=== PATIENT | male | born 1945 | race Caucasian/White ===

== ENCOUNTER 2020-10-08 10:42 | Outpatient (CLI) | payer MEDICARE, SELFPAY ==
--- NOTE | ~2020-10-08 | XR_ITS ---
EXAMINATION: XR foot RT min 3V DATE: 10/08/2020 11:35 INDICATION: Pain at the right first and second toes. TECHNIQUE: Dorsoplantar, two oblique and lateral views of the right foot were obtained. COMPARISON: Right ankle CT . FINDINGS: Diffuse osteopenia. Postoperative changes at the right ankle and hindfoot including a distal fibular osteotomy and internally fixed right tibiotalar arthrodesis with screws and lateral plate and screw f ixation. Chronic fracture of the distalmost screw of the lateral plate and screws which was present a t the time of a prior CT dated 03/06/2011. Normal alignment in the more anterior right mid and forefoo t. No fracture. Mild to moderate osteoarthritis at the first metatarsophalangeal joint. Mild osteoart hritis at several of the interphalangeal joints. Soft tissues are unremarkable. IMPRESSION: 1. No acute osseous abnormality. 2. Mild to moderate osteoarthritis at the first metatarsophalangeal joint and mild osteoarthritis at multiple interphalangeal joints. 3. Postoperative change of chronic internally fixed tibiotalar arthrodesis. 4. Diffuse osteopenia. Reviewed, dictated and finalized at location B. TS LEADERSHIP INSTRUCTOR IMPRESSION: 1. No acute osseous abnormality. 2. Mild to moderate osteoarthritis at the first metatarsophalangeal joint and m ild osteoarthritis at multiple interphalangeal joints. 3. Postoperative change of chronic internally fixed tibiotalar arthrodesis. 4. Diffuse osteopenia.
--- NOTE | ~2020-10-08 | XR_ITS ---
EXAMINATION: XR shoulder LT min 2V DATE: 10/08/2020 11:35 INDICATION: Chronic right shoulder pain TECHNIQUE: AP internally and externally rotated, AP oblique externally rotated and transscapular Y vi ews of the right shoulder were obtained. COMPARISON: None FINDINGS: Normal alignment. No fracture.Severe left glenohumeral osteoarthritis with essentially [id number] apposition, subarticular cystic change at the glenoid and prominent marginal osteophytes along the in feromedial aspect of the humeral head. Moderate acromioclavicular osteoarthritis with heterotopic oss ification cephalad to the joint line. Visualized portions of the lung are clear. Approximately 3 cm t hin wire-like metallic density in the subcutaneous tissues along the anterior proximal left upper arm . Soft tissues are otherwise unremarkable. IMPRESSION: 1. Severe left glenohumeral osteoarthritis and moderate acromioclavicular osteoarthritis. 2. Thin wire-like metallic foreign body in the subcutaneous tissues at the anterior proximal left upp er arm. Reviewed, dictated and finalized at location B. CH MIXER IMPRESSION: 1. Severe left glenohumeral osteoarthritis and moderate acromioclavicular osteo arthritis. 2. Thin wire-like metallic foreign body in the subcutaneous tissues at the ante rior proximal left upper arm.
--- NOTE | ~2020-10-08 | CT_ITS ---
EXAMINATION: CT lung screening DATE: 10/08/2020 11:37 INDICATION: Z87.891 - Personal history of nicotine dependence hx tobacco dependence, quit smk 1991 TECHNIQUE: Computed tomography (CT) of the chest was performed without intravenous contrast. Addition al 3D reconstructions utilizing coronal maximum intensity projection (MIP) were performed. Automated exposure control and iterative reconstruction technique were employed. The dose-length product was 14 3.16 mGy-cm. COMPARISON: None FINDINGS: 3 mm noncalcified right upper lobe nodule. 4 mm noncalcified pleural-based nodules in the right lower lobe. 2 mm calcified right lower lobe nodule. 7 mm groundglass nodule in the left upper lobe. Mild d iscoid atelectasis in the left lower lobe. No pneumonia, pulmonary edema or pleural effusion. Heart s ize is normal. Atherosclerotic coronary artery calcifications. No pericardial effusion. Thoracic aort a is normal in caliber. No pathologically enlarged thoracic lymphadenopathy. Calcified left hilar lym ph nodes consistent with old granulomatous disease. Moderate-sized sliding-type hiatal hernia. Diffus e hepatic steatosis. Multiple tiny splenic calcification consistent with old granulomatous disease. M oderate thoracic spondylosis. IMPRESSION: 1. Lung-RADS category 2: Benign appearance or behavior. Continue annual screening with noncontrast lo w-dose chest CT in 12 months. Reviewed, dictated and finalized at location B. ERY REPRESENTATIVE IMPRESSION: 1. Lung-RADS category 2: Benign appearance or behavior. Continue annual screeni ng with noncontrast low-dose chest CT in 12 months.
[2020-10-08 11:05] LABS: Hematocrit 44.9 % (37.0-46.0); Hemoglobin 15.4 g/dL (12.4-15.3); Mean Corpuscular HGB Conc 34.3 g/dL (32.0-36.0); Mean Corpuscular Hemoglobin 30.1 pg (27.0-31.0); Mean Corpuscular Volume 87.7 fL (78.0-102.0); Mean Platelet Volume 10.4 fl (8.7-11.0); Platelet Count Result 241 K/mm3 (150-420); Red Blood Count 5.12 M/mm3 (4.70-6.10); White Blood Count 7.9 K/mm3 (4.8-10.8)
[2020-10-08 11:57] LABS: Alanine Aminotransferase 31 U/L (16-63); Albumin Level 4.2 g/dL (3.4-5.0); Alkaline Phosphatase 81 U/L (46-116); Anion Gap 9 mmol/L (8-16); Aspartate Amino Transferase 14 U/L (15-37); Bilirubin,Total 0.7 mg/dL (0.00-1.00); Blood Urea Nitrogen 13 mg/dL (7-18); Calcium 9.3 mg/dL (8.5-10.1); Carbon Dioxide 28 mmol/L (21-32); Chloride 104 mmol/L (98-108); Estimated Glomerular Filt Rate 60; Glucose 138 mg/dL (70-99); Osmolality Calculated 294 mOsm/kg (285-295); Potassium 5.2 mmol/L (3.5-5.1); Sodium 141 mmol/L (136-145); Total Protein 7.2 g/dL (6.4-8.2); Uric Acid 6.6 mg/dL (3.5-7.2)
== END 2020-10-08 10:43 | disposition home or self-care (01) ==
PROVIDERS: PCP Family Medicine; Visit Provider Family Medicine
DX: M79.674 Pain in right toe(s) (principal); Z12.2 Encounter for screening for malignant neoplasm of respiratory organs; Z87.891 Personal history of nicotine dependence; M25.519 Pain in unspecified shoulder
CPT/HCPCS: 36415; 71271; 73030; 73630; 80053; 84550; 85027

== ENCOUNTER 2020-11-08 17:08 | Emergency (ER) | payer MEDICARE, SELFPAY ==
--- NOTE | ~2020-11-08 | CT_ITS ---
EXAMINATION: CT chest abdomen pelvis w con DATE: 11/08/2020 18:25 INDICATION: Chest and abdominal injury. TECHNIQUE: Computed tomography (CT) of the chest, abdomen, and pelvis was performed with 100 mL Omnip aque 350 intravenous contrast. Automated exposure control and iterative reconstruction technique were employed. The dose-length product was 733.34 mGy-cm. COMPARISON: Chest CT 10/08/2020 FINDINGS: CHEST CT: Again seen are a few scattered nodules in the lungs measuring up to 5 mm in right lower lobe, likely benign. No pleural effusion. The heart size is normal. There are coronary artery calcifications. No p ericardial effusion. 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 There is a large sliding h iatal hernia. There is a comminuted fractures involving the greater tuberosity and surgical neck of p roximal left humerus. There is severe osteoarthritis of left glenohumeral and acromioclavicular joint s. There are old healed bilateral rib fractures. ABDOMEN/PELVIS CT: In the right hepatic lobe, there is a 3.6 cm mass with peripheral interrupted puddling of contrast, c onsistent with a hemangioma. The gallbladder is normal. Calcifications in the spleen are consistent w ith old granulomatous disease. The pancreas and adrenal glands and left kidney are normal. There are cysts in right kidney measuring up to 4 mm. The prostate is mildly enlarged. There is diverticulosis of the colon without evidence of diverticulitis. There are no dilated loops of bowel. There are no pa thologically enlarged lymph nodes. There is no free intraperitoneal fluid. Partially visualized are b ilateral hydroceles. There is severe lumbar spondylosis. IMPRESSION: 1. Comminuted one-fracture of proximal left humerus. 2. Large sliding hiatal hernia. Reviewed, dictated and finalized at location A.
--- NOTE | ~2020-11-08 | XR_ITS ---
EXAMINATION: XR shoulder LT min 2V DATE: 11/08/2020 18:12 INDICATION: Left shoulder pain. TECHNIQUE: 2 views of left shoulder were obtained. COMPARISON: Left shoulder radiographs 10/08/2020 FINDINGS: There is a transverse fracture of the surgical neck of proximal left humerus. The distal fr acture fragment demonstrates mild impaction and 3 mm lateral displacement. There is severe osteoarthr itis of glenohumeral and acromioclavicular joints. There is a chronic curvilinear radiopaque foreign body in the upper arm. IMPRESSION: 1. One-part fracture of proximal left humerus. 2. Polyarticular osteoarthritis. Reviewed, dictated and finalized at location A.
[2020-11-08 17:19] VITALS: BP 183/95; PULSE 66; RESP 18; TEMP 36.7; O2SAT 99
[2020-11-08] MEDS: MORPHINE SULFATE (*CRX) 4 MG/ML INJ IV PUSH ×2 (17:31→18:35)
--- NOTE | 2020-11-08 17:36 | ED.GENADULT ---
HPI - General Adult General Chief complaint: Extremity Injury, Upper Stated complaint: left shoulder dislocation Time Seen by Provider: 11/08/20 17:10 Source: patient Mode of arrival: ambulatory Limitations: no limitations History of Present Illness HPI narrative: Patient is a 75-year-old male who presents with left shoulder chest trauma patient was training his horse when he was knocked down by the horse patient has since developed a hematoma to the anterior left upper chest and shoulder region with pain at this location denies any other injuries or complaints notes that the discomfort is moderate again worse with any activity or movement patient has not had anything for pain presents per private vehicle denies loss of consciousness or syncope Related Data Home Medications Medication Instructions Recorded Confirmed aspirin 81 mg tablet,delayed 81 mg PO DAILY 10/08/20 11/07/20 release Allergies Allergy/AdvReac Type Severity Reaction Status Date / Time No Known Allergies Allergy Verified 11/08/20 17:25 Review of Systems Review of Systems: All systems reviewed & are unremarkable except as noted in HPI and below PMFSH Past Medical History Medical History No active medical problems Social History Social History Smoking status: Never smoker Tobacco type: cigarettes Alcohol intake: never Substance use: never Substance use type: does not use Spiritual care concerns: No Exam Narrative: Exam Narrative: GENERAL: Well-appearing, well-nourished, uncomfortable, and in no acute distress. HEAD: Normocephalic, atraumatic. EYES: PERRLA and EOMI. ENT: Nares clear, no rhinorrhea or epistaxis. Mucous membranes moist. NECK: Supple. No adenopathy or masses. CHEST: Clear to auscultation. No respiratory distress. No wheezes rales or rhonchi HEART: Regular rate and rhythm. No murmur heard. Normal peripheral pulses. ABDOMEN: Soft, nontender, nondistended, EXTREMITIES: Swelling and tenderness of the left deltoid shoulder region with hematoma over the clavicle distally. No midline cervical thoracic or lumbar tenderness SKIN: Warm, dry, no rash. NEURO: No focal deficits. Alert and oriented x3. Cranial nerves II through XII grossly intact. Neurovascularly intact PSYCH: Normal mood and affect. Course Course Emergency Course: Patient in the room in no distress aware of case findings treatment plan and diagnosis patient with significant pain likely secondary to hematoma and fracture will be followed by orthopedic surgeon Dr. West discussion was made with him. Patient will go home and follow with orthopedic surgeon as planned. Consultations Consultation #1: Discussed case with orthopedist who will follow patient in clinic Date: 11/08/20 Time: 20:37 Vital Signs Vital signs: Vital Signs Temperature 98.0 F 11/08/20 17:19 Pulse Rate 66 11/08/20 17:19 Respiratory Rate 18 11/08/20 17:19 Blood Pressure 183/95 H 11/08/20 17:19 Pulse Oximetry 99 11/08/20 17:19 Temperature 98.0 F 11/08/20 17:19 Pulse Rate 66 11/08/20 17:19 Respiratory Rate 18 11/08/20 17:19 Blood Pressure 183/95 H 11/08/20 17:19 Pulse Oximetry 99 11/08/20 17:19 Medical Decision Making MDM Narrative Medical decision making narrative: Patients injury or pain is consistent with musculoskeletal etiology. No signs of neurological or vascular compromise on exam. Compartments and tisues are soft without signs of compartment syndrome. Pain is felt appropriate for further evaluation on an outpatient basis. ABCs and vital signs intact. Patient placed in immobilizer Vital Signs Vital Signs: Vital Signs Temperature 98.0 F 11/08/20 17:19 Pulse Rate 66 11/08/20 17:19 Respiratory Rate 18 11/08/20 17:19 Blood Pressure 183/95 H 11/08/20 17:19 Pulse Oximetry 99 11/08/20 17:19 Temperature 98.
[2020-11-08] MEDS: SODIUM CHLORIDE 0.9% IV 1,000 ML 999 ML IV CONT (17:47)
[2020-11-08 17:54] LABS: Basophils Absolute Auto 0.1 K/mm3 (0.0-0.1); Basophils Percent Auto 0.6 % (0.2-1.2); Eosinophils Absolute Auto 0.1 K/mm3 (0-0.3); Eosinophils Percent Auto 0.4 % (0-4.4); Hematocrit 41.8 % (42.0-52.0); Hemoglobin 14.7 g/dL (14.0-18.0); Immature Granulocyte Percent A 0.7 % (0-0.5); Lymphocytes Absolute Auto 1.04 K/mm3 (0.9-3.2); Lymphocytes Percent Auto 7.2 % (18.3-44.2); Mean Corpuscular HGB Conc 35.2 g/dl (32-36); Mean Corpuscular Hemoglobin 30.7 pg (26-34); Mean Corpuscular Volume 87.3 fl (80-100); Mean Platelet Volume 10.3 fl (7.4-10.4); Monocytes Absolute Auto 0.8 K/mm3 (0.1-0.6); Monocytes Percent Auto 5.7 % (2.6-8.5); Neutrophils Absolute Auto 12.3 K/mm3 (1.3-6.7); Neutrophils Percent Auto 85.4 % (45.5-73.1); Platelet Count Result 236 k/mm3 (150-375); Red Blood Count 4.79 M/mm3 (4.6-6.20); Red Cell Distribution Width 13.1 % (11.5-14.5); White Blood Count 14.4 K/mm3 (4.5-10.0)
[2020-11-08 18:03] LABS: INR 0.9; Partial Thromboplastin Time 25.6 SECONDS (22.3-36.8); Prothrombin Time 12.8 Seconds (11.1-14.7)
[2020-11-08 18:14] LABS: Anion Gap 9 mmol/L (8-16); Blood Urea Nitrogen 13 mg/dL (9-20); Calcium 8.4 mg/dL (8.4-10.2); Carbon Dioxide 22 mmol/L (22-30); Chloride 106 mmol/L (98-107); Estimated CRCL calculation 51 ml/min; Estimated Glomerular Filt Rate > 60; Glucose 201 mg/dL (75-110); Sodium 137 mmol/L (137-145)
[2020-11-08 18:23] LABS: Potassium 3.8 mmol/L (3.4-5.0)
[2020-11-08] MEDS: diazePAM (*CRX) 5 MG TABLET PO (19:07)
[2020-11-08] MEDS: HYDROmorphone HCL INJ (*CRX) 1 MG/ML SYR IV PUSH (20:01)
[2020-11-08] MEDS: HYDROcodone/acetaminophen (*CRX) 10-325 MG TABLET 1 TAB PO (20:58)
[2020-11-08 21:51] VITALS: BP 140/72; PULSE 78; RESP 20; O2SAT 99
== END 2020-11-08 21:53 | disposition home or self-care (01) ==
PROVIDERS: Emergency Medicine Emergency Medical Services; Emergency Provider Emergency Medicine; PCP Family Medicine
DX: S42.212A Unspecified displaced fracture of surgical neck of left humerus, initial encounter for closed fracture (principal); K44.9 Diaphragmatic hernia without obstruction or gangrene; M19.012 Primary osteoarthritis, left shoulder; W55.12XA Struck by horse, initial encounter
CPT/HCPCS: 36415; 71260; 73030; 74177; 80048; 85025; 85610; 85730; 96361; 96374; 96375; 96376; 99284; A9270; J1170; J2270; J7030; Q9967

== ENCOUNTER → 2020-11-12 00:25 | Outpatient (CLI) | payer MEDICARE, SELFPAY ==
[2020-11-12 19:29] LABS: SARS-CoV-2 RNA PCR Negative
== END ==
PROVIDERS: PCP Family Medicine; Visit Provider Surgery
DX: Z01.812 Encounter for preprocedural laboratory examination (principal); Z20.822 Contact with and (suspected) exposure to COVID-19
CPT/HCPCS: C9803; U0003; U0005

== ENCOUNTER 2020-11-15 01:48 | Day surgery (SDC) | payer MEDICARE, SELFPAY ==
[2020-11-07 12:13] VITALS: BMI 26.6
[2020-11-15 07:39] VITALS: BP 173/99; PULSE 69; RESP 20; TEMP 36.4; O2SAT 100; BMI 26.6
[2020-11-15] MEDS: LACTATED RINGERS 1,000 ML 150 ML IV CONT (07:50)
--- NOTE | 2020-11-15 08:43 | PM.IMHP ---
H&P: HPI History of Present Illness Date/Time: 11/15/20 08:43 Chief Complaint: positive colo guard Narrative: this is a 75-year-old man presents with a recent positive guard test. He has never had a colonoscopy before. He denies any family history of colon cancer. He denies any personal history of hematochezia melena. Review of Systems Review of Systems: All systems reviewed & are unremarkable except as noted in HPI and below Constitutional: Constitutional: Denies chills, Denies fever(s), Denies headache(s) and Denies weight loss Eyes: Eyes: Denies change in vision ENT: Denies dizziness, Denies headache(s), Denies neck mass and Denies throat swelling Cardiovascular: Cardiovascular: Denies chest pain, Denies lightheadedness and Denies dyspnea Respiratory: Respiratory: Denies cough, Denies dyspnea and Denies wheezing Gastrointestinal: Gastrointestinal: Denies abdominal pain, Denies change in bowel habits, Denies nausea and Denies vomiting Genitourinary: Genitourinary: Denies hematuria and Denies dysuria Musculoskeletal: Musculoskeletal: Reports as per HPI Integumentary/Breasts: Skin/Breast: Reports as per HPI Neurologic: Denies dizziness and Denies headache(s) Allergic/Immunologic: Allergic/Immunologic: Denies throat swelling and Denies wheezing PMFSH Past Medical History Medical History (Updated 11/12/20 @ 14:49 by Henrique West MD) Insomnia Need for vaccination against Streptococcus pneumoniae using pneumococcal conjugate vaccine 13 No active medical problems Toe pain, right Surgical History Surgical History (Updated 11/12/20 @ 13:14 by Qiana Melchor MA) History of intravascular stent placement (~07/10/12) Social History Social History Smoking status: Never smoker Tobacco type: cigarettes Alcohol intake: never Substance use: never Substance use type: does not use Living arrangements: alone Spiritual care concerns: No Meds Home Medications and Allergies Home Medications Medication Instructions Recorded Confirmed Type hydrocodone-acetaminophen 1 tablet PO Q6H PRN #20 tablet 11/08/20 11/15/20 Rx methocarbamol [Robaxin-750] 750 mg PO QID #10 tablet 11/08/20 11/15/20 Rx oxycodone-acetaminophen 5 mg-325 1 - 2 tablet PO Q4-6H PRN #30 11/12/20 11/15/20 Rx mg tablet tablet Allergies Allergy/AdvReac Type Severity Reaction Status Date / Time No Known Allergies Allergy Verified 11/15/20 07:06 Vital Signs Vital Signs - 24 hr 11/15/20 07:39 Temperature 36.4 C Pulse Rate 69 Respiratory Rate 20 Blood Pressure 173/99 H Pulse Oximetry 100 Exam Const: General: no acute distress and alert Orientation/consciousness: patient oriented x3 HENMT: Head: normocephalic and atraumatic Ears: hearing grossly normal bilaterally General nose exam: Normal nares present Mouth: Yes Normal oral and palatal mucosa present Eyes: Periorbital: periorbital findings normal Sclera: sclerae normal EOM: EOMs intact bilaterally Neck: Neck: normal visual inspection, no lymphadenopathy and trachea midline Chest: Chest palpation & inspection: normal inspection of the chest Resp: Effort & Inspection: normal respiratory effort Auscultation: clear to auscultation bilaterally Cardio: Jugular venous distension: no JVD Rate: regular rate Rhythm: regular rhythm Heart sounds: S1 normal heart sound present and S2 normal heart sound present Peripheral pulses: Peripheral pulses 2+ throughout GI: Inspection: normal to inspection GI Palp: Yes Soft to palpation, No Tenderness to palpation present (GI), No Guarding due to palpation present (GI) and No Rebound tenderness present Percussion: Yes normal to percussion Auscultation: normal bowel sounds : General: Yes no CVA tenderness Back/Spine/Pelvis: Back: no CVA tenderness Neuro: General: patient oriented x3, no focal motor deficits and CN's II-XI intact bilaterally Cogniti
--- NOTE | 2020-11-15 08:43 | WPDANESEPPF ---
Anes - Initial Pre Proc Eval Procedure: Operation Date: 11/15/20 08:30 Proposed Procedures p Colonoscopy - Deon Boswell DO Date/Time: 11/15/20 08:43 Surgeon: Deon Boswell DO Pre Op Diagnosis: positive cologuard Patient Data Age: 75 Gender: M Height: 5 ft 6 in Weight: 74.7 kg Last Vital Signs Temp 97.6 F 11/15/20 07:39 Pulse 69 11/15/20 07:39 Resp 20 11/15/20 07:39 BP 173/99 H 11/15/20 07:39 Pulse Ox 100 11/15/20 07:39 Allergies Allergy/AdvReac Type Severity Reaction Status Date / Time No Known Allergies Allergy Verified 11/15/20 07:06 Home Medications Medication Instructions Recorded Confirmed Type hydrocodone-acetaminophen 1 tablet PO Q6H PRN #20 tablet 11/08/20 11/15/20 Rx methocarbamol [Robaxin-750] 750 mg PO QID #10 tablet 11/08/20 11/15/20 Rx oxycodone-acetaminophen 5 mg-325 1 - 2 tablet PO Q4-6H PRN #30 11/12/20 11/15/20 Rx mg tablet tablet Patient hx anesthesia problems: none Family hx anesthesia problems: none PMFSH Past Medical History Medical History (Updated 11/12/20 @ 14:49 by Henrique West MD) Insomnia Need for vaccination against Streptococcus pneumoniae using pneumococcal conjugate vaccine 13 No active medical problems Toe pain, right Surgical History Surgical History (Updated 11/12/20 @ 13:14 by Qiana Melchor MA) History of intravascular stent placement (~07/10/12) Social History Social History Smoking status: Never smoker Tobacco type: cigarettes Alcohol intake: never Substance use: never Substance use type: does not use Living arrangements: alone Spiritual care concerns: No Anes - Eval Final PreProcedure Day of Procedure 11/15/20 08:43 Patient weight: overweight Heart: regular rate and rhythm Airway: Mallampati scale class II Neurological: alert and oriented Last oral intake: >/= 8 hours ASA classification: II Emergent: no Anesthetic plan: proceed Anesthesia type and monitoring: general GIVS and standard monitoring Informed Consent: The patient's anesthetic plan and its attendant risks and benefits were discussed with the patient/family/POA. Questions were solicited and answers provided to the satisfaction of the patient/family/POA.
[2020-11-15 09:22] VITALS: BP 121/63; PULSE 56; RESP 22; O2SAT 98
[2020-11-15 09:32] VITALS: BP 134/78; PULSE 58; RESP 24; O2SAT 100
[2020-11-15 09:42] VITALS: BP 139/70; PULSE 56; RESP 18; O2SAT 99
== END 2020-11-15 10:00 | disposition home or self-care (01) ==
PROVIDERS: PCP Family Medicine; Visit Provider Surgery
PROC: 0DJD8ZZ Inspection of Lower Intestinal Tract, Via Natural or Artificial Opening Endoscopic (ICD-10-PCS; CPT 45378; principal; 2020-11-15 08:30)
DX: R19.5 Other fecal abnormalities (principal); D12.5 Benign neoplasm of sigmoid colon; K57.30 Diverticulosis of large intestine without perforation or abscess without bleeding; K64.8 Other hemorrhoids; G47.00 Insomnia, unspecified
CPT/HCPCS: 45380; 88305; C9803; J2704; J7120; U0003; U0005

== ENCOUNTER 2021-01-14 09:15 | Outpatient (CLI) | payer MEDICARE, SELFPAY ==
--- NOTE | ~2021-01-14 | XR_ITS ---
EXAMINATION: XR foot RT min 3V DATE: 01/14/2021 09:32 INDICATION: Right foot pain. Stubbed second toe 7 months prior. TECHNIQUE: Dorsoplantar, oblique and lateral views of the right foot were obtained. COMPARISON: None. FINDINGS: Diffuse osteopenia. Chronic osteotomy of the distal fibula. Postoperative changes at the right ankle and hindfoot including a distal fibular osteotomy and internally fixed right tibiotalar arthrodesis w ith screws and lateral plate and screw fixation. Chronic fracture of the distalmost screw of the late ral plate and screws which was present at the time of a prior CT dated 03/06/2011. Normal alignment in the more anterior right mid and forefoot. No fracture. Mild to moderate osteoarthritis at the first metatarsophalangeal joint. Mild osteoarthritis at several of the interphalangeal joints. Soft tissues are unremarkable. IMPRESSION: 1. No acute osseous abnormality. 2. Mild to moderate osteoarthritis at the first metatarsophalangeal joint and mild osteoarthritis at multiple interphalangeal joints. 3. Postoperative change of chronic internally fixed tibiotalar arthrodesis. 4. Diffuse osteopenia. Reviewed, dictated and finalized at location A. IMPRESSION: 1. No acute osseous abnormality. 2. Mild to moderate osteoarthritis at the first metatarsophalangeal joint and m ild osteoarthritis at multiple interphalangeal joints. 3. Postoperative change of chronic internally fixed tibiotalar arthrodesis. 4. Diffuse osteopenia.
== END 2021-01-14 09:16 | disposition home or self-care (01) ==
LOC: CHSIMG 09:18
PROVIDERS: PCP Family Medicine; Visit Provider Podiatrist
DX: L97.511 Non-pressure chronic ulcer of other part of right foot limited to breakdown of skin (principal); M79.671 Pain in right foot
CPT/HCPCS: 73630

== ENCOUNTER 2021-02-04 07:35 | Outpatient (CLI) | payer MEDICARE, SELFPAY ==
--- NOTE | 2021-02-04 07:39 | EST_ITS ---
Patient Info Name: Chris Mabry Age: 75 years : 1945 Gender: Male Ht: 66 in Wt: 164 lbs BSA: 1.88 m2 HR: 55 bpm BP: 150 / 75 mmHg Heart Rhythm: Bradycardia Technical Quality: Excellent Exam Date: 02/04/2021 8:50 AM Exam Location: [facility] Patient Status: Outpatient Admit Date: 02/04/2021 Staff Ordering Physician: Lowell Mosley DO Attending Provider: Pillo PINEDA CEP Exercise Technologist: Meli Mariscal CRT Exercise Physician: Kassy Pineda CEP Exam Type: CA stress daniel w NM Study Info Indications ChestPain - A nuclear stress test was performed. History/Risk Factors NA. Summary 1. 1. Negative Lexiscan stress test for ischemic ST changes by ECG criteria. 2. 2. Baseline hypertension. 3. 3. Nuclear scan to follow and will be reported separately. Please correlate with it. Protocol: LEXISCAN Stress ECG Details Stage: REST Duration (min): 3 min : 22 sec HR (bpm): 55 SBP (mmHg): 150 DBP (mmHg): 75 Stage: REST Duration (min): 6 min : 54 sec HR (bpm): 53 SBP (mmHg): 150 DBP (mmHg): 75 Stage: STAGE 1 Duration (min): 0 min : 10 sec HR (bpm): 55 SBP (mmHg): 150 DBP (mmHg): 75 Stage: RECOVERY Duration (min): 0 min : 49 sec HR (bpm): 61 SBP (mmHg): 150 DBP (mmHg): 75 Stage: RECOVERY Duration (min): 1 min : 49 sec HR (bpm): 67 SBP (mmHg): 150 DBP (mmHg): 75 Stage: RECOVERY Duration (min): 2 min : 49 sec HR (bpm): 63 SBP (mmHg): 167 DBP (mmHg): 77 Stage: RECOVERY Duration (min): 3 min : 49 sec HR (bpm): 60 SBP (mmHg): 163 DBP (mmHg): 76 Stage: RECOVERY Duration (min): 4 min : 49 sec HR (bpm): 59 SBP (mmHg): 170 DBP (mmHg): 74 Stage: RECOVERY Duration (min): 5 min : 49 sec HR (bpm): 58 SBP (mmHg): 166 DBP (mmHg): 74 Stage: RECOVERY Duration (min): 6 min : 5 sec HR (bpm): 59 SBP (mmHg): 166 DBP (mmHg): 74 Rest HR: 53 bpm Peak HR: 67 bpm Rest Sys BP: 150 mmHg Peak Sys BP: 170 mmHg Max Pred HR: 145 bpm % Max Pred HR: 46 % Target HR: 123 bpm Max RPP: 11,390 bpm*mmHg Termination Reason: Completion of Protocol Cardiac Symptoms: None Total Time: 0 min : 10 sec Rest [place] BP: 75 mmHg Peak [place] BP: 74 mmHg Total Dose: 0.4 mg Resting ECG Sinus bradycardia, anterior infarct, age indeterminate, ST-T wave abnormality in lateral leads- consider ischemia. Stress ECG No abnormal ST/T wave changes with exercise. Arrhythmias None. Report Signatures
--- NOTE | 2021-02-04 12:03 | WPDCARIOSTRE ---
Nuclear Stress Test INDICATIONS Indications: Chest pain PROCEDURE Procedure Performed: Myocardial Perf Spect-Multi Procedure: Patient underwent a lexiscan stress test and immediately was injected with mCi of cardiolyte. Multiple tomographic images were obtained. These were of good quality. There is evidence of large size, severe apical, anteroapical and anterior perfusion defects with stress imaging. A separate resting images were performed after patient was injected with mCi of cardiolyte.Multiple tomographic images were obtained. These were of good quality. There is evidence of large size, severe apical perfection defect. In addition, there is a small size mild severity anterior and anteroapical perfusion defects with rest imaging. CONCLUSION Conclusion: 1. Abnormal myocardial perfusion imaging demonstrating a fixed large size, severe apical perfusion defect suggestive of apical infarct. In addition, there is [place]-infarct ischemia involving the anterior and anteroapical cunningham. 2. Left ventriculogram demonstrates apical akinesis and anteroapex hypokinesis. The measured left ventricular EF is moderate reduced at 44%. 3. TID score is elevated at 1.26 and LV does visually dilate with stress imaging which cannot r/o LM or triple vessel disease.
== END 2021-02-04 07:36 | disposition home or self-care (01) ==
LOC: CHSIMG 07:39
PROVIDERS: PCP Family Medicine; Visit Provider Family Medicine
DX: R07.9 Chest pain, unspecified (principal)
CPT/HCPCS: 78452; 93017; A9502; J2785

== ENCOUNTER 2021-03-18 15:28 | Outpatient (CLI) | payer MEDICARE, SELFPAY ==
--- NOTE | 2021-03-18 15:31 | ECG_ITS ---
Measurements Intervals [place] Rate: 58 P: 46 MN: 153 QRS: 26 QRSD: 95 T: 114 QT: 414 QTc: 409 Interpretive Statements SINUS BRADYCARDIA ANTEROLATERAL INFARCT, AGE INDETERMINATE BORDERLINE ST-T WAVE ABNORMALITY- HIGH LATERAL LEADS ABNORMAL ECG Electronically Signed On 03-18-2021 16:52:52 CDT by Eric Baker D.O.
== END 2021-03-18 15:29 | disposition home or self-care (01) ==
PROVIDERS: PCP Family Medicine; Visit Provider Internal Medicine Cardiovascular Disease
DX: R07.9 Chest pain, unspecified (principal)
CPT/HCPCS: 93005

== ENCOUNTER → 2021-03-30 03:45 | Outpatient (CLI) | payer MEDICARE, SELFPAY ==
[2021-03-31 01:36] LABS: SARS-CoV-2 RNA PCR Negative
== END ==
PROVIDERS: PCP Family Medicine; Visit Provider Specialist
DX: Z01.812 Encounter for preprocedural laboratory examination (principal); Z20.822 Contact with and (suspected) exposure to COVID-19
CPT/HCPCS: C9803; U0003; U0005

== ENCOUNTER 2021-04-03 02:05 | Day surgery (SDC) | payer MEDICARE, SELFPAY ==
[2021-04-03] VITALS (18 sets, daily range): BP systolic 136–163; BP diastolic 66–97; PULSE 48–63; RESP 11–20; TEMP 35.8–36.2; O2SAT 95–99; BMI 25.5
[2021-04-03 09:09] LABS: Basophils Absolute Auto 0.1 K/mm3 (0.0-0.1); Basophils Percent Auto 1.1 % (0.2-1.2); Eosinophils Absolute Auto 0.2 K/mm3 (0-0.3); Eosinophils Percent Auto 3.6 % (0-4.4); Hematocrit 46.4 % (42.0-52.0); Hemoglobin 15.6 g/dL (14.0-18.0); Immature Granulocyte Absolute 0.02 K/mm3 (0.00-0.031); Immature Granulocyte Percent A 0.3 % (0-0.5); Lymphocytes Absolute Auto 1.98 K/mm3 (0.9-3.2); Lymphocytes Percent Auto 29.9 % (18.3-44.2); Mean Corpuscular HGB Conc 33.6 g/dl (32-36); Mean Corpuscular Hemoglobin 28.9 pg (26-34); Mean Corpuscular Volume 86.1 fl (80-100); Mean Platelet Volume 10.3 fl (7.4-10.4); Monocytes Absolute Auto 0.6 K/mm3 (0.1-0.6); Monocytes Percent Auto 9.5 % (2.6-8.5); Neutrophils Absolute Auto 3.7 K/mm3 (1.3-6.7); Neutrophils Percent Auto 55.6 % (45.5-73.1); Platelet Count Result 220 k/mm3 (150-375); Red Blood Count 5.39 M/mm3 (4.6-6.20); Red Cell Distribution Width 13.5 % (11.5-14.5); White Blood Count 6.6 K/mm3 (4.5-10.0)
[2021-04-03 09:30] LABS: Anion Gap 9 mmol/L (8-16); Blood Urea Nitrogen 11 mg/dL (9-20); Calcium 9.4 mg/dL (8.4-10.2); Carbon Dioxide 24 mmol/L (22-30); Chloride 104 mmol/L (98-107); Estimated CRCL calculation 56 ml/min; Estimated Glomerular Filt Rate > 60; Glucose 137 mg/dL (65-110); Potassium 3.9 mmol/L (3.4-5.0); Sodium 137 mmol/L (137-145)
--- NOTE | 2021-04-03 11:10 | WPDMODSED ---
Moderate Sedation Note-Pt Data Patient Data Diagnosis: history of coronary artery disease with previous PCI to OM1 extensive peripheral vascular disease anticipating surgical revascularization of the lower extremity abnormal nuclear stress test suggesting anteroapical infarction Present Complaint: no active anginal complaints Procedure to be performed/Plan: coronary angiography left ventriculography Allergies Allergy/AdvReac Type Severity Reaction Status Date / Time No Known Allergies Allergy Verified 04/03/21 09:14 Home Medications Medication Instructions Recorded Confirmed Type hydrocodone 5 mg-acetaminophen 325 1 tablet PO Q8H PRN #30 tablet 01/14/21 04/02/21 Rx mg tablet quetiapine 50 mg tablet See Rx Instructions .ROUTE 03/04/21 03/18/21 Rx .COMPLEX #30 tablet aspirin 81 mg tablet,delayed 81 mg PO DAILY 03/18/21 04/02/21 History release simvastatin 10 mg tablet 10 mg PO DAILY 03/18/21 04/03/21 History Current Medications: Active Medications Sodium Chloride (Normal Saline Iv) 500 mls @ 100 mls/hr IV CONT .Q5H BLANCA Sodium Chloride (Normal Saline Iv) 1,000 mls @ 125 mls/hr IV CONT .Q8H ONE Stop: 04/03/21 19:08 Sedation/Anesthesia: No previous sedation/anesthesia problems (including family history). [facility] Past Medical History Medical History Insomnia Need for vaccination against Streptococcus pneumoniae using pneumococcal conjugate vaccine 13 No active medical problems Toe pain, right Surgical History Surgical History History of intravascular stent placement (~07/10/12) Social History Social History Smoking status: Former smoker Tobacco type: cigarettes Alcohol intake: never Substance use: never Substance use type: does not use Spiritual care concerns: No Mod Sed Physical Exam Physical Exam Pre Procedural Exam: Normal: Throat, Airway, Lungs, Heart Size, Heart Rate, Heart Rhythm and Neuro Exam and Variation: Appearance ( pleasant short-statured man) and Extremities ( no edema poor distal arterial pulses) Hours since solid foods: 12 Hours since liquid intake: 12 Mallampati Classification: class II Internal Medicine - PN: Obj Da Vital Signs Vital Signs: Vital Signs - 24 hr 04/03/21 09:15 Temperature 36.2 C L Pulse Rate 60 Respiratory Rate 20 Blood Pressure 153/84 H Pulse Oximetry 98 Meds/Results Medications: Active Medications Generic Name Dose Route Start Last Admin Trade Name Giovanni PRN Reason Stop Dose Admin Sodium Chloride 500 mls @ 100 mls/hr 04/03/21 08:30 Normal Saline Iv IV CONT .Q5H BLANCA Sodium Chloride 1,000 mls @ 125 mls/hr 04/03/21 11:09 Normal Saline Iv IV CONT 04/03/21 19:08 .Q8H ONE Labs CBC & Chem 7: 04/03/21 08:45 04/03/21 08:45 Labs: Laboratory Results - last 24 hr 04/03/21 04/03/21 08:45 08:45 WBC 6.6 RBC 5.39 Hgb 15.6 Hct 46.4 MCV 86.1 MCH 28.9 MCHC 33.6 RDW 13.5 Plt Count 220 MPV 10.3 Immature Gran % (Auto) 0.3 Neut % (Auto) 55.6 Lymph % (Auto) 29.9 Rice % (Auto) 9.5 H Eos % (Auto) 3.6 Baso % (Auto) 1.1 Lymph # (Auto) 1.98 Rice # (Auto) 0.6 Eos # (Auto) 0.2 Baso # (Auto) 0.1 Abs Immat Gran (auto) 0.02 Absolute Neuts (auto) 3.7 Absolute Nucleated RBC 0.0 Nucleated RBC % 0.0 Sodium 137 Potassium 3.9 Chloride 104 Carbon Dioxide 24 Anion Gap 9 BUN 11 Creatinine 0.90 Estim Creat Clear Calc 56 Estimated GFR > 60 Glucose 137 H Calcium 9.4 ASA Classification/Sedation ASA Classification/Sedation ASA Class: II Emergent: No Risks: Risks, benefits and alternatives explained and patient/family accepted plan for sedation. Patient re-evaluated immediately prior to sedation.
--- NOTE | 2021-04-03 11:12 | WPDCARDPROC ---
Cardiac Cath Procedure Note Date of procedure:: 04/03/21 Performing physician:: Shahram Rod MD Indication:: coronary artery disease with abnormal nuclear stress test peripheral vascular disease anticipating surgical revascularization Brief clinical history:: this 75-year-old man with coronary disease describing previous stenting of the OM circumflex branch at another hospital. He is not experiencing anginal symptoms. A nuclear stress test was done in anticipation of the surgical risk assessment and demonstrates evidence of previous anteroapical infarction. Procedure Procedure performed:: Coronary angiogram left ventriculogram Sedation/Medication given:: fentanyl 50 mg Versed 2 mg case start time was 10:37 a.m. case end time 11:03 a.m. sedation provided by Olivia Padilla RN, trained observer Access site:: left femoral artery Estimated blood loss:: 20 cc Procedure note:: patient was brought to the cardiac catheterization lab where the right left femoral triangles were prepped and draped in usual fashion. Anesthesia was provided in the left femoral triangle with 1% lidocaine. I could not feel a pulse in the right femoral artery and for but palpable pulse on the left side. The left femoral artery was punctured and I used a Bernard wire to access the central aortic circulation and then a 5 Vincentian JR4 catheter was advanced into the aorta over the wooly wire. The right coronary artery was then injected using this catheter orthogonal views. This was then exchanged using a 260 J-wire to advance a 5 Vincentian FL4 catheter to the central aorta engaging and injecting the left coronary artery multiple projections. After this the same long exchange wire was used to place a 5 Vincentian angled pigtail catheter into the central aorta and into the left ventricle. The left ventricle was injected in the [place] projection for LV g and central hemodynamics were measured. Following this the cineangiograms were reviewed and the case was terminated. The left femoral artery sheath was flushed and the patient was taken to the holding area for manual sheath removal. Procedure was well tolerated there were no apparent complications did not have any evidence of a groin hematoma upon leaving the construction or leak gang laborer. Findings:: Hemodynamics: The central aortic pressure is 1 36 over 52 left ventricle 136 over 5 end-diastolic 14 there is no systolic gradient on pullback over the aortic valve. Left ventricle: The LV appears to be normal in size the mid to apical anterior wall is akinetic the remainder of the LV contracts reasonably well the global ejection fraction is visually estimated to be 40% the left main coronary artery is calcified but medium in caliber and otherwise patent the left anterior descending is a medium caliber artery with a proximal discrete high-grade stenosis of about 80%. The LAD is then free of significant lesions still the midportion where it appears to be 100% occluded and then reconstituted by antegrade bridging collaterals the mid to the apical portion of the LAD that is filled by these collaterals is very small and diffusely diseased circumflex is a moderate caliber artery giving rise to the marginal branches the 1st OM branch has visible stent material in it and this segment is nicely patent with no loss of lumen. The circumflex is otherwise moderately diffusely disease there is a terminal a very small circumflex marginal branch that has about 80% stenosis. The right coronary artery is large in caliber and dominant to the posterior circulation there is a proximal 60% stenosis in the RCA the trunk of the vessel is otherwise free of significant lesions the RPDA is very small and diffusely disease there are 2 areas where there is 70-80% stenosis in the small distal portion of the RPDA. The RPL branch is small but free of significant lesions. Conclusion:: 1. Right coronary dominant circulation with some rather severe diffuse coronary camille
--- NOTE | 2021-04-03 17:55 | SUR.PHASEII ---
DISCHARGE INSTRUCTIONS GIVEN AND REVIEWED W/ PT. ALL QUESTIONS ANSWERED. VOICED UNDERSTANDING OF ALL. DISCHARGED HOME, OUT VIA WC TO FRIEND'S WAITING CAR, WITH ALL PERSONAL BELONGINGS AND DISCHARGE PACKET. VOICES NO C/O. NO DISTRESS NOTED.
== END 2021-04-03 17:55 | disposition home or self-care (01) ==
PROVIDERS: PCP Family Medicine; Visit Provider Specialist
PROC: 4A023N7 Measurement of Cardiac Sampling and Pressure, Left Heart, Percutaneous Approach (ICD-10-PCS; CPT 93452; principal; 2021-04-03 10:00)
DX: I25.10 Atherosclerotic heart disease of native coronary artery without angina pectoris (principal); Z95.5 Presence of coronary angioplasty implant and graft; E78.5 Hyperlipidemia, unspecified; I73.9 Peripheral vascular disease, unspecified; Z87.891 Personal history of nicotine dependence; Z79.82 Long term (current) use of aspirin; Z79.899 Other long term (current) drug therapy
CPT/HCPCS: 36415; 80048; 85025; 93458; A9270; C1769; C1887; C1894; C9803; J0583; J1644; J2250; J3010; J7040; U0003; U0005

== ENCOUNTER 2021-04-11 13:03 | Outpatient (CLI) | payer MEDICARE, SELFPAY ==
--- NOTE | 2021-04-11 13:21 | ECHO_ITS ---
Patient Info Name: Chris Mabry Age: 75 years : 1945 Gender: Male Ht: 66 in Wt: 165 lbs BSA: 1.88 m2 HR: 51 bpm BP: 142 / 78 mmHg Exam Date: 04/11/2021 1:26 PM Exam Location: [facility] Patient Status: Outpatient Admit Date: 04/11/2021 Staff Ordering Physician: Eric Baker DO Paper Production Engineer: Manish Vega RDCS, RT Attending Provider: Eric Baker DO Referring Physician: Samuel GAXIOLA; Exam Type: CA echo doppler color flow Study Info Indications R07.9 - Chest pain, unspecified Complete two-dimensional, color flow and Doppler transthoracic echocardiogram is performed. Strain analysis performed. Summary 1. Complete two-dimensional, color flow and Doppler transthoracic echocardiogram is performed. 2. Left ventricular chamber dimension is normal. 3. Left ventricular systolic function is normal, estimated at 55-60%. 4. There is moderately increased left ventricular wall thickness. 5. The left ventricular diastolic function is grade I diastolic dysfunction. 6. E/e' 13 is mildly elevated. 7. Global longitudinal strain is abnormal at -13.2%. 8. There is mild aortic valve regurgitation. 9. There is mild mitral valve regurgitation. Left Ventricle E/e' 13 is mildly elevated. Global longitudinal strain is abnormal at -13.2%. Left ventricular chamber dimension is normal. Left ventricular systolic function is normal, estimated at 55-60%. There is moderately increased left ventricular wall thickness. The left ventricular diastolic function is grade I diastolic dysfunction. Right Ventricle Right ventricular chamber dimension is normal. Right ventricular systolic function is normal. Left Atria Left atrial chamber dimension is normal. Right Atria Right atrial chamber dimension is normal. Aortic Valve The aortic valve is trileaflet. There is no aortic valve stenosis. There is mild aortic valve regurgitation. Pulmonic Valve There is no pulmonic regurgitation. Mitral Valve There is no mitral valve stenosis. There is mild mitral valve regurgitation. Tricuspid Valve There is no tricuspid valve regurgitation. Pericardium/Pleural There is no pericardial effusion. Inferior Vena Cava Normal inferior vena cava with >50% collapse upon inspiration consistent with normal right atrial pressure, 5 mmHg. Aorta The aortic root size at the sinus of Valsalva is normal. Left Ventricular Outflow Tract Name Value Normal LVOT 2D LVOT Diameter 2.0 cm LVOT Doppler LVOT Peak Velocity 84 cm/s LVOT Peak Gradient 3 mmHg LVOT Mean Gradient 1 mmHg LVOT VTI 19 cm LVOT VTI/AV VTI Ratio 0.8 LVOT Stroke Volume 58 ml Mitral Valve Name Value Normal MV Doppler MV Decel Robertson 1
[2021-04-11 13:53] LABS: Cholesterol 157 mg/dL (0-200); HDL Direct 57 mg/dL (40-60); LDL Cholesterol Calculated 85 mg/dL (<130); Triglycerides 74 mg/dL (0-150)
== END 2021-04-11 13:04 | disposition home or self-care (01) ==
PROVIDERS: PCP Family Medicine; Visit Provider Internal Medicine Cardiovascular Disease
DX: E78.5 Hyperlipidemia, unspecified (principal); R07.9 Chest pain, unspecified
CPT/HCPCS: 36415; 80061; 93306

== ENCOUNTER 2021-05-09 09:28 | Outpatient (CLI) | payer MEDICARE, SELFPAY ==
[2021-05-09 09:40] LABS: Basophils Absolute Auto 0.08 K/mm3 (0.00-0.10); Basophils Percent Auto 1.3 % (0.0-1.0); Eosinophils Absolute Auto 0.23 K/mm3 (0.02-0.50); Eosinophils Percent Auto 3.6 % (1.0-6.0); Hematocrit 43.5 % (37.0-46.0); Hemoglobin 14.8 g/dL (12.4-15.3); Immature Granulocyte Absolute 0.02 K/mm3 (0.00-0.00); Immature Granulocyte Percent A 0.3 % (0.0-0.0); Lymphocytes Absolute Auto 2.09 K/mm3 (1.10-4.50); Lymphocytes Percent Auto 32.9 % (18.0-42.0); Mean Corpuscular Hemoglobin 29.5 pg (27.0-31.0); Mean Corpuscular Volume 86.8 fL (78.0-102.0); Monocytes Percent Auto 9.4 % (2.0-11.0); Neutrophils Absolute Auto 3.3 K/mm3 (1.7-7.2); Neutrophils Percent Auto 52.5 % (50.0-70.0); Platelet Count Result 227 K/mm3 (150-420); Red Blood Count 5.01 M/mm3 (4.70-6.10); Red Cell Distribution Width 13.4 % (11.6-14.4); White Blood Count 6.4 K/mm3 (4.8-10.8)
[2021-05-09 09:54] LABS: Prothrombin Time 10.9 Seconds (9.50-12.10)
[2021-05-09 10:57] LABS: Anion Gap 11 mmol/L (8-16); Blood Urea Nitrogen 16 mg/dL (7-18); Calcium 8.8 mg/dL (8.5-10.1); Carbon Dioxide 25 mmol/L (21-32); Chloride 106 mmol/L (98-108); Estimated Glomerular Filt Rate > 60; Glucose 143 mg/dL (70-99); Osmolality Calculated 297 mOsm/kg (285-295); Potassium 4.1 mmol/L (3.5-5.1); Sodium 142 mmol/L (136-145)
== END 2021-05-09 09:29 | disposition home or self-care (01) ==
LOC: CHSLAB 09:32
PROVIDERS: PCP Family Medicine
DX: I25.118 Atherosclerotic heart disease of native coronary artery with other forms of angina pectoris (principal)
CPT/HCPCS: 36415; 80048; 85025; 85610

== ENCOUNTER 2021-06-25 14:52 | Outpatient (CLI) | payer MEDICARE, SELFPAY ==
--- NOTE | ~2021-06-25 | XR_ITS ---
EXAMINATION: XR toe 1st RT min 2V DATE: 06/25/2021 15:29 INDICATION: Right great toe pain. Injury. TECHNIQUE: 3 views of right great toe were obtained. COMPARISON: Right foot radiograph 01/14/2021 FINDINGS: Bone alignment is normal. There is a nondisplaced stellate fracture of tuft of first distal phalanx. There is mild osteoarthritis of first metatarsophalangeal joint. There is instrumentation o f the tibia and talus. IMPRESSION: 1. Nondisplaced stellate fracture of tuft of first distal phalanx. Reviewed, dictated and finalized at location A. OR ADMINISTRATIVE ASSOCIATE
== END 2021-06-25 14:53 | disposition home or self-care (01) ==
PROVIDERS: PCP Family Medicine; Visit Provider Family Medicine
DX: M79.674 Pain in right toe(s) (principal)
CPT/HCPCS: 73660

== ENCOUNTER 2021-07-10 08:04 | Outpatient (RCR) | payer MEDICARE, SELFPAY ==
[2021-07-10 08:31] VITALS: BMI 26.6
== END 2021-08-27 09:13 | disposition home or self-care (01) ==
LOC: ANHWOC 08:04
PROVIDERS: PCP Family Medicine; Visit Provider Nurse Practitioner Family
DX: S91.101D Unspecified open wound of right great toe without damage to nail, subsequent encounter (principal)
CPT/HCPCS: 99212; G0463

== ENCOUNTER 2021-07-10 08:38 | Emergency (ER) | payer MEDICARE, SELFPAY ==
[2021-07-10] VITALS (64 sets, daily range): BP systolic 118–166; BP diastolic 56–118; PULSE 52–69; RESP 11–24; TEMP 36.8; O2SAT 90–100
--- NOTE | ~2021-07-10 | US_ITS ---
EXAMINATION: US art doppler w press SHIVANI BANEGAS EXAM DATE: 07/10/2021 12:38 INDICATION: Right 1st toe wound, poor circulation. Hypertension. TECHNIQUE: Segmental pressures and plethysmographic and Doppler waveforms of the brachial and lower e xtremity arteries were obtained. There is no prior study for comparison. FINDINGS: Right and left brachial artery pressures of 140 mm Hg and 158 mm Hg, respectively, are concordant (no rmal difference <= 30 mmHg). The right and left thigh-brachial pressure indices are 0.44, 0.84, resp ectively (normal > 1.2). RIGHT LEG: The ankle-brachial index (MARIA ESTHER) is 0.27 (normal >= 0.9-1). The great toe-brachial index could not be obtained (open wound). The lower extremity ratios, segmental pressure gradients as follows; Proximal superficial femoral artery:- 0.44 (70 mmHg). Distal superficial femoral artery: ----- 0.17 (27 mmHg). Popliteal: 0.51 (80 mmHg). Dorsalis pedis: 0.27 (43 mmHg). Posterior tibial: No signal ( mmHg). (Normal gradients <= 20-30 mmHg between adjacent levels on the same leg or the same levels on the two legs). Arterial waveforms are monophasic. LEFT LEG: The ankle-brachial index (MARIA ESTHER) is 0.59 (normal >= 0.9-1). The great toe-brachial index (TBI) is 0.50 (normal >= 0.65). The lower extremity ratios, segmental pressure gradients as follows; Proximal superficial femoral artery:- 0.84 (133 mmHg). Distal superficial femoral artery: ----- 0.70 (111 mmHg). Popliteal: 0.70 (110 mmHg). Dorsalis pedis: 0.59 (94 mmHg). Posterior tibial: No signal ( mmHg). (Normal gradients <= 20-30 mmHg between adjacent levels on the same leg or the same levels on the two legs). Arterial waveforms are monophasic. IMPRESSION: 1. Right ankle-brachial index 0.27, severely decreased. 2. Left ankle-brachial index 0.59, moderately decreased. 3. Segmental pressures as above, with suspicion of inflow stenosis on the right. Reviewed, dictated and finalized at location A. T EDGER IMPRESSION: 1. Right ankle-brachial index 0.27, severely decreased. 2. Left ankle-brachial index 0.59, moderately decreased. 3. Segmental pressures as above, with suspicion of inflow stenosis on the righ t.
--- NOTE | ~2021-07-10 | XR_ITS ---
EXAMINATION: XR foot RT min 3V DATE: 07/10/2021 09:15 INDICATION: Right great toe infection. TECHNIQUE: Dorsoplantar, two oblique and lateral views of the right foot were obtained. COMPARISON: Radiographs dated 01/24/2021 and 06/25/2021 FINDINGS: Diffuse osteopenia. Postoperative change of prior right ankle arthrodesis with lateral plate and scre w fixation along the distal fibula and multiple screws in the distal tibia spanning the ankle joint. The inferior most screw of the lateral plate and screws is chronically fractured. The recent nondispl aced intra-articular fracture at the lateral rim of the distal head of the right first proximal phala nx appears less distinct suggesting interval healing. No cortical erosions, periosteal reaction or os teolysis to suggest osteomyelitis. Mild polyarticular osteoarthritis at the first metatarsophalangeal and several tarsal metatarsal and interphalangeal joints. IMPRESSION: 1. No acute osseous abnormality or evidence of osteomyelitis. 2. Healing nondisplaced fracture at the right first proximal phalanx. 3. Stable appearance of an internally fixed right ankle arthrodesis. Reviewed, dictated and finalized at location A. FIC RATE ANALYST
--- NOTE | 2021-07-10 08:50 | ED.WOUNDLAC ---
HPI - Wound/Laceration General Chief Complaint: Extremity Injury, Lower Stated Complaint: Infection R 1st toe Time Seen by Provider: 07/10/21 08:50 Source: patient Mode of arrival: wheelchair Limitations: no limitations History of Present Illness HPI narrative: Patient is a 75-year-old male with a history of coronary artery disease who is presenting for evaluation of right great toe wound. Patient was seen on June 25 after his horse stepped on his foot (patient had a tennis shoe and sock on) causing a complete nail avulsion to the right great toe and significant laceration. Patient was seen at [facility], the wound was repaired. Patient was discharged home and soon thereafter began to have findings concerning for infection. With increased redness, pain, and swelling. Wound care was consulted and patient was placed on oral antibiotics, Keflex. Patient was told that he had fractures in his foot as well. Patient reports increasing pain in that foot, patient has been unable to ambulate. He reports significant swelling, redness, tightness in the foot. No streaking erythema. There is some mild bruising at the site. Patient denies any fever, chills, nausea, vomiting. No history of skin infections in the past. He is not diabetic. Patient states that the pain has been so severe he has been unable to ambulate. He is taking oral opiate medication for the pain. Related Data Home Medications Medication Instructions Recorded Confirmed aspirin 81 mg tablet,delayed 81 mg PO DAILY 03/18/21 07/10/21 release Allergies Allergy/AdvReac Type Severity Reaction Status Date / Time No Known Allergies Allergy Verified 07/10/21 08:47 Review of Systems Review of Systems: CONSTITUTIONAL: Denies fever, chills, or sweats. EYES: Denies visual changes, redness, or discharge. ENT: Denies rhinorrhea, congestion, sore throat, or otalgia. CARDIOVASCULAR: Denies chest pain, palpitations, or edema. RESPIRATORY: Denies cough or dyspnea. GASTROINTESTINAL: Denies abdominal pain, nausea, vomiting, or diarrhea. GENITOURINARY: Denies dysuria or hematuria. SKIN: Patient reports laceration, wound to right great toe with swelling, redness, bruising. MUSCULOSKELETAL: Denies back pain, joint pain, or myalgia. NEUROLOGIC: Denies headache, numbness, or weakness. [facility] Past Medical History Medical History Insomnia Need for vaccination against Streptococcus pneumoniae using pneumococcal conjugate vaccine 13 No active medical problems Toe pain, right Surgical History Surgical History History of intravascular stent placement (~07/10/12) Social History Social History Smoking status: Never smoker Alcohol intake: never Substance use: never Substance use type: does not use Spiritual care concerns: No Exam Narrative: GENERAL: Awake, alert, conversant HEAD: Normocephalic, atraumatic. EYES: PERRLA and EOMI. ENT: Nares clear, no rhinorrhea or epistaxis. Mucous membranes moist. NECK: Supple. CHEST: No respiratory distress, breathing even and non labored HEART: Regular rate, sinus rhythm ABDOMEN:Non distended, non tender EXTREMITIES: Normal range of motion in the right ankle, there is some mild edema of the right forefoot, right great toe. There is ecchymosis. There is a wound with some stitches that seem buried into it. There is ecchymosis present without crepitus. No bullae. No vesicles. No linear streaking. The toe is extremely tender to palpation. I did not attempt range of motion due to the patient's degree of pain. The extremity is warm and well-perfused. SKIN: Warm, wound to right great toe NEURO:No focal deficits. Alert and oriented x3 Course Consultations Consultation #1: Dr. West was contacted. He states he is not concerned regarding the fracture
[2021-07-10 09:09] LABS: Basophils Absolute Auto 0.1 K/mm3 (0.0-0.1); Basophils Percent Auto 0.8 % (0.2-1.2); Eosinophils Absolute Auto 0.2 K/mm3 (0-0.3); Eosinophils Percent Auto 2.4 % (0-4.4); Hematocrit 39.3 % (42.0-52.0); Hemoglobin 13.8 g/dL (14.0-18.0); Immature Granulocyte Absolute 0.02 K/mm3 (0.00-0.031); Immature Granulocyte Percent A 0.2 % (0-0.5); Lymphocytes Absolute Auto 2.05 K/mm3 (0.9-3.2); Mean Corpuscular HGB Conc 35.1 g/dl (32-36); Mean Corpuscular Hemoglobin 30.7 pg (26-34); Mean Corpuscular Volume 87.3 fl (80-100); Mean Platelet Volume 9.9 fl (7.4-10.4); Monocytes Absolute Auto 0.7 K/mm3 (0.1-0.6); Monocytes Percent Auto 8.3 % (2.6-8.5); Neutrophils Absolute Auto 5.8 K/mm3 (1.3-6.7); Neutrophils Percent Auto 65.3 % (45.5-73.1); Platelet Count Result 282 k/mm3 (150-375); Red Cell Distribution Width 13.4 % (11.5-14.5); White Blood Count 8.9 K/mm3 (4.5-10.0)
[2021-07-10 09:27] LABS: Alanine Aminotransferase 25 U/L (4-50); Albumin Level 4.6 g/dL (3.5-5.1); Alkaline Phosphatase 93 U/L (38-126); Anion Gap 9 mmol/L (8-16); Aspartate Amino Transferase 28 U/L (17-59); Bilirubin,Total 0.8 mg/dL (0.2-1.3); Blood Urea Nitrogen 16 mg/dL (9-20); CRP < 0.5 mg/dL (<1.0); Calcium 9.5 mg/dL (8.4-10.2); Carbon Dioxide 22 mmol/L (22-30); Chloride 103 mmol/L (98-107); Estimated CRCL calculation 56 ml/min; Estimated Glomerular Filt Rate > 60; Glucose 138 mg/dL (65-110); Potassium 3.8 mmol/L (3.4-5.0); Sodium 134 mmol/L (137-145)
[2021-07-10 10:05] LABS: Erythrocyte Sedimentation Rate 30 mm/hr (0-20)
--- NOTE | 2021-07-10 10:20 | PC.NURSE ---
Pt requested pain medication, ensured pt i was waiting for orders for medication, Dr. Suggs aware,
--- NOTE | 2021-07-10 10:30 | PC.NURSE ---
Dr. Suggs spoke with patient and updated pt on plan, Dr. Pagan states she is putting in pain medications and antibiotics now
[2021-07-10] MEDS: MORPHINE SULFATE (*CRX) 4 MG/ML INJ IV PUSH (10:36)
[2021-07-10] MEDS: ONDANSETRON INJ 4 MG/2 ML VIAL IV PUSH (10:37)
[2021-07-10] MEDS: MORPHINE SULFATE (*CRX) 2 MG/ML INJ IV PUSH ×3 (12:39→20:19)
--- NOTE | 2021-07-10 16:06 | PC.NURSE ---
ordered pt a radhay informed pt that he will be npo at midnight
[2021-07-10] MEDS: oxyCODONE HCL (*CRX) 5 MG TAB IR PO ×2 (17:02→21:22)
--- NOTE | 2021-07-10 18:03 | PM.CNGS ---
Assessment and Plan Assessment and plan (1) Right foot infection: Code(s): L08.9 - Local infection of the skin and subcutaneous tissue, unspecified Status: Acute Assessment and Plan: Patient has evidence of significant infection and probably gangrenous changes of his right great toe. His injury resulted in a nondisplaced fracture of the distal phalanx with a laceration consistent with an open fracture. It appears he is at high risk for right great toe amputation. I discussed this with Dr. robles in the emergency room and have highly recommended transfer to a facility that provides peripheral vascular expertise as well as orthopedic expertise in the foot and ankle. (2) Peripheral vascular disease: Code(s): I73.9 - Peripheral vascular disease, unspecified Status: Chronic Assessment and Plan: Severe peripheral vascular disease with evidence of inflow and distal disease both. Patient needs evaluation and management with vascular surgery. Does not appear at all a toe amputation would heal with his present vascular status. (3) Fracture of distal phalanx of great toe: Code(s): S92.423A - Displaced fracture of distal phalanx of unspecified great toe, initial encounter for closed fracture Status: Acute Assessment and Plan: From injury on 06/25 (4) CAD (coronary artery disease): Code(s): I25.10 - Atherosclerotic heart disease of [place] coronary artery without angina pectoris Status: Chronic Assessment and Plan: Has had coronary stents placed both in March and most recently 2 months ago at [facility]. Presumably these are drug-eluting stents (5) Antiplatelet or antithrombotic long-term use: Code(s): Z79.02 - ocean transportation intermediary (current) use of antithrombotics/antiplatelets Status: Chronic Assessment and Plan: Patient taking Brilinta which is unlikely to be able to be discontinued for surgery as he has had recent coronary stenting. History of Present Illness Consult details Consult date: 07/10/21 Reason for consult: other (Pain and infection right great toe) Requesting physician: Beverley Suggs MD Narrative: Patient was seen in the emergency room the rear today around 11:30 a.m.. He presented to the emergency room due to progressive and severe pain with swelling and black and skin of his right great toe. He suffered an injury on 06/25 when a horse stepped on his right great toe. X-ray showed this caused a tuft fracture of the distal phalanx that was nondisplaced. Records show that the nail was avulsed and there was a nail bed laceration. The laceration was closed with nylon suture. He was treated with Keflex. He had severe pain with the toe after the wound closure. He also had bleeding which was not too surprising as he is on Brilinta after having coronary stenting done both in March and in May. The latter stenting was done at [facility]. Patient also sees Dr. Rutledge and has been told that he has only 25% perfusion of his right leg. He was very active until his injury and was riding horses and getting around without evidence of rest pain. Review of Systems Review of Systems: All systems reviewed & are unremarkable except as noted in HPI and below Constitutional: Constitutional: Denies chills and Denies fever(s) Cardiovascular: Cardiovascular: Denies chest pain, Denies diaphoresis, Denies dyspnea and Denies paroxysmal nocturnal dyspnea Respiratory: Respiratory: Denies chest congestion, Denies cough and Denies dyspnea Integumentary/Breasts: Skin/Breast: Denies lesions and Denies rash PMFSH Past Medical History Medical History Insomnia Need for vaccination against Streptococcus pneumoniae using pneumococcal conjugate vaccine 13 No active medical problems Toe pain, right Surgical History Surgical History History of intrava
[2021-07-10 18:14] LABS: EDCOVIDSCREEN Negative (Negative)
[2021-07-10] MEDS: TICAGRELOR 90 MG TABLET PO (21:24)
[2021-07-10] MEDS: QUEtiapine FUMARATE 25 MG TABLET 50 MG PO (21:25)
--- NOTE | 2021-07-10 21:25 | PC.NURSE ---
Spoke with Charito at [facility] for status on bed assignment. No beds as of yet...probably not until tomorrow, may be even longer. Reminded to call with Maliid test results when we have them.
[2021-07-10] MEDS: HYDROmorphone HCL INJ (*CRX) 1 MG/ML SYR 0.5 MG IV PUSH (22:24)
[2021-07-11] VITALS (10 sets, daily range): BP systolic 121–150; BP diastolic 62–92; PULSE 56–90; RESP 15–18; TEMP 36.6–37.1; O2SAT 97–100
--- NOTE | 2021-07-11 00:11 | PC.NURSE ---
Called Alexandra at [facility] to notify pt had neg COVID result and request update on pt status. Alexandra states pt is still on waiting list, no beds avail at this time.
[2021-07-11] MEDS: MORPHINE SULFATE (*CRX) 2 MG/ML INJ IV PUSH ×4 (02:47→20:38)
[2021-07-11] MEDS: oxyCODONE HCL (*CRX) 5 MG TAB IR PO ×3 (04:42→21:35)
[2021-07-11] MEDS: ATORVASTATIN 40 MG TABLET 80 MG PO (09:56)
[2021-07-11] MEDS: TICAGRELOR 90 MG TABLET PO (09:56)
[2021-07-11] MEDS: lisinopriL 2.5 MG TABLET PO (09:57)
[2021-07-11] MEDS: lisinopriL 10 MG TABLET PO (09:57)
--- NOTE | 2021-07-11 12:45 | PC.NURSE ---
Per EDP Ifeanyi, okay to order patient a meal.
--- NOTE | 2021-07-11 12:48 | PC.NURSE ---
ordered food tray @[id number]
--- NOTE | 2021-07-11 16:45 | PC.NURSE ---
IV site appears swollen following vancomycin administration. Patient states he had his arm against the bed rail and believes it wasn't flowing properly. IV discontinued and ASHLEY wrap applied along with an ice pack placed on site. EDP Ifeanyi aware and examined IV site. Per EDP Ifeanyi and pharmacist Bárbara, leave ASHLEY wrap and ice pack in place and no further intervention required.
--- NOTE | 2021-07-11 16:56 | PM.IMCN ---
Assessment and Plan Additional Plan cellulitis floor extremity added IV Zosyn peripheral vascular disease I recommend transfer a [facility] facility was a vascular surgeon available patient ER physician is aware resume aspirin and Brilinta DVT prophylaxis patient at increased risk of DVT benefit outweighed the risk add Lovenox Recommend to start clear liquid diet for now if no surgery is anticipated in the next few hours Hypertension resume home medication HPI Data of Consult Consult date: 07/11/21 Primary Care Provider: Lowell Mosley DO Family Provider: pcp Consult Narrative Reason for consult: medical management Narrative: Chris Mabry is a 75 year old male With past medical history of peripheral vascular disease status post stent placement in March and May patient has on aspirin Brilinta patient has an injury to the big toe as a horse stepped on his toe patient had a fracture and laceration with stitches patient started complaining of worsening pain for few days severe dark discoloration of the big toe associated with bleeding Doppler was done showed peripheral vascular disease patient was recommended to be transferred immediately by the surgeon the facility where vascular surgeon is available it has been 30 hours later and patient still and the [facility] unfortunately due to the pandemic of COVID-19 [facility] has been contacted by the ER and no available bed other than an [facility] where the patient was accepted by vascular surgeon but unfortunately bed is not available I discussed with the patient in details the situation and the high risk for progression of disease and gangrene patient is aware and I discussed with the ER provider all options available for transfer unfortunately because of the pandemic transfer is extremely difficult and beyond our humanly power speed the process Review of Systems Review of Systems: All systems reviewed & are unremarkable except as noted in HPI and below PMFSH Past Medical History Medical History Insomnia Need for vaccination against Streptococcus pneumoniae using pneumococcal conjugate vaccine 13 No active medical problems Toe pain, right Surgical History Surgical History History of intravascular stent placement (~07/10/12) Social History Social History Smoking status: Never smoker Alcohol intake: never Substance use: never Substance use type: does not use Spiritual care concerns: No Meds Home Medications and Allergies Home Medications Medication Instructions Recorded Confirmed Type aspirin 81 mg tablet,delayed 81 mg PO DAILY 08/09/21 12/01/21 History release quetiapine 50 mg tablet See Rx Instructions .ROUTE 04/25/21 07/10/21 Rx .COMPLEX #90 tablet atorvastatin 80 mg tablet 80 mg PO DAILY #90 tablet 06/10/21 07/10/21 Rx lisinopril 2.5 mg tablet 2.5 mg PO DAILY #90 tablet 06/10/21 07/10/21 Rx ticagrelor 90 mg tablet 90 mg PO Q12H #90 tablet 06/10/21 07/10/21 Rx cephalexin 500 mg capsule 500 mg PO Q8H #14 cap 07/08/21 07/10/21 Rx oxycodone 5 mg tablet 5 mg PO Q8H PRN #15 tablet 07/08/21 07/10/21 Rx Allergies Allergy/AdvReac Type Severity Reaction Status Date / Time No Known Allergies Allergy Verified 07/10/21 08:47 Vital Signs Vital Signs - 24 hr 07/10/21 19:20 07/10/21 20:02 07/10/21 21:25 Temperature Pulse Rate 63 60 60 Respiratory Rate 18 14 18 Blood Pressure 129/67 136/64 158/91 H Pulse Oximetry 98 98 99 07/10/21 22:25 07/10/21 23:51 07/11/21 02:46 Temperature Pulse Rate 60 54 L 58 L Respiratory Rate 16 17 17 Blood Pressure 118/56 L 121/61 150/68 H Pulse Oximetry 97 97 98 07/11/21 04:07 07/11/21 06:30 07/11/21 07:54 Temperature 97.9 F Pulse Rate 59 L 56 L Respiratory Rate 15 17 Blood Pressure 144/68 H 134/78
--- NOTE | 2021-07-11 17:04 | PC.NURSE ---
[facility] no beds
--- NOTE | 2021-07-11 18:01 | PC.NURSE ---
KIMBERLYN Suggs administered hyaluronidase to right forearm infiltration site. Patient denies pain to the area and has good sensation to extremity. Distal pulse present.
--- NOTE | 2021-07-11 19:22 | PC.NURSE ---
Corinne with [facility] called to inform that they no longer have a truck available for this transport. Called [facility] for transport, ETA is [id number]. Trip #[id number]
== END 2021-07-11 21:43 | disposition short-term general hospital (02) ==
PROVIDERS: Emergency Provider Emergency Medicine; PCP Family Medicine
DX: L03.115 Cellulitis of right lower limb (principal); S91.311A Laceration without foreign body, right foot, initial encounter; Z20.822 Contact with and (suspected) exposure to COVID-19; I73.9 Peripheral vascular disease, unspecified; I25.10 Atherosclerotic heart disease of native coronary artery without angina pectoris; S92.414D Nondisplaced fracture of proximal phalanx of right great toe, subsequent encounter for fracture with routine healing; Z95.5 Presence of coronary angioplasty implant and graft; Z79.02 Long term (current) use of antithrombotics/antiplatelets; Z79.82 Long term (current) use of aspirin; W55.19XA Other contact with horse, initial encounter
CPT/HCPCS: 36415; 73630; 80053; 85025; 85652; 86140; 87040; 87426; 93923; 96365; 96366; 96375; 96376; 99212; 99285; A9270; C9803; G0463; J1170; J2270; J2405; J3370

== ENCOUNTER 2022-06-12 15:49 | Outpatient (CLI) | payer MEDICARE, SELFPAY ==
[2022-06-12 16:04] LABS: Hematocrit 37.5 % (37.0-46.0); Hemoglobin 12.8 g/dL (12.4-15.3); Mean Corpuscular HGB Conc 34.1 g/dL (32.0-36.0); Mean Corpuscular Hemoglobin 30.1 pg (27.0-31.0); Mean Corpuscular Volume 88.2 fL (78.0-102.0); Mean Platelet Volume 9.7 fl (8.7-11.0); Platelet Count Result 256 K/mm3 (150-420); Red Blood Count 4.25 M/mm3 (4.70-6.10); Red Cell Distribution Width 13.6 % (11.6-14.4); White Blood Count 8.4 K/mm3 (4.8-10.8)
[2022-06-12 16:39] LABS: Alanine Aminotransferase 23 U/L (16-63); Albumin Level 3.7 g/dL (3.4-5.0); Alkaline Phosphatase 102 U/L (46-116); Anion Gap 7 mmol/L (8-16); Aspartate Amino Transferase 15 U/L (15-37); Bilirubin,Total 0.6 mg/dL (0.00-1.00); Blood Urea Nitrogen 12 mg/dL (7-18); Calcium 8.4 mg/dL (8.5-10.1); Carbon Dioxide 27 mmol/L (21-32); Chloride 108 mmol/L (98-108); Cholesterol 107 mg/dL (0-200); Estimated Glomerular Filt Rate > 60; Glucose 159 mg/dL (70-99); HDL Direct 54 mg/dL (40-60); LDL Cholesterol Calculated 41 mg/dL (<130); Osmolality Calculated 296 mOsm/kg (285-295); Sodium 142 mmol/L (136-145); Total Protein 6.8 g/dL (6.4-8.2); Triglycerides 62 mg/dL (0-150)
[2022-06-13 09:11] LABS: Hemoglobin A1C 6.9 % (<5.7)
== END 2022-06-12 15:50 | disposition home or self-care (01) ==
LOC: CHSLAB 15:51
PROVIDERS: PCP Family Medicine; Visit Provider Family Medicine
DX: I25.10 Atherosclerotic heart disease of native coronary artery without angina pectoris (principal); R73.09 Other abnormal glucose
CPT/HCPCS: 36415; 80053; 80061; 83036; 85027

== ENCOUNTER 2022-07-28 09:44 | Outpatient (CLI) | payer MEDICARE, SELFPAY ==
--- NOTE | ~2022-07-28 | XR_ITS ---
Right foot Technique: AP, oblique, and lateral views were obtained. Clinical History: Preoperative evaluation for hardware removal, fracture Findings: No acute fracture or dislocation is seen. Extensive orthopedic hardware present at the ankl e region related to fusion across the distal tibiotalar joint. Resection of the distal fibula noted. Remaining osseous structures in the foot itself appear intact. There is mild degenerative change at t he first MTP joint. Soft tissues are unremarkable. Impression: Extensive orthopedic hardware at the ankle region related to tibiotalar joint effusion. Mild degenerative change first MTP joint. Reviewed, dictated and finalized at location [] DENT PROGRAM SPECIALIST Impression: Extensive orthopedic hardware at the ankle region related to tibiotalar joint e ffusion. Mild degenerative change first MTP joint.
--- NOTE | ~2022-07-28 | XR_ITS ---
Right ankle Technique: AP, oblique, and lateral weightbearing views were obtained. Clinical History: Preoperative evaluation for removal of hardware Findings: There is been prior resection of the distal fibula. There is orthopedic fusion across the t ibiotalar joint, with extensive compression plate and interlocking screws, as well as additional orth ogonal orthopedic screws. No acute fracture evident. Soft tissues are otherwise unremarkable. Impression: Extensive orthopedic hardware related to fusion across the tibiotalar joint. Prior resection of the distal fibula. Reviewed, dictated and finalized at location [] DRIVER Impression: Extensive orthopedic hardware related to fusion across the tibiotalar joint. Prior resection of the distal fibula.
== END 2022-07-28 09:45 | disposition home or self-care (01) ==
LOC: CHSIMG 09:49
PROVIDERS: PCP Family Medicine; Visit Provider Orthopaedic Surgery
DX: M79.671 Pain in right foot (principal); M25.571 Pain in right ankle and joints of right foot; M24.671 Ankylosis, right ankle
CPT/HCPCS: 73610; 73630

== ENCOUNTER 2022-12-03 01:21 | Day surgery (SDC) | payer MEDICARE, SELFPAY ==
[2022-11-26 13:17] VITALS: BMI 24.9
--- NOTE | 2022-12-02 12:08 | WPDANESEPPF ---
Anes - Initial Pre Proc Eval Procedure: Operation Date: 12/03/22 07:30 Proposed Procedures p Esophagogastroduodenoscopy - Vahid Chicas MD Date/Time: 12/02/22 12:08 Surgeon: Vahid Chicas MD Pre Op Diagnosis: GERD Patient Data Age: 77 Gender: M Height: 1.68 m Weight: 70 kg Allergies Allergy/AdvReac Type Severity Reaction Status Date / Time vancomycin Allergy RED MAN Verified 12/03/22 06:28 SYNDROME Home Medications Medication Instructions Recorded Confirmed Type aspirin 81 mg tablet,delayed 81 mg PO DAILY 03/18/21 12/03/22 History release (Adult Low Dose Aspirin) coenzyme Q10 10 mg capsule 10 mg PO ONCE 08/06/21 12/03/22 History gabapentin 100 mg capsule 200 mg PO QHS 08/06/21 12/03/22 History lisinopril 2.5 mg tablet See Rx Instructions .Route 09/11/21 12/03/22 Rx .COMPLEX #90 tabs atorvastatin 80 mg tablet See Rx Instructions .Route 10/09/21 12/03/22 Rx .COMPLEX #90 tabs isosorbide mononitrate 30 mg See Rx Instructions .Route 11/06/22 12/03/22 Rx tablet,extended release 24 hr .COMPLEX #30 tabs metoprolol succinate 25 mg See Rx Instructions .Route 11/06/22 12/03/22 Rx tablet,extended release 24 hr .COMPLEX #30 tabs pantoprazole 40 mg tablet,delayed 40 mg PO QAM 6 weeks #42 tabs 11/06/22 12/03/22 Rx release Patient hx anesthesia problems: none Family hx anesthesia problems: none Results Review: All pre-operative results and documents have been reviewed as part of the pre-operative evaluation. [facility] Past Medical History Medical History (Updated 12/02/22 @ 12:09 by Osvaldo Wharton DO) CAD (coronary artery disease) Dyslipidemia Insomnia Need for vaccination against Streptococcus pneumoniae using pneumococcal conjugate vaccine 13 No active medical problems PAD (peripheral artery disease) Painful orthopaedic hardware Toe pain, right Surgical History Surgical History History of ankle fusion History of intravascular stent placement (~07/10/12) Social History Social History Smoking packs per day: 1 Smoking cigarettes per day: 20.0 Years smoked: 20 Smoking pack-years: 20.00 Smoking status: Former smoker Tobacco type: cigarettes Smoking end date: 08/10/90 Alcohol intake: never Substance use: never Substance use type: does not use Lack of Transportation: No Lack of Food: Never True Current Housing: I Have Housing Concerned About Future Housing: No Difficulty Paying Gas/Electric Bills: No Difficulty Paying for Meds: No Currently Unemployed: No Education: Trade/Vocational Certificate Difficulty w/ Childcare or Family Care: No Living arrangements: alone Spiritual care concerns: No Anes - Eval Final PreProcedure Day of Procedure 12/02/22 12:08 Patient weight: normal Heart: regular rate and rhythm Lungs: clear to auscultation and normal air movement Airway: Mallampati scale class II Neurological: alert and oriented Last oral intake: >/= 8 hours ASA classification: III Emergent: no Anesthetic plan: proceed Anesthesia type and monitoring: general GIVS and standard monitoring Results Review: All pre-operative results and documents have been reviewed as part of the pre-operative evaluation. Informed Consent: The patient's anesthetic plan and its attendant risks and benefits were discussed with the patient/family/POA. Questions were solicited and answers provided to the satisfaction of the patient/family/POA.
[2022-12-03 06:29] VITALS: BP 153/68; PULSE 50; RESP 18; TEMP 36.3; O2SAT 100; BMI 24.6
[2022-12-03] MEDS: LACTATED RINGERS 1,000 ML 150 ML IV CONT (06:41)
--- NOTE | 2022-12-03 07:30 | PM.HPGS ---
History of Present Illness History of Present Illness Consent: Risks, benefits, and alternatives have been discussed and questions answered. Patient agrees to proceed with procedure. Chief complaint: GERD Narrative: Chris Mabry is a 77 year old male with odynophagia since Jun, never had egd Review of Systems Constitutional: Constitutional: Denies headache(s) and Denies weakness Eyes: Eyes: Denies blurry vision ENT: Reports Normal hearing present, Denies headache(s) and Denies neck pain Cardiovascular: Cardiovascular: Denies chest pain and Denies dyspnea Respiratory: Respiratory: Denies dyspnea Gastrointestinal: Gastrointestinal: Reports no additional gastrointestinal complaints Genitourinary: Genitourinary: Denies dysuria Musculoskeletal: Musculoskeletal: Denies neck pain Integumentary/Breasts: Skin/Breast: Denies dry skin Neurologic: Reports Normal hearing present, Denies headache(s) and Denies weakness Psychiatric: Psychiatric: Denies anxiety Endocrine: Endocrine: Denies change in body appearance Hematologic/Lymphatic: Hematologic/Lymphatic: Denies easy bleeding Allergic/Immunologic: Allergic/Immunologic: Denies urticaria PMFSH Past Medical History Medical History (Updated 12/02/22 @ 12:09 by Osvaldo Wharton DO) CAD (coronary artery disease) Dyslipidemia Insomnia Need for vaccination against Streptococcus pneumoniae using pneumococcal conjugate vaccine 13 No active medical problems PAD (peripheral artery disease) Painful orthopaedic hardware Toe pain, right Surgical History Surgical History History of ankle fusion History of intravascular stent placement (~07/10/12) Social History Social History Smoking packs per day: 1 Smoking cigarettes per day: 20.0 Years smoked: 20 Smoking pack-years: 20.00 Smoking status: Former smoker Tobacco type: cigarettes Smoking end date: 08/10/90 Alcohol intake: never Substance use: never Substance use type: does not use Lack of Transportation: No Lack of Food: Never True Current Housing: I Have Housing Concerned About Future Housing: No Difficulty Paying Gas/Electric Bills: No Difficulty Paying for Meds: No Currently Unemployed: No Education: Trade/Vocational Certificate Difficulty w/ Childcare or Family Care: No Living arrangements: alone Spiritual care concerns: No Meds Home Medications and Allergies Home Medications Medication Instructions Recorded Confirmed Type aspirin 81 mg tablet,delayed 81 mg PO DAILY 03/18/21 12/03/22 History release (Adult Low Dose Aspirin) coenzyme Q10 10 mg capsule 10 mg PO ONCE 08/06/21 12/03/22 History gabapentin 100 mg capsule 200 mg PO QHS 08/06/21 12/03/22 History lisinopril 2.5 mg tablet See Rx Instructions .Route 09/11/21 12/03/22 Rx .COMPLEX #90 tabs atorvastatin 80 mg tablet See Rx Instructions .Route 10/09/21 12/03/22 Rx .COMPLEX #90 tabs isosorbide mononitrate 30 mg See Rx Instructions .Route 11/06/22 12/03/22 Rx tablet,extended release 24 hr .COMPLEX #30 tabs metoprolol succinate 25 mg See Rx Instructions .Route 11/06/22 12/03/22 Rx tablet,extended release 24 hr .COMPLEX #30 tabs pantoprazole 40 mg tablet,delayed 40 mg PO QAM 6 weeks #42 tabs 11/06/22 12/03/22 Rx release Allergies Allergy/AdvReac Type Severity Reaction Status Date / Time vancomycin Allergy RED MAN Verified 12/03/22 06:28 SYNDROME Vital Signs Vital Signs - 24 hr 12/03/22 06:29 Temperature 97.4 F L Pulse Rate 50 L Respiratory Rate 18 Blood Pressure 153/68 H Pulse Oximetry 100 Oxygen Delivery Room Air Exam Const: General: comfortable and no acute distress HENMT: Face/Nose/Sinus: Normal nares present Eyes: General: appearance normal, both eyes and all related structures Neck: Neck: no JVD Resp: Auscultation: clear to auscultatio
[2022-12-03 07:42] VITALS: BP 130/61; PULSE 52; RESP 31; O2SAT 99
[2022-12-03 07:52] VITALS: BP 128/62; PULSE 55; RESP 15; O2SAT 100
[2022-12-03 08:02] VITALS: BP 165/74; PULSE 53; RESP 33; O2SAT 100
== END 2022-12-03 08:14 | disposition home or self-care (01) ==
PROVIDERS: PCP Family Medicine; Visit Provider Internal Medicine Gastroenterology
PROC: 0DJ08ZZ Inspection of Upper Intestinal Tract, Via Natural or Artificial Opening Endoscopic (ICD-10-PCS; CPT 43235; principal; 2022-12-03 07:30)
DX: C15.5 Malignant neoplasm of lower third of esophagus (principal); K29.70 Gastritis, unspecified, without bleeding; I25.10 Atherosclerotic heart disease of native coronary artery without angina pectoris; E78.5 Hyperlipidemia, unspecified; I73.9 Peripheral vascular disease, unspecified; Z95.820 Peripheral vascular angioplasty status with implants and grafts; Z87.891 Personal history of nicotine dependence; Z79.82 Long term (current) use of aspirin
CPT/HCPCS: 43239; 43249; 88305; 88342; C1726; J2704; J7120

== ENCOUNTER 2022-12-09 12:08 | Outpatient (CLI) | payer MEDICARE, SELFPAY ==
--- NOTE | ~2022-12-09 | CT_ITS ---
Clinical Indication: Other specified disease of esophagus CT Scan of the Chest and Abdomen with Contrast: Technique: Contiguous sections were acquired throughout the chest and abdomen after intravenous admin istration of 100 cc of Omnipaque 350. Dose reduction technique was used on this scan by utilizing au tomated exposure control and iterative reconstruction technique. The dose-length product (DLP) was 34 6.02 mGy-cm. COMPARISON: 11/08/2020 Findings: There is no evidence of any significant mediastinal, hilar or axillary lymphadenopathy. Extensive cor onary artery calcifications are present. No aortic aneurysm or dissection.. No large central pulmonar y embolus. There is no evidence of pleural or pericardial effusion. Stable subcentimeter groundglass nodule left upper lobe. Stable subcentimeter right pulmonary nodule. 3.0 cm peripherally enhancing right hepatic lobe lesion is consistent with hemangioma, unchanged. The spleen, pancreas, gallbladder, adrenals and kidneys are within normal limits.. There are atheroscler otic calcifications of the aorta. No lymphadenopathy. Large hiatal hernia present. Questionable wall thickening at the GE junction region. No bowel obstruc tion evident. No ascites. Impression: Large hiatal hernia, similar to prior exam. Questionable wall thickening of the GE junction region. C orrelate for esophagitis/gastritis. Early underlying neoplasm cannot be excluded based on this exam. Endoscopy should be considered as indicated. Stable hepatic hemangioma. Stable subcentimeter pulmonary nodules, as above. Reviewed, dictated and finalized at [facility]. Impression: Large hiatal hernia, similar to prior exam. Questionable wall thickening of the GE junction region. Correlate for esophagitis/gastritis. Early underlying neop lasm cannot be excluded based on this exam. Endoscopy should be considered as i ndicated. Stable hepatic hemangioma. Stable subcentimeter pulmonary nodules, as above.
[2022-12-09 12:39] LABS: Estimated Glomerular Filt Rate > 60
== END 2022-12-09 12:09 | disposition home or self-care (01) ==
LOC: ANHIMG 12:16
PROVIDERS: PCP Family Medicine; Visit Provider Internal Medicine Gastroenterology
DX: K22.89 Other specified disease of esophagus (principal); K44.9 Diaphragmatic hernia without obstruction or gangrene
CPT/HCPCS: 71260; 74160; Q9967

== ENCOUNTER 2022-12-18 13:19 | Outpatient (CLI) | payer MEDICARE, SELFPAY ==
--- NOTE | ~2022-12-18 | PE_ITS ---
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 8.57 mCi of 18-fluorodeoxyglucose (18-FDG) was administ ered i.v. Low dose computed tomography (CT) images were acquired from the base of the brain to the pr oximal thighs for attenuation correction and anatomic localization. Positron emission tomography (PET ) images were acquired in the same distribution beginning 77 minutes after injection. Images includin g fused PET/CT images were reconstructed in axial, coronal, and sagittal planes. Automated exposure c ontrol technique was employed. The dose-length product was 514.88mGy-cm. COMPARISON: CT of the chest, abdomen and pelvis dated 12/09/2022 FINDINGS: Head/neck: There is symmetric increased activity in the oral cavity and ocular muscles without CT correlate, lik steve physiologic. No pathologically enlarged cervical lymphadenopathy or suspicious foci of increased FDG uptake in the visualized head or neck. Chest: Moderate-sized sliding-type hiatal hernia. There is moderate increased FDG uptake with maximal SUV of 6.3 associated with the previously noted region of focal wall thickening at the distalmost esophagus and extending into the gastric cardia, subsequent biopsy proven has esophageal cancer. No suspicious pulmonary nodules, pneumonia, pulmonary edema or pleural effusion. Heart size is normal. Atheroscler otic coronary artery calcification. No pericardial effusion. Calcified left hilar lymph nodes consist ent with old granulomatous disease. No pathologically enlarged or FDG avid thoracic lymphadenopathy. Abdomen/pelvis/proximal thighs: Physiologic renal accumulation and excretion of FDG activity in the kidneys, bladder and along portio ns of ureters. Small photopenic defect in the right hepatic lobe corresponding to 3.5 cm hypodense le tabatha with peripheral discontiguous puddling of contrast diagnostic of hemangioma evident on prior CT. Otherwise normal degree and heterogenous pattern of increased uptake throughout the liver without ra diologic correlate or dominant FDG avid lesion. Gallbladder, pancreas and bilateral adrenal glands ar e normal. Several splenic calcific lesions consistent with old granulomatous disease. Mild to moderat e uptake scattered throughout the bowels without radiologic correlate, also likely physiologic. Mild scattered diverticulosis with sigmoid colon predominance and without adjacent from trace stranding to suggest diverticulitis. Prostatomegaly measuring 5.3 x 3.8 cm. No other abnormal foci of increased F DG uptake or pathologically enlarged lymphadenopathy in the abdomen, pelvis or proximal thighs. There is calcified atherosclerosis of the aorta and many of the other arteries. Moderate stenosis at the l eft common iliac artery. Right femoral bypass grafting partially visualized. Large right and small le ft hydroceles. Musculoskeletal: Severe lumbar spondylosis. No suspicious lytic, blastic or abnormally FDG avid bone lesions. IMPRESSION: 1. Moderate increased uptake associated with a biopsy-proven esophageal cancer the distalmost esophag us which appears to extend into the intrathoracic gastric cardia with moderate-sized sliding-type hia naun hernia. Line 2. No evident metastatic disease. Reviewed, dictated and finalized at location A. IMPRESSION: 1. Moderate increased uptake associated with a biopsy-proven esophageal cancer the distalmost esophagus which appears to extend into the intrathoracic gastric cardia with moderate-sized sliding-type hiatal hernia. Line 2. No evident metastatic disease.
[2022-12-18 14:24] LABS: Glucose Point of Care 141 mg/dl (65-105)
== END 2022-12-18 13:20 | disposition home or self-care (01) ==
PROVIDERS: PCP Family Medicine; Visit Provider Internal Medicine Hematology & Oncology
DX: C15.5 Malignant neoplasm of lower third of esophagus (principal); K44.9 Diaphragmatic hernia without obstruction or gangrene; Z87.891 Personal history of nicotine dependence
CPT/HCPCS: 78815; A9552

== ENCOUNTER 2023-01-15 15:39 | Outpatient (CLI) | payer MEDICARE, SELFPAY ==
[2023-01-15 16:08] LABS: Basophils Absolute Auto 0.1 K/mm3 (0.0-0.1); Basophils Percent Auto 0.9 % (0.2-1.2); Eosinophils Absolute Auto 0.2 K/mm3 (0-0.3); Eosinophils Percent Auto 3.6 % (0-4.4); Hematocrit 35.9 % (42.0-52.0); Hemoglobin 11.8 g/dL (14.0-18.0); Immature Granulocyte Absolute 0.01 K/mm3 (0.00-0.031); Immature Granulocyte Percent A 0.2 % (0-0.5); Lymphocytes Absolute Auto 1.93 K/mm3 (0.9-3.2); Lymphocytes Percent Auto 30.1 % (18.3-44.2); Mean Corpuscular HGB Conc 32.9 g/dl (32-36); Mean Corpuscular Hemoglobin 27.9 pg (26-34); Mean Corpuscular Volume 84.9 fl (80-100); Monocytes Absolute Auto 0.5 K/mm3 (0.1-0.6); Neutrophils Absolute Auto 3.7 K/mm3 (1.3-6.7); Neutrophils Percent Auto 57.2 % (45.5-73.1); Platelet Count Result 231 k/mm3 (150-375); Red Blood Count 4.23 M/mm3 (4.6-6.20); Red Cell Distribution Width 14.6 % (11.5-14.5); White Blood Count 6.4 K/mm3 (4.5-10.0)
[2023-01-15 17:30] LABS: Partial Thromboplastin Time 33.1 SECONDS (22.3-36.8); Prothrombin Time 13.6 Seconds (11.1-14.7)
== END 2023-01-15 15:40 | disposition home or self-care (01) ==
LOC: ANHSURGERY 15:40
PROVIDERS: PCP Family Medicine; Visit Provider Surgery
DX: C15.9 Malignant neoplasm of esophagus, unspecified (principal); Z01.818 Encounter for other preprocedural examination
CPT/HCPCS: 36415; 85025; 85610; 85730

== ENCOUNTER 2023-01-19 01:53 | Day surgery (SDC) | payer MEDICARE, SELFPAY ==
--- NOTE | 2023-01-15 14:02 | PC.NURSE ---
Report to the Outpatient Waiting Room, entrance under the green pavilion located off [facility], at time __1230 on date _01/19/23 . Planned Procedure Time: _1430 . Time changes happen often and if your time is changed the preop area will call you the afternoon before. - You and your visitor will be asked to self-screen and do not enter if you have any COVID symptoms. - A mask is optional within the hospital at this time. Patients may have clear liquids (water, carbonated beverages, clear teas, apple juice) until 3 hours prior to surgery with a maximum of 20 ounces. - No food from midnight until time of surgery - Infants may have breast milk until 4 hours before surgery, formula 6 hours prior to surgery. - Children will be allowed to drink immediately following surgery. If applicable, please bring a bottle or sippy cup to assist with drinking. Juice, water, soda, and popsicles are readily available. For infants on formula, please bring formula the day of surgery. Pacifiers are allowed. Take the following medications with a SIP of water the morning of surgery: ___ISOSORBIDE,METOPROLOL DO NOT STOP ANY OF YOUR OTHER PRESCRIPTION MEDICATIONS PRIOR TO SURGERY ?EXCEPT THE FOLLOWING Medications to discontinue per physician NONE Date to take last dose Please no make-up, nail arabic, hairspray, perfume, deodorant, or body powder the day of surgery. No jewelry (including any body piercings) or valuables the day of surgery, leave them at home. Please take a shower or bath the night before, or the morning of, surgery with an antibacterial soap. Wear comfortable, loose fitting clothing. Children are encouraged to wear pajamas. - Jewelry must be removed prior to entering the operating room. Rings and piercings that are not removed may be cut off. - The hospital will not accept responsibility for valuables. - Please leave all valuables, including medications, at home the day of surgery. If you are going home after surgery, a licensed special client bus driver must drive you home. - NO public transportation without another adult if you receive anesthesia. - We recommend that an adult stay with you for 24 hours following discharge. - We also recommend that you do not drive, make important decision, drink alcoholic beverages, or take any drugs that were not prescribed by your health care provider for at least 24 hours after your discharge time. For Pediatric surgeries, we recommend two adults accompany the child home. Follow any additional instructions given to you from your surgeon. If you or anyone in your household have experienced Covid symptoms in the past week, please notify your surgeon or the nurse liaison at the phone number below for possible testing. Telephone instructions given to __PATIENT and asked if any additional questions and then verbalized understanding. Patient advised to call surgeon office or pre surgery nurse liaison [phone] if any additional questions.
[2023-01-15 14:11] VITALS: BMI 24.2
--- NOTE | ~2023-01-19 | XR_ITS ---
EXAMINATION: XR fl guide central line place DATE: 01/19/2023 14:04 INDICATION: Port placement. TECHNIQUE: A single intraoperative fluoroscopic view of the chest was obtained. I was not present. Fl uoroscopy exposure time was 17 seconds. COMPARISON: Chest single view 01/19/2023 FINDINGS: There is a right subclavian port with tip in superior vena cava. IMPRESSION: 1. Port tip in superior vena cava. Reviewed, dictated and finalized at location A.
--- NOTE | ~2023-01-19 | XR_ITS ---
EXAMINATION: XR chest port-a-cath/central INDICATION: Port-A-Cath insertion TECHNIQUE: Portable AP chest at 1424 hours COMPARISON: 09/10/2011 FINDINGS: A right subclavian Port-A-Cath has been inserted which ends with its tip at the distal supe rior vena cava. The lungs are free of acute opacities. No pleural effusion or pneumothorax. There is a large hiatal hernia. 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 IMPRESSION: 1. Right subclavian Port-A-Cath insertion. No pneumothorax. 2. Large hiatal hernia. Reviewed, dictated and finalized at location A.
[2023-01-19 11:33] VITALS: BP 154/73; PULSE 52; RESP 14; TEMP 36.7; O2SAT 100
[2023-01-19] MEDS: LACTATED RINGERS 1,000 ML 30 ML IV CONT (11:36)
--- NOTE | 2023-01-19 11:57 | PM.IMHP ---
H&P: HPI History of Present Illness Date/Time: 01/19/23 11:57 Chief Complaint: Esophageal CA Narrative: Pt recently dx with esophageal CA. He is to undergo neoadjuvant chemoradiation tx. He presents for placement of a portacatheter. Never had a port or central line before. No hx of clavicular fx. Review of Systems Review of Systems: The remainder of the review of systems to include constitutional, HEENT, cardiovascular, respiratory, GI, , integumentary, musculoskeletal, endocrine, immunologic, hematologic, psychiatric, and neurologic are all negative except for which is mentioned above in the HPI. FORMERLY [facility], [facility] Past Medical History Medical History CAD (coronary artery disease) Dyslipidemia Esophageal mass Insomnia Need for vaccination against Streptococcus pneumoniae using pneumococcal conjugate vaccine 13 No active medical problems PAD (peripheral artery disease) Painful orthopaedic hardware Toe pain, right Surgical History Surgical History History of ankle fusion History of intravascular stent placement (~07/10/12) Social History Social History Smoking packs per day: 1 Smoking cigarettes per day: 20.0 Years smoked: 20 Smoking pack-years: 20.00 Smoking status: Former smoker Tobacco type: cigarettes Smoking end date: 08/10/90 Alcohol intake: never Substance use: never Substance use type: does not use Lack of Transportation: No Lack of Food: Never True Current Housing: I Have Housing Concerned About Future Housing: No Difficulty Paying Gas/Electric Bills: No Difficulty Paying for Meds: No Currently Unemployed: No Education: Trade/Vocational Certificate Difficulty w/ Childcare or Family Care: No Living arrangements: alone Spiritual care concerns: No Meds Home Medications and Allergies Home Medications Medication Instructions Recorded Confirmed Type aspirin 81 mg tablet,delayed 81 mg PO DAILY 03/18/21 01/15/23 History release (Adult Low Dose Aspirin) coenzyme Q10 10 mg capsule 10 mg PO ONCE 08/06/21 01/15/23 History gabapentin 100 mg capsule 200 mg PO QHS 08/06/21 01/15/23 History isosorbide mononitrate 30 mg See Rx Instructions .Route 11/06/22 01/19/23 Rx tablet,extended release 24 hr .COMPLEX #30 tabs atorvastatin 80 mg tablet See Rx Instructions .Route 12/04/22 01/15/23 Rx .COMPLEX #90 tabs metoprolol succinate 25 mg See Rx Instructions .Route 12/04/22 01/19/23 Rx tablet,extended release 24 hr .COMPLEX #90 tabs lisinopril 2.5 mg tablet See Rx Instructions .Route 12/15/22 01/15/23 Rx .COMPLEX #90 tabs Allergies Allergy/AdvReac Type Severity Reaction Status Date / Time vancomycin Allergy RED MAN Verified 01/19/23 11:49 SYNDROME Vital Signs Vital Signs - 24 hr 01/19/23 11:33 Temperature 36.7 C Pulse Rate 52 L Respiratory Rate 14 Blood Pressure 154/73 H Pulse Oximetry 100 Oxygen Delivery Room Air Exam Const: General: comfortable and no acute distress Eyes: Sclera: sclerae normal Pupils: Equal, round and reactive pupils present Neck: Neck: supple and no JVD Resp: Effort & Inspection: normal respiratory effort Auscultation: clear to auscultation bilaterally Cardio: Rate: regular rate Rhythm: regular rhythm GI: GI Palp: Yes Soft to palpation Auscultation: normal bowel sounds Neuro: General: gait normal Speech: normal speech Extrem: General: normal to inspection Psych: Mental Status: mental status grossly normal Affect: normal affect Assessment and Plan Assessment and plan (1) Esophageal cancer: Code(s): C15.9 - Malignant neoplasm of esophagus, unspecified Status: Acute Assessment and Plan: Will proceed to OR today for placement of portacatheter to start chemotherapy treatments for his esophageal CA. Risks, benefits,
--- NOTE | 2023-01-19 12:24 | WPDANESEPPF ---
Anes - Initial Pre Proc Eval Procedure: Operation Date: 01/19/23 13:00 Proposed Procedures p Insertion Lucas Cath - Max Hays MD Date/Time: 01/19/23 12:24 Surgeon: Max Hays MD Pre Op Diagnosis: esophageal cancer Patient Data Age: 77 Gender: M Height: 1.68 m Weight: 68 kg Last Vital Signs Temp 36.7 C 01/19/23 11:33 Pulse 52 L 01/19/23 11:33 Resp 14 01/19/23 11:33 BP 154/73 H 01/19/23 11:33 Pulse Ox 100 01/19/23 11:33 O2 Del Method Room Air 01/19/23 11:33 Allergies Allergy/AdvReac Type Severity Reaction Status Date / Time vancomycin Allergy RED MAN Verified 01/19/23 11:49 SYNDROME Home Medications Medication Instructions Recorded Confirmed Type aspirin 81 mg tablet,delayed 81 mg PO DAILY 03/18/21 01/15/23 History release (Adult Low Dose Aspirin) coenzyme Q10 10 mg capsule 10 mg PO ONCE 08/06/21 01/15/23 History gabapentin 100 mg capsule 200 mg PO QHS 08/06/21 01/15/23 History isosorbide mononitrate 30 mg See Rx Instructions .Route 11/06/22 01/19/23 Rx tablet,extended release 24 hr .COMPLEX #30 tabs atorvastatin 80 mg tablet See Rx Instructions .Route 12/04/22 01/15/23 Rx .COMPLEX #90 tabs metoprolol succinate 25 mg See Rx Instructions .Route 12/04/22 01/19/23 Rx tablet,extended release 24 hr .COMPLEX #90 tabs lisinopril 2.5 mg tablet See Rx Instructions .Route 12/15/22 01/15/23 Rx .COMPLEX #90 tabs Patient hx anesthesia problems: none Family hx anesthesia problems: none Results Review: All pre-operative results and documents have been reviewed as part of the pre-operative evaluation. [facility] Past Medical History Medical History CAD (coronary artery disease) Dyslipidemia Esophageal mass Insomnia Need for vaccination against Streptococcus pneumoniae using pneumococcal conjugate vaccine 13 No active medical problems PAD (peripheral artery disease) Painful orthopaedic hardware Toe pain, right Surgical History Surgical History History of ankle fusion History of intravascular stent placement (~07/10/12) Social History Social History Smoking packs per day: 1 Smoking cigarettes per day: 20.0 Years smoked: 20 Smoking pack-years: 20.00 Smoking status: Former smoker Tobacco type: cigarettes Smoking end date: 08/10/90 Alcohol intake: never Substance use: never Substance use type: does not use Lack of Transportation: No Lack of Food: Never True Current Housing: I Have Housing Concerned About Future Housing: No Difficulty Paying Gas/Electric Bills: No Difficulty Paying for Meds: No Currently Unemployed: No Education: Trade/Vocational Certificate Difficulty w/ Childcare or Family Care: No Living arrangements: alone Spiritual care concerns: No Anes - Eval Final PreProcedure Day of Procedure 01/19/23 12:24 Patient weight: normal Heart: regular rate and rhythm Lungs: decreased breath sounds Airway: Mallampati scale class II Neurological: alert and oriented Last oral intake: >/= 8 hours ASA classification: IV Emergent: no Anesthetic plan: proceed Anesthesia type and monitoring: general GIVS and standard monitoring Results Review: All pre-operative results and documents have been reviewed as part of the pre-operative evaluation. Informed Consent: The patient's anesthetic plan and its attendant risks and benefits were discussed with the patient/family/POA. Questions were solicited and answers provided to the satisfaction of the patient/family/POA.
[2023-01-19] MEDS: ceFAZolin 2 GM/D5W 50 ML 2 GM/50 ML BAG IVPB (13:29)
[2023-01-19] MEDS: LIDO 1%/EPINEPHRINE 1:100,000 20 ML VIAL 10 ML INFILTRATE (13:56)
[2023-01-19] MEDS: HEPARIN SODIUM 5,000 UNITS/ML VIAL 1000 UNITS IRRIGATION ×2 (13:58→13:59)
[2023-01-19] MEDS: HEPARIN SODIUM 5,000 UNITS/ML VIAL 5000 UNITS IRRIGATION (14:00)
[2023-01-19 14:19] VITALS: BP 118/62; PULSE 58; RESP 16; O2SAT 98
--- NOTE | 2023-01-19 14:22 | W.PM.PROC2 ---
Procedure Note - Detailed Date of Procedure 01/19/23 Pre-op Diagnosis Esophageal cancer Post-op Diagnosis Same Procedure Performed Placement of right subclavian vein single-lumen port a catheter with intraoperative fluoroscopy. Surgeon Max Hays MD Anesthesia MAC Indications Patient is a 37-year-old gentleman who unfortunately was recently diagnosed with esophageal carcinoma. He is to undergo neoadjuvant chemoradiation treatments and presents now for placement of lucero catheter to begin treatment. Findings None significant. Description of Procedure After informed consent was obtained patient brought to the operating room was placed supine position on the IV sedation was administered by anesthesia. The bilateral anterior neck and chest was then prepped and draped usual sterile fashion. A time-out was then performed correctly identifying the patient as well as procedure to be performed. He was given Ancef for perioperative IV antibiotics. I then anesthetized the area just below the medial 3rd of the right clavicle with 1% lidocaine mixed with 0.5% Marcaine. I then made a transverse incision this area with a scalpel and then dissected down through the subcu tissue with electrocautery. Then dissected on top of the pectoralis major fascia and created the subcutaneous port pocket with blunt finger electrocautery dissection. Then utilizing a long 18gauge needle I percutaneous leak through the incision cannulated the right subclavian vein on 1st pass then a difficulty. There was prompt return of dark venous appearing blood. I then advanced a guidewire through the needle into the right subclavian vein into the superior vena cava. Intraoperative fluoroscopy was used to confirm the downward placement of the guidewire. I then advanced a dilator breakaway sheath over the guidewire. I then removed the guidewire and dilator leaving the sheath in place. A 9.6 Singaporean single-lumen catheter was then advanced through the sheath into the right subclavian vein subsequently down into the right atrium of the heart. The sheath was then torn away leaving the catheter in place. Then utilizing intraoperative fluoroscopy I pulled back on the catheter until I filled visualize the tip in the distal superior vena cava. The catheter was then cut to the appropriate length at the skin level and attached to the Smart Port. The port was then secured the subcutaneous port pocket on 3 sides with a 3-0 Prolene suture. I then accessed the port aspirated blood easily and was flushed with heparinized saline solution. Incision was then irrigated sterile saline solution hemostasis was good. The procedure close incision utilizing interrupted 3-0 Vicryl sutures in the subcutaneous tissues. Skin edges were approximated utilizing a running subcuticular 4 Monocryl suture. Incision was then cleaned and then skin glue was applied. I then percutaneously access the the port 1 last time and again it tank back blood easily. I then flushed it with 5000units of heparin. The patient tolerated the procedure well no complications. All sponges, needles, and instrument counts were correct at the end procedure. EBL was __ 10 _cc. The patient was awakened and taken to recovery in stable and satisfactory condition. Chest x-ray postoperative is pending at the time of this dictation. Implants 9.6 Singaporean single-lumen catheter attached to Smart Port Estimated Blood Loss 10 Drains No Packing No Pathology None sent Complications No immediate complications Condition Stable Disposition PACU [facility] Billing Surgery - Charge Forward: Surgery Billing
--- NOTE | 2023-01-19 14:24 | SUR.PHASEII ---
PORTABLE CXR DONE.
[2023-01-19 14:50] VITALS: BP 145/73; PULSE 50; RESP 16
--- NOTE | 2023-01-19 15:13 | SUR.PHASEII ---
1445 CXR SHOWS NO PNEUMOTHORAX PER REPORT.
== END 2023-01-19 15:13 | disposition home or self-care (01) ==
PROVIDERS: PCP Family Medicine; Visit Provider Surgery
PROC: (CPT 36561; principal; 2023-01-19 13:00)
DX: C15.9 Malignant neoplasm of esophagus, unspecified (principal); I25.10 Atherosclerotic heart disease of native coronary artery without angina pectoris; E78.5 Hyperlipidemia, unspecified; I73.9 Peripheral vascular disease, unspecified; Z95.820 Peripheral vascular angioplasty status with implants and grafts; Z87.891 Personal history of nicotine dependence; Z79.82 Long term (current) use of aspirin
CPT/HCPCS: 36561; 77001; C1788; J0690; J1644; J2250; J2405; J2704; J3010; J7030; J7120

== ENCOUNTER 2023-03-17 07:37 | Outpatient (CLI) | payer MEDICARE, SELFPAY ==
--- NOTE | ~2023-03-17 | PE_ITS ---
EXAMINATION: PET skull to mid thigh DATE: 03/17/2023 09:50 INDICATION: Cancer of the distal third of the esophagus TECHNIQUE: Blood glucose level was 162 mg/dL. 8.69 mCi of 18-fluorodeoxyglucose (18-FDG) was administ ered i.v. Low dose computed tomography (CT) images were acquired from the base of the brain to the pr oximal thighs for attenuation correction and anatomic localization. Positron emission tomography (PET ) images were acquired in the same distribution beginning 65 minutes after injection. Images includin g fused PET/CT images were reconstructed in axial, coronal, and sagittal planes. Automated exposure c ontrol technique was employed. The dose-length product was 500.45mGy-cm. COMPARISON: 12/18/2022 FINDINGS: Head/neck: There is symmetric increased activity in the oral cavity, laryngeal muscles and ocular muscles withou t CT correlate, likely physiologic. No pathologically enlarged cervical lymphadenopathy or suspicious foci of increased FDG uptake in the visualized head or neck. Chest: Right internal jugular central venous port catheter with distal tip at the caudal superior vena cava. Mild dependent atelectasis in bilateral lower lobes. No pneumonia, suspicious pulmonary nodules, pul monary edema or pleural effusion. Heart size is normal. Atherosclerotic coronary artery calcification s. No pericardial effusion. Ectatic ascending thoracic aorta which measures up to 4.4 cm in maximal d iameter. Again seen is a moderate sized sliding-type hiatal hernia. There is moderate increased FDG u ptake with maximal SUV of 6.9 now beginning at the mid esophagus at the level of the fam and exten ding caudally to the gastroesophageal junction and cardia of the stomach likely secondary to radiatio n treatment of the biopsy-proven esophageal cancer at the gastroesophageal junction. Again seen are s mall calcifications associated with the following nodular wall thickening at the gastric cardia. No p athologically enlarged or FDG avid thoracic lymphadenopathy. Abdomen/pelvis/proximal thighs: Physiologic renal accumulation and excretion of FDG activity in the kidneys, bladder and along portio ns of ureters. A couple small nonobstructing stones in the left kidney the larger measuring 3 mm in m aximal diameter. Normal degree and heterogenous pattern of increased uptake throughout the liver with out radiologic correlate or dominant FDG avid lesion. Mild relatively decreased FDG activity at the s ite of a 3.5 cm hypodense lesion in the right hepatic lobe enhancement pattern on prior CT most consi stent with a hemangioma. The gallbladder, pancreas and bilateral adrenal glands are normal. A few spl enic calcifications consistent with old granulomatous disease. Mild uptake scattered throughout the b owels without radiologic correlate, also likely physiologic. Mild scattered diverticulosis without ad jacent from trace stranding to suggest diverticulitis. Prostatomegaly. There is calcified atheroscler osis of the aorta and many of the other arteries. Right external iliac artery stenting and partially visualized right femoral bypass graft. No other abnormal foci of increased FDG uptake or pathological ly enlarged lymphadenopathy in the abdomen, pelvis or proximal thighs. Musculoskeletal: Severe lumbar spondylosis. No suspicious lytic, blastic or abnormally FDG avid bone lesions. IMPRESSION: 1. Moderate-sized sliding-type hiatal hernia with moderate FDG uptake extending from the mid esophagu s to the gastroesophageal junction and gastric cardia likely representing response to radiation treat ment of a biopsy-proven esophageal cancer centered at the gastroesophageal junction. No evident metas tatic disease in the head, chest, abdomen or pelvis. Reviewed, dictated and finalized at location L. IMPRESSION: 1. Mode
[2023-03-17 08:05] LABS: Glucose Point of Care 162 mg/dl (65-105)
== END 2023-03-17 07:38 | disposition home or self-care (01) ==
PROVIDERS: PCP Family Medicine; Visit Provider Internal Medicine Hematology & Oncology
DX: C15.5 Malignant neoplasm of lower third of esophagus (principal); K44.9 Diaphragmatic hernia without obstruction or gangrene
CPT/HCPCS: 78815; A9552

== ENCOUNTER 2023-05-24 11:23 | Emergency (ER) | payer MEDICARE, SELFPAY ==
--- NOTE | ~2023-05-24 | XR_ITS ---
EXAMINATION: XR abdomen gastric tube insert DATE: 05/24/2023 13:56 INDICATION: Feeding tube placement. TECHNIQUE: A supine view of the abdomen was obtained. COMPARISON: PET/CT 03/17/2023 FINDINGS: There are no dilated loops of bowel. A tube overlies the jejunum. There is contrast in the jejunum. There is no extraluminal contrast. There is a stent in right external iliac artery. IMPRESSION: 1. Percutaneous jejunostomy tube in expected position. Reviewed, dictated and finalized at location A.
[2023-05-24 11:26] VITALS: BP 139/60; PULSE 69; RESP 18; TEMP 36.7; O2SAT 99
--- NOTE | 2023-05-24 12:51 | ED.GENADULT ---
HPI - General Adult General Chief complaint: Unspecified Stated complaint: needs feeding tube replaced Time Seen by Provider: 05/24/23 11:32 Source: patient and RN notes reviewed Mode of arrival: ambulatory Limitations: no limitations History of Present Illness HPI narrative: This is a 77 year old male with recent diagnosed of esophageal cancer s/p esophagectomy. He had J tube placed at [facility] for diet supplementation per patient. This was placed 05/04/23. He states he noticed that this tube fell out last night around midnight. They spoke with nurse this morning and they were told to go to ER to get tube replaced. Patient did not bring dislodged tube. He states he is still able to eat and drink by mouth and this is just for suppelmentation. He reports it was placed by Dr. Temple at [facility]. He has appointment with his cardiothoracic surgeon on Thursday. He denies any other complaints such as nausea, vomiting, fever, abdominal pain. Related Data Home Medications Medication Instructions Recorded Confirmed aspirin 81 mg tablet,delayed 81 mg PO DAILY 03/18/21 04/20/23 release (Adult Low Dose Aspirin) coenzyme Q10 10 mg capsule 10 mg PO ONCE 08/06/21 04/20/23 gabapentin 100 mg capsule 200 mg PO QHS 08/06/21 04/20/23 lidocaine-prilocaine 2.5 %-2.5 % See Rx Instructions .Route .COMPLEX 01/29/23 04/20/23 topical cream ondansetron HCl 4 mg tablet 4 mg PO Q8H PRN Nausea 01/29/23 04/20/23 Allergies Allergy/AdvReac Type Severity Reaction Status Date / Time vancomycin Allergy RED MAN Verified 04/20/23 14:12 SYNDROME Review of Systems Review of Systems: All systems reviewed & are unremarkable except as noted in HPI and below PMFSH Past Medical History Medical History (Updated 05/24/23 @ 14:18 by Rody Li MD) CAD (coronary artery disease) Dyslipidemia Esophageal mass Insomnia Need for vaccination against Streptococcus pneumoniae using pneumococcal conjugate vaccine 13 No active medical problems PAD (peripheral artery disease) Painful orthopaedic hardware Toe pain, right Surgical History Surgical History (Updated 05/24/23 @ 21:43 by Rody Li MD) H/O esophagectomy History of ankle fusion History of intravascular stent placement (~07/10/12) Social History Social History Smoking packs per day: 1 Smoking cigarettes per day: 20.0 Years smoked: 20 Smoking pack-years: 20.00 Smoking status: Former smoker Tobacco type: cigarettes Smoking end date: 08/10/90 Alcohol intake: never Substance use: never Substance use type: does not use Lack of Transportation: No Lack of Food: Never True Current Housing: I Have Housing Concerned About Future Housing: No Difficulty Paying Gas/Electric Bills: No Difficulty Paying for Meds: No Currently Unemployed: No Education: Trade/Vocational Certificate Difficulty w/ Childcare or Family Care: No Living arrangements: alone Spiritual care concerns: No Exam Narrative: GENERAL: Well-appearing, well-nourished, and in no acute distress. HEAD: Normocephalic, atraumatic EYES: EOMI, conjunctiva clear without discharge THROAT:Mucous membranes moist, Oropharynx normal without erythema, exudate, peritonsillar swelling or fluctuance NECK: Supple, without lymphadenopathy or mass RESPIRATORY: No respiratory distress, Airway patent, Respirations non-labored, Clear to auscultation without rales, rhonchi or wheeze HEART: Regular rate and rhythm. No murmur heard. Normal peripheral pulses. ABDOMEN: Soft, nontender, nondistended, normal active bowel sounds. 2 abdominal incision intact, there is midabdomen stoma mild red irritation, no drainage EXTREMITIES: No edema, normal strength with full range of motion. SKIN: Warm, dry, normal color without rash NEURO: Alert and oriented x3. CN 2-12 grossly intact. No focal deficits. PSYCH: Normal mood and affect. Course Consultations
[2023-05-24] MEDS: HYDROcodone/acetaminophen (*CRX) 7.5-325 MG TABLET 1 TAB PO (13:54)
[2023-05-24 14:36] VITALS: BP 140/68; PULSE 65; RESP 18; O2SAT 100
== END 2023-05-24 14:36 | disposition home or self-care (01) ==
PROVIDERS: Emergency Provider General Practice; PCP Family Medicine
DX: T85.528A Displacement of other gastrointestinal prosthetic devices, implants and grafts, initial encounter (principal); I25.10 Atherosclerotic heart disease of native coronary artery without angina pectoris; E78.5 Hyperlipidemia, unspecified
CPT/HCPCS: 43762; 99283; A9270

== ENCOUNTER 2023-06-19 05:07 | Emergency (ER) | payer MEDICARE, SELFPAY ==
[2023-06-19 05:11] VITALS: BP 136/85; PULSE 72; RESP 20; TEMP 36.3; O2SAT 100
--- NOTE | 2023-06-19 05:48 | ED.GENADULT ---
HPI - General Adult General Chief complaint: Wound/Laceration Stated complaint: feed tube came out Time Seen by Provider: 06/19/23 05:29 History of Present Illness HPI narrative: Patient is [id number] gentleman who presents the emergency department with chief complaint of feeding tube came out. Patient reports that he has had a temporary feeding tube after his previous G-tube fell out patient states he is scheduled to be removed on Thursday patient states he is tube fell out yesterday and reports that the area is slightly reddened but his primary doctor started him on antibiotics. Patient denies fever denies pain Related Data Home Medications Medication Instructions Recorded Confirmed aspirin 81 mg tablet,delayed 81 mg PO DAILY 03/18/21 04/20/23 release (Adult Low Dose Aspirin) coenzyme Q10 10 mg capsule 10 mg PO ONCE 08/06/21 04/20/23 gabapentin 100 mg capsule 200 mg PO QHS 08/06/21 04/20/23 lidocaine-prilocaine 2.5 %-2.5 % See Rx Instructions .Route .COMPLEX 01/29/23 04/20/23 topical cream ondansetron HCl 4 mg tablet 4 mg PO Q8H PRN Nausea 01/29/23 04/20/23 Allergies Allergy/AdvReac Type Severity Reaction Status Date / Time vancomycin Allergy RED MAN Verified 06/19/23 05:25 SYNDROME Review of Systems Review of Systems: A 10 system review of systems was completed on the patient and is negative except for what is stated in the HPI. Nursing and ancillary documentation was reviewed. [facility] Past Medical History Medical History CAD (coronary artery disease) Dyslipidemia Esophageal mass Insomnia Need for vaccination against Streptococcus pneumoniae using pneumococcal conjugate vaccine 13 No active medical problems PAD (peripheral artery disease) Painful orthopaedic hardware Toe pain, right Surgical History Surgical History H/O esophagectomy History of ankle fusion History of intravascular stent placement (~07/10/12) Social History Social History Smoking packs per day: 1 Smoking cigarettes per day: 20.0 Years smoked: 20 Smoking pack-years: 20.00 Smoking status: Former smoker Tobacco type: cigarettes Smoking end date: 08/10/90 Alcohol intake: never Substance use: never Substance use type: does not use Lack of Transportation: No Lack of Food: Never True Current Housing: I Have Housing Concerned About Future Housing: No Difficulty Paying Gas/Electric Bills: No Difficulty Paying for Meds: No Currently Unemployed: No Education: Trade/Vocational Certificate Difficulty w/ Childcare or Family Care: No Living arrangements: alone Occupation/Education: retired Gender identity (if verbalized by the patient): Male Spiritual care concerns: No Agree to blood products: Yes Exam Narrative: GENERAL: Well-appearing, well-nourished, and in no acute distress. HEAD: Normocephalic, atraumatic. EYES: PERRLA and EOMI. ENT: Nares clear, no rhinorrhea or epistaxis. Mucous membranes moist. NECK: Supple. CHEST: Clear to auscultation. No respiratory distress. HEART: Regular rate and rhythm. No murmur heard. Normal peripheral pulses. ABDOMEN: Soft, nontender, nondistended, normal active bowel sounds G-tube site is slightly reddened no purulent drainage there is slight drainage from the ostomy site. EXTREMITIES: Normal range of motion. No edema. SKIN: Warm, dry, no rash. NEURO: No focal deficits. Alert and oriented x3. PSYCH: Normal mood and affect. Course Vital Signs Vital signs: Vital Signs Temperature 36.3 C L 06/19/23 05:11 Pulse Rate 72 06/19/23 05:11 Respiratory Rate 20 06/19/23 05:11 Blood Pressure 136/85 06/19/23 05:11 Pulse Oximetry 100 06/19/23 05:11 Oxygen Delivery Room Air 06/19/23 05:11 Temperature 36.3 C L 06/19/23 05:11 P
== END 2023-06-19 05:58 | disposition home or self-care (01) ==
PROVIDERS: Emergency Provider Emergency Medicine; PCP Family Medicine
DX: Z43.1 Encounter for attention to gastrostomy (principal); I25.10 Atherosclerotic heart disease of native coronary artery without angina pectoris; E78.5 Hyperlipidemia, unspecified; Z87.891 Personal history of nicotine dependence
CPT/HCPCS: 99282

== ENCOUNTER 2023-07-01 14:54 | Outpatient (CLI) | payer MEDICARE, SELFPAY ==
[2023-07-01 19:22] LABS: Alanine Aminotransferase 15 U/L (6-50); Albumin Level 3.8 g/dL (3.5-5.1); Alkaline Phosphatase 87 U/L (38-126); Anion Gap 9 mmol/L (8-16); Aspartate Amino Transferase 25 U/L (17-59); Bilirubin,Total 0.4 mg/dL (0.2-1.3); Blood Urea Nitrogen 16 mg/dL (9-20); Calcium 8.7 mg/dL (8.4-10.2); Carbon Dioxide 25 mmol/L (22-30); Chloride 104 mmol/L (98-107); Estimated Glomerular Filt Rate > 60; Glucose 159 mg/dL (65-110); Potassium 3.8 mmol/L (3.4-5.0); Sodium 138 mmol/L (137-145)
[2023-07-01 19:32] LABS: Hematocrit 33.7 % (42.0-52.0); Hemoglobin 10.6 g/dL (14.0-18.0); Mean Corpuscular HGB Conc 31.5 g/dl (32-36); Mean Corpuscular Hemoglobin 27.7 pg (26-34); Mean Corpuscular Volume 88.2 fl (80-100); Mean Platelet Volume 10.3 fl (7.4-10.4); Platelet Count Result 285 k/mm3 (150-375); Red Blood Count 3.82 M/mm3 (4.6-6.20); Red Cell Distribution Width 14.3 % (11.5-14.5); White Blood Count 6.3 K/mm3 (4.5-10.0)
== END 2023-07-01 14:55 | disposition home or self-care (01) ==
PROVIDERS: PCP Family Medicine; Visit Provider Family Medicine
DX: Z79.899 Other long term (current) drug therapy (principal); Z00.00 Encounter for general adult medical examination without abnormal findings
CPT/HCPCS: 36415; 80053; 85027

== ENCOUNTER 2023-08-11 08:30 | Outpatient (CLI) | payer MEDICARE, SELFPAY ==
--- NOTE | ~2023-08-11 | CT_ITS ---
Clinical Indication: Esophageal cancer CT Scan of the Chest, Abdomen, and Pelvis with Contrast: Technique: Contiguous sections were acquired throughout the chest, abdomen, and pelvis after intraven ous administration of 100 cc of Omnipaque 350. Dose reduction technique was used on this scan by uti lizing automated exposure control and iterative reconstruction technique. The dose-length product (DL P) was 611.96 mGy-cm. COMPARISON: CT scan dated 12/09/2022, PET/CT dated 03/17/2023 Findings: There is no evidence of any significant mediastinal, hilar or axillary lymphadenopathy. The mediastin al vascular structures appear normal. Suggestion of prior partial esophagectomy and partial gastric p ull-through, with moderate to large hiatal hernia evident otherwise. Probable mild wall thickening of the pull-through portion of the stomach. No pericardial effusion. Small left pleural effusion and minimal right pleural effusion are present. Stable small fissural nodule in the right lung. There is minimal fluid in the right minor fissure. Th ere is probable atelectatic change at the medial right lung base. Stable groundglass focal nodule in the left upper lobe (axial image 58). Stable probable hepatic hemangioma in the inferior right hepatic lobe. The spleen, pancreas, gallblad artemio, adrenals and kidneys are within normal limits. There are atherosclerotic calcifications of the a holli. No lymphadenopathy. Questionable extensive large bowel wall thickening versus underdistention. No bowel obstruction. No a bscess or free air. Urinary bladder is unremarkable. Prostate gland is significantly enlarged. No ascites. Impression: Probable postoperative and/or other post therapy changes related to treatment of esophageal cancer. S uspected partial esophagectomy and gastric pull-through. Correlate with treatment history. No definit e evidence for active malignancy or metastatic disease. Stable small pulmonary nodules, as above. Small left pleural effusion and minimal right pleural effusion. Questionable large bowel wall thickening versus underdistention. Correlate for infectious/inflammator y colitis. Enlarged prostate gland. Stable hepatic hemangioma. Reviewed, dictated and finalized at location M. [facility] [employer] [employer] [facility] Impression: Probable postoperative and/or other post therapy changes related to treatment o f esophageal cancer. Suspected partial esophagectomy and gastric pull-through. Correlate with treatment history. No definite evidence for active malignancy or metastatic disease. Stable small pulmonary nodules, as above. Small left pleural effusion and minimal right pleural effusion. Questionable large bowel wall thickening versus underdistention. Correlate for infectious/inflammatory colitis. Enlarged prostate gland. Stable hepatic hemangioma.
== END 2023-08-11 08:31 | disposition home or self-care (01) ==
PROVIDERS: PCP Family Medicine; Visit Provider Internal Medicine Hematology & Oncology
DX: C15.5 Malignant neoplasm of lower third of esophagus (principal); N40.0 Benign prostatic hyperplasia without lower urinary tract symptoms; J90 Pleural effusion, not elsewhere classified; R91.8 Other nonspecific abnormal finding of lung field
CPT/HCPCS: 71260; 74177; Q9967

== ENCOUNTER 2023-11-03 10:53 | Outpatient (CLI) | payer MEDICARE, SELFPAY ==
--- NOTE | ~2023-11-03 | CT_ITS ---
EXAMINATION: CT chest abdomen pelvis w con DATE: 11/03/2023 11:22 INDICATION: Cancer of distal third of esophagus. TECHNIQUE: Computed tomography (CT) of the chest, abdomen, and pelvis was performed with 100 mL Omnip aque 350 intravenous contrast. Automated exposure control and iterative reconstruction technique were employed. The dose-length product was 599.02 mGy-cm. COMPARISON: CT chest, abdomen, and pelvis 08/11/23 FINDINGS: CHEST CT: The lungs demonstrate mild atelectasis. There is a stable 3 mm nodule in right upper lobe, likely ashley ign. There is a cluster of tree-in-bud opacities in left lower lobe with interval improvement, likely inflammation/infection. There is a stable 5 mm nodule at minor fissure, likely benign. There is smoo th septal thickening in the inferior lungs, consistent mild pulmonary edema. There are small pleural effusions. The heart size is normal. There is subendocardial fat in the anterior and lateral cunningham of left ventricle, consistent with old infarct. There are coronary artery calcifications. No pericardia l effusion. There are changes of esophagectomy and gastric pull-through procedure. There is a right s ubclavian port with tip in superior vena cava. There is moderate thoracic spondylosis. There is mild chronic anterior wedging of multiple vertebral bodies. ABDOMEN/PELVIS CT: There is a 3.3 cm hemangioma in right hepatic lobe. The gallbladder is normal. Calcifications in the spleen are consistent with old granulomatous disease. The pancreas, adrenal glands are normal. There is cortical thinning of right kidney. There is a 2 mm stone in right kidney. There are 3 stones in le ft kidney measuring up to 5 mm. There is calcified atherosclerosis of the aorta and many of the other arteries. There is a stent in right external iliac artery. There is total occlusion of left superfic ial femoral artery. There is total occlusion of right superficial femoral artery. There is a graft fr om right superficial femoral artery with moderate to severe stenosis of the graft origin. There are b ilateral hydroceles. There is diverticulosis of the colon without evidence of diverticulitis. There a re no dilated loops of bowel. There are no pathologically enlarged lymph nodes. There is no free intr aperitoneal fluid. The prostate is moderately enlarged. There is severe lumbar spondylosis. IMPRESSION: 1. No evidence of metastatic disease. 2. Stable small pleural effusions. 3. Mild pulmonary edema. Reviewed, dictated and finalized at location A.
== END 2023-11-03 10:54 | disposition home or self-care (01) ==
PROVIDERS: PCP Family Medicine; Visit Provider Internal Medicine Hematology & Oncology
DX: C15.5 Malignant neoplasm of lower third of esophagus (principal); J90 Pleural effusion, not elsewhere classified
CPT/HCPCS: 71260; 74177; Q9967

== ENCOUNTER 2023-12-14 15:18 | Outpatient (CLI) | payer MEDICARE, SELFPAY ==
[2023-12-14 20:05] LABS: Cholesterol 110 mg/dL (0-200); HDL Direct 47 mg/dL; Triglycerides 140 mg/dL (<150)
[2023-12-14 20:16] LABS: LDL Cholesterol Direct 53 mg/dL
[2023-12-14 21:11] LABS: Hemoglobin A1C 6.5 % (<5.7)
== END 2023-12-14 15:19 | disposition home or self-care (01) ==
PROVIDERS: PCP Family Medicine; Visit Provider Family Medicine
DX: E11.9 Type 2 diabetes mellitus without complications (principal); R07.9 Chest pain, unspecified
CPT/HCPCS: 36415; 80061; 83036

== ENCOUNTER 2024-01-26 10:47 | Outpatient (CLI) | payer MEDICARE, SELFPAY ==
--- NOTE | ~2024-01-26 | CT_ITS ---
EXAMINATION: CT chest abdomen pelvis w con DATE: 01/26/2024 11:06 INDICATION: Cancer of distal third of esophagus. TECHNIQUE: Computed tomography (CT) of the chest, abdomen, and pelvis was performed with 100 mL Omnip aque 350 intravenous contrast. Automated exposure control and iterative reconstruction technique were employed. The dose-length product was 533.93 mGy-cm. COMPARISON: CT 11/03/2023 FINDINGS: CHEST CT: The lungs demonstrate mild atelectasis. There is smooth septal thickening in the inferior lungs, cons istent with mild pulmonary edema. There are small pleural effusions. The heart size is normal. There are coronary artery calcifications. No pericardial effusion. There is ectasia of ascending aorta natali uring 4.4 cm. There are changes of esophagectomy and gastric pull-through procedure. There is a right internal jugular port with tip at superior cavoatrial junction. There is mild thoracic spondylosis. There is mild chronic height loss of multiple vertebral bodies. ABDOMEN/PELVIS CT: There is a 2.8 cm hemangioma in the liver. The gallbladder, spleen, pancreas, and adrenal glands are normal. There is cortical thinning of right kidney. There is a 1 mm stone in right kidney. There are 3 stones in left kidney measuring up to 5 mm. The prostate is moderately enlarged. There is diverticu losis of the colon without evidence of diverticulitis. There are no dilated loops of bowel. The appen nicolas is not visualized. There is calcified atherosclerosis of the aorta and many of the other arteries . There is a stent in right external iliac artery. There is total occlusion of right superficial femo ral artery. There is moderate stenosis of the origin of a graft at right common femoral artery. There is moderate stenosis of left common femoral artery and severe stenosis of left superficial femoral a rtery. Partially visualized is a right-sided hydrocele. There are no pathologically enlarged lymph no jordin. There is no free intraperitoneal fluid. There is severe lumbar spondylosis. IMPRESSION: 1. No evidence of metastatic disease. 2. Mild pulmonary edema. 3. Small pleural effusions. 4. Peripheral arterial disease. Reviewed, dictated and finalized at location A.
== END 2024-01-26 10:48 | disposition home or self-care (01) ==
LOC: ANHIMG 10:48
PROVIDERS: PCP Family Medicine; Visit Provider Internal Medicine Hematology & Oncology
DX: C15.5 Malignant neoplasm of lower third of esophagus (principal); J81.1 Chronic pulmonary edema; J90 Pleural effusion, not elsewhere classified; I73.9 Peripheral vascular disease, unspecified
CPT/HCPCS: 71260; 74177; Q9967

== ENCOUNTER 2024-04-13 01:51 | Day surgery (SDC) | payer MEDICARE, SELFPAY ==
[2024-04-07 09:50] VITALS: BMI 24.3
[2024-04-13 06:48] VITALS: BP 148/89; PULSE 58; RESP 20; TEMP 36.4; O2SAT 100
[2024-04-13] MEDS: LACTATED RINGERS 1,000 ML 150 ML IV CONT (06:58)
--- NOTE | 2024-04-13 07:49 | WPDHPUPDATE1 ---
History and Physical Update Update Date/Time: 04/13/24 07:49 History and Physical has been reviewed, including an updated exam of the patient. There are NO changes in the patient's condition. Risks, benefits, and alternatives have been discussed and questions answered. Patient agrees to proceed with procedure.
[2024-04-13] MEDS: BENZOCAINE (*SP) 60 ML SPRAY CAN (HURRICAINE) 1 SPRAY MUCOUS MEM (07:54)
--- NOTE | 2024-04-13 08:01 | WPDANESEPPF ---
Anes - Initial Pre Proc Eval Procedure: Operation Date: 04/13/24 08:00 Proposed Procedures p Esophagogastroduodenoscopy - Vahid Chicas MD Date/Time: 04/13/24 08:01 Surgeon: Vahid Chicas MD Pre Op Diagnosis: neoplasm of esophagus, Dysphagia Patient Data Age: 78 Gender: M Height: 1.68 m Weight: 67.4 kg Last Vital Signs Temp 97.5 F L 04/13/24 06:48 Pulse 58 L 04/13/24 06:48 Resp 20 04/13/24 06:48 BP 148/89 H 04/13/24 06:48 Pulse Ox 100 04/13/24 06:48 O2 Del Method Room Air 04/13/24 06:48 Allergies Allergy/AdvReac Type Severity Reaction Status Date / Time vancomycin Allergy RED MAN Verified 04/13/24 06:43 SYNDROME Home Medications Medication Instructions Recorded Confirmed Type aspirin 81 mg tablet,delayed 81 mg PO DAILY 03/18/21 04/13/24 History release (Adult Low Dose Aspirin) coenzyme Q10 10 mg capsule 10 mg PO ONCE 08/06/21 04/13/24 History metoprolol succinate 25 mg See Rx Instructions .Route 11/04/23 04/12/24 Rx tablet,extended release 24 hr .COMPLEX #90 tabs gabapentin 300 mg capsule 300 mg PO QHS #90 caps 12/14/23 04/13/24 Rx atorvastatin 80 mg tablet See Rx Instructions .Route 03/21/24 04/13/24 Rx .COMPLEX #90 tabs isosorbide mononitrate 30 mg See Rx Instructions .Route 03/21/24 04/12/24 Rx tablet,extended release 24 hr .COMPLEX #90 tabs Patient hx anesthesia problems: none Family hx anesthesia problems: none Results Review: All pre-operative results and documents have been reviewed as part of the pre-operative evaluation. [facility] Past Medical History Medical History (Updated 03/24/24 @ 10:51 by Vahid Chicas MD) CAD (coronary artery disease) Dyslipidemia Dysphagia Esophageal mass Insomnia Need for vaccination against Streptococcus pneumoniae using pneumococcal conjugate vaccine 13 No active medical problems PAD (peripheral artery disease) Painful orthopaedic hardware Toe pain, right Surgical History Surgical History H/O esophagectomy History of ankle fusion History of intravascular stent placement (~07/10/12) Social History Social History Smoking packs per day: 1 Smoking cigarettes per day: 20.0 Years smoked: 20 Smoking pack-years: 20.00 Smoking status: Former smoker Tobacco type: cigarettes Smoking end date: 08/10/91 Alcohol intake: never Substance use: never Substance use type: does not use Lack of Transportation: No Lack of Food: Never True Current Housing: I Have Housing Concerned About Future Housing: No Difficulty Paying Gas/Electric Bills: No Difficulty Paying for Meds: No Currently Unemployed: No Education: Trade/Vocational Certificate Difficulty w/ Childcare or Family Care: No Living arrangements: alone Occupation/Education: retired Gender identity (if verbalized by the patient): Male Spiritual care concerns: No Agree to blood products: Yes Anes - Eval Final PreProcedure Day of Procedure 04/13/24 08:01 Patient weight: normal Heart: regular rate and rhythm Lungs: clear to auscultation Airway: Mallampati scale class II Neurological: alert and oriented Last oral intake: >/= 8 hours ASA classification: IV Emergent: no Anesthetic plan: proceed Anesthesia type and monitoring: general GIVS and standard monitoring Results Review: All pre-operative results and documents have been reviewed as part of the pre-operative evaluation. Informed Consent: The patient's anesthetic plan and its attendant risks and benefits were discussed with the patient/family/POA. Questions were solicited and answers provided to the satisfaction of the patient/family/POA.
[2024-04-13 08:07] VITALS: BP 102/54; PULSE 54; RESP 22; O2SAT 97
[2024-04-13 08:17] VITALS: BP 109/61; PULSE 46; RESP 20; O2SAT 98
[2024-04-13 08:27] VITALS: BP 118/61; PULSE 54; RESP 18; O2SAT 98
== END 2024-04-13 08:44 | disposition home or self-care (01) ==
PROVIDERS: PCP Family Medicine; Visit Provider Internal Medicine Gastroenterology
PROC: 0DJ08ZZ Inspection of Upper Intestinal Tract, Via Natural or Artificial Opening Endoscopic (ICD-10-PCS; CPT 43235; principal; 2024-04-13 08:00)
DX: K21.00 Gastro-esophageal reflux disease with esophagitis, without bleeding (principal); K29.50 Unspecified chronic gastritis without bleeding; K22.2 Esophageal obstruction; K31.84 Gastroparesis; Z92.21 Personal history of antineoplastic chemotherapy; Z85.01 Personal history of malignant neoplasm of esophagus; I25.10 Atherosclerotic heart disease of native coronary artery without angina pectoris; E78.5 Hyperlipidemia, unspecified; E11.51 Type 2 diabetes mellitus with diabetic peripheral angiopathy without gangrene; Z95.820 Peripheral vascular angioplasty status with implants and grafts; Z87.891 Personal history of nicotine dependence; Z79.82 Long term (current) use of aspirin
CPT/HCPCS: 43249; 88305; C1726; J2704; J7120

== ENCOUNTER 2024-04-19 09:39 | Outpatient (CLI) | payer MEDICARE, SELFPAY ==
--- NOTE | ~2024-04-19 | CT_ITS ---
EXAMINATION: CT chest abdomen pelvis w con DATE: 04/19/2024 10:18 INDICATION: Cancer of distal third of esophagus. TECHNIQUE: Computed tomography (CT) of the chest, abdomen, and pelvis was performed with 100 mL Omnip aque 350 intravenous contrast. Automated exposure control and iterative reconstruction technique were employed. The dose-length product was 694.71 mGy-cm. COMPARISON: CT 01/26/2024 FINDINGS: CHEST CT: There are small bilateral pleural effusions. There are is mild atelectasis in the lower lobes. Again seen is a 2 mm nodule in left lower lobe, likely benign. There are changes of esophagectomy and gastr ic pull-through procedure. The heart size is normal. There are coronary artery calcifications. No per icardial effusion. There is ectasia of ascending aorta measuring 4.6 cm. There is moderate thoracic s pondylosis. There is mild chronic height loss of multiple vertebral bodies. There is an old healed fr acture of the sternum. ABDOMEN/PELVIS CT: There is a 1.8 cm mass in right hepatic lobe with interrupted peripheral puddling of contrast, consis tent with a hemangioma. The gallbladder, pancreas, and adrenal glands are normal. Calcifications in t he spleen are consistent with old granulomatous disease. There is cortical thinning of right kidney. Left kidney is normal. The prostate is mildly enlarged. There is diverticulosis of the colon without evidence of diverticulitis. There is calcified atherosclerosis of the aorta and many of the other art eries. There is a stent in right external iliac artery. There is severe stenosis of left common femor al artery and superficial femoral artery. There is moderate stenosis of left common iliac artery. The re is total occlusion of right superficial femoral artery with a patent graft. There are no pathologi gary enlarged lymph nodes. There is no free intraperitoneal fluid. There is a large right-sided hydr ocele. There is severe lumbar spondylosis. IMPRESSION: 1. No evidence of metastatic disease. 2. Small pleural effusions. 3. Peripheral arterial disease. Reviewed, dictated and finalized at location A.
== END 2024-04-19 09:40 | disposition home or self-care (01) ==
PROVIDERS: PCP Family Medicine; Visit Provider Internal Medicine Hematology & Oncology
DX: C15.5 Malignant neoplasm of lower third of esophagus (principal); J90 Pleural effusion, not elsewhere classified
CPT/HCPCS: 71260; 74177; Q9967

== ENCOUNTER 2024-05-23 15:54 | Observation (INO) | payer MEDICARE, SELFPAY ==
[2024-05-23] VITALS (8 sets, daily range): BP systolic 108–150; BP diastolic 49–73; PULSE 61–78; RESP 16–18; TEMP 36.6–36.9; O2SAT 93–97; BMI 24.8
--- NOTE | ~2024-05-23 | XR_ITS ---
EXAMINATION: XR chest 2V DATE: 05/23/2024 16:24 INDICATION: Chest pain TECHNIQUE: AP and lateral views of the chest were obtained. COMPARISON: Chest CT dated 04/19/2024 FINDINGS: Right subclavian central venous port catheter with distal tip at the midsuperior vena cava. Opacities at the posterior left lung base with blunting of costophrenic angle consistent with small left pleur al effusion. There is also a tiny right pleural effusion with blunting at the right posterior sulcus. No pulmonary edema or pneumothorax. Heart size within normal limits conifer AP technique. There is c oronary artery calcifications and/or stenting. Advanced left glenohumeral osteoarthritis. Old healed posterior right sixth rib fracture. Moderate thoracic spondylosis. There is a 2 cm long thin wire-lik e foreign body in the subcutaneous tissues at the anterior proximal left upper arm. IMPRESSION: 1. Small left and very small right pleural effusions. Reviewed, dictated and finalized at location A.
--- NOTE | ~2024-05-23 | NM_ITS ---
EXAMINATION: NM daniel stress w perfusion DATE: 05/24/2024 13:02 INDICATION: Chest pain TECHNIQUE: Rest images were obtained following intravenous administration of 9.5 mCi Tc99m tetrofosmi n (Myoview). The patient was infused intravenously with Lexiscan (Regadenoson). Then, 30.8 mCi Tc99m tetrofosmin (Myoview) was administered intravenously, and stress images were obtained. Data was recon structed into short axis and horizontal and vertical long axis SPECT images. Gated SPECT images were also obtained. COMPARISON: 02/04/2021 FINDINGS: Persistent large, moderate to severe nonreversible perfusion defect involving the apical, a nterior and lateral apical and mid anterior and anterolateral segments consistent with infarct. Possi ble small component of partially reversible ischemia at the anterior apical segment. There is normal left ventricular chamber size and ejection fraction which measures 68%. There appears to be small re gion of dyskinesis centered at the anteroapical segment. IMPRESSION: 1. 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 2. Left ventricular ejection fraction measuring 68%. Reviewed, dictated and finalized at location A. IMPRESSION: 1. 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 2. Left ventricular ejection fraction measuring 68%.
--- NOTE | 2024-05-23 15:55 | ECG_ITS ---
Test Date: 2024-05-23 16:04:33 Measurements Intervals [place] Rate: 69 P: 26 WA: 139 QRS: 19 QRSD: 90 T: 72 QT: 353 QTc: 378 Interpretive Statements SINUS RHYTHM No previous ECG available for comparison Electronically Signed On 05-24-2024 11:58:44 CDT by Rekha Hutchison M.D.
[2024-05-23 16:15] LABS: Basophils Absolute Auto 0.1 K/mm3 (0.0-0.1); Basophils Percent Auto 0.5 % (0.2-1.2); Eosinophils Absolute Auto 0.2 K/mm3 (0-0.3); Eosinophils Percent Auto 1.5 % (0-4.4); Hematocrit 38.2 % (42.0-52.0); Hemoglobin 12.4 g/dL (14.0-18.0); Immature Granulocyte Absolute 0.05 K/mm3 (0.00-0.031); Immature Granulocyte Percent A 0.4 % (0-0.5); Lymphocytes Absolute Auto 0.99 K/mm3 (0.9-3.2); Lymphocytes Percent Auto 8.5 % (18.3-44.2); Mean Corpuscular HGB Conc 32.5 g/dl (32-36); Mean Corpuscular Hemoglobin 28.3 pg (26-34); Mean Corpuscular Volume 87.2 fl (80-100); Mean Platelet Volume 9.6 fl (7.4-10.4); Monocytes Absolute Auto 0.6 K/mm3 (0.1-0.6); Monocytes Percent Auto 5.5 % (2.6-8.5); Neutrophils Absolute Auto 9.7 K/mm3 (1.3-6.7); Neutrophils Percent Auto 83.6 % (45.5-73.1); Platelet Count Result 242 k/mm3 (150-375); Red Blood Count 4.38 M/mm3 (4.6-6.20); Red Cell Distribution Width 14.6 % (11.5-14.5); White Blood Count 11.7 K/mm3 (4.5-10.0)
[2024-05-23 16:25] LABS: Alanine Aminotransferase 20 U/L (6-50); Albumin Level 4.1 g/dL (3.5-5.1); Alkaline Phosphatase 99 U/L (38-126); Anion Gap 10 mmol/L (4-12); Aspartate Amino Transferase 28 U/L (17-59); Bilirubin,Total 0.7 mg/dL (0.2-1.3); Blood Urea Nitrogen 14 mg/dL (9-20); Calcium 8.9 mg/dL (8.4-10.2); Carbon Dioxide 25 mmol/L (22-30); Chloride 102 mmol/L (98-107); Estimated CRCL calculation 52 ml/min; Estimated Glomerular Filt Rate > 60; Glucose 158 mg/dL (65-110); INR 1.1; Lipase 63 U/L (23-300); Partial Thromboplastin Time 24.6 Seconds (22.3-36.8); Prothrombin Time 14.9 Seconds (11.1-14.7); Sodium 137 mmol/L (137-145)
[2024-05-23 16:37] LABS: Troponin I < 0.012 ng/mL (0.000-0.034)
[2024-05-23] MEDS: KETOROLAC 30 MG/ML VIAL (*BKC) IV PUSH (16:43)
[2024-05-23] MEDS: NITROGLYCERIN SL 0.4 MG TABLET SUBLINGUAL (16:43)
[2024-05-23] MEDS: ASPIRIN 81 MG CHEWABLE TABLET 324 MG PO (16:43)
--- NOTE | 2024-05-23 18:02 | ED.CHESTPAIN ---
HPI - Chest Pain General Chief Complaint: Chest Pain Stated Complaint: chest pain Time Seen by Provider: 05/23/24 16:07 History of Present Illness HPI narrative: patient is a 78-year-old male who presents ER with chest pain. Sudden onset and right-sided. No radiation. No improvement with nitroglycerin. He has history of coronary disease with stenting. He sees Dr. Baker. cannot identify aggravating or alleviating factors. He was at rest when it began. Related Data Home Medications Medication Instructions Recorded Confirmed aspirin 81 mg tablet,delayed 81 mg PO DAILY 03/18/21 04/26/24 release (Adult Low Dose Aspirin) coenzyme Q10 10 mg capsule 10 mg PO ONCE 08/06/21 04/26/24 Allergies Allergy/AdvReac Type Severity Reaction Status Date / Time vancomycin Allergy RED MAN Verified 05/23/24 16:18 SYNDROME Review of Systems Review of Systems: All systems reviewed & are unremarkable except as noted in HPI and below Constitutional: Constitutional: Reports no additional constitutional complaints ENT: Reports system reviewed and no additional complaints, except as documented Cardiovascular: Cardiovascular: Reports no additional cardiovascular complaints Respiratory: Respiratory: Reports no additional respiratory complaints Musculoskeletal: Musculoskeletal: Reports no additional musculoskeletal complaints [facility] Past Medical History Medical History (Updated 05/23/24 @ 18:40 by Jonny Roach MD) CAD (coronary artery disease) Dyslipidemia Dysphagia Esophageal mass Insomnia Need for vaccination against Streptococcus pneumoniae using pneumococcal conjugate vaccine 13 No active medical problems PAD (peripheral artery disease) Painful orthopaedic hardware Toe pain, right Surgical History Surgical History (Updated 04/19/24 @ 10:12 by Vahid Chicas MD) H/O esophagectomy History of ankle fusion History of intravascular stent placement (~07/10/12) Social History Social History Smoking packs per day: 1 Smoking cigarettes per day: 20.0 Years smoked: 20 Smoking pack-years: 20.00 Smoking status: Former smoker Tobacco type: cigarettes Smoking end date: 08/10/91 Alcohol intake: never Substance use: never Substance use type: does not use Lack of Transportation: No Lack of Food: Never True Current Housing: I Have Housing Concerned About Future Housing: No Difficulty Paying Gas/Electric Bills: No Difficulty Paying for Meds: No Currently Unemployed: No Education: Trade/Vocational Certificate Difficulty w/ Childcare or Family Care: No Living arrangements: alone Occupation/Education: retired Gender identity (if verbalized by the patient): Male Spiritual care concerns: No Agree to blood products: Yes Exam Narrative: GENERAL: Well-appearing, well-nourished, and in no acute distress. HEAD: Normocephalic, atraumatic. ENT: Mucous membranes moist. NECK: Supple. CHEST: Clear to auscultation. No respiratory distress. HEART: Regular rate and rhythm. Normal peripheral pulses. ABDOMEN: Soft, nontender, nondistended. EXTREMITIES: Normal range of motion. No edema. SKIN: Warm, dry, no rash. NEURO: Alert and oriented x3. PSYCH: Normal mood and affect. Course Course Emergency Course: Patient received additional nitro without much change. He does have improvement with Toradol. First troponin negative. Admit for observation. Vital Signs Vital signs: Vital Signs Temperature 98.2 F 05/23/24 15:56 Pulse Rate 71 05/23/24 15:56 Respiratory Rate 16 05/23/24 15:56 Blood Pressure 150/73 H 05/23/24 15:56 Pulse Oximetry 96 05/23/24 15:56 Temperature 98.2 F 05/23/24 15:56 Pulse Rate 78 05/23/24 16:01 Respiratory Rate 16 05/23/24 15:56 Blood Pressure 150/73 H 05/23/24 15:56 Pulse Oximetry 96 05/23/24 15:56 MDM - Chest Pain Lab Data 05/23
--- NOTE | 2024-05-23 18:36 | ECG_ITS ---
Test Date: 2024-05-23 18:53:29 Measurements Intervals [place] Rate: 65 P: 39 LA: 143 QRS: 6 QRSD: 88 T: 52 QT: 376 QTc: 391 Interpretive Statements SINUS RHYTHM Compared to ECG 05/23/2024 16:04:33 No significant changes Electronically Signed On 05-24-2024 12:00:02 CDT by Rekha Hutchison M.D.
[2024-05-23 19:16] LABS: Troponin I < 0.012 ng/mL (0.000-0.034)
--- NOTE | 2024-05-23 19:57 | PC.NURSE ---
Received verbal report from ED.
--- NOTE | 2024-05-23 20:14 | ADMGEN ---
This patient, Chris Mabry, was admitted to IMU Room 204-01. Patient/family oriented to hospital policies and general routines including ID bracelet, bed and alarms, visiting hours, pain management, procedures, bathroom and other care routines, personal items, smoking policy, room service/diet, and visiting hours. Information on how to activate the Rapid Response Team has been discussed. Patient/Family are encouraged to report perceived risks to care and to ask questions if they do not understand what they are told or what they should do.
--- NOTE | 2024-05-23 21:52 | PM.IMHP ---
H&P: HPI History of Present Illness Date/Time: 05/23/24 21:52 Chief Complaint: Chest pain Narrative: This is a 78-year-old male with a significant past medical history of coronary artery disease, hyperlipidemia, insomnia, peripheral artery disease, iron deficiency anemia, GERD, esophageal cancer stage III status post chemotherapy and surgery and is a patient of Dr. Patterson, [place], former smoker who presented to the hospital with sudden onset chest pain that started earlier today. Patient reports the following history. patient states that he started having chest pain earlier today and then had an episode of nausea and vomiting. He states that the chest pain persisted and gets worse with deep breath. He came to the ED for further evaluation. In the ED they gave him a dose of nitroglycerin which did not relieve his chest pain. However they gave him Toradol 30 mg IV push which did relieve the chest pain. Patient has history of esophageal cancer status post chemotherapy and radiation that ended last year. He was recently seen on 04/29/[address] Patterson and had an EGD on 04/13/2024 which shown esophagitis and stricture with gastric retention and had a CT thatdid not show any evidence of relapse of the disease. He did have dilation of the stricture and was noted to be eating better since that time however patient states that he still has issues with food feeling stuck in his esophagus causing him to vomit on a regular basis. He was continued on immunotherapy with nivolumab and was added instructed at that time that he would follow up in 4 weeks. he plans on following up with Dr. Patterson on 06/08/2024. He denies any fever, chills, nausea, vomiting, diarrhea, abdominal pain, chest pain, shortness a breath at this time. Workup in the hospital included a chest x-ray which showed small left and very small right pleural effusions. Initial labs shown a white blood cell count of 11.7, hemoglobin 12.4, blood sugar 158, troponin negative x 2, lipase 63. EKG showed sinus rhythm with a rate of 65, QTC 391. Patient was given a dose of nitroglycerin 0.4 mg sublingual x1 And 324 mg p.o. aspirin without any immediate chest pain relief while in the ED. He was also given 30 mg IV push Toradol. Cardiology was consulted. Review of Systems Review of Systems: All systems reviewed & are unremarkable except as noted in HPI and below Constitutional: Constitutional: Reports as per HPI and Reports no additional constitutional complaints Eyes: Eyes: Reports as per HPI and Reports no additional eye complaints ENT: Reports system reviewed and no additional complaints, except as documented and Reports as per HPI Cardiovascular: Cardiovascular: Reports as per HPI and Reports no additional cardiovascular complaints Respiratory: Respiratory: Reports as per HPI and Reports no additional respiratory complaints Gastrointestinal: Gastrointestinal: Reports as per HPI and Reports no additional gastrointestinal complaints Genitourinary: Genitourinary: Reports no additional male genitourinary complaints and Reports as per HPI Musculoskeletal: Musculoskeletal: Reports no additional musculoskeletal complaints and Reports as per HPI Integumentary/Breasts: Skin/Breast: Reports system reviewed and no additional complaints, except as docu and Reports as per HPI Neurologic: Reports system reviewed and no additional complaints, except as documented and Reports as per HPI Psychiatric: Psychiatric: Reports no additional psychiatric complaints and Reports as per HPI [facility] Past Medical History Medical History CAD (coronary artery disease) Dyslipidemia Dysphagia Esophageal mass Insomnia Need for vaccination against Streptococcus pneumoniae using pneumococcal conjugate vaccine 13 No active medical problems PAD (peripheral artery disease) Painful orthopaedic hardware Toe pain, right Surgical History Surgical History (Reviewed
[2024-05-23 22:30] LABS: Troponin I < 0.012 ng/mL (0.000-0.034)
[2024-05-24] VITALS (12 sets, daily range): BP systolic 127–142; BP diastolic 55–61; PULSE 56–70; RESP 18–24; TEMP 36.7–37.5; O2SAT 93–100
--- NOTE | 2024-05-24 | ECHO_ITS ---
Patient Info Name: Chris Mabry Age: 78 years : 1945 Gender: Male Ht: 66 in Wt: 149 lbs BSA: 1.78 m2 HR: 70 bpm BP: 129 / 61 mmHg Heart Rhythm: Sinus Rhythm Technical Quality: Good Exam Date: 05/24/2024 8:33 AM Exam Location: Echo Lab Patient Status: Outpatient Admit Date: 05/23/2024 Staff Ordering Physician: Eric Baker DO Counter Checker: Karly Alanis RDCS Attending Provider: Pro Zimmerman MD Referring Physician: Samuel GAXIOLA; Exam Type: CA echo doppler color flow Study Info Indications R07.1 - Chest pain on breathing Complete two-dimensional, color flow and Doppler transthoracic echocardiogram is performed. Summary 1. Complete two-dimensional, color flow and Doppler transthoracic echocardiogram is performed. 2. Left ventricular chamber dimension is normal. 3. Left ventricular systolic function is normal, estimated at 60-65%. 4. The left ventricular diastolic function is grade I diastolic dysfunction. 5. E/e' 16 is elevated. 6. There is mild aortic valve sclerosis. 7. No pulmonary hypertension, estimated pulmonary arterial systolic pressure is 24 mmHg. 8. There is trace pulmonic regurgitation. 9. There is trivial pericardial effusion. Left Ventricle E/e' 16 is elevated. Left ventricular chamber dimension is normal. Left ventricular systolic function is normal, estimated at 60-65%. The left ventricular diastolic function is grade I diastolic dysfunction. Right Ventricle Right ventricular systolic function is normal and with normal TAPSE 2.5 cm. Right ventricular chamber dimension is normal. Left Atria Left atrial chamber dimension is normal. Right Atria Right atrial chamber dimension is normal. Aortic Valve The aortic valve is trileaflet. There is mild aortic valve sclerosis. There is no aortic valve stenosis. There is no aortic valve regurgitation. Pulmonic Valve There is trace pulmonic regurgitation. Mitral Valve There is no mitral valve stenosis. There is no mitral valve regurgitation. Tricuspid Valve There is no tricuspid valve regurgitation. No pulmonary hypertension, estimated pulmonary arterial systolic pressure is 24 mmHg. Pericardium/Pleural There is trivial pericardial effusion. Inferior Vena Cava Normal inferior vena cava with >50% collapse upon inspiration consistent with normal right atrial pressure, 5 mmHg. Aorta The aortic root size at the sinus of Valsalva is normal. Left Ventricular Outflow Tract Name Value Normal LVOT 2D LVOT Diameter 2.0 cm LVOT Doppler LVOT Peak Gradient 6 mmHg LVOT Mean Gradient 3 mmHg LVOT VTI 25 cm LVOT VTI/AV VTI Ratio 0.8 LVOT Stroke Volume 75 ml LVOT CO 4.5 l/min LVOT CI 2.5 l/min/m2 Pulmonic Valve Name Value Normal RVOT Doppler RVOT Peak G
--- NOTE | 2024-05-24 | EST_ITS ---
Patient Info Name: Chris Mabry Age: 78 years : 1945 Gender: Male Ht: 65 in Wt: 149 lbs BSA: 1.77 m2 HR: 63 bpm BP: 138 / 65 mmHg Heart Rhythm: Sinus Rhythm Exam Date: 05/24/2024 12:05 PM Exam Location: Echo Lab Patient Status: Inpatient Admit Date: 05/23/2024 Staff Ordering Physician: Eric Baker DO Attending Provider: Pro Zimmerman MD Exercise Technologist: Anni Guadalupe CT Exercise Physician: Eric Baker DO Exam Type: CA stress daniel w NM Study Info Indications R07.89 - Other chest pain A regadenoson stress test was performed. Summary 1. 1. Negative lexiscan stress test for ischemic ST changes by ECG criteria. 2. 2. Stable hemodynamics throughout the test. 3. 3. Nuclear scan to follow and will be reported separately. Please correlate with it. 4. 4. Patient informed of the above results. Protocol: Lexiscan Stress ECG Details Stage: REST Duration (min): 1 min : 11 sec HR (bpm): 63 SBP (mmHg): 138 DBP (mmHg): 65 Stage: REST Duration (min): 6 min : 32 sec HR (bpm): 63 SBP (mmHg): 138 DBP (mmHg): 65 Stage: STAGE 1 Duration (min): 1 min : 0 sec HR (bpm): 73 SBP (mmHg): 144 DBP (mmHg): 59 Stage: RECOVERY Duration (min): 1 min : 0 sec HR (bpm): 80 SBP (mmHg): 144 DBP (mmHg): 59 Stage: RECOVERY Duration (min): 2 min : 0 sec HR (bpm): 78 SBP (mmHg): 144 DBP (mmHg): 59 Stage: RECOVERY Duration (min): 3 min : 0 sec HR (bpm): 76 SBP (mmHg): 136 DBP (mmHg): 63 Stage: RECOVERY Duration (min): 3 min : 26 sec HR (bpm): 74 SBP (mmHg): 136 DBP (mmHg): 63 Rest HR: 63 bpm Peak HR: 81 bpm Rest Sys BP: 138 mmHg Peak Sys BP: 144 mmHg Max Pred HR: 142 bpm % Max Pred HR: 57 % Target HR: 121 bpm Max RPP: 11,664 bpm*mmHg Termination Reason: Completed protocol Cardiac Symptoms: Shortness of breath, Nausea Total Time: 1 min : 0 sec Rest [place] BP: 65 mmHg Peak [place] BP: 59 mmHg Total Dose: 0.4 mg Resting ECG Sinus rhythm. Stress ECG No ST changes. Arrhythmias None. Report Signatures
[2024-05-24] MEDS: METOCLOPRAMIDE HCL 10 MG TABLET PO ×2 (01:34→06:28)
[2024-05-24 05:38] LABS: Basophils Absolute Auto 0.1 K/mm3 (0.0-0.1); Basophils Percent Auto 0.5 % (0.2-1.2); Eosinophils Absolute Auto 0.1 K/mm3 (0-0.3); Eosinophils Percent Auto 0.6 % (0-4.4); Hematocrit 35.6 % (42.0-52.0); Hemoglobin 11.5 g/dL (14.0-18.0); Immature Granulocyte Absolute 0.05 K/mm3 (0.00-0.031); Immature Granulocyte Percent A 0.4 % (0-0.5); Lymphocytes Absolute Auto 1.53 K/mm3 (0.9-3.2); Lymphocytes Percent Auto 13.7 % (18.3-44.2); Mean Corpuscular HGB Conc 32.3 g/dl (32-36); Mean Corpuscular Volume 86.8 fl (80-100); Mean Platelet Volume 10.3 fl (7.4-10.4); Monocytes Percent Auto 9.1 % (2.6-8.5); Neutrophils Absolute Auto 8.4 K/mm3 (1.3-6.7); Neutrophils Percent Auto 75.7 % (45.5-73.1); Platelet Count Result 213 k/mm3 (150-375); Red Cell Distribution Width 14.8 % (11.5-14.5); White Blood Count 11.2 K/mm3 (4.5-10.0)
[2024-05-24 05:48] LABS: Alanine Aminotransferase 16 U/L (6-50); Albumin Level 3.6 g/dL (3.5-5.1); Alkaline Phosphatase 75 U/L (38-126); Anion Gap 7 mmol/L (4-12); Aspartate Amino Transferase 19 U/L (17-59); Bilirubin,Total 0.8 mg/dL (0.2-1.3); Blood Urea Nitrogen 19 mg/dL (9-20); Calcium 8.5 mg/dL (8.4-10.2); Carbon Dioxide 28 mmol/L (22-30); Chloride 101 mmol/L (98-107); Estimated CRCL calculation 43 ml/min; Estimated Glomerular Filt Rate > 60; Glucose 175 mg/dL (65-110); Potassium 4.1 mmol/L (3.4-5.0); Sodium 136 mmol/L (137-145)
[2024-05-24 06:59] LABS: Glucose Point of Care 162 mg/dl (65-105)
--- NOTE | 2024-05-24 07:56 | PM.CNCAR ---
Assessment and Plan Assessment and plan (1) Chest pain: Code(s): R07.9 - Chest pain, unspecified Status: Acute Assessment and Plan: Probably due to esophageal stricture/esophagitis. NE r/o by serial troponin and EKG. Obtain lexiscan myoview stress test. Obtain echo. (2) CAD (coronary artery disease): Code(s): I25.10 - Atherosclerotic heart disease of [place] coronary artery without angina pectoris Status: Chronic Assessment and Plan: Stable. (3) Dyslipidemia: Code(s): E78.5 - Hyperlipidemia, unspecified Status: Acute Assessment and Plan: On Atorvastatin. (4) PAD (peripheral artery disease): Code(s): I73.9 - Peripheral vascular disease, unspecified Status: Acute Assessment and Plan: Stable. History of Present Illness History of Present Illness Consult date/time: 05/24/24 07:56 Reason For Visit: Chest pain Narrative: 78 yr old man who is my regular cardiology patient and a patient of Dr. Mosley presents to ER for chest pain. He has a history of CAD with stent, dyslipidemia, PAD (sees vascular surgeon, Dr. Anthony), covid infection Jul 2021. States that yesterday he had inspirational chest pressure in epigastrium lower chest area. NTG did not help, but Toradol did relieve the pain. He has been vomiting after food intake. He was diagnosed with esophageal cancer and received chemotherapy and radiation therapy and esophagectomy. He had EGD 3 weeks ago and found esophagitis with esophageal stricture which was dilated. He rides horses. Reports calf pain/thigh pain while walking but he can walk several blocks now after venous bypass of right leg. He has some chest pressure after eating something and thinks it is heartburn. Denies orthopnea, PND, edema, dizziness, palpitations. Cardiovascular Procedures [employer]:: Dr. Anthony in Aug 2021: Venous bypass graft used for right leg. 05/15/21 [place] [facility]: Dr. Pinto- Lithotripsy and stenting of [facility] ADMINISTRATOR of ostial to distal LAD 04/03/[address] Rod: Prox LAD 80%, 100% mid LAD that reconstitutes by bridging collaterals; patent stent in OM Circ branch; prox RCA 60% and 70-80% in terminal portion of right PDA. 07/10/12 [facility] in [place], [place] cath: LAD prox 50%, mid 40%, distal 60%, OM1 90%, rPDA 60%; PCI to OM1 wit 0% residual stenosis. Echo/MUGA:: 04/11/21 Echo: EF 55-60%, mod LVH, grade I diastolic dysfunction (E/e' 13), mild AI/MR. 07/10/12 [place], [place]: TDS. EF 45-50%, entire inferior wall, mid and apical anterior, mid anterolateral and apical lateral wall are abnormal. ,mild RVE. Stress Tests:: 04/15/23 Lexiscan myoview at [facility]: Negative for ischemia. Fixed mild apical defect. 02/04/21 Lexiscan myoview: Abnormal with fixed large apical defect s/o apical infarct; [place]-infarct ischemia of anterior and anteroapical cunningham. EF 44% with apical akiness and anteroapical hypokinesis. TID 1.26 which dilates and cannot r/o LM or triple vessel disease. 07/10/21 [facility]: Right 0.27, left 0.59. Review of Systems Review of Systems: All systems reviewed & are unremarkable except as noted in HPI and below Constitutional: Constitutional: Reports as per HPI, Denies chills and Denies fever(s) Cardiovascular: Cardiovascular: Reports as per HPI, Reports chest pain and Denies irregular heart rhythm Respiratory: Respiratory: Reports as per HPI and Denies dyspnea Gastrointestinal: Gastrointestinal: Reports vomiting Genitourinary: Genitourinary: Reports as per HPI and Denies dysuria Musculoskeletal: Musculoskeletal: Reports as per HPI Neurologic: Reports as per HPI, Denies dizziness and Denies syncope [facility] Past Medical History Medical History CAD (coronary artery disease) Dyslipidemia Dysphagia Esophageal mass Insomnia Need for vaccination against Streptococcus pneumoniae using pneumococcal conjugate vaccine 13 No active medical problems
[2024-05-24] MEDS: ASPIRIN 81 MG ENTERIC TABLET PO (09:24)
[2024-05-24] MEDS: ISOSORBIDE MONONITRATE 30 MG TAB.ER.24H PO (09:24)
[2024-05-24] MEDS: VITAMIN B COMPLEX CAPSULE 1 CAP PO (09:24)
[2024-05-24] MEDS: PANTOPRAZOLE 40 MG TABLET PO (09:24)
[2024-05-24] MEDS: METOPROLOL SUCCINATE EXT REL 25 MG TABCR PO (09:24)
[2024-05-24] MEDS: FERROUS SULFATE 325 MG TABLET DR BY MOUTH (09:24)
[2024-05-24] MEDS: ATORVASTATIN 40 MG TABLET 80 MG PO (09:25)
[2024-05-24] MEDS: ENOXAPARIN 40 MG/0.4 ML SYRINGE SUB-Q (09:25)
--- NOTE | 2024-05-24 12:58 | P.PNIM_ITS ---
Progress Note: A&P Assessment and Plan (1) Chest pain: Code(s): R07.9 - Chest pain, unspecified Status: Acute Assessment and Plan: 05/23/24: * nitroglycerin 0.4 mg sublingual given in the ED, without relief * Toradol 30 mg IV push given while in the ED, with relief * patient has history of esophageal cancer status post radiation and chemotherapy that ended last year. Recently diagnosed with esophagitis on last EGD * EKG showing sinus rhythm with a rate of 65, QTC 391 * troponin negative x2 * cardiology consulted 05/24/24: * cardiology consulted and following * troponin negative x3, [place] ruled out * plan for an nuclear med stress test today * echocardiogram shown normal LV systolic function with an estimated EF of 60- 65%, grade 1 diastolic dysfunction (2) T2DM (type 2 diabetes mellitus): Code(s): E11.9 - Type 2 diabetes mellitus without complications Status: Acute Assessment and Plan: 05/23/24: * Blood sugar 158 * Hgb A1C 6.5 on 12/14/2023 * will repeat hemoglobin A1c * Accu checks AC/HS * low-dose SSI ordered * hypoglycemic protocol in place * Diabetic diet ordered * not currently on any home medication, likely diet controlled 05/24/24: * hemoglobin A1c 7.0 * blood sugars ranging 162-175 * continue with current treatment plan (3) Dyslipidemia: Code(s): E78.5 - Hyperlipidemia, unspecified Status: Acute Assessment and Plan: 05/23/24: * continue aspirin 81 mg and atorvastatin 80 mg daily 05/24/24: * no change to current treatment plan (4) GERD (gastroesophageal reflux disease): Code(s): K21.9 - Gastro-esophageal reflux disease without esophagitis Status: Acute Assessment and Plan: 05/23/24: * continue Protonix and Reglan 05/24/24: * no change to current treatment plan (5) Esophageal cancer: Code(s): C15.9 - Malignant neoplasm of esophagus, unspecified Status: Acute Assessment and Plan: 05/23/24: * 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 He underwent chemotherapy and radiation on January 29, 2023 with carboplatin and Taxol. He completed his last chemotherapy treatment with carboplatin and Taxol on March 06, 2023 and radiation treatment on 03/08/2023. * Recent EGD done on 04/13/2024 showed esophagitis and stricture with gastric retention, biopsy showed reflux esophagitis with mild reactive atypia. CT scan on April 19 did not show any evidence of relapse of disease. He did have dilation of the stricture. * He is a patient of Dr. Patterson and will follow-up with him this month on 06/08/2024 * he continues immunotherapy with nivolumab 05/24/24: * No change Subjective Date/time seen: 05/24/24 12:58 Interval history: interval history: This is a 78-year-old male with a significant past medical history of coronary artery disease, hyperlipidemia, insomnia, peripheral artery disease, iron deficiency anemia, GERD, esophageal cancer stage III status post chemotherapy and surgery and is a patient of Dr. Patterson, [place], former smoker who presented to the hospital with sudden onset chest pain that started earlier today. Patient reports the following history. patient states that he started having chest pain earlier today and then had an episode of nausea and vomiting. He states that the chest pain persisted and gets worse with deep breath. He came to the ED for further evaluation. In the ED they gave him a dose of nitroglycer
--- NOTE | 2024-05-24 12:58 | PM.IMPN ---
Progress Note: A&P Assessment and Plan (1) Chest pain: Code(s): R07.9 - Chest pain, unspecified Status: Acute Assessment and Plan: 05/23/24: nitroglycerin 0.4 mg sublingual given in the ED, without relief Toradol 30 mg IV push given while in the ED, with relief patient has history of esophageal cancer status post radiation and chemotherapy that ended last year. Recently diagnosed with esophagitis on last EGD EKG showing sinus rhythm with a rate of 65, QTC 391 troponin negative x2 cardiology consulted 05/24/24: cardiology consulted and following troponin negative x3, [place] ruled out plan for an nuclear med stress test today echocardiogram shown normal LV systolic function with an estimated EF of 60-65%, grade 1 diastolic dysfunction (2) T2DM (type 2 diabetes mellitus): Code(s): E11.9 - Type 2 diabetes mellitus without complications Status: Acute Assessment and Plan: 05/23/24: Blood sugar 158 Hgb A1C 6.5 on 12/14/2023 will repeat hemoglobin A1c Accu checks AC/HS low-dose SSI ordered hypoglycemic protocol in place Diabetic diet ordered not currently on any home medication, likely diet controlled 05/24/24: hemoglobin A1c 7.0 blood sugars ranging 162-175 continue with current treatment plan (3) Dyslipidemia: Code(s): E78.5 - Hyperlipidemia, unspecified Status: Acute Assessment and Plan: 05/23/24: continue aspirin 81 mg and atorvastatin 80 mg daily 05/24/24: no change to current treatment plan (4) GERD (gastroesophageal reflux disease): Code(s): K21.9 - Gastro-esophageal reflux disease without esophagitis Status: Acute Assessment and Plan: 05/23/24: continue Protonix and Reglan 05/24/24: no change to current treatment plan (5) Esophageal cancer: Code(s): C15.9 - Malignant neoplasm of esophagus, unspecified Status: Acute Assessment and Plan: 05/23/24: 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 He underwent chemotherapy and radiation on January 29, 2023 with carboplatin and Taxol. He completed his last chemotherapy treatment with carboplatin and Taxol on March 06, 2023 and radiation treatment on 03/08/2023. Recent EGD done on 04/13/2024 showed esophagitis and stricture with gastric retention, biopsy showed reflux esophagitis with mild reactive atypia. CT scan on April 19 did not show any evidence of relapse of disease. He did have dilation of the stricture. He is a patient of Dr. Patterson and will follow-up with him this month on 06/08/2024 he continues immunotherapy with nivolumab 05/24/24: No change Subjective Date/time seen: 05/24/24 12:58 Interval history: interval history: This is a 78-year-old male with a significant past medical history of coronary artery disease, hyperlipidemia, insomnia, peripheral artery disease, iron deficiency anemia, GERD, esophageal cancer stage III status post chemotherapy and surgery and is a patient of Dr. Patterson, [place], former smoker who presented to the hospital with sudden onset chest pain that started earlier today. Patient reports the following history. patient states that he started having chest pain earlier today and then had an episode of nausea and vomiting. He states that the chest pain persisted and gets worse with deep breath. He came to the ED for further evaluation. In the ED they gave him a dose of nitroglycerin which did not relieve his chest pain. However they gave him Toradol 30 mg IV push which did relieve the chest pain. Patient has history of esophageal cancer status post chemotherapy and radiation that ended last year. He was recently seen on 04/29/[address] Patterson and had an EGD on 04/13/2024 which shown esophagitis and stricture with gastric retention and had a CT thatdid not show any evidence of relapse of the diseas
--- NOTE | 2024-05-24 14:59 | PM.DS ---
DS: Admitting Diagnosis Discharge Date 05/24/24 Admitting Diagnosis chest pain type 2 diabetes mellitus dyslipidemia GERD esophageal cancer DS: Summary Hospital Course Reason for hospitalization: chest pain type 2 diabetes mellitus dyslipidemia GERD esophageal cancer Hospital Course: This is a 78-year-old male with a significant past medical history of coronary artery disease, hyperlipidemia, insomnia, peripheral artery disease, iron deficiency anemia, GERD, esophageal cancer stage III status post chemotherapy and surgery and is a patient of DINORA Guzman, former smoker who presented to the hospital with sudden onset chest pain that started earlier today. Patient reports the following history. patient states that he started having chest pain earlier today and then had an episode of nausea and vomiting. He states that the chest pain persisted and gets worse with deep breath. He came to the ED for further evaluation. In the ED they gave him a dose of nitroglycerin which did not relieve his chest pain. However they gave him Toradol 30 mg IV push which did relieve the chest pain. Patient has history of esophageal cancer status post chemotherapy and radiation that ended last year. He was recently seen on 04/29/[address] Patterson and had an EGD on 04/13/2024 which shown esophagitis and stricture with gastric retention and had a CT that did not show any evidence of relapse of the disease. He did have dilation of the stricture and was noted to be eating better since that time however patient states that he still has issues with food feeling stuck in his esophagus causing him to vomit on a regular basis. He was continued on immunotherapy with nivolumab and was added instructed at that time that he would follow up in 4 weeks. he plans on following up with Dr. Patterson on 06/08/2024. He denies any fever, chills, nausea, vomiting, diarrhea, abdominal pain, chest pain, shortness a breath at this time. Workup in the hospital included a chest x-ray which showed small left and very small right pleural effusions. Initial labs shown a white blood cell count of 11.7, hemoglobin 12.4, blood sugar 158, troponin negative x 2, lipase 63. EKG showed sinus rhythm with a rate of 65, QTC 391. Patient was given a dose of nitroglycerin 0.4 mg sublingual x1 And 324 mg p.o. aspirin without any immediate chest pain relief while in the ED. He was also given 30 mg IV push Toradol. Cardiology was consulted. [place] was ruled out with negative troponin and no ST elevation EKG patient had an echocardiogram done today which showed a normal EF of 60-65%, grade 1 diastolic dysfunction. He also had an nuclear medicine stress test which was relatively normal patient is stable for discharge at this time. He will need to follow up with Cardiology in 2 weeks. He will also be having an EGD done on 06/08/[address] Maldonado. He also will be following up with Dr. Patterson tomorrow. final diagnosis: esophageal cancer, severe esophagitis, chest pain Status at Discharge Cognitive/behavioral status at discharge: Alert oriented x3 Functional status at discharge: independent ambulation Overall status at discharge: patient is progressing back to baseline Time Spent with Patient Time attestation: Total time spent providing and/or coordinating discharge services: Time spent: Greater than 30 minutes Exam Narrative: General: In no acute distress, well nourished Cardiac: Normal S1 and S2. No murmur, gallops or friction rubs, peripheral pulses intact. Respiratory: Lungs clear to auscultation, no adventitious lung sounds Gastrointestinal: soft, non-distended, non-tender, normoactive bowel sounds. Neuro: Alert and oriented x4 DS: Data Data Completed and Pending Completed studies during hospitalization: Lexiscan stress test chest x-ray Pending studies at discharge: none Labs on day of discharge: Labs from last 24 hours 05/24/24 05/24/24 05/24/24
--- NOTE | 2024-05-24 15:20 | PC.NURSE ---
Confirmed ok for PT discharge with Dr Baker
== END 2024-05-24 16:04 | disposition home or self-care (01) ==
LOC: ANHED 18:40 → ANHIMU 19:52
PROVIDERS: Internal Medicine Cardiovascular Disease; Nurse Practitioner Acute Care; Admitting Provider Internal Medicine; Emergency Provider Emergency Medicine; PCP Family Medicine; Visit Provider Student in an Organized Health Care Education/Training Program
DX: R07.9 Chest pain, unspecified (principal); K20.90 Esophagitis, unspecified without bleeding; C15.5 Malignant neoplasm of lower third of esophagus; I25.10 Atherosclerotic heart disease of native coronary artery without angina pectoris; E11.51 Type 2 diabetes mellitus with diabetic peripheral angiopathy without gangrene; E78.5 Hyperlipidemia, unspecified; G47.00 Insomnia, unspecified; D50.9 Iron deficiency anemia, unspecified; K21.9 Gastro-esophageal reflux disease without esophagitis; Z86.16 Personal history of COVID-19; Z87.891 Personal history of nicotine dependence; Z79.899 Other long term (current) drug therapy; Z92.3 Personal history of irradiation; Z92.21 Personal history of antineoplastic chemotherapy; Z95.5 Presence of coronary angioplasty implant and graft; Z79.82 Long term (current) use of aspirin
CPT/HCPCS: 36415; 71046; 78452; 80053; 82948; 83036; 83690; 84484; 85025; 85380; 85610; 85730; 93005; 93017; 93306; 96372; 96374; 99285; A9270; A9502; G0378; J1650; J1885; J2785

== ENCOUNTER 2024-06-02 09:42 | Outpatient (CLI) | payer MEDICARE, SELFPAY ==
--- NOTE | ~2024-06-02 | US_ITS ---
EXAMINATION: US abdomen complete DATE: 06/02/2024 10:30 INDICATION: Bloating. TECHNIQUE: Multiple grayscale and Doppler ultrasound images of the abdomen were obtained. COMPARISON: CT 04/19/2024 FINDINGS: Abdominal aorta is normal in caliber. Inferior vena cava is normal. The pancreas is obscure d by bowel gas. There is a 3.3 cm hyperechoic mass in the liver that demonstrated findings of a heman gioma on the prior CT. The gallbladder is normal in size. No gallstones. Gallbladder wall thickening is noted. There was no sonographic Vega's sign. The common duct is normal and measures 2 mm. The sp asa is normal in size. The kidneys are normal in size. There is a small right pleural effusion. IMPRESSION: 1. Gallbladder wall thickening, likely secondary to interstitial edema. 2. Small right pleural effusion. Reviewed, dictated and finalized at location A.
== END 2024-06-02 09:43 | disposition home or self-care (01) ==
LOC: ANHIMG 09:44
PROVIDERS: PCP Family Medicine; Visit Provider Internal Medicine Hematology & Oncology
DX: R14.0 Abdominal distension (gaseous) (principal); J90 Pleural effusion, not elsewhere classified
CPT/HCPCS: 76700

== ENCOUNTER 2024-08-16 10:55 | Outpatient (CLI) | payer MEDICARE, SELFPAY ==
--- NOTE | ~2024-08-16 | CT_ITS ---
Clinical Indication: Disease of the esophagus CT Scan of the Chest And Abdomen with Contrast: Technique: Contiguous sections were acquired throughout the chest, abdomen, and pelvis after intraven ous administration of 100 cc of Omnipaque 350. Dose reduction technique was used on this scan by junior maddox automated exposure control and iterative reconstruction technique. The dose-length product (DL P) was 585.11 mGy-cm. Comparison: 04/19/2024 Findings: There is no evidence of any significant mediastinal, hilar or axillary lymphadenopathy. Status post e sophagectomy and gastric pull-through surgery.. No pericardial effusion. Moderate left pleural effusion present with left basilar atelectasis. Small right pleural effusion pr esent with minimal right basilar atelectasis. Small amount of fluid also present in the right minor f issure. The lungs are clear. No pulmonary nodules or infiltrates are noted. Stable peripheral enhancing right hepatic lobe mass present, most likely hemangioma. The spleen, panc reas, gallbladder, adrenals and right kidney are within normal limits. No evidence of aortic aneurys m. There is a 7 mm stone at the mid left ureter, with mild left hydroureteronephrosis. No lymphadenop athy. Visualized bowel loops are otherwise unremarkable. No ascites. Impression: Status post esophagectomy with gastric pull-through surgery, unchanged. Moderate left pleural effusion and small right pleural effusion. 7 mm mid left ureteral stone with mild left hydroureteronephrosis. Reviewed, dictated and finalized at location . 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 Moderate left pleural effusion and small right pleural effusion. 7 mm mid left ureteral stone with mild left hydroureteronephrosis.
== END 2024-08-16 10:56 | disposition home or self-care (01) ==
PROVIDERS: PCP Family Medicine; Visit Provider Internal Medicine Hematology & Oncology
DX: K22.9 Disease of esophagus, unspecified (principal); K22.89 Other specified disease of esophagus
CPT/HCPCS: 71260; 74160; Q9967

== ENCOUNTER 2024-12-08 09:00 | Outpatient (CLI) | payer MEDICARE, SELFPAY ==
--- NOTE | ~2024-12-08 | CT_ITS ---
Clinical Indication: Esophageal cancer CT Scan of the Chest, Abdomen, and Pelvis with Contrast: Technique: Contiguous sections were acquired throughout the chest, abdomen, and pelvis after intraven ous administration of 100 cc of Omnipaque 350. Dose reduction technique was used on this scan by uti lizing automated exposure control and iterative reconstruction technique. The dose-length product (DL P) was 485.18 mGy-cm. COMPARISON: 08/16/2024 Findings: There is no evidence of any significant mediastinal, hilar or axillary lymphadenopathy. Status post e sophagectomy and gastric pull-through surgery.. There is no evidence of pleural or pericardial effusion. Stable groundglass nodule near the right minor fissure (axial image 66). Additional stable groundglas s nodule noted in the left upper lobe (axial image 27). There is diffuse hepatic steatosis. Stable 3 cm hypodense hepatic mass in the right hepatic lobe with peripheral nodular enhancement is compatible with hemangioma. The spleen, pancreas, gallbladder, adr enals and kidneys are within normal limits. Stable 7 mm mid left ureteral stone without hydronephrosi s. There are atherosclerotic calcifications of the aorta. No lymphadenopathy. No bowel obstruction or bowel wall thickening. There is no evidence to suggest acute appendicitis. Urinary bladder is unremarkable. Prostate gland is enlarged. Large right hydrocele partially imaged. Small left hydrocele partially imaged. Impression: No evidence for active malignancy or metastatic disease. Status post esophagectomy and gastric pull-through surgery. Numerous stable small groundglass pulmona ry nodules, as noted above. Stable 7 mm mid left ureteral stone without hydronephrosis. Diffuse hepatic steatosis. Stable hepatic hemangioma. Enlarged prostate gland. Large right hydrocele and small left hydrocele. Reviewed, dictated and finalized at [facility]. Impression: No evidence for active malignancy or metastatic disease. Status post esophagectomy and gastric pull-through surgery. Numerous stable sma ll groundglass pulmonary nodules, as noted above. Stable 7 mm mid left ureteral stone without hydronephrosis. Diffuse hepatic steatosis. Stable hepatic hemangioma. Enlarged prostate gland. Large right hydrocele and small left hydrocele.
--- OUTSIDE RECORDS SUMMARY | 2024-12-08 09:23 | XMS_ITS | Clinical Summary ---
Author Organization [facility] Address [address] [place] [address] Care Team Providers Care Chair Mechanic Name Role Phone Jordi Hernandez MD Primary Care Provider [phone] Allergies Active Allergy Reactions Criticality Noted Date Comments Vancomycin Other (See Comments) 12/11/2022 Red man syndrome Medications lidocaine-prilo demetrius (EMLA) 2.5-2.5 % CreamIndication s: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) Apply to affected area see administration instructions. Apply to port 30 minutes prior to treatment. 30 Gram 3 02/07/20 Active atorvastatin (LIPITOR) 80 mg tablet 1 Tablet (80 mg) by J Tube route daily. 30 Tablet 05/10/20 Active Additional Information Patient taking differently:80 mgOral DAILY WITH SUPPER, Reported on 05/26/2023 ondansetron (ZOFRAN) 8 mg TabletIndicatio ns: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) give 1 Tablet (8 mg) by J Tube route every 8 hours as needed for nausea or vomiting. crush tab and follow with water as directed 30 Tablet 3 05/10/2023 1:17 PM CDT 05/10/20 Active metoprolol tartrate (LOPRESSOR) 25 mg tablet Administer 0.5 Tablets (12.5 mg) by J Tube route 2 times daily. 60 Tablet 05/10/2023 2:10 PM CDT 05/10/20 23 Active Additional Information Patient taking differently:12.5 mgOralTWO TIMES DAILY, Reported on 05/26/2023 phenoL (CHLORASEPTIC) 1.4 % Aerosol, [place] 2 Sprays by Mouth/Throat route every 2 hours as needed for Discomfort or Sore Throat. 05/10/20 Active diazePAM (VALIUM) 2 mg tabletIndicatio ns:Malignant neoplasm of abdominal esophagus (CMS/HCC) Administer 1 Tablet (2 mg) by J Tube route every 8 hours as needed for Spasm. 30 Tablet 1 05/22/20 Active Additional Information Patient taking differently:2 mgOralEVERY 8 HOURS PRN, Spasm, Reported on 06/09/2023 gabapentin (NEURONTIN) 300 mg capsule Take 1 Capsule (300 mg) by mouth 3 times daily. 90 Capsule 05/29/20 Active Additional Information Patient taking differently:300 mg OralTWO TIMES DAILY, Reported on 06/23/2023 ubidecarenone (COENZYME Q10 ORAL) Take by mouth. Activ e ISOSORBIDE MONONITRATE ORAL Take 30 mg by mouth daily. Active metoclopramide HCl (REGLAN) 10 mg tablet Take 10 mg by mouth 4 times daily before meals and at bedtime. Active pantoprazole (PROTONIX) 40 mg Tablet, Delayed Release (E.C.) 04/13/20 24 Active metoprolol succinate (TOPROL XL) 25 mg Extended Release 24 hour tablet 03/21/20 24 Active Jardiance 10 mg tablet Take 10 mg by mouth daily in the morning. 06/22/20 24 Active furosemide (LASIX) 20 mg tablet Take 20 mg by mouth daily. 06/13/20 24 Active potassium chloride (KLOR-CON M20) 20 mEq Extended Release tabletIndicatio ns:History of low potassium Take 1 Tablet (20 mEq) by mouth 2 times daily. 60 Tablet 3 08/12/19 25 025 Active megestroL (MEGACE) 400 mg/10 mL (40 mg/mL) suspension Take 10 mL (400 mg) by mouth daily. 240 mL 1 08/25/19 25 Active Active Problems Problem Noted Date Diagnosed Date Protein-calorie malnutrition, severe 05/05/2023 Cellulitis of right foot 12/23/2022 Myocardial infarction 12/23/2022 Overview (12/23/2022): Two thousand twelve and 05/15/2021 status post 2 stents on 05/15/2021 Cancer of distal third of esophagus 12/23/2022 Ischemia of right lower extremity 09/06/2021 Overview (12/23/2022): Last Assessment & Plan: S/p right common femoral endarterecomy, and right profunda to tibioperoneal trunk bypass graft on 08/21/21. Pt states his leg pain has resolved. Is walking without difficulty. Duplex today shows patent bypass graft. Pt seen with Dr. Yousif Anthony. Plan: follow up in 6 months with arterial duplex. Also referring pt to Dr. Santiago for continued ankle pain and hx of hardware due to trauma. Gangrene of toe 08/17/2021 Overview (12/23/2022): Last Assessment & Plan: Impression: Patient has gangrene of the right 1st toe which has improved post bypass graft. New toenail forming is noted on exam. Patient has 2 sutures remaining to right 1st toenail from when his toenail was removed. Plan: Continue daily dressing changes with Xeroform and dry gauze. Patient to follow-up in 3 months. Pain of right lower leg 08/17/2021 Hypokalemia 07/27/2021 Hypoxia 07/27/2021 Pneumonia due to COVID-19 virus 07/27/2021 Abnormal liver function test 07/16/2021 Mixed hyperlipidemia 07/15/2021 Overview (12/23/2022): Last Assessment & Plan: Impression: Chronic hyperlipidemia, controlled with statin therapy. Plan: Continue statin therapy as per primary care provider. Primary hypertension 07/15/2021 Overview (12/23/2022): Last Assessment & Plan: Impression: Chronic stable hypertension, controlled medications. Blood pressure stable. Plan: Continue blood pressure management as per primary care provider. Atherosclerosis of [place] ar teries of extremities with intermittent claudication, right leg 07/12/2021 Overview (12/23/2022): Last Assessment & Plan: Impression: Patient is status post right common femoral artery endarterectomy, right profunda to TP trunk bypass graft. Patient denies any symptoms of claudication, ischemic rest pain or ulcerations to his lower extremity. Bypass graft is patent seen on arterial duplex. Plan: Continue ongoing risk factor modifications. Patient to follow-up in 6 months for re-evaluation with repeat arterial duplex. PVD (peripheral vascular disease) 07/12/2021 Overview (12/23/2022): Diagnosis 2020 Per MARIA ESTHER of 07/10/2021 Right ankle brachial index 0.27, severely decreased Left ankle brachial index 0.59, moderately decreased Segmental pressures as above, with suspicion of inflow stenosis on the right Patient saw vascular surgeon, Dr. Santo Swift, in April Last Assessment & Plan: Patient has ischemic rest pain with gangrenous changes to the right 1st toe following toe fracture. Surgical reconstruction was delayed secondary to symptomatic COVID-19 pneumonia and antibiotic reaction. He has since recovered no longer requiring supplemental oxygen feeling well. Have recommended right femoral endarterectomy with femoral popliteal artery bypass. The procedure its indications and all risks have been explained. He understands and agrees to proceed. Toe infection 06/25/2021 Overview (12/23/2022): Patient sustained laceration, fracture, and nail avulsion when 1 of his horses stepped on his foot Coronary artery disease of n ative artery of [place] heart with stable angina pectoris 05/01/2021 Encounters Date Type Department Care Team Description 12/05/2024 Orders Only [facility] [address] [place] [address] Kedar Patterson MD 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); Benign hypertension 12/02/2024 Orders Only [facility] [address] [place] [id number] Kedar Patterson MD 11/21/2024 Orders Only [facility] [address] [place] [id number] Kedar Patterson MD 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); Benign hypertension 11/18/2024 Orders Only [facility] [address] Kedar Patterson MD 11/07/2024 Orders Only [facility] [place] [phone] Kedar Patterson MD 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); Benign hypertension 10/26/2024 External Device Data STL ABSTRACTION Provider, Abstract 10/24/2024 Orders Only [facility] [address] [place] [id number] Kedar Patterson MD 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); Benign hypertension 10/20/2024 10:00 AM CDT Office Visit [facility] [address] [place] [phone] Kedar Patterson MD 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) (Primary Dx) 10/15/2024 External Device Data STL ABSTRACTION Provider, Abstract 10/14/2024 External Device Data STL ABSTRACTION Provider, Abstract 10/12/2024 Orders Only [facility] [address] [place] [address] Kedar Patterson MD 10/12/2024 Abstract [facility] [address] [place] [address] Kedar Chaudhari MD 10/10/2024 Orders Only [facility] [address] [place] [address] Kedar Patterson MD 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); Benign hypertension 09/27/2024 External Device Data STL ABSTRACTION Provider, Abstract 09/26/2024 Orders Only [facility] [address] [place] [address] Kedar Patterson MD 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); Benign hypertension 09/12/2024 Orders Only [facility] [address] [place] [address] Kedar Patterson MD 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); Benign hypertension from Last 3 Months Family History Medical History Relation Name Comments Hodgkin's lymphoma Brother 1 Heart Disease Father Diabetes Mother Heart Disease Mother Cancer Sister Colon Cancer Neg Hx Relation Name Status Comments Brother 1 Brother 2 Alive Daughter Alive Father Mother Sister Son 1 Alive Son 2 Alive Social History Tobacco Use Types Packs/Day Years Used Date Smoking Tobacco: Former Cigarettes Q uit: 1991 Smokeless Tobacco: Never Tobacco Cessation:Counseling Given: Not Answered Alcohol Use Standard Drinks/Week Comments Never 0 (1 standard drink = 0.6 oz pur e alcohol) Feeling Safe Answer Date Recorded Are you in a relationship wi th someone who hurts you emotionally and/or physically? No 05/07/2023 Food Insecurity Answer Date Recorded Social/Environmental Concerns No concerns Transportation Needs Answer Date Record ed Social/Environmental Concerns No concerns Housing Stability Answer Date Recorded Social/Environmental Concerns No concerns Utility Needs Answer Date Recorded Social/Environmental Concerns No concerns Sex and Gender Information Value Date Recorded Sex Assigned at Not on file Legal Sex Male 2:08 PM CDT Gender Identity Not on file Sexual Orientation Not on file Last Filed Vital Signs Vital Sign Reading Time Taken Comments Blood Pressure 142/75 10/20/2024 10:10 AM CDT Pulse 59 10/20/2024 10:05 AM CDT Temperature 36 C (96.8 F) 10/20/2024 10:05 AM CDT Respiratory Rate 15 10/20/2024 10:05 AM CDT Oxygen Saturation 95% 10/20/2024 10:05 AM CDT Inhaled Oxygen Concentration - - Weight 65.5 kg (144 lb 6.4 oz) 10/20/2024 10:05 AM CDT Height 165.1 cm (5' 5 ) 06/23/2023 10:57 AM MACHINE LOADER Body Mass Index 24.03 06/23/2023 10:57 AM MACHINE LOADER Plan of Treatment Upcoming Encounters Date Type Department Care Team (Late st Contact Info) Description 12/15/2024 9:15 AM CDT Office Visit [facility] [address] [facility] [address] [place] [address] Kedar Patterson MD [address] [facility] [address] [place] [address] Health Maintenance Due Date Last Done Comments DTAP/TDAP/TD VACCINES (1 - Tdap) 1964 ZOSTER VACCINE (1 of 2) 1995 RSV VACCINE (60+ or ) (1 - 1-dose 75+ series) 2020 INFLUENZA VACCINE (#1) 2024 0, 10/11/2019, 08/25/2017 [place] Prev entative Visit/Annual Wellness Visit 08/10/2024 PNEUMOCOCCAL VACCINE 50+ YEARS Completed 0 10/08/2020, 10/11/2019, 08/25/2017 Medical Devices Implanted Type Area Supervisor Stitching Department Device Identifier Shelf Expiration Date Model / Serial / Lot Clip Ligating Horizon Med Ti [id number] [place] [facility] [place] [id number] Implanted:Qty : 1 on 05/01/2023 by Jeremy Kraus MD at [facility] Clip N/A: Esophagus TELEFLEX- [employer]ECK [employer]URE SYS [id number] 12/24/2027 [id number] / / [id number] Clip Ligating Horizon Lg Ti [id number] - [facility] - [id number] Implanted:Qty : 1 on 05/01/2023 by Jeremy Kraus MD at [facility] Clip N/A: Esophagus TELEFLEX- WECK CLOSURE SYS [id number] 01/06/2027 [id number] / / [id number] X3 Heart Stents Procedures Procedure Name Priority Date/Time Associated Diagnosis Comments BASIC METABOLIC PANEL Routine 12/01/2024 11:52 AM CDT CBC MIXED CELL DIFFERENTIAL Routine 12/01/2024 11:48 AM CDT COMPREHENSIVE METABOLIC PANEL Routine 12/01/2024 8:35 AM CDT COMPREHENSIVE METABOLIC PANEL Routine 11/17/2024 2:20 PM CDT BASIC METABOLIC PANEL Routine 11/17/2024 2:17 PM CDT BASIC METABOLIC PANEL Routine 11/17/2024 1:58 PM CDT CBC MIXED CELL DIFFERENTIAL Routine 11/17/2024 1:55 PM CDT COMPREHENSIVE METABOLIC PANEL Routine 10/20/2024 11:28 AM CDT CBC WITH DIFFERENTIAL Routine 10/06/2024 11:53 AM MACHINE LOADER from Last 3 Months Results * BASIC METABOLIC PANEL (12/01/2024 11:52 AM CDT) Only the most recent of3 resultswithin the time period is included. Blood us Kedar Patterson MD CHEMISTRY ORDERABLES Final Resu lt * CBC MIXED CELL DIFFERENTIAL (12/01/2024 11:48 AM CDT) Only the most recent of2 resultswithin the time period is included. Blood us Kedar Patterson MD HEMATOLOGY ORDERABLES Final Res ult * COMPREHENSIVE METABOLIC PANEL (12/01/2024 8:35 AM CDT) Only the most recent of3 resultswithin the time period is included. Blood us Kedar Patterson MD CHEMISTRY ORDERABLES Final Resu lt * CBC WITH DIFFERENTIAL (10/06/2024 11:53 AM MACHINE LOADER) Blood Kedar Patterson MD HEMATOLOGY ORDERABLES Final Res ult from Last 3 Months Insurance RX [employer] RX Member Subscriber Plan / Payer (Ef fective for All Dates) Name:Carlos AlbertolisetteChris Relation to Subscriber:Self Name:Chris Mabry Payer ID:Not on file Group ID:[id number] Type:RX Medicare Part D Address: [address] [employer] [place] (INTERNAL) [facility] Internal Plans Advance Directives For more information, please contact: [phone] * Full Code (Latest Code Status on File) Date Activated Date Inactivated Comments 05/01/2023 12:11 PM 05/10/2023 6:26 PM * Full Code Date Activated Date Inactivated Comments 05/01/2023 5:37 AM 05/01/2023 12:11 PM * Full Code Date Activated Date Inactivated Comments 04/14/2023 3:14 PM 04/15/2023 1:31 PM * Full Code Date Activated Date Inactivated Comments 04/14/2023 3:14 PM 04/14/2023 3:14 PM * Full Code Date Activated Date Inactivated Comments 12/15/2022 11:15 AM 12/15/2022 2:57 PM Care Teams Chair Mechanic Relationship Specialty Start Date End Date Jordi Hernandez MD [address] [place] [address] PCP - General Family Practice 06/18/23
--- OUTSIDE RECORDS SUMMARY | 2024-12-08 09:23 | XMS_ITS | Clinical Summary ---
Author Organization [facility] Address [address] [place] [address] Care Team Providers Care Tea And Spice Supervisor Name Role Phone Unavailable Primary Care Provider Unavailabl e Social History Tobacco Use Types Packs/Day Years Used Date Smoking Tobacco: Never Assessed Sex and Gender Information Value Date Recorded Sex Assigned at Not on file Legal Sex Male 10:44 PM CDT Gender Identity Not on file Sexual Orientation Not on file Last Filed Vital Signs Vital Sign Reading Time Taken Comments Blood Pressure - - Pulse - - Temperature - - Respiratory Rate - - Oxygen Saturation - - Inhaled Oxygen Concentration - - Weight 75.5 kg (166 lb 8 oz) 07/11/2012 11:47 AM BAR 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 Height 167.6 cm (5' 6 ) 07/11/2012 11:47 AM BAR EXAMINER Body Mass Index 26.87 07/11/2012 11:47 AM BAR EXAMINER Plan of Treatment Health Maintenance Due Date Last Done Comments Hepatitis C 1963 DTaP, Tdap and Td Vaccines ( 1 - Tdap) 1964 Pneumococcal Vaccine: 50+ Ye ars (1 of 1 - PCV) 1995 Zoster Vaccines (1 of 2) 1995 Annual Medicare Wellness Visit 2010 RSV Immunization or 60+ Years (1 - 1-dose 75+ series) 2020 COVID-19 Vaccine ( - 2023-2 5 season) 2024 Meningococcal B Vaccine Aged Out No l onger eligible based on patient's age to complete this topic Meningococcal Vaccine Aged Out No sheila manas eligible based on patient's age to complete this topic RSV Immunizations Under 20 Months Aged Out No longer eligible based on patient's age to complete this topic Insurance [facility]
--- OUTSIDE RECORDS SUMMARY | 2024-12-08 09:23 | XMS_ITS | Encounter Summary ---
Author Organization [facility] [employer] Address [address] [place] [address] Care Team Providers Care Stacking Machine Operator Name Role Phone Jordi Hernandez MD Primary Care Provider [phone] Encounter Details Date Type Department Care Team (Late st Contact Info) Description 12/05/2024 Orders Only [facility] [address] [facility] [address] [place] [address] Kedar Patterson MD [address] [facility] [address] [place] [address] 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); Benign hypertension Social History Tobacco Use Types Packs/Day Years Used Date Smoking Tobacco: Former Cigarettes Q uit: 1991 Smokeless Tobacco: Never Alcohol Use Standard Drinks/Week Comments Never 0 [...] on file Sexual Orientation Not on file documented as of this encounter Plan of Treatment Upcoming Encounters Date Type Department Care Team (Late st Contact Info) Description 12/15/2024 9:15 AM CDT Office Visit [facility] [address] [place] [address] Kedar Patterson MD [address] [facility] [address] [place] [address] documented as of this encounter Procedures Procedure Name Priority Date/Time Associated Diagnosis Comments BASIC METABOLIC PANEL Routine 12/01/2024 11:52 AM CDT CBC MIXED CELL DIFFERENTIAL Routine 12/01/2024 11:48 AM CDT documented in this encounter Results * BASIC METABOLIC PANEL (12/01/2024 11:52 AM CDT) Blood Kedar Patterson MD CHEMISTRY ORDERABLES Final Resu lt * CBC MIXED CELL DIFFERENTIAL (12/01/2024 11:48 AM CDT) Blood us Kedar Patterson MD HEMATOLOGY ORDERABLES Final Res ult documented in this encounter Visit Diagnoses Diagnosis 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) Malignant neoplasm of lower third of esophagus Benign hypertension Essential hypertension, benign documented in this encounter Care Teams Stacking Machine Operator Relationship Specialty Start Date End Date Jordi Hernandez MD [address] [place] [address] PCP - General Family Practice 06/18/23 documented as of this encounter
--- OUTSIDE RECORDS SUMMARY | 2024-12-08 09:24 | XMS_ITS | Clinical Summary ---
Author Organization [facility] Medical Office Building B Address [address] [place] [address] Care Team Providers Care Heel Coverer Name Role Phone Eric Baker DO Unavailable [phone] Leodan Anthony MD Unavailable [phone] Jordi Hernandez MD Primary Care Provider [phone] Allergies Active Allergy Reactions Criticality Noted Date Comments Vancomycin Redness Medium 08/17/2021 Patient states red man syndrome recently in 07/30. Medications aspirin 81 mg enteric coated tablet Take 1 tablet (81 mg total) by mouth daily Active coenzyme Q10 10 mg capsule Take 1 capsule (10 mg total) by mouth daily Active atorvastatin (LIPITOR) 80 mg tablet Take 1 tablet (80 mg total) by mouth daily 30 tablet 1 Active lisinopriL (PRINIVIL,ZESTR IL) 2.5 mg tablet Take 1 tablet (2.5 mg total) by mouth daily 30 tablet 11 1 Active cholecalciferol , vitamin D3, 1,000 unit tablet,chewable Indications:Ost eoporosis Take 2 tablet/chew tab by mouth daily Active albuterol HFA (PROVENTIL HFA,VENTOLIN HFA,PROAIR HFA) 90 mcg/actuation inhaler Inhale 2 puffs every 4 (four) hours as needed for wheezing 1 each 1 1 Active gabapentin (NEURONTIN) 100 mg capsule Take 2 capsules (200 mg total) by mouth 3 (three) times a day 180 capsule 11 1 Active Additional Information Patient not taking.Reported on 09/29/2024 acetaminophen (TYLENOL) 325 mg tabletIndicatio ns:Fever,Pain Take 2 tablets (650 mg total) by mouth every 4 (four) hours as needed for pain, headaches or fever 30 tablet 1 2 Active famotidine (PEPCID) 20 mg tablet Take 1 tablet (20 mg total) by mouth daily 30 tablet 11 2 Active HYDROcodone-zach taminophen (NORCO) 5-325 mg per tabletIndicatio ns:Pain Take 1 tablet by mouth every 4 (four) hours as needed for pain 30 tablet 2 Active Additional Information Patient not taking.Reported on 09/29/2024 metoprolol XL (TOPROL-XL) 25 mg extended release tablet Take 1 tablet (25 mg total) by mouth daily 30 tablet 11 2 Active QUEtiapine (SEROquel) 50 mg tablet 2 Active furosemide (LASIX) 20 mg tablet 4 Active Active Problems Problem Noted Date Diagnosed Date Cancer of distal third of esophagus 12/23/2022 Ischemia of right lower extremity 09/06/2021 Assessment & Plan (12/20/2021 8:47 AM CDT): S/p right common femoral endarterecomy, and right [...] and hx of hardware due to trauma. Assessment & Plan (09/26/2021 3:56 PM PROP AND EFFECTS DESIGNER): Impression: Patient is status post right common femoral endarterectomy and patch angioplasty and right profundus to femoral artery to tibioperoneal trunk bypass graft on 08/21/2021 for severe critical limb ischemia to the right lower extremity. Patient complains of discomfort, edema, numbness to the right lower extremity. His surgical incisions are healed. Right great toe gangrene is improving. Arterial duplex reveals patent graft. Patient has hardware to right ankle from an accident that occurred several years ago. Plan: Recommend ongoing risk factor modifications. Patient to follow-up in 3 months for re-evaluation with repeat arterial duplex. Recommend referral to foot and ankle for re-evaluation of hardware to right lateral aspect of ankle. Assessment & Plan (09/06/2021 1:29 PM PROP AND EFFECTS DESIGNER): Impression: Patient is status post right common femoral endarterectomy and patch angioplasty and right profunda to femoral artery to tibioperoneal trunk bypass graft on 08/21/2021 due to severe critical limb ischemia to the right lower extremity. Patient reports his pain to his right lower extremity has resolved. Surgical incisions are well approximated and healed with brianna intact with no concern for infection. Patient has postsurgical edema to right lower extremity. Right lower extremity is warm, well perfused. Graft is patent. Plan: [place] removed. Patient to continue ongoing risk factor modifications. Patient to follow-up in 2-3 weeks for re-evaluation with new baseline arterial duplex study. Pain of right lower leg 08/17/2021 Gangrene of toe 08/17/2021 Assessment & Plan (09/26/2021 3:55 PM PROP AND EFFECTS DESIGNER): Impression: Patient has gangrene of the right 1st toe which has improved post bypass graft. New toenail forming is noted on exam. Patient has 2 sutures remaining to right 1st toenail from when his toenail was removed. Plan: Continue daily dressing changes with Xeroform and dry gauze. Patient to follow-up in 3 months. Assessment & Plan (09/06/2021 1:30 PM PROP AND EFFECTS DESIGNER): Impression: Patient has gangrene of the right 1st toe. He is status post surgical vascular intervention. Patient's right 1st toe is stable with no progression of infection. Plan: Continue daily dressing changes with Xeroform to his right 1st toe. Patient to follow-up in 2-3 weeks for re-evaluation. Pneumonia due to COVID-19 virus 07/27/2021 Hypoxia 07/27/2021 Hypokalemia 07/27/2021 Abnormal liver function test 07/16/2021 Preoperative clearance 07/15/2021 Mixed hyperlipidemia 07/15/2021 Assessment & Plan (09/29/2024 3:23 PM PROP AND EFFECTS DESIGNER): Impression: Chronic and stable. Plan: Continue Lipitor Assessment & Plan (01/07/2023 9:33 AM CDT): Chronic stable hyperlipidemia. Continue Lipitor. Assessment & Plan (06/25/2022 5:16 PM PROP AND EFFECTS DESIGNER): Impression: Chronic hyperlipidemia, controlled with statin therapy. Plan: Continue statin therapy as per primary care provider. Assessment & Plan (12/20/2021 8:41 AM CDT): Hyper lipidemia currently medically controled with medications. Continue medications as per PCP. Assessment & Plan (2021 2:15 PM PROP AND EFFECTS DESIGNER): Hyperlipidemia chronic and controlled. Continue Lipitor Primary hypertension 07/15/2021 Assessment & Plan (09/29/2024 3:23 PM PROP AND EFFECTS DESIGNER): Impression: Chronic and stable. Plan: Continue Lasix lisinopril and metoprolol Assessment & Plan (01/07/2023 9:33 AM CDT): Chronic stable hypertension. Continue current medical management. Assessment & Plan (06/25/2022 5:16 PM PROP AND EFFECTS DESIGNER): Impression: Chronic stable hypertension, controlled medications. Blood pressure stable. Plan: Continue blood pressure management as per primary care provider. Assessment & Plan (2021 2:15 PM PROP AND EFFECTS DESIGNER): Hypertension chronic and controlled. Continue current medical therapy PVD (peripheral vascular disease) 07/12/2021 Overview (07/12/2021): Diagnosis 2020 Per MARIA ESTHER of 07/10/2021 Right ankle brachial index 0.27, severely decreased Left ankle brachial index 0.59, moderately decreased Segmental pressures as above, with suspicion of inflow stenosis on the right Patient saw vascular surgeon, Dr. Santo Swift, in April Assessment & Plan (01/07/2023 9:33 AM CDT): Patient doing well with no ongoing symptoms. Right lower extremity bypass graft patent. Continue 6 month duplex surveillance and anti-platelet therapy. Assessment & Plan (2021 2:16 PM PROP AND EFFECTS DESIGNER): Patient has ischemic rest pain with gangrenous [...] explained. He understands and agrees to proceed. Atherosclerosis of [place] ar teries of extremities with intermittent claudication, right leg 07/12/2021 Assessment & Plan (09/29/2024 3:22 PM PROP AND EFFECTS DESIGNER): Impression: Patient is status post right common femoral endarterectomy with profunda to TP trunk bypass graft in 2021. He denies any ischemic rest pain, claudication or open ulcerations to his lower extremity. Lower extremity arterial duplex reveals a patent bypass graft. Plan: Continue ongoing risk factor modifications. -continue aspirin. -Patient to follow-up in 6 months for re-evaluation with repeat lower extremity arterial duplex. Encouraged patient to make a sooner appointment if he develops disabling claudication, ischemic rest pain or ulcerations to his lower extremity. Assessment & Plan (06/24/2024 9:55 AM PROP AND EFFECTS DESIGNER): Over the past several months has had worsening claudication symptoms to the left lower extremity. Has been having some minor paresthesia changes as well denies any rest pain or ischemic ulcerations. Current ABIs when compared to previous ABIs have decreased. Discussed this with the patient. Also discussed the need for potential angiogram. Patient at this time would like to wait try to increase his activity and will follow-up for re-evaluation in 3 months' time. Plan: Continue aspirin and statin therapy and follow-up in 3 months with a lower extremity arterial duplex. Assessment & Plan (06/25/2022 5:15 PM PROP AND EFFECTS DESIGNER): Impression: Patient is status post right common femoral artery endarterectomy, right profunda to TP trunk bypass graft. Patient denies any symptoms of claudication, ischemic rest pain or ulcerations to his lower extremity. Bypass graft is patent seen on arterial duplex. Plan: Continue ongoing risk factor modifications. Patient to follow-up in 6 months for re-evaluation with repeat arterial duplex. Assessment & Plan (12/20/2021 8:41 AM CDT): Ischemia of RLE and gangrene of the right great toe, hx of right iliac artery stent 08/25/20. Toe infection 06/25/2021 Overview (07/12/2021): Patient sustained laceration, fracture, and nail avulsion when 1 of his horses stepped on his foot Coronary artery disease of n ative artery of [place] heart with stable angina pectoris 05/01/2021 Myocardial infarction Overview (07/12/2021): Two thousand twelve and 05/15/2021 status post 2 stents on 05/15/2021 Preop cardiovascular exam Cellulitis of right foot Encounters Date Type Department Care Team Description 09/30/2024 Orders Only [facility] Medical [facility] Vascular and Vein Surgery [address] [place] [phone] Leodan Anthony MD Aftercare following surgery of the circulatory system (Primary Dx) 09/29/2024 1:30 PM PROP AND EFFECTS DESIGNER Office Visit [facility] Medical [facility] Vascular and Vein Surgery [address] [place] [address] [place] [phone] Alice Wilks NP Atherosclerosis of [place] arteries of extremities with intermittent claudication, right leg (Primary Dx); Mixed hyperlipidemia; Primary hypertension 09/29/2024 12:20 PM PROP AND EFFECTS DESIGNER - 09/29/2024 11:59 PM PROP AND EFFECTS DESIGNER Hospital Encounter [facility] Medical Office Building [address] [place] [address] [place] [id number] Aftercare following surgery of the circulatory system; Atherosclerosis of [place] artery of left lower extremity with intermittent claudication Discharge Disposition: Discharge to home or self care 09/29/2024 12:20 PM PROP AND EFFECTS DESIGNER - 09/29/2024 11:59 PM PROP AND EFFECTS DESIGNER Hospital Encounter [facility] Medical Office Building 2 Vascular [address] [phone] Aftercare following surgery of the circulatory system; Atherosclerosis of [place] artery of left lower extremity with intermittent claudication Discharge Disposition: Discharge to home or self care from Last 3 Months Immunizations Immunization Administration Dates Next Due Influenza, Quadrivalent, Spl it, Preservative Free, Intramuscular 05/05/2020 Influenza, Trivalent, High D ose, Split, Preservative Free, Intramuscular 10/11/2019,08/25/2017 Pneumococcal Conjugate PCV 13 10/08/2020, 018 Pneumococcal Polysaccharide PPV23 10/11/2019 Surgical History Surgery Date Site/Laterality Comments APPENDECTOMY SHOULDER SURGERY 11/08/2020 Left ANKLE FRACTURE SURGERY 05/15/2009 Right TIBIA FRACTURE SURGERY 08/10/2008 - 08/09/2009 Right CORONARY STENT PLACEMENT 08/10/2011 - 08/09/2012 [place] ANGIOPLASTY / STENTING ILIAC 07/25/2021 Right aortogram, BA & stenting right EIA FEMORAL ENDARTERECTOMY 08/21/2021 Right RT com-fem endar & patch angioplasty. RT fem to TPT bypass. Medical History Medical History Date Comments Myocardial infarction (HCC) Two thousand twelve and 05/15/2021 status post 2 stents on 05/15/2021 Peripheral vascular disease leg claudication PVD (peripheral vascular disease) 07/12/2021 Diagnosis 2020 Per MARIA ESTHER of 07/10/2021 Right ankle brachial index 0.27, severely decreased Left ankle brachial index 0.59, moderately decreased Segmental pressures as above, with suspicion of inflow stenosis on the right Patient saw vascular surgeon, Dr. Santo Swift, in April Toe infection 06/25/2021 Patient sustaine d laceration, fracture, and nail avulsion when 1 of his horses stepped on his foot Family History Medical History Relation Name Comments Cancer Brother No Known Problems Daughter No Known Problems Father Coronary artery disease Mother Cancer Sister No Known Problems Son Relation Name Status Comments Brother Daughter Father Mother Sister Son Social History Tobacco Use Types Packs/Day Years Used Date Smoking Tobacco: Former Cigarettes Q uit: 1991 Smokeless Tobacco: Never Comments:States that he quit about 30 years ago Alcohol Use Standard Drinks/Week Comments Not Currently 0 (1 standard drink = 0.6 oz pur e alcohol) AUDIT-C Answer Date Recorded Q1: How often do you have a drink containing alc ohol? 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 Not on file Not on file Not on file Obstetrics History Last Filed Vital Signs Vital Sign Reading Time Taken Comments Blood Pressure 158/76 09/29/2024 1:40 PM PROP AND EFFECTS DESIGNER Pulse 57 09/29/2024 1:40 PM PROP AND EFFECTS DESIGNER Temperature 37.1 C (98.8 F) 08/28/2021 7:00 AM PROP AND EFFECTS DESIGNER Respiratory Rate 18 08/28/2021 7:00 AM PROP AND EFFECTS DESIGNER Oxygen Saturation 98% 08/28/2021 7:00 AM PROP AND EFFECTS DESIGNER Inhaled Oxygen Concentration - - Weight 70.3 kg (155 lb) 09/29/2024 1:40 PM PROP AND EFFECTS DESIGNER Height 167.6 cm (5' 6 ) 09/29/2024 1:40 PM PROP AND EFFECTS DESIGNER Body Mass Index 25.02 09/29/2024 1:40 PM PROP AND EFFECTS DESIGNER Plan of Treatment Health Maintenance Due Date Last Done Comments Depression Screening 1945 Hepatitis C Screening 1945 DTaP/Tdap/Td Vaccine (1 - Tdap) 1956 Hepatitis B Screening 1963 Zoster Vaccine (1 of 2) 1995 Abdominal Aortic Aneurysm (A AA) Screen 2010 Well Visit 65+ 2010 Fall Risk Assessment 08/27/2022 08/27/2021 Influenza Vaccine (Season Ended) 2025 05/05/2020, 10/11/2019, 08/25/2017 Pneumococcal vaccine 65+ Completed 021, 10/11/2019, 08/25/2017 Medical Devices Implanted Type Area Client Services Director Device Identifier Shelf Expiration Date Model / Serial / Lot [employer] 17530-52 Perclose 6fr Suture Mediate Knot Push Vascular Device Closure - S0 - [id number] Implanted:Qty: 1 on 05/15/2021 by Gunner Pinto MD at [facility] Other - see comments [employer] 02/06/2023 [id number] / 0 / [id number] [employer] [place] [id number] Synergy Xd Monorail 2.5mm 48mm 144cm Delivery System 1 Access - S0 - [id number] Implanted:Qty: 1 on 05/15/2021 by Gunner Pinto MD at [facility] Stent [employer] 12/20/2022 [id number] / 0 / [id number] [employer] [place] [id number] Synergy Xd Monorail 3.5mm 38mm 144cm Delivery System 1 Access - S0 - [id number] Implanted:Qty: 1 on 05/15/2021 by Gunner Pinto MD at [facility] Stent [employer] [place] 10/25/2022 [id number] / 0 / [id number] Peripheral Vascular [id number] Safe Performaxx 7mm 6fr 60mm 80cm Delivery System - [id number] Implanted:Qty: 1 on 07/15/2021 by Leodan Anthony MD at [facility] Peripheral Vascular 07/13/2023 [id number] / / [id number] [employer] [id number] [place] 6mm 80cm 60cm Removable Ring Stretch Thin Wall Graft - [id number] - [id number] Implanted:Qty: 1 on 08/21/2021 by Leodan Anthony MD at [facility] [employer] [id number] 12/02/2024 [id number] / [id number] / [facility] [place] [id number] Vascu-Guard 8x.8cm Peripheral Patch Vascular Bovine Pericardium - [id number] Implanted:Qty: 1 on 08/21/2021 by Leodan Anthony MD at [facility] [employer] [id number] 04/17/2026 [id number] / / [id number] Procedures Procedure Name Priority Date/Time Associated Diagnosis Comments US MARIA ESTHER Schedule Routine, Read Routine (OP Routine) 09/29/2024 2:21 PM PROP AND EFFECTS DESIGNER Aftercare following surgery of the circulatory system Atherosclerosis of [place] artery of left lower extremity with intermittent claudication US ARTERIAL DUPLEX LOWER EXTREMITY RIGHT LIMITED Schedule Routine, Read Routine (OP Routine) 09/29/2024 2:21 PM PROP AND EFFECTS DESIGNER Aftercare following surgery of the circulatory system Atherosclerosis of [place] artery of left lower extremity with intermittent claudication from Last 3 Months Results * US MARIA ESTHER (09/29/2024 2:21 PM PROP AND EFFECTS DESIGNER) Anatomical Region Laterality Modality Vascular N/A Ultrasound 09/29/2024 12:3 8 PM PROP AND EFFECTS DESIGNER Narrative 09/29/2024 3:04 PM PROP AND EFFECTS DESIGNER Lower Extremity Arterial Doppler Report Patient Name: HOWIE LOVE L : 1945 Study Date: 09/29/2024 12:38:00 PM Gender: M Dairy Farmer: Arlyn Huertas RN/RVT Ref Provider: LEODAN ANTHONY Quality: Adequate Order Provider: LEODNA ANTHONY PROCEDURES: Arterial Report: Ankle - Brachial Index Doppler exam. INDICATIONS: Z48.812 Encounter for surgical aftercare following surgery on the circulatory system and I70.212 Atherosclerosis of [place] arteries of extremities with intermittent claudication, left leg. HISTORY: Stent 07/15/2021 Rt EIA -1. Right CASH CLERK endart; Right PFA-TPT BPG 08/31/21 History of bypass graft on -1. COMPARISONS: The previous exam was completed on 06/23/2024. Compared to prior RT MARIA ESTHER 0.71/0.67 PT/DP LT 0/1.17 PT/DP. MEASUREMENTS: Right Value Left Value Rt Brachial Pressure 142 mmHg Lt Brachial Pressure 135 mmHg Rt GLUE MAKER BONE Pressure 121 mmHg Lt GLUE MAKER BONE Pressure 126 mmHg Rt DPA Pressure 109 mmHg Lt DPA Pressure 238 mmHg Rt 1st Digit Pressure 91 mmHg Lt 1st Digit Pressure 73 mmHg Rt PT MARIA ESTHER Resting 0.85 Lt PT MARIA ESTHER Resting 0.89 Rt DP MARIA ESTHER Resting 0.77 Lt DP MARIA ESTHER Resting 1.68 Rt Digit/Arm Index 0.64 Lt Digit/Arm Index 0.51 FINDINGS: Right Posterior Tibial Artery Analysis: The posterior tibial waveform is monophasic. Right Anterior Tibial Artery Analysis: Dorsalis Pedis monophasic. Right Digits: Normal right digit pressure and waveform. Left Posterior Tibial Artery Analysis: The posterior tibial waveform is monophasic. Left Anterior Tibial Artery Analysis: Dorsalis Pedis monophasic. Left Digits: The left digit waveform is dampened. - CONCLUSIONS: 1. Ankle-brachial index of 0.8-0.9 is consistent with mild occlusive arterial disease in the right lower extremity. 2. Ankle-brachial index of >1.3 is non-compressible which is consistent with arterial calcifications, thus the ankle/brachial index is not obtainable in the left lower extremity. ATTESTATION: I have reviewed and interpreted the pertinent images and measurements of this study. I attest to the conclusions in the final report that is provided above. Electronically Signed By: Farhad Anthony MD 09/29/2024 3:04:10 PM PROP AND EFFECTS DESIGNER Procedure Note Farhad Anthony MD - 09/29/2024 Lower Extremity Arterial Doppler Report Patient Name: HOWIE LOVE L : 1945 Study Date: 09/29/2024 12:38:00 PM Gender: M Dairy Farmer: Arlyn Huertas RN/RVT Ref Provider: LEODAN ANTHONY Quality: Adequate Order Provider: LEODAN ANTHONY PROCEDURES: Arterial Report: Ankle - Brachial Index Doppler exam. INDICATIONS: Z48.812 Encounter for surgical aftercare following surgery on thecirculatory system and I70.212 Atherosclerosis of [place] arteries of extremities withintermittent claudication, left leg. HISTORY: Stent 07/15/2021 Rt EIA -1. Right CASH CLERK endart; Right PFA-TPT BPG 08/31/21 History of bypass graft on-1. COMPARISONS: The previous exam was completed on 06/23/2024. Compared to prior RT MARIA ESTHER 0.71/0.67 PT/DP LT 0/1.17 PT/DP. MEASUREMENTS: Right Value Left Value Rt Brachial Pressure 142 mmHg Lt Brachial Pressure 135 mmHg Rt GLUE MAKER BONE Pressure 121 mmHg Lt GLUE MAKER BONE Pressure 126 mmHg Rt DPA Pressure 109 mmHg Lt DPA Pressure 238 mmHg Rt 1st Digit Pressure 91 mmHg Lt 1st Digit Pressure 73 mmHg Rt PT MARIA ESTHER Resting 0.85 Lt PT MARIA ESTHER Resting 0.89 Rt DP MARIA ESTHER Resting 0.77 Lt DP MARIA ESTHER Resting 1.68 Rt Digit/Arm Index 0.64 Lt Digit/Arm Index 0.51 FINDINGS: Right Posterior Tibial Artery Analysis: The posterior tibial waveform is monophasic. Right Anterior Tibial Artery Analysis: Dorsalis Pedis monophasic. Right Digits: Normal right digit pressure and waveform. Left Posterior Tibial Artery Analysis: The posterior tibial waveform is monophasic. Left Anterior Tibial Artery Analysis: Dorsalis Pedis monophasic. Left Digits: The left digit waveform is dampened. - CONCLUSIONS: 1. Ankle-brachial index of 0.8-0.9 is consistent with mild occlusivearterial disease in the right lower extremity. 2. Ankle-brachial index of >1.3 is non-compressible which is consistentwith arterial calcifications, thus the ankle/brachial index is not obtainable in theleft lower extremity. ATTESTATION: I have reviewed and interpreted the pertinent images and measurements ofthis study. I attest to the conclusions in the final report that is provided above. Electronically Signed By: Farhad Anthony MD 09/29/2024 3:04:10 PM PROP AND EFFECTS DESIGNER us Leodan Anthony MD IM US PROCEDURES Final Re sult * US Arterial Duplex Lower Extremity Right Limited (09/29/2024 2:21 PM PROP AND EFFECTS DESIGNER) Anatomical Region Laterality Modality Vascular Right Ultrasound 09/29/2024 12:3 3 PM PROP AND EFFECTS DESIGNER Narrative 09/29/2024 3:07 PM PROP AND EFFECTS DESIGNER Lower Extremity Arterial Duplex Report Patient Name: HOWIE LOVE L : 1945 (79y 1m) Gender: M Study Date: 09/29/2024 12:33:30 PM Ht(Inch): Wt(Lb): BSA: Dairy Farmer: Arlyn Huertas Provider: LEODAN ANTHONY Quality: Adequate Ref Provider: LEODAN ANTHONY PROCEDURES: Arterial Report: A non-invasive vascular imaging study of the right lower extremity arteries and bypass graft was performed using B-mode ultrasound, color flow, and spectral Doppler. INDICATIONS: Z48.812 Encounter for surgical aftercare following surgery on the circulatory system and I70.212 Atherosclerosis of [place] arteries of extremities with intermittent claudication, left leg. HISTORY: The patient had a previous vascular surgery on Rt PFA-TPT BPG 08/21/2021. History of Stent Rt EIA 07/15/2021. COMPARISONS: The previous exam was completed on 06/23/2021. MEASUREMENTS: Right Value Rt Ext Iliac Mid PSV 93.00 cm/sec Rt Ext Iliac Dst PSV 76.00 cm/sec Rt CASH CLERK Prx PSV 52.80 cm/sec Rt CASH CLERK Dst PSV 279.00 cm/sec Rt Profunda Prx PSV 326.00 cm/sec Rt TP Trunk PSV 113.00 cm/s GRAFTS: Right Value Location Rt PFA-TPT BPG Rt BPG Inflow PSV 326.00 cm/sec Rt Anast Prx PSV 183.00 cm/sec Rt BPG Prx PSV 54.00 cm/sec Rt BPG Mid PSV 44.00 cm/sec Rt BPG Dst PSV 46.00 cm/sec Rt Anast Dst PSV 138.00 cm/sec Rt BPG Outflow PSV 113.00 cm/sec FINDINGS: Right: Increased velocities noted of the right common femoral artery and profunda femoral artery. Bypass Graft 1: The bypass graft is located in the Lt PFA-TPT BPG. Patent lower extremity bypass graft with no evidence of stenosis. CONCLUSION: 1. There is moderate 50-75% stenosis in the right common femoral artery and profunda femoral artery. 2. The arterial stent is patent with no evidence of stenosis. 3. Elevated velocities at the proximal anastomosis of a right profunda femoral artery to tibioperoneal trunk bypass suggestive of stenosis. ATTESTATION: I have reviewed and interpreted the pertinent images and measurements of this study. I attest to the conclusions in the final report that is provided above. Electronically Signed By: Farhad Anthony MD 09/29/2024 3:06:37 PM PROP AND EFFECTS DESIGNER Procedure Note Farhad Anthony MD - 02/20/2025 Lower Extremity Arterial Duplex Report Patient Name: HOWIE LOVE L : 1945 (79y 1m) Gender: M Study Date: 09/29/2024 12:33:30 PM Ht(Inch): Wt(Lb): BSA: Dairy Farmer: Arlyn Huertas Provider: LEODAN ANTHONY Quality: Adequate Ref Provider: LEODAN ANTHONY PROCEDURES: Arterial Report: A non-invasive vascular imaging study of the right lowerextremity arteries and bypass graft was performed using B-mode ultrasound, colorflow, and spectral Doppler. INDICATIONS: Z48.812 Encounter for surgical aftercare following surgery on thecirculatory system and I70.212 Atherosclerosis of [place] arteries of extremities withintermittent claudication, left leg. HISTORY: The patient had a previous vascular surgery on Rt PFA-TPT BPG 08/21/2021.History of Stent Rt EIA 07/15/2021. COMPARISONS: The previous exam was completed on 06/23/2021. MEASUREMENTS: Right Value Rt Ext Iliac Mid PSV 93.00 cm/sec Rt Ext Iliac Dst PSV 76.00 cm/sec Rt CASH CLERK Prx PSV 52.80 cm/sec Rt CASH CLERK Dst PSV 279.00 cm/sec Rt Profunda Prx PSV 326.00 cm/sec Rt TP Trunk PSV 113.00 cm/s GRAFTS: Right Value Location Rt PFA-TPT BPG Rt BPG Inflow PSV 326.00 cm/sec Rt Anast Prx PSV 183.00 cm/sec Rt BPG Prx PSV 54.00 cm/sec Rt BPG Mid PSV 44.00 cm/sec Rt BPG Dst PSV 46.00 cm/sec Rt Anast Dst PSV 138.00 cm/sec Rt BPG Outflow PSV 113.00 cm/sec FINDINGS: Right: Increased velocities noted of the right common femoral artery andprofunda femoral artery. Bypass Graft 1: The bypass graft is located in the Lt PFA-TPT BPG. Patentlower extremity bypass graft with no evidence of stenosis. CONCLUSION: 1. There is moderate 50-75% stenosis in the right common femoral arteryand profunda femoral artery. 2. The arterial stent is patent with no evidence of stenosis. 3. Elevated velocities at the proximal anastomosis of a right profundafemoral artery to tibioperoneal trunk bypass suggestive of stenosis. ATTESTATION: I have reviewed and interpreted the pertinent images and measurements ofthis study. I attest to the conclusions in the final report that is provided above. Electronically Signed By: Farhad Anthony MD 09/29/2024 3:06:37 PM PROP AND EFFECTS DESIGNER Leodan Anthony MD IM US PROCEDURES Final Re sult from Last 3 Months Insurance [facility] MEDICARE ADVANTAGE Advance Directives For more information, please contact: [phone] * Full Code (Latest Code Status on File) Date Activated Date Inactivated Comments 08/21/2021 5:50 PM 08/28/2021 5:13 PM * Full Code Date Activated Date Inactivated Comments 08/17/2021 1:15 PM 08/21/2021 5:50 PM * Full Code Date Activated Date Inactivated Comments 08/17/2021 11:31 AM 08/17/2021 1:15 PM * Full Code Date Activated Date Inactivated Comments 07/12/2021 1:51 AM 08/01/2021 8:37 PM * Full Code Date Activated Date Inactivated Comments 05/15/2021 3:44 PM 05/16/2021 11:39 AM Care Teams Heel Coverer Relationship Specialty Start Date End Date Jordi Hernandez MD [address] [place] [address] PCP - General Family Practice 09/29/24 Eric Baker DO [address] [place] [address] [address] [place] [address] Referring Physician Cardiology 05/01/21 Leodan Anthony MD [address] [facility] [address] [place] [address] Surgeon Vascular Surgery 08/01/21
--- OUTSIDE RECORDS SUMMARY | 2024-12-08 09:24 | XMS_ITS | Referral Summary ---
Author Organization [facility] Medical Office Building B Address [address] [place] [address] Care Team Providers Care Informaticist Name Role Phone Eric Baker DO Unavailable [phone] Leodan Anthony MD Unavailable [phone] Jordi Hernandez MD Primary Care Provider [phone] Encounters Date Type Department Care Team Description 09/30/2024 Orders Only [facility] Vascular and Vein Surgery [address] [place] [address] [address] [place] [address] Leodan Anthony MD Aftercare following surgery of the circulatory system (Primary Dx) 09/29/2024 1:30 PM PARKING LOT MANAGER Office Visit [facility] Vascular and Vein Surgery [address] [place] [address] [address] [place] [address] Alice Wilks NP Atherosclerosis of [place] arteries of extremities with intermittent claudication, right leg (Primary Dx); Mixed hyperlipidemia; Primary hypertension 09/29/2024 12:20 PM PARKING LOT MANAGER - 09/29/2024 11:59 PM PARKING LOT MANAGER Hospital Encounter [facility] Medical Office Building [address] [place] [address] [address] [place] [address] Aftercare following surgery of the circulatory system; Atherosclerosis of [place] artery of left lower extremity with intermittent claudication Discharge Disposition: Discharge to home or self care 09/29/2024 12:20 PM PARKING LOT MANAGER - 09/29/2024 11:59 PM PARKING LOT MANAGER Hospital Encounter [facility] Medical Office Building 2 Vascular [address] [facility] [address] [place] [address] Aftercare following surgery of the circulatory system; Atherosclerosis of [place] artery of left lower extremity with intermittent claudication Discharge Disposition: Discharge to home or self care from Last 3 Months Allergies Active Allergy Reactions Criticality Noted Date [...] mouth daily 30 tablet 11 1 Active lisinopriL (PRINIVIL,ZESTR IL) 2.5 mg [...] trauma. Assessment & Plan (09/26/2021 3:56 PM PARKING LOT MANAGER): Impression: Patient is status post right common [...] ankle. Assessment & Plan (09/06/2021 1:29 PM PARKING LOT MANAGER): Impression: Patient is status post right common [...] warm, well perfused. Graft is patent. Plan: [place] removed. Patient to continue ongoing risk factor modifications. Patient to follow-up in 2-3 weeks for re-evaluation with new baseline arterial duplex study. Pain of right lower leg 08/17/2021 Gangrene of toe 08/17/2021 Assessment & Plan (09/26/2021 3:55 PM PARKING LOT MANAGER): Impression: Patient has gangrene of the right 1st toe which has improved post bypass graft. New toenail forming is noted on exam. Patient has 2 sutures remaining to right 1st toenail from when his toenail was removed. Plan: Continue daily dressing changes with Xeroform and dry gauze. Patient to follow-up in 3 months. Assessment & Plan (09/06/2021 1:30 PM PARKING LOT MANAGER): Impression: Patient has gangrene of the right [...] 07/15/2021 Assessment & Plan (09/29/2024 3:23 PM PARKING LOT MANAGER): Impression: Chronic and stable. Plan: Continue Lipitor Assessment & Plan (01/07/2023 9:33 AM CDT): Chronic stable hyperlipidemia. Continue Lipitor. Assessment & Plan (06/25/2022 5:16 PM PARKING LOT MANAGER): Impression: Chronic hyperlipidemia, controlled with statin therapy. Plan: Continue statin therapy as per primary care provider. Assessment & Plan (12/20/2021 8:41 AM CDT): Hyper lipidemia currently medically controled with medications. Continue medications as per PCP. Assessment & Plan (2021 2:15 PM PARKING LOT MANAGER): Hyperlipidemia chronic and controlled. Continue Lipitor Primary hypertension 07/15/2021 Assessment & Plan (09/29/2024 3:23 PM PARKING LOT MANAGER): Impression: Chronic and stable. Plan: Continue Lasix lisinopril and metoprolol Assessment & Plan (01/07/2023 9:33 AM CDT): Chronic stable hypertension. Continue current medical management. Assessment & Plan (06/25/2022 5:16 PM PARKING LOT MANAGER): Impression: Chronic stable hypertension, controlled medications. Blood pressure stable. Plan: Continue blood pressure management as per primary care provider. Assessment & Plan (2021 2:15 PM PARKING LOT MANAGER): Hypertension chronic and controlled. Continue current medical [...] therapy. Assessment & Plan (2021 2:16 PM PARKING LOT MANAGER): Patient has ischemic rest pain with gangrenous [...] understands and agrees to proceed. Atherosclerosis of [place] ar teries of extremities with intermittent claudication, right leg 07/12/2021 Assessment & Plan (09/29/2024 3:22 PM PARKING LOT MANAGER): Impression: Patient is status post right common [...] extremity. Assessment & Plan (06/24/2024 9:55 AM PARKING LOT MANAGER): Over the past several months has had [...] duplex. Assessment & Plan (06/25/2022 5:15 PM PARKING LOT MANAGER): Impression: Patient is status post right common [...] artery disease of n ative artery of [place] heart with stable angina pectoris 05/01/2021 Myocardial infarction Overview (07/12/2021): Two thousand twelve and 05/15/2021 status post 2 stents on 05/15/2021 Preop cardiovascular exam Cellulitis of right foot Immunizations Immunization Administration Dates Next Due Influenza, Quadrivalent, Spl it, Preservative Free, Intramuscular 05/05/2020 Influenza, Trivalent, High D ose, Split, Preservative Free, Intramuscular 10/11/2019,08/25/2017 Pneumococcal Conjugate PCV 13 10/08/2020, 018 Pneumococcal Polysaccharide PPV23 10/11/2019 Social History Tobacco Use Types Packs/Day Years [...] 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 Not on file Not on file Not on file Last Filed Vital Signs Vital Sign Reading Time Taken Comments Blood Pressure 158/76 09/29/2024 1:40 PM PARKING LOT MANAGER Pulse 57 09/29/2024 1:40 PM PARKING LOT MANAGER Temperature 37.1 C (98.8 F) 08/28/2021 7:00 AM PARKING LOT MANAGER Respiratory Rate 18 08/28/2021 7:00 AM PARKING LOT MANAGER Oxygen Saturation 98% 08/28/2021 7:00 AM PARKING LOT MANAGER Inhaled Oxygen Concentration - - Weight 70.3 kg (155 lb) 09/29/2024 1:40 PM PARKING LOT MANAGER Height 167.6 cm (5' 6 ) 09/29/2024 1:40 PM PARKING LOT MANAGER Body Mass Index 25.02 09/29/2024 1:40 PM PARKING LOT MANAGER Plan of Treatment Not on file Medical Devices Implanted Type Area Engineer Internship Device Identifier Shelf Expiration Date Model / Serial / Lot [employer] 10521-56 Perclose 6fr Suture Mediate Knot Push Vascular Device Closure - S0 - [id number] Implanted:Qty: 1 on 05/15/2021 by Gunner Pinto MD at [facility] Other - see comments [employer] 02/06/2023 [id number] / 0 / [id number] [employer] [id number] Synergy Xd Monorail 2.5mm 48mm 144cm Delivery System 1 Access - S0 - [id number] Implanted:Qty: 1 on 05/15/2021 by Gunner Pinto MD at [facility] Stent [employer] Brandon 12/20/2022 [id number] / 0 / [id number] [employer] [id number] Synergy Xd Monorail 3.5mm 38mm 144cm Delivery System 1 Access - S0 - [id number] Implanted:Qty: 1 on 05/15/2021 by Gunner Pinto MD at [facility] Stent [employer] Brandon 10/25/2022 [id number] / 0 / [id number] [employer] Per[employer] [id number] Safe Performaxx 7mm 6fr 60mm 80cm Delivery System - [id number] Implanted:Qty: 1 on 07/15/2021 by Leodan Anthony MD at [facility] Peripheral Vascular 07/13/2023 [id number] / / [id number] [employer] [id number] Shadyside 6mm 80cm 60cm Removable Ring Stretch Thin Wall Graft - [id number] - [id number] Implanted:Qty: 1 on 08/21/2021 by Leodan Anthony MD at [facility] [employer] [id number] 12/02/2024 [id number] / [id number] / [employer] [id number] Vascu-Guard 8x.8cm Peripheral Patch Vascular Bovine Pericardium - [id number] Implanted:Qty: 1 on 08/21/2021 by Leodan Anthony MD at [facility] [id number] 04/17/2026 [id number] / / [id number] Procedures Procedure Name Priority Date/Time Associated Diagnosis Comments US MARIA ESTHER Schedule Routine, Read Routine (OP Routine) 09/29/2024 2:21 PM PARKING LOT MANAGER Aftercare following surgery of the circulatory system Atherosclerosis of [place] artery of left lower extremity with intermittent claudication US ARTERIAL DUPLEX LOWER EXTREMITY RIGHT LIMITED Schedule Routine, Read Routine (OP Routine) 09/29/2024 2:21 PM PARKING LOT MANAGER Aftercare following surgery of the circulatory system Atherosclerosis of [place] artery of left lower extremity with intermittent claudication from Last 3 Months Results * US MARIA ESTHER (09/29/2024 2:21 PM PARKING LOT MANAGER) Anatomical Region Laterality Modality Vascular N/A Ultrasound 09/29/2024 12:3 8 PM PARKING LOT MANAGER Narrative 09/29/2024 3:04 PM PARKING LOT MANAGER Lower Extremity Arterial Doppler Report Patient Name: HOWIE LOVE L : 1945 Study Date: 09/29/2024 12:38:00 PM Gender: M Board Handler: Arlyn Huertas RN/RVT Ref Provider: LEODAN ANTHONY Quality: Adequate Order Provider: LEODAN ANTHONY PROCEDURES: Arterial Report: Ankle - Brachial Index Doppler exam. INDICATIONS: Z48.812 Encounter for surgical aftercare following surgery on the circulatory system and I70.212 Atherosclerosis of [place] arteries of extremities with intermittent claudication, left leg. HISTORY: Stent 07/15/2021 Rt EIA -1. Right LEAD FRONT END DEVELOPER endart; Right PFA-TPT BPG 08/31/21 History of bypass graft on -1. COMPARISONS: The previous exam was completed on 06/23/2024. Compared to prior RT MARIA ESTHER 0.71/0.67 PT/DP LT 0/1.17 PT/DP. MEASUREMENTS: Right Value Left Value Rt Brachial Pressure 142 mmHg Lt Brachial Pressure 135 mmHg Rt VAT CLEANER Pressure 121 mmHg Lt VAT CLEANER Pressure 126 mmHg Rt DPA Pressure 109 [...] By: Farhad Anthony MD 09/29/2024 3:04:10 PM PARKING LOT MANAGER Procedure Note Farhad Anthony MD - 09/29/2024 Lower Extremity Arterial Doppler Report Patient Name: HOWIE LOVE L : 1945 Study Date: 09/29/2024 12:38:00 PM Gender: M Board Handler: Arlyn Huertas RN/RVT Ref Provider: LEODAN ANTHONY Quality: Adequate Order Provider: LEODAN ANTHONY PROCEDURES: Arterial Report: Ankle - Brachial Index Doppler exam. INDICATIONS: Z48.812 Encounter for surgical aftercare following surgery on thecirculatory system and I70.212 Atherosclerosis of [place] arteries of extremities withintermittent claudication, left leg. HISTORY: Stent 07/15/2021 Rt EIA -1. Right LEAD FRONT END DEVELOPER endart; Right PFA-TPT BPG 08/31/21 History of bypass graft on-1. COMPARISONS: The previous exam was completed on 06/23/2024. Compared to prior RT MARIA ESTHER 0.71/0.67 PT/DP LT 0/1.17 PT/DP. MEASUREMENTS: Right Value Left Value Rt Brachial Pressure 142 mmHg Lt Brachial Pressure 135 mmHg Rt VAT CLEANER Pressure 121 mmHg Lt VAT CLEANER Pressure 126 mmHg Rt DPA Pressure 109 [...] By: Farhad Anthony MD 09/29/2024 3:04:10 PM PARKING LOT MANAGER us Leodan Anthony MD IMG US PROCEDURES Final Re sult * US Arterial Duplex Lower Extremity Right Limited (09/29/2024 2:21 PM PARKING LOT MANAGER) Anatomical Region Laterality Modality Vascular Right Ultrasound 09/29/2024 12:3 3 PM PARKING LOT MANAGER Narrative 09/29/2024 3:07 PM PARKING LOT MANAGER Lower Extremity Arterial Duplex Report Patient Name: HOWIE LOVE L : 1945 (79y 1m) Gender: M Study Date: 09/29/2024 12:33:30 PM Ht(Inch): Wt(Lb): BSA: Board Handler: Arlyn Huertas Provider: LEODAN ANTHONY Quality: Adequate Ref Provider: LEODAN ANTHONY PROCEDURES: Arterial Report: A non-invasive vascular imaging study of the right lower extremity arteries and bypass graft was performed using B-mode ultrasound, color flow, and spectral Doppler. INDICATIONS: Z48.812 Encounter for surgical aftercare following surgery on the circulatory system and I70.212 Atherosclerosis of [place] arteries of extremities with intermittent claudication, left leg. HISTORY: The patient had a previous vascular surgery on Rt PFA-TPT BPG 08/21/2021. History of Stent Rt EIA 07/15/2021. COMPARISONS: The previous exam was completed on 06/23/2021. MEASUREMENTS: Right Value Rt Ext Iliac Mid PSV 93.00 cm/sec Rt Ext Iliac Dst PSV 76.00 cm/sec Rt LEAD FRONT END DEVELOPER Prx PSV 52.80 cm/sec Rt LEAD FRONT END DEVELOPER Dst PSV 279.00 cm/sec Rt Profunda Prx [...] By: Farhad Anthony MD 09/29/2024 3:06:37 PM PARKING LOT MANAGER Procedure Note Farhad Anthony MD - 09/29/2024 Lower Extremity Arterial Duplex Report Patient Name: HOWIE LOVE L : 1945 (79y 1m) Gender: M Study Date: 09/29/2024 12:33:30 PM Ht(Inch): Wt(Lb): BSA: Board Handler: Arlyn Huertas Provider: LEODAN ANTHONY Quality: Adequate Ref Provider: LEODAN ANTHONY PROCEDURES: Arterial Report: A non-invasive vascular imaging study of the right lowerextremity arteries and bypass graft was performed using B-mode ultrasound, colorflow, and spectral Doppler. INDICATIONS: Z48.812 Encounter for surgical aftercare following surgery on thecirculatory system and I70.212 Atherosclerosis of [place] arteries of extremities withintermittent claudication, left leg. HISTORY: The patient had a previous vascular surgery on Rt PFA-TPT BPG 08/21/2021.History of Stent Rt EIA 07/15/2021. COMPARISONS: The previous exam was completed on 06/23/2021. MEASUREMENTS: Right Value Rt Ext Iliac Mid PSV 93.00 cm/sec Rt Ext Iliac Dst PSV 76.00 cm/sec Rt LEAD FRONT END DEVELOPER Prx PSV 52.80 cm/sec Rt LEAD FRONT END DEVELOPER Dst PSV 279.00 cm/sec Rt Profunda Prx [...] By: Farhad Anthony MD 09/29/2024 3:06:37 PM PARKING LOT MANAGER Leodan Anthony MD IM US PROCEDURES Final Re sult from Last 3 Months Insurance [facility] MEDICARE ADVANTAGE [place] [id number] Advance Directives For more information, please contact: [phone] * Full Code (Latest Code Status on [...] 3:44 PM 05/16/2021 11:39 AM Care Teams Informaticist Relationship Specialty Start Date End Date Jordi Hernandez MD [address] [facility] [place] [address] PCP - General Family Practice 09/29/24 Eric Baker DO [address] [facility] [address] [place] [address] Referring Physician Cardiology 05/01/21 Leodan Anthony MD [address] [facility] [place] [address] [place] [address] Surgeon Vascular Surgery 08/01/21
--- OUTSIDE RECORDS SUMMARY | 2024-12-08 09:24 | XMS_ITS ---
Author Organization [facility] Medical Office Building B Address [address] [place] [address] Care Team Providers Care Chief Medical Technologist Name Role Phone Eric Baker DO Unavailable [phone] Leodan Anthony MD Unavailable [phone] Jordi Hernandez MD Primary Care Provider [phone] Active Problems Problem Noted Date Diagnosed Date [...] trauma. Assessment & Plan (09/26/2021 3:56 PM WINDOWS ARCHITECT): Impression: Patient is status post right common [...] ankle. Assessment & Plan (09/06/2021 1:29 PM WINDOWS ARCHITECT): Impression: Patient is status post right common femoral endarterectomy and patch angioplasty and right profunda to femoral artery to tibioperoneal trunk bypass graft on 08/21/2021 due to severe critical limb ischemia to the right lower extremity. Patient reports his pain to his right lower extremity has resolved. Surgical incisions are well approximated and healed with alejandro intact with no concern for infection. Patient has postsurgical edema to right lower extremity. Right lower extremity is warm, well perfused. Graft is patent. Plan: Alejandro removed. Patient to continue ongoing risk factor modifications. Patient to follow-up in 2-3 weeks for re-evaluation with new baseline arterial duplex study. Pain of right lower leg 08/17/2021 Gangrene of toe 08/17/2021 Assessment & Plan (09/26/2021 3:55 PM WINDOWS ARCHITECT): Impression: Patient has gangrene of the right 1st toe which has improved post bypass graft. New toenail forming is noted on exam. Patient has 2 sutures remaining to right 1st toenail from when his toenail was removed. Plan: Continue daily dressing changes with Xeroform and dry gauze. Patient to follow-up in 3 months. Assessment & Plan (09/06/2021 1:30 PM WINDOWS ARCHITECT): Impression: Patient has gangrene of the right [...] 07/15/2021 Assessment & Plan (09/29/2024 3:23 PM WINDOWS ARCHITECT): Impression: Chronic and stable. Plan: Continue Lipitor Assessment & Plan (01/07/2023 9:33 AM CDT): Chronic stable hyperlipidemia. Continue Lipitor. Assessment & Plan (06/25/2022 5:16 PM WINDOWS ARCHITECT): Impression: Chronic hyperlipidemia, controlled with statin therapy. Plan: Continue statin therapy as per primary care provider. Assessment & Plan (12/20/2021 8:41 AM CDT): Hyper lipidemia currently medically controled with medications. Continue medications as per PCP. Assessment & Plan (2021 2:15 PM WINDOWS ARCHITECT): Hyperlipidemia chronic and controlled. Continue Lipitor Primary hypertension 07/15/2021 Assessment & Plan (09/29/2024 3:23 PM WINDOWS ARCHITECT): Impression: Chronic and stable. Plan: Continue Lasix lisinopril and metoprolol Assessment & Plan (01/07/2023 9:33 AM CDT): Chronic stable hypertension. Continue current medical management. Assessment & Plan (06/25/2022 5:16 PM WINDOWS ARCHITECT): Impression: Chronic stable hypertension, controlled medications. Blood pressure stable. Plan: Continue blood pressure management as per primary care provider. Assessment & Plan (2021 2:15 PM WINDOWS ARCHITECT): Hypertension chronic and controlled. Continue current medical [...] therapy. Assessment & Plan (2021 2:16 PM WINDOWS ARCHITECT): Patient has ischemic rest pain with gangrenous [...] understands and agrees to proceed. Atherosclerosis of [place] ar teries of extremities with intermittent claudication, right leg 07/12/2021 Assessment & Plan (09/29/2024 3:22 PM WINDOWS ARCHITECT): Impression: Patient is status post right common [...] extremity. Assessment & Plan (06/24/2024 9:55 AM WINDOWS ARCHITECT): Over the past several months has had [...] duplex. 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 Past Treatment and Therapy Plans No past plan information found. Lifetime Dose Tracking * Chemical Lifetime Dose Automatic Entry Manual Entr y Air kerma at the reference point (Ka,r) 4,043.33 mGy 0 mGy 4,043.33 mGy
--- OUTSIDE RECORDS SUMMARY | 2024-12-08 09:24 | XMS_ITS | Encounter Summary ---
Author Organization [facility] Address [address] [place] [address] Care Team Providers Care Oven Worker Name Role Phone Jordi Hernandez MD Primary Care Provider [phone] Reason for Visit * Reason Onset Date Comments PACE malnutrition score 04/09/2023 Pt does not have VM Encounter Details Date Type Department Care Team (Late Contact Info) Description 04/09/2023 Telephone [facility] Dietitian Services [facility] [address] [place] [address] [place] [address] PACE malnutrition score (Pt does not have VM) Social History Tobacco Use Types Packs/Day Years Used Date Smoking Tobacco: Former Cigarettes Q uit: 1991 Smokeless Tobacco: Never Alcohol Use Standard Drinks/Week Comments Never 0 (1 standard drink = 0.6 oz pur e alcohol) Sex and Gender Information Value Date Recorded Sex Assigned at Not on file Legal Sex Male 2:08 PM CDT Gender Identity Not on file Sexual Orientation Not on file documented as of this encounter Plan of Treatment Upcoming Encounters Date Type Department Care Team ([facility] Contact Info) Description 12/15/2024 9:15 AM CDT Office Visit [facility] Oncology and Hematology [place] [address] [place] [address] [facility] [address] [place] [address] Kedar Patterson MD [address] [facility] [address] [place] [address] documented as of this encounter Visit Diagnoses Not on filedocumented in this encounter Care Teams Oven Worker Relationship Specialty Start Date End Date Jordi Hernandez MD [address] [place] [address] PCP - General Family Practice 06/18/23 documented as of this encounter
== END 2024-12-08 09:01 | disposition home or self-care (01) ==
PROVIDERS: PCP Family Medicine; Visit Provider Internal Medicine Hematology & Oncology
DX: C15.5 Malignant neoplasm of lower third of esophagus (principal); N20.1 Calculus of ureter; K76.0 Fatty (change of) liver, not elsewhere classified; N40.0 Benign prostatic hyperplasia without lower urinary tract symptoms; N43.3 Hydrocele, unspecified
CPT/HCPCS: 71260; 74177; Q9967

== ENCOUNTER 2025-03-10 08:47 | Outpatient (CLI) | payer MEDICARE, SELFPAY ==
--- NOTE | ~2025-03-10 | CT_ITS ---
Clinical Indication: Esophageal cancer CT Scan of the Chest, Abdomen, and Pelvis with Contrast: Technique: Contiguous sections were acquired throughout the chest, abdomen, and pelvis after intraven ous administration of 100 cc of Omnipaque 350. Dose reduction technique was used on this scan by junior maddox automated exposure control and iterative reconstruction technique. The dose-length product (DL P) was 691.25 mGy-cm. Comparison: 12/08/2024 Findings: There is no evidence of any significant mediastinal, hilar or axillary lymphadenopathy. Status post e sophagectomy with gastric pull-through. The central vascular structures are unremarkable. No pericard ial effusion. Small left pleural effusion present. No right pleural effusion. Stable focal groundglass nodule left upper lobe (axial image 25). 7 mm right upper lobe nodule is new from prior exam, indeterminate (axial image 38). There is also a new adjacent 5 mm nodule (axial alex ge 41). There is diffuse hepatic steatosis. Stable right hepatic lobe hemangioma. The spleen, pancreas, gallb ladder, adrenals and kidneys are within normal limits. 8mm left ureteral stone has migrated to the le ft UVJ region. No evidence of aortic aneurysm. No lymphadenopathy. No bowel obstruction or bowel wall thickening. There is no evidence to suggest acute appendicitis. Urinary bladder is unremarkable. Prostate gland enlarged. No pelvic mass seen. Large right hydrocele is partially imaged. No ascites. Impression: New 7 mm and 5 mm right upper lobe pulmonary nodules, indeterminate. Follow-up exam in 3 months recom mended to reassess. 8 mm left ureteral stone has migrated distally to the left UVJ, without hydronephrosis. Status post esophagectomy with gastric pull-through. Small left pleural effusion. Diffuse hepatic steatosis. Partially imaged large right hydrocele. Reviewed, dictated and finalized at [facility]. Impression: New 7 mm and 5 mm right upper lobe pulmonary nodules, indeterminate. Follow-up exam in 3 months recommended to reassess. 8 mm left ureteral stone has migrated distally to the left UVJ, without hydrone phrosis. Status post esophagectomy with gastric pull-through. Small left pleural effusion. Diffuse hepatic steatosis. Partially imaged large right hydrocele.
--- OUTSIDE RECORDS SUMMARY | 2025-03-10 08:54 | XMS_ITS | Encounter Summary ---
Author Organization [facility] Address [address] [place] [address] Care Team Providers [facility] Name Role Phone Jordi Hernandez MD Primary Care Provider [phone] Reason for Visit * Reason Onset Date Comments PACE malnutrition score 04/09/2023 Pt does not have VM Encounter Details Date Type Department Care Team (Late Contact Info) Description 04/09/2023 Telephone [facility] Dietitian Services [facility] [address] [place] [address] [place] [address] PACE malnutrition score (Pt does not have [...] Upcoming Encounters Date Type Department Care Team ([facility] Contact Info) Description 03/16/2025 11:00 AM CDT Office Visit [facility] Oncology and Hematology [place] [address] [place] [address] [facility] [address] [place] [address] Kedar Patterson MD [address] [facility] [address] [place] [address] documented as of this encounter Visit Diagnoses Not on filedocumented in this encounter Care Teams [facility] Relationship Specialty Start Date End Date Jordi Hernandez MD [address] [place] [id number] PCP - General Family Practice 06/18/23 documented as of this encounter
--- OUTSIDE RECORDS SUMMARY | 2025-03-10 08:54 | XMS_ITS | Referral Summary ---
Author Organization [facility] Medical Office Building B Address [address] [place] [address] Care Team Providers Care Fiction And Nonfiction Prose Writer Name Role Phone Eric Baker DO Unavailable [phone] Leodan Anthony MD Unavailable [phone] Jordi Hernandez MD Primary Care Provider [phone] Encounters Date Type Department Care Team Description 01/26/2025 1:13 PM CDT - 01/26/2025 11:59 PM CDT Hospital Encounter [facility] Medical Office Building [address] [place] [id number] Atherosclerosis of [place] arteries of extremities with intermittent claudication, right leg Discharge Disposition: Discharge to home or self care 01/26/2025 1:13 PM CDT - 01/26/2025 11:59 PM CDT Hospital Encounter [facility] Medical Office Building [address] [place] [id number] Atherosclerosis of [place] arteries of extremities with intermittent claudication, right leg Discharge Disposition: Discharge to home or self care 01/26/2025 2:00 PM CDT Office Visit [facility] Vascular and Vein Surgery [address] [place] [address] [address] [place] [phone] Charito Michael NP Atherosclerosis of [place] arteries of extremities with intermittent claudication, right leg (Primary Dx) 01/12/2025 Telephone [facility] Vascular and Vein Surgery [address] [place] [address] [place] [phone] Gayatri Dinoradario Kinsey MA 01/11/2025 10:30 AM CDT Office Visit [facility] Vascular and Vein Surgery [address] [place] [address] [place] [phone] Leodan Anthony MD Atherosclerosis of [place] arteries of extremities with intermittent claudication, right leg (Primary Dx); Primary hypertension; Mixed hyperlipidemia 12/27/2024 8:34 AM CDT - 01/01/2025 12:09 PM CDT Hospital Encounter [address] [address] Juan Taylor, MD Adamson, MD Stevenson Wilder Akhil, MD Kurtz, MD Rey Benson, Oscar Connors MD Acute lower limb ischemia (Primary Dx); Ischemia of right lower extremity; Primary hypertension [I10]; Mixed hyperlipidemia [E78.2] Discharge Disposition: Discharge to home or self care 12/29/2024 9:30 AM CDT - 12/29/2024 10:30 AM CDT Surgery [facility] Cardiac Application Support Intern [address] [place] [id number] Leodan Anthony MD ANGIOGRAPHY - UNILATERAL EXTREMITY S&I [id number] 12/28/2024 9:00 AM CDT - 12/28/2024 10:00 AM CDT Surgery [facility] Cardiac Application Support Intern [address] [place] [phone] Leodan Anthony MD ANGIOGRAPHY - UNILATERAL EXTREMITY S&I [id number] 12/26/2024 Telephone [facility] Vascular and Vein Surgery [address] [place] [address] [place] [phone] Leodan Anthony MD from Last 3 Months Allergies Active Allergy Reactions Criticality Noted Date Comments Vancomycin Redness High 08/17/2021 Patient states red man syndrome recently in 07/30. Medications aspirin 81 mg enteric coated tablet Take 1 tablet (81 mg total) by mouth daily Active coenzyme Q10 10 mg capsule Take 1 capsule (10 mg total) by mouth daily Active cholecalciferol (VITAMIN D-3) 1,000 unit capsuleIndicatio ns:Osteoporosis Take 1 capsule (1,000 Units total) by mouth daily Active metoprolol XL (TOPROL-XL) 25 mg extended release tablet Take 1 tablet (25 mg total) by mouth daily Active ferrous sulfate 325 mg (65 mg of elemental iron) tabletIndication s:Iron Deficiency Anemia Take 1 tablet (325 mg total) by mouth daily with breakfast Active isosorbide mononitrate ER (IMDUR) 30 mg 24 hr tablet Take 1 tablet (30 mg total) by mouth daily Active pantoprazole DR (PROTONIX) 40 mg EC tablet Take 1 tablet (40 mg total) by mouth daily as needed (gerd) Active empagliflozin (JARDIANCE) 10 mg tablet Take 1 tablet (10 mg total) by mouth daily Active UNABLE TO FIND Take 1 each by mouth daily Med Name: 01[employer] beets Active vitamin B complex capsule Take 1 capsule by mouth daily Active turmeric root extract 500 mg capsule Take 1 capsule by mouth daily Active potassium chloride ER 20 mEq CR tablet Take 1 tablet (20 mEq total) by mouth daily Active apixaban (ELIQUIS) 5 mg tablet Take 2 tablets (10 mg total) by mouth 2 (two) times a day for 5 days 20 tablet 5 Active apixaban (ELIQUIS) 5 mg tablet Take 1 tablet (5 mg total) by mouth 2 (two) times a day 60 tablet 11 5 Active atorvastatin (LIPITOR) 80 mg tablet Take 1 tablet (80 mg total) by mouth daily 30 tablet 11 5 01/02/20 26 Active oxyCODONE (ROXICODONE) 5 mg immediate release tabletIndication s:Pain Take 1 tablet (5 mg total) by mouth every 6 (six) hours as needed for pain 12 tablet 5 Active traMADoL (ULTRAM) 50 mg tablet Take 1 tablet (50 mg total) by mouth every 6 (six) hours as needed for pain 20 tablet 5 Active Active Problems Problem Noted Date Diagnosed Date Acute lower limb ischemia 12/27/2024 Cancer of distal third of esophagus 12/23/2022 [...] trauma. Assessment & Plan (09/26/2021 3:56 PM BOWLING BALL MOLDER): Impression: Patient is status post right common [...] ankle. 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 New toenail forming is noted on exam. Patient has 2 sutures remaining to right 1st toenail from when his toenail was removed. Plan: Continue daily dressing changes with Xeroform and dry gauze. Patient to follow-up in 3 months. Assessment & Plan (09/06/2021 1:30 PM BOWLING BALL MOLDER): Impression: Patient has gangrene of the right [...] 07/15/2021 Mixed hyperlipidemia 07/15/2021 Assessment & Plan (01/28/2025 2:33 PM CDT): Hyperlipidemia chronic controlled. Continue Lipitor Assessment & Plan (09/29/2024 3:23 PM BOWLING BALL MOLDER): Impression: Chronic and stable. Plan: Continue Lipitor Assessment & Plan (01/07/2023 9:33 AM CDT): Chronic stable hyperlipidemia. Continue Lipitor. Assessment & Plan (06/25/2022 5:16 PM BOWLING BALL MOLDER): Impression: Chronic hyperlipidemia, controlled with statin therapy. Plan: Continue statin therapy as per primary care provider. Assessment & Plan (12/20/2021 8:41 AM CDT): Hyper lipidemia currently medically controled with medications. Continue medications as per PCP. Assessment & Plan (2021 2:15 PM BOWLING BALL MOLDER): Hyperlipidemia chronic and controlled. Continue Lipitor Primary hypertension 07/15/2021 Assessment & Plan (01/28/2025 2:33 PM CDT): Hypertension chronic controlled. Continue current medical management. Assessment & Plan (09/29/2024 3:23 PM BOWLING BALL MOLDER): Impression: Chronic and stable. Plan: Continue Lasix lisinopril and metoprolol Assessment & Plan (01/07/2023 9:33 AM CDT): Chronic stable hypertension. Continue current medical management. Assessment & Plan (06/25/2022 5:16 PM BOWLING BALL MOLDER): Impression: Chronic stable hypertension, controlled medications. Blood pressure stable. Plan: Continue blood pressure management as per primary care provider. Assessment & Plan (2021 2:15 PM BOWLING BALL MOLDER): Hypertension chronic and controlled. Continue current medical [...] therapy. Assessment & Plan (2021 2:16 PM BOWLING BALL MOLDER): Patient has ischemic rest pain with gangrenous [...] understands and agrees to proceed. Atherosclerosis of [place] ar teries of extremities with intermittent claudication, right leg 07/12/2021 Assessment & Plan (01/28/2025 2:32 PM CDT): Right lower extremity ischemic symptoms have resolved completely with successful pharmacomechanical thrombectomy and subsequent intervention to reestablish flow in the right lower extremity bypass. Continue current medical management follow up 2 weeks with duplex surveillance. Assessment & Plan (01/27/2025 11:17 AM CDT): Status post intervention 12/29/2024. States ischemic symptoms have somewhat improved. Denies any rest pain or limiting claudication. Continue aspirin Eliquis and statin therapy. Maintain a daily activity regimen. Follow-up in 3 months for routine surveillance with a lower extremity arterial duplex. Assessment & Plan (09/29/2024 3:22 PM BOWLING BALL MOLDER): Impression: Patient is status post right common [...] extremity. Assessment & Plan (06/24/2024 9:55 AM BOWLING BALL MOLDER): Over the past several months has had [...] duplex. Assessment & Plan (06/25/2022 5:15 PM BOWLING BALL MOLDER): Impression: Patient is status post right common [...] artery disease of n ative artery of [place] heart with stable angina pectoris 05/01/2021 Myocardial [...] drink = 0.6 oz pur e alcohol) [facility] Utilities Answer Date Recorded In the past 12 months has [employer], [employer], [employer], or water [employer] threatened to shut off services in your home? No 12/28/2024 Social Connection and Isolat ion Panel [NHANES] Answer Date Recorded In a typical week, how many times do you talk on the phone with family, friends, or neighbors? More than three times a week 12/28/2024 How often do you get togethe r with friends or relatives? Twice a week 12/28/2024 How often do you attend [facility] or spiritism services? More than 4 times per year 12/28/2024 Do you belong to any clubs o r organizations such as pentecostalism groups, unions, fraternal or athletic groups, or school groups? Yes 12/28/2024 How often do you attend meet ings of the clubs or organizations you belong to? More than 4 times per year 12/28/2024 Are you , , di vorced, , never , or living with a partner? 12/28/2024 AUDIT-C Answer Date Recorded Q1: How often do you have a drink containing alcohol? Never 12/28/2024 Q2: How many drinks containi ng alcohol do you have on a typical day when you are drinking? Patient does not drink Q3: How often do you have si x or more drinks on one occasion? Never 12/28/2024 Overall Financial Resource Strain (CARDIA) Answe r Date Recorded How hard is it for you to pa y for the very basics like food, housing, medical care, and heating? Not very hard 12/28/2024 Hunger Vital Sign Answer Date Recorded Within the past 12 months, y ou worried that your food would run out before you got the money to buy more. Never true 12/29/19 25 Within the past 12 months, t he food you bought just didn't last and you didn't have money to get more. Never true 12/28/2024 PRAPARE - Transportation Answer Date Re corded In the past 12 months, has l ack of transportation kept you from medical appointments or from getting medications? No 12/09 In the past 12 months, has l ack of transportation kept you from meetings, work, or from getting things needed for daily living? No 12/28/2024 Housing Stability Vital Sign Answer Lobito e Recorded In the last 12 months, was t here a time when you were not able to pay the mortgage or rent on time? No 12/28/2024 Number of Times Moved in the Last Year Not on fi le 12/28/2024 At any time in the past 12 m [facility], were you homeless or living in a fpc (including now)? No 12/28/2024 Personal Safety Answer Date Recorded Have you ever been in or are you currently in a harmful physical or emotional relationship or is someone making you feel afraid or unsafe? 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 Not on file Not on file Not on file Last Filed Vital Signs Vital Sign Reading Time Taken Comments Blood Pressure 139/62 01/26/2025 2:10 PM CDT Pulse 56 01/26/2025 2:10 PM CDT Temperature 37.3 C (99.1 F) 01/01/2025 7:35 AM CDT Respiratory Rate 18 01/01/2025 7:35 AM CDT Oxygen Saturation 96% 01/01/2025 7:35 AM CDT Inhaled Oxygen Concentration - - Weight 66.7 kg (147 lb) 01/26/2025 2:10 PM CDT Height 167.6 cm (5' 6) 01/26/2025 2:10 PM CDT Body Mass Index 23.73 01/26/2025 2:10 PM CDT Plan of Treatment Not on file Medical Devices Implanted Type Area Credentialing Specialist Device Identifier Shelf Expiration Date Model / Serial / Lot [employer] V[employer] [id number] Perclose 6fr Suture Mediate Knot Push Vascular Device Closure - S0 - [id number] Implanted:Qty: 1 on 05/15/2021 by Gunenr Pinto MD at [facility] Other - see comments [employer] 02/06/2023 [id number] / 0 / [id number] [employer] [id number] Synergy Xd Monorail 2.5mm 48mm 144cm Delivery System 1 Access - S0 - [id number] Implanted:Qty: 1 on 05/15/2021 by Gunner Pinto MD at [facility] Stent [employer] Brandon 12/20/2022 [id number] / 0 / [id number] [employer] [id number] Synergy Xd Monorail 3.5mm 38mm 144cm Delivery System 1 Access - S0 - [id number] Implanted:Qty: 1 on 05/15/2021 by Gunner Pinto MD at [facility] Stent [employer] Brandon 10/25/2022 [id number] / 0 / [id number] [place] Peripheral Vascular [id number] Safe Performaxx 7mm 6fr 60mm 80cm Delivery System - [id number] Implanted:Qty: 1 on 07/15/2021 by Leodan Anthony MD at [facility] [employer] Peripheral [employer]ascular 07/13/2023 [id number] / / [id number] [employer] [id number] [place] 6mm 80cm 60cm Removable Ring Stretch Thin Wall Graft - [id number] - [id number] Implanted:Qty: 1 on 08/21/2021 by Leodan Anthony MD at [facility] [employer] [id number] 12/02/2024 [id number] / [id number] / [employer] [id number] Vascu-Guard 8x.8cm Peripheral Patch Vascular Bovine Pericardium - [id number] Implanted:Qty: 1 on 08/21/2021 by Leodan Anthony MD at [facility] [employer] [id number] 04/17/2026 [id number] / / [id number] [employer] System Closure Repair Femoral Artery Suture Mediated Perclose Prostyle 62532-46 - [id number] Implanted:Qty: 1 on 12/29/2024 by Leodan Anthony MD at [facility] [employer] 11/07/2026 [id number] / / [id number] Procedures Procedure Name Priority Date/Time Associated Diagnosis Comments US MARIA ESTHER Schedule Routine, Read Routine (OP Routine) 01/26/2025 2:22 PM CDT Atherosclerosis of [place] arteries of extremities with intermittent claudication, right leg US ARTERIAL DUPLEX LOWER EXTREMITY RIGHT LIMITED Schedule Routine, Read Routine (OP Routine) 01/26/2025 2:21 PM CDT Atherosclerosis of [place] arteries of extremities with intermittent claudication, right leg POCT GLUCOSE DEVICE Routine 01/01/2025 7 :37 AM CDT EGFR Routine 01/01/2025 4:59 AM CDT DIFFERENTIAL AUTO Routine 01/01/2025 4:5 9 AM CDT CBC WITH AUTO DIFFERENTIAL Routine 01/01/2025 4:59 AM CDT BASIC METABOLIC PANEL Routine 01/01/2025 4:59 AM CDT POCT GLUCOSE DEVICE Routine 01/01/2025 3 :44 AM CDT POCT GLUCOSE DEVICE Routine 12/31/2024 11:44 PM CDT POCT GLUCOSE DEVICE Routine 12/31/2024 7 :40 PM CDT POCT GLUCOSE DEVICE Routine 12/31/2024 4 :25 PM CDT HEMOGLOBIN AND HEMATOCRIT Timed 12/31/2024 3:02 PM CDT POCT GLUCOSE DEVICE Routine 12/31/2024 11:16 AM CDT TRANSFUSE RED BLOOD CELLS Timed 12/31/2024 10:30 AM CDT PREPARE RBC Timed 12/31/2024 9:27 AM CDT CROSSMATCH Timed 12/31/2024 8:27 AM CDT ANTIBODY SCREEN Timed 12/31/2024 8:27 AM CDT ABO/RH Timed 12/31/2024 8:27 AM CDT TYPE AND SCREEN Timed 12/31/2024 8:27 AM CDT POCT GLUCOSE DEVICE Routine 12/31/2024 8 :07 AM CDT EGFR Routine 12/31/2024 6:47 AM CDT CBC WITH AUTO DIFFERENTIAL STAT 12/31/2024 6:47 AM CDT DIFFERENTIAL AUTO STAT 12/31/2024 6:4 7 AM CDT PHOSPHORUS Routine 12/31/2024 6:47 AM CDT BASIC METABOLIC PANEL Routine 12/31/2024 6:47 AM CDT POCT GLUCOSE DEVICE Routine 12/31/2024 3 :11 AM CDT POCT GLUCOSE DEVICE Routine 12/30/2024 10:38 PM CDT POCT GLUCOSE DEVICE Routine 12/30/2024 8 :11 PM CDT POCT GLUCOSE DEVICE Routine 12/30/2024 4 :52 PM CDT EGFR STAT 12/30/2024 2:25 PM CDT CREATININE STAT 12/30/2024 2:25 PM CDT HEPATIC FUNCTION PANEL STAT 2:25 PM CDT CBC WITHOUT DIFFERENTIAL STAT 12/30/2024 2:25 PM CDT PROTIME-INR STAT 12/30/2024 2:25 PM CDT HEMOGLOBIN AND HEMATOCRIT Timed 12/30/2024 1:26 PM CDT POCT GLUCOSE DEVICE Routine 12/30/2024 11:29 AM CDT HEPARIN ANTI FACTOR XA ACTIVITY Timed 12/30/2024 10:43 AM CDT POCT GLUCOSE DEVICE Routine 12/30/2024 8 :08 AM CDT CRITICAL CARE Routine 12/30/2024 7:56 AM CDT Acute lower limb ischemia HEMOGLOBIN AND HEMATOCRIT STAT 12/30/2024 6:46 AM CDT EGFR Routine 12/30/2024 4:28 AM CDT DIFFERENTIAL AUTO Routine 12/30/2024 4:2 8 AM CDT HEPARIN ANTI FACTOR XA ACTIVITY Timed 12/30/2024 4:28 AM CDT CBC WITH AUTO DIFFERENTIAL Routine 12/30/2024 4:28 AM CDT PHOSPHORUS Routine 12/30/2024 4:28 AM CDT MAGNESIUM Routine 12/30/2024 4:28 AM CDT BASIC METABOLIC PANEL Routine 12/30/2024 4:28 AM CDT POCT GLUCOSE DEVICE Routine 12/30/2024 3 :36 AM CDT POCT GLUCOSE DEVICE Routine 12/30/2024 12:15 AM CDT POCT GLUCOSE DEVICE Routine 12/29/2024 8 :40 PM CDT HEPARIN ANTI FACTOR XA ACTIVITY Timed 12/29/2024 7:25 PM CDT POCT GLUCOSE DEVICE Routine 12/29/2024 11:33 AM CDT CARDIAC CATHETERIZATION Routine 12/29/2024 11:09 AM CDT Acute lower limb ischemia GREEN JOBS TRAINER TIB-PER UNILATERAL, FIRST VESSEL Routine 12/29/2024 11:09 AM CDT Acute lower limb ischemia REVENDVAS FEMPOP UN WPTA [id number] Routine 12/29/2024 11:09 AM CDT Acute lower limb ischemia ANGIOGRAPHY UNILATERAL EXTREMITY S&I [id number] Routine 12/29/2024 11:09 AM CDT Acute lower limb ischemia CRITICAL CARE Routine 12/29/2024 7:34 AM CDT Acute lower limb ischemia APTT Routine 12/29/2024 5:04 AM CDT DIFFERENTIAL AUTO Routine 12/29/2024 5:0 4 AM CDT CBC WITH AUTO DIFFERENTIAL Routine 12/29/2024 5:04 AM CDT HEPARIN ANTI FACTOR XA ACTIVITY Routine 12/29/2024 5:04 AM CDT POCT GLUCOSE DEVICE Routine 12/29/2024 3 :37 AM CDT EGFR Routine 12/29/2024 3:28 AM CDT PHOSPHORUS Routine 12/29/2024 3:28 AM CDT MAGNESIUM Routine 12/29/2024 3:28 AM CDT BASIC METABOLIC PANEL Routine 12/29/2024 3:28 AM CDT HEPARIN ANTI FACTOR XA ACTIVITY Routine 12/29/2024 3:28 AM CDT HEPARIN ANTI FACTOR XA ACTIVITY Routine 12/29/2024 2:31 AM CDT HEPARIN ANTI FACTOR XA ACTIVITY Routine 12/29/2024 12:04 AM CDT POCT GLUCOSE DEVICE Routine 12/28/2024 11:10 PM CDT DIFFERENTIAL AUTO STAT 12/28/2024 10:19 PM CDT HEPARIN ANTI FACTOR XA ACTIVITY STAT 12/28/2024 10:19 PM CDT CBC WITH AUTO DIFFERENTIAL STAT 12/28/2024 10:19 PM CDT CRITICAL CARE Routine 12/28/2024 9:43 PM CDT Acute lower limb ischemia POCT GLUCOSE DEVICE Routine 12/28/2024 7 :50 PM CDT POCT GLUCOSE DEVICE Routine 12/28/2024 5 :05 PM CDT EGFR Routine 12/28/2024 12:47 PM CDT DIFFERENTIAL AUTO Routine 12/28/2024 12:47 PM CDT PHOSPHORUS Routine 12/28/2024 12:47 PM CDT MAGNESIUM Routine 12/28/2024 12:47 PM CDT PROTIME-INR Routine 12/28/2024 12:47 PM CDT BASIC METABOLIC PANEL Routine 12/28/2024 12:47 PM CDT CBC WITH AUTO DIFFERENTIAL Routine 12/28/2024 12:47 PM CDT CRITICAL CARE Routine 12/28/2024 12:34 PM CDT THROMBOLYTIC ART THERAPY 00328 Routine 12/28/2024 10:27 AM CDT Ischemia of right lower extremity GERRY PERC THROM NONCR INI 73627 Routine 12/28/2024 10:27 AM CDT Ischemia of right lower extremity ANGIOGRAPHY UNILATERAL EXTREMITY S&I 75685 Routine 12/28/2024 10:27 AM CDT Ischemia of right lower extremity DIFFERENTIAL AUTO Routine 12/28/2024 2:3 6 AM CDT CBC WITH AUTO DIFFERENTIAL Routine 12/28/2024 2:36 AM CDT HEPARIN ANTI FACTOR XA ACTIVITY Timed 12/27/2024 11:45 PM CDT ANTIBODY SCREEN Timed 12/27/2024 11:18 PM CDT ABO/RH Timed 12/27/2024 11:18 PM CDT PROTIME-INR Routine 12/27/2024 11:18 PM CDT TYPE AND SCREEN Timed 12/27/2024 11:18 PM CDT POCT GLUCOSE DEVICE Routine 12/27/2024 8 :38 PM CDT HEPARIN ANTI FACTOR XA ACTIVITY Routine 12/27/2024 4:26 PM CDT POCT GLUCOSE DEVICE Routine 12/27/2024 3 :20 PM CDT HEMOGLOBIN A1C Routine 12/27/2024 2:42 PM CDT LIPID PANEL Routine 12/27/2024 2:42 PM CDT US MARIA ESTHER IP Routine 12/27/2024 12:15 PM CDT US ARTERIAL DUPLEX LOWER EXTREMITY RIGHT LIMITED ED 12/27/2024 12:14 PM CDT CTA ABDOMINAL AORTA AND BILATERAL ILIOFEMORAL RUNOFF ED 12/27/2024 11:39 AM CDT HI CRITICAL CARE ILL/INJURED PATIENT INIT 30-74 MIN Routine 12/27/2024 10:08 AM CDT HEPARIN ANTI FACTOR XA ACTIVITY STAT 12/27/2024 9:07 AM CDT EGFR STAT 12/27/2024 9:07 AM CDT DIFFERENTIAL AUTO STAT 12/27/2024 9:0 7 AM CDT ANTIBODY SCREEN STAT 12/27/2024 9:07 AM CDT ABO/RH STAT 12/27/2024 9:07 AM CDT TYPE AND SCREEN STAT 12/27/2024 9:07 AM CDT PROTIME-INR STAT 12/27/2024 9:07 AM CDT COMPREHENSIVE METABOLIC PANEL STAT 12/27/2024 9:07 AM CDT CBC WITH AUTO DIFFERENTIAL STAT 12/27/2024 9:07 AM CDT from Last 3 Months Results * US MARIA ESTHER (01/26/2025 2:22 PM CDT) Anatomical Region Laterality Modality Vascular N/A Ultrasound 01/26/2025 1:32 PM CDT Narrative 01/27/2025 11:02 AM CDT Lower Extremity Arterial Doppler Report Patient Name: HOWIE LOVE L : 1945 Study Date: 01/26/2025 1:32:00 PM Gender: M Improvement Lead: Cristela Colon RVCyrus Ref Provider: LEODAN ANTHONY Quality: Adequate Order Provider: LEODAN ANTHONY PROCEDURES: Arterial Report: Ankle - Brachial Index Doppler exam. 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 MEASUREMENTS: Right Value Left Value Rt Brachial Pressure 141 mmHg Lt Brachial Pressure 148 mmHg Rt GREEN JOBS TRAINER Pressure 121 mmHg Lt GREEN JOBS TRAINER Pressure 85 mmHg Rt DPA Pressure 123 mmHg Lt DPA Pressure 78 mmHg Rt PT MARIA ESTHER Resting 0.82 Lt PT MARIA ESTHER Resting 0.57 Rt DP MARIA ESTHER Resting 0.83 Lt DP MARIA ESTHER Resting 0.53 FINDINGS: Right Posterior Tibial Artery Analysis: The posterior tibial waveform is monophasic. Right Dorsalis Pedis Artery Analysis: The dorsalis pedis waveform is biphasic. Left Posterior Tibial Artery Analysis: The posterior tibial waveform is monophasic. Left Dorsalis Pedis Artery Analysis: The dorsalis pedis waveform is monophasic. - CONCLUSIONS: 1. 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 ATTESTATION: I have reviewed and interpreted the pertinent images and measurements of this study. I attest to the conclusions in the final report that is provided above. Electronically Signed By: Leodan Anthony MD 01/27/2025 11:01:20 AM CDT Procedure Note Leodan Anthony MD - 01/27/2025 Lower Extremity Arterial Doppler Report Patient Name: HOWIE LOVE L : 1945 Study Date: 01/26/2025 1:32:00 PM Gender: M Improvement Lead: Cristela Cooln RVS Ref Provider: LEODAN ANTHONY Quality: Adequate Order Provider: LEODAN ANTHONY PROCEDURES: Arterial Report: Ankle - Brachial Index Doppler exam. INDICATIONS: I70.211 Atherosclerosis of [place] arteries of extremities withintermittent claudication, right leg. 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 MEASUREMENTS: Right Value Left Value Rt Brachial Pressure 141 mmHg Lt Brachial Pressure 148 mmHg Rt GREEN JOBS TRAINER Pressure 121 mmHg Lt GREEN JOBS TRAINER Pressure 85 mmHg Rt DPA Pressure 123 mmHg Lt DPA Pressure 78 mmHg Rt PT MARIA ESTHER Resting 0.82 Lt PT MARIA ESTHER Resting 0.57 Rt DP MARIA ESTHER Resting 0.83 Lt DP MARIA ESTHER Resting 0.53 FINDINGS: Right Posterior Tibial Artery Analysis: The posterior tibial waveform is monophasic. Right Dorsalis Pedis Artery Analysis: The dorsalis pedis waveform is biphasic. Left Posterior Tibial Artery Analysis: The posterior tibial waveform is monophasic. Left Dorsalis Pedis Artery Analysis: The dorsalis pedis waveform is monophasic. - CONCLUSIONS: 1. Ankle-brachial index of 0.5-0.8 is consistent with claudication and amoderate occlusive arterial disease in the right lower extremity. ATTESTATION: I have reviewed and interpreted the pertinent images and measurements ofthis study. I attest to the conclusions in the final report that is provided above. Electronically Signed By: Leodan Anthony MD 01/27/2025 11:01:20 AM CDT us Leodan Anthony MD IM US PROCEDURES Final Re sult * US Arterial Duplex Lower Extremity Right Limited (01/26/2025 2:21 PM CDT) Anatomical Region Laterality Modality Vascular Right Ultrasound 01/26/2025 1:29 PM CDT Narrative 01/27/2025 11:02 AM CDT Lower Extremity Arterial Duplex Report Patient Name: HOWIE LOVE L : 1945 (79y 5m) Gender: M Study Date: 01/26/2025 01:29:00 PM Ht(Inch): Wt(Lb): BSA: Improvement Lead: Cristela Colon Provider: LEODAN ANTHONY Quality: Adequate Ref Provider: LEODAN ANTHONY PROCEDURES: Arterial Report: A non-invasive vascular imaging study of the right lower extremity arteries was performed using B-mode ultrasound, color flow, and spectral Doppler. A non-invasive vascular imaging study of the right lower extremity arteries and bypass graft was performed using B-mode ultrasound, color flow, and spectral Doppler. 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 HISTORY: S/P DCBA RT REINSURANCE CLERK, PFA AND PROX ANAST 12/29/24 S/P THROMB RT PFA-TPT BYPASS 12/28/24 S/P ENDART RT REINSURANCE CLERK, RT PFA-TPT BYPASS 08/21/21 S/P BA/STENT RT EIA 07/15/21. MEASUREMENTS: Right Value Rt REINSURANCE CLERK Prx PSV 79.40 cm/sec Rt Profunda Prx PSV 107.00 cm/sec Rt Ant Tibial Mid PSV 47.00 cm/sec Rt Post Tibial Mid PSV 18.00 cm/sec Rt Peroneal Mid PSV 38.00 cm/sec GRAFTS: Right Value Location RT PFA-TPT Rt BPG Inflow PSV 79.00 cm/sec Rt Anast Prx PSV 167.00 cm/sec Rt BPG Prx PSV 40.00 cm/sec Rt BPG Mid PSV 44.00 cm/sec Rt BPG Dst PSV 42.00 cm/sec Rt Anast Dst PSV 65.00 cm/sec Rt BPG Outflow PSV 34.00 cm/sec FINDINGS: Right: Triphasic arteries include the right common femoral artery. Biphasic arteries include the right profunda femoral artery, tibeoperoneal trunk, anterior tibial artery and peroneal artery. Monophasic arteries include the right posterior tibial artery. Bypass Graft 1: The bypass graft is located in the right PFA-TPT. Patent lower extremity bypass graft with no evidence of stenosis. CONCLUSION: 1. The arterial bypass graft is patent with no evidence of stenosis. ATTESTATION: I have reviewed and interpreted the pertinent images and measurements of this study. I attest to the conclusions in the final report that is provided above. Electronically Signed By: Leodan Anthony MD 01/27/2025 11:00:55 AM CDT Procedure Note Leodan Anthony MD - 01/27/2025 Lower Extremity Arterial Duplex Report Patient Name: HOWIE LOVE L : 1945 (79y 5m) Gender: M Study Date: 01/26/2025 01:29:00 PM Ht(Inch): Wt(Lb): BSA: Improvement Lead: Cristela Colon Provider: LEODAN ANTHONY Quality: Adequate Ref Provider: LEODAN ANTHONY PROCEDURES: Arterial Report: A non-invasive vascular imaging study of the right lowerextremity arteries was performed using B-mode ultrasound, color flow, and spectralDoppler. A non-invasive vascular imaging study of the right lower extremity arteriesand bypass graft was performed using B-mode ultrasound, color flow, and spectralDoppler. INDICATIONS: I70.211 Atherosclerosis of [place] arteries of extremities withintermittent claudication, right leg. HISTORY: S/P DCBA RT REINSURANCE CLERK, PFA AND PROX ANAST 12/29/24 S/P THROMB RT PFA-TPT BYPASS 12/28/24 S/P ENDART RT REINSURANCE CLERK, RT PFA-TPT BYPASS 08/21/21 S/P BA/STENT RT EIA 07/15/21. MEASUREMENTS: Right Value Rt REINSURANCE CLERK Prx PSV 79.40 cm/sec Rt Profunda Prx PSV 107.00 cm/sec Rt Ant Tibial Mid PSV 47.00 cm/sec Rt Post Tibial Mid PSV 18.00 cm/sec Rt Peroneal Mid PSV 38.00 cm/sec GRAFTS: Right Value Location RT PFA-TPT Rt BPG Inflow PSV 79.00 cm/sec Rt Anast Prx PSV 167.00 cm/sec Rt BPG Prx PSV 40.00 cm/sec Rt BPG Mid PSV 44.00 cm/sec Rt BPG Dst PSV 42.00 cm/sec Rt Anast Dst PSV 65.00 cm/sec Rt BPG Outflow PSV 34.00 cm/sec FINDINGS: Right: Triphasic arteries include the right common femoral artery.Biphasic arteries include the right profunda femoral artery, tibeoperoneal trunk, anteriortibial artery and peroneal artery. Monophasic arteries include the right posteriortibial artery. Bypass Graft 1: The bypass graft is located in the right PFA-TPT. Patentlower extremity bypass graft with no evidence of stenosis. CONCLUSION: 1. The arterial bypass graft is patent with no evidence of stenosis. ATTESTATION: I have reviewed and interpreted the pertinent images and measurements ofthis study. I attest to the conclusions in the final report that is provided above. Electronically Signed By: Leodan Anthony MD 01/27/2025 11:00:55 AM CDT us Leodan Anthony MD IMG US PROCEDURES Final Re sult * POCT glucose (01/01/2025 7:37 AM CDT) Glucose, POC 138 70 - 199 mg/dL Glucose comment 1 RN/MD Notified JOHANNE Blood 01/01/2025 7:37 AM CDT 01/01/2025 7:37 AM CDT us Oscar Le MD LAB POCT ORDERABLES - DEVICE Final Result JOHANNE [place] [address] [facility] Department [place] [address] * eGFR (01/01/2025 4:59 AM CDT) eGFR 90 >=60 mL/min/1. 73 m2 Comment: Interpretive Data Reference Interval Normal >/= 90 mL/min/1.73m2 Mildly decreased* 60 - 89 mL/min/1.73m2 Mildly to moderately decreased 45 - 59 mL/min/1.73m2 Moderately to severely decreased 30 - 44 mL/min/1.73m2 Severely decreased 15 - 29 mL/min/1.73m2 Kidney Failure < 15 mL/min/1.73m2 *Relative to young adult level Estimated glomerular filtration rate is determined by the 2020 CKD-EPI equation recommended by the National Kidney Foundation (A Unifying Approach to GFR Estimation: Recommendations of the NKF-ASK Task Force on Reassessing the Inclusion of Race in Diagnosing Kidney Disease, JASN 2020). The CKD-EPI equation should not be used for patients with unstable renal function and has not been validated in children and those over 70. Current interpretive data was last reviewed 2021. Blood 01/01/2025 4:59 AM CDT 01/01/2025 5:39 AM CDT us Leon Escobar NP LAB BLOOD ORDERABLES Final Res ult JOHANNE [address] [facility] Department [place] [address] * (ABNORMAL) Differential, auto (01/01/2025 4:59 AM CDT) Neutrophil abs 8.39(H) 1.50 - 6.50 K/cumm Imm gran abs 0.06 0.00 - 0.10 K/cumm [facility] Lymphocyte abs 1.23 0.80 - 3.30 K/cumm [facility] Monocyte abs 0.88(H) 0.20 - 0.80 K/cumm [facility] Eosinophil abs 0.20 0.00 - 0.50 K/cumm [facility] Basophil abs 0.06 0.00 - 0.10 K/cumm [facility] Neutrophil pct 77.5 % [facility] Comment: Interpretive Data Percent cell count reference ranges are not reported, since discordance with absolute values may lead to misinterpretation of CBC data. Current Interpretive Data was last revised on 2017. Imm gran pct 0.6 % [facility] Comment: Interpretive Data Percent cell count reference ranges are not reported, since discordance with absolute values may lead to misinterpretation of CBC data. Current Interpretive Data was last revised on 2017. Lymphocyte pct 11.4 % [facility] Comment: Interpretive Data Percent cell count reference ranges are not reported, since discordance with absolute values may lead to misinterpretation of CBC data. Current Interpretive Data was last revised on 2017. Monocyte pct 8.1 % [facility] Comment: Interpretive Data Percent cell count reference ranges are not reported, since discordance with absolute values may lead to misinterpretation of CBC data. Current Interpretive Data was last revised on 2017. Eosinophil pct 1.8 % [facility] Comment: Interpretive Data Percent cell count reference ranges are not reported, since discordance with absolute values may lead to misinterpretation of CBC data. Current Interpretive Data was last revised on 2017. Basophil pct 0.6 % [facility] Comment: Interpretive Data Percent cell count reference ranges are not reported, since discordance with absolute values may lead to misinterpretation of CBC data. Current Interpretive Data was last revised on 2017. Blood 01/01/2025 4:59 AM CDT 01/01/2025 5:40 AM CDT Leon Escobar PREVENTION RN LAB BLOOD ORDERABLES Final Res ult Performing Organization Address [facility] Co de Phone Number JOHANNE [address] [employer] [place], [place] [id number] * (ABNORMAL) CBC with auto differential (01/01/2025 4:59 AM CDT) WBC 10.82(H) 3.80 - 9.90 K/cumm Hgb 9.0(L) 13.0 - 17.5 g/dL [facility] Hct 25.9(L) 38.9 - 50.3 % [facility] Plt 163 150 - 400 K/cumm [facility] MPV 10.6 9.1 - 12.3 fL [facility] RBC 2.91(L) 4.30 - 5.80 M/cumm [facility] MCV 89.0 81.3 - 96.4 fL [facility] MCH 30.9 27.1 - 33.3 pg [facility] MCHC 34.7 32.3 - 35.7 g/dL [facility] RDW CV 13.8 11.1 - 14.9 % [facility] RDW SD 44.7 35.7 - 48.1 fL [facility] NRBC abs 0.00 0.00 - 0.01 K/cumm [facility] Blood Venous blood specimen / Unknown 01/01/2025 4:59 AM CDT 01/01/2025 5:40 AM CDT Leon Escobar PREVENTION RN LAB BLOOD ORDERABLES Final Res ult Performing Organization Address City/[facility]/ZIP Co de Phone Number JOHANNE [address] [place] [place] [address] * (ABNORMAL) Basic metabolic panel (01/01/2025 4:59 AM CDT) Sodium 135 135 - 145 mmol/L Potassium, pl 3.5 3.3 - 4.9 mmol/L [facility] Chloride 102 97 - 110 mmol/L [facility] CO2 24 22 - 32 mmol/L [facility] Anion gap 9 2 - 15 mmol/L [facility] BUN 16 6 - 25 mg/dL [facility] Creatinine 0.79(L) 0.80 - 1.30 mg/dL [facility] Glucose 128 70 - 199 mg/dL [facility] Comment: Interpretive Data Fasting glucose >/= 126 mg/dl is diagnostic for diabetes. Fasting is defined as no caloric intake for at least 8 hours. Fasting glucose between 100 mg/dl to 125 mg/dl is diagnostic of prediabetes. In a patient with classic symptoms of hyperglycemia or hyperglycemic crisis, a random glucose >/= 200 mg/dl is diagnostic for diabetes. In the absence of unequivocal hyperglycemia, results should be confirmed by repeat testing. The classification and Diagnosis of Diabetes Diabetes Care 2021; 46: S19-S40. Current interpretive data was last revised 2022. Calcium 8.1(L) 8.5 - 10.3 mg/dL [facility] Blood 01/01/2025 4:59 AM CDT 01/01/2025 5:39 AM CDT us Leon Escobar NP LAB BLOOD ORDERABLES Final Res ult Performing Organization Address City/[facility]/ZIP Co de Phone Number [address] [place] [address] * POCT glucose (01/01/2025 3:44 AM CDT) [facility] Signature Glucose, POC 170 70 - 199 mg/dL Blood 01/01/2025 3:44 AM CDT 01/01/2025 3:44 AM CDT us Oscar Le MD LAB POCT ORDERABLES - DEVICE Final Result Performing Organization Address City/[facility]/ZIP Co de Phone Number [address] [place] [address] * POCT glucose (12/31/2024 11:44 PM CDT) Glucose, POC 127 70 - 199 mg/dL Blood 12/31/2024 11:4 4 PM CDT 12/31/2024 11:44 PM CDT Oscar Le MD LAB POCT ORDERABLES - DEVICE Final Result Performing Organization Address [facility] Co de Phone Number [address] [place] [address] * (ABNORMAL) POCT glucose (12/31/2024 7:40 PM CDT) Glucose, POC 211(H) 70 - 199 mg/dL Glucose comment 1 RN/MD Notified [facility] Blood 12/31/2024 7:40 PM CDT 12/31/2024 7:40 PM CDT Oscar Le MD LAB POCT ORDERABLES - DEVICE Final Result Performing Organization Address [facility] Co de Phone Number [address] [place] [address] * POCT glucose (12/31/2024 4:25 PM CDT) [facility] Signature Glucose, POC 185 70 - 199 mg/dL Glucose comment 1 RN/MD Notified [facility] Blood 12/31/2024 4:25 PM CDT 12/31/2024 4:25 PM CDT Oscar Le MD LAB POCT ORDERABLES - DEVICE Final Result Performing Organization Address City/[facility] Co de Phone Number [address] [employer] [place], [place] [id number] * (ABNORMAL) Hemoglobin and hematocrit (12/31/2024 3:02 PM CDT) [facility] Signature Hgb 8.6(L) 13.0 - 17.5 g/dL Hct 24.9(L) 38.9 - 50.3 % [facility] Blood 12/31/2024 3:02 PM CDT 12/31/2024 3:07 PM CDT Oscar Le MD LAB BLOOD ORDERABLES Final Result Performing Organization Address [facility] Co de Phone Number [address] [place] [address] * Transfuse RBC (12/31/2024 2:08 PM CDT) Blood Oscar Le MD BLOOD TRANSFUSION ORD ERABLES Final Result Performing Organization Address [facility] Co de Phone Number [address] [place] [address] * POCT glucose (12/31/2024 11:16 AM CDT) Glucose, POC 197 70 - 199 mg/dL Blood 12/31/2024 11:1 6 AM CDT 12/31/2024 11:16 AM CDT Oscar Le MD LAB POCT ORDERABLES - DEVICE Final Result Performing Organization Address [facility] de Phone Number [address] [place] [address] * Prepare RBC: 1 Units (12/31/2024 9:27 AM CDT) Units requested 1 Units requested Ready [facility] Unit Number [id number] Product code [id number] [facility] Blood Expiration Date [facility] Product Blood Type (for scanning) 7300 [facility] Product Blood Type BPOS [facility] Dispense Status [facility]ED [facility] Blood 12/31/2024 9:27 AM CDT 12/31/2024 9:27 AM CDT Oscar Le MD BLOOD BANK PRODUCT OR DERABLES Final Result Performing Organization Address [facility] Co de Phone Number [address] [place] [address] * ABO/Rh (12/31/2024 8:27 AM CDT) ABO/Rh B Positive Blood 12/31/2024 8:27 AM CDT 12/31/2024 8:50 AM CDT Narrative JOHANNE - 12/31/2024 9:27 AM CDT Has the patient had Daratumumab or Isatuximab in the past 6 months?->Unknown Oscar Le MD LAB BLOOD BANK TEST O RDERABLES Final Result Performing Organization Address [facility] de Phone Number [address] [place] [address] * Crossmatch (12/31/2024 8:27 AM CDT) Pathologist [facility] Crossmatch Compatible [facility] Unit number for crossmatch [id number] [facility] Blood 12/31/2024 8:27 AM CDT 12/31/2024 8:50 AM CDT Oscar Le MD LAB BLOOD BANK TEST O RDERABLES Final Result Performing Organization Address [facility] Co de Phone Number [address] [place] [address] * Antibody screen (12/31/2024 8:27 AM CDT) [place], indirect, Gel Interpretation Negative ABSC Blood 12/31/2024 8:27 AM CDT 12/31/2024 8:50 AM CDT Narrative JOHANNE - 12/31/2024 9:27 AM CDT Has the patient had Daratumumab or Isatuximab in the past 6 months?->Unknown Oscar Le MD LAB BLOOD BANK TEST O RDERABLES Final Result JOHANNE [address] [place] [address] * POCT glucose (12/31/2024 8:07 AM CDT) Glucose, POC 157 70 - 199 mg/dL Glucose comment 1 RN/MD Notified [facility] Blood 12/31/2024 8:07 AM CDT 12/31/2024 8:07 AM CDT Oscar Le MD LAB POCT ORDERABLES - DEVICE Final Result Performing Organization Address City/[facility] Co de Phone Number BRI[address] [place] [address] * eGFR (12/31/2024 6:47 AM CDT) eGFR 85 >=60 mL/min/1. 73 m2 Comment: Interpretive Data Reference Interval Normal >/= 90 mL/min/1.73m2 Mildly decreased* 60 - 89 mL/min/1.73m2 Mildly to moderately decreased 45 - 59 mL/min/1.73m2 Moderately to severely decreased 30 - 44 mL/min/1.73m2 Severely decreased 15 - 29 mL/min/1.73m2 Kidney Failure < 15 mL/min/1.73m2 *Relative to young adult level Estimated glomerular filtration rate is determined by the 2020 CKD-EPI equation recommended by the National Kidney Foundation (A Unifying Approach to GFR Estimation: Recommendations of the NKF-ASK Task Force on Reassessing the Inclusion of Race in Diagnosing Kidney Disease, JASN 2020). The CKD-EPI equation should not be used for patients with unstable renal function and has not been validated in children and those over 70. Current interpretive data was last reviewed 2021. Blood 12/31/2024 6:47 AM CDT 12/31/2024 6:53 AM CDT us Leon Escobar PREVENTION RN LAB BLOOD ORDERABLES Final Res ult [facility] [address] [facility] Department [place] [address] * (ABNORMAL) Differential, auto (12/31/2024 6:47 AM CDT) Neutrophil abs 9.56(H) 1.50 - 6.50 K/cumm Imm gran abs 0.07 0.00 - 0.10 K/cumm [facility] Lymphocyte abs 1.15 0.80 - 3.30 K/cumm [facility] Monocyte abs 0.85(H) 0.20 - 0.80 K/cumm [facility] Eosinophil abs 0.07 0.00 - 0.50 K/cumm [facility] Basophil abs 0.05 0.00 - 0.10 K/cumm [facility] Neutrophil pct 81.4 % [facility] Comment: Interpretive Data Percent cell count reference ranges are not reported, since discordance with absolute values may lead to misinterpretation of CBC data. Current Interpretive Data was last revised on 2017. Imm gran pct 0.6 % [facility] Comment: Interpretive Data Percent cell count reference ranges are not reported, since discordance with absolute values may lead to misinterpretation of CBC data. Current Interpretive Data was last revised on 2017. Lymphocyte pct 9.8 % [facility] Comment: Interpretive Data Percent cell count reference ranges are not reported, since discordance with absolute values may lead to misinterpretation of CBC data. Current Interpretive Data was last revised on 2017. Monocyte pct 7.2 % [facility] Comment: Interpretive Data Percent cell count reference ranges are not reported, since discordance with absolute values may lead to misinterpretation of CBC data. Current Interpretive Data was last revised on 2017. Eosinophil pct 0.6 % [facility] Comment: Interpretive Data Percent cell count reference ranges are not reported, since discordance with absolute values may lead to misinterpretation of CBC data. Current Interpretive Data was last revised on 2017. Basophil pct 0.4 % [facility] Comment: Interpretive Data Percent cell count reference ranges are not reported, since discordance with absolute values may lead to misinterpretation of CBC data. Current Interpretive Data was last revised on 2017. Blood 12/31/2024 6:47 AM CDT 12/31/2024 6:53 AM CDT Leon Escobar PREVENTION RN LAB BLOOD ORDERABLES Final Res ult Performing Organization Address City/[facility]/ZIP Co de Phone Number JOHANNE [address] [place] [address] * (ABNORMAL) CBC with auto differential (12/31/2024 6:47 AM CDT) WBC 11.75(H) 3.80 - 9.90 K/cumm Hgb 6.9(L) 13.0 - 17.5 g/dL [facility] Hct 20.0(L) 38.9 - 50.3 % [facility] Plt 142(L) 150 - 400 K/cumm [facility] MPV 10.5 9.1 - 12.3 fL [facility] RBC 2.20(L) 4.30 - 5.80 M/cumm [facility] MCV 90.9 81.3 - 96.4 fL [facility] MCH 31.4 27.1 - 33.3 pg [facility] MCHC 34.5 32.3 - 35.7 g/dL [facility] RDW CV 13.2 11.1 - 14.9 % [facility] RDW SD 43.7 35.7 - 48.1 fL [facility] NRBC abs 0.00 0.00 - 0.01 K/cumm [facility] Blood 12/31/2024 6:47 AM CDT 12/31/2024 6:53 AM CDT Leon Escobar PREVENTION RN LAB BLOOD ORDERABLES Final Res ult Performing Organization Address City/[facility]/ZIP Co de Phone Number JOHANNE [address] [place] [address] * (ABNORMAL) Phosphorus (12/31/2024 6:47 AM CDT) Pathologist [facility] Phosphorus, pl 2.2(L) 2.3 - 4.5 mg/dL Blood Venous blood specimen / Unknown 12/31/2024 6:47 AM CDT 12/31/2024 6:53 AM CDT Leon Escobar NP LAB BLOOD ORDERABLES Final Res ult [facility] [place] [address] [facility] Department [place] [address] * (ABNORMAL) Basic metabolic panel (12/31/2024 6:47 AM CDT) Pathologist [facility] Sodium 134(L) 135 - 145 mmol/L Potassium, pl 4.0 3.3 - 4.9 mmol/L [facility] Chloride 100 97 - 110 mmol/L [facility] CO2 24 22 - 32 mmol/L [facility] Anion gap 10 2 - 15 mmol/L [facility] BUN 22 6 - 25 mg/dL [facility] Creatinine 0.92 0.80 - 1.30 mg/dL [facility] Glucose 156 70 - 199 mg/dL [facility] Comment: Interpretive Data Fasting glucose >/= 126 mg/dl is diagnostic for diabetes. Fasting is defined as no caloric intake for at least 8 hours. Fasting glucose between 100 mg/dl to 125 mg/dl is diagnostic of prediabetes. In a patient with classic symptoms of hyperglycemia or hyperglycemic crisis, a random glucose >/= 200 mg/dl is diagnostic for diabetes. In the absence of unequivocal hyperglycemia, results should be confirmed by repeat testing. The classification and Diagnosis of Diabetes Diabetes Care 2021; 46: S19-S40. Current interpretive data was last revised 2022. Calcium 8.1(L) 8.5 - 10.3 mg/dL [facility] Blood 12/31/2024 6:47 AM CDT 12/31/2024 6:53 AM CDT Leon Escobar NP LAB BLOOD ORDERABLES Final Res ult [facility] [place] [address] [address] * POCT glucose (12/31/2024 3:11 AM CDT) Glucose, POC 181 70 - 199 mg/dL Glucose comment 1 RN/MD Notified JOHANNE [place]ORTH Blood 12/31/2024 3:11 AM CDT 12/31/2024 3:11 AM CDT Oscar Le MD LAB POCT ORDERABLES - DEVICE Final Result [facility] [place] [address] [address] * POCT glucose (12/30/2024 10:38 PM CDT) Glucose, POC 188 70 - 199 mg/dL Blood 12/30/2024 10:3 8 PM CDT 12/30/2024 10:38 PM CDT Oscar Le MD LAB POCT ORDERABLES - DEVICE Final Result Performing Organization Address City/[facility]/ZIP Co de Phone Number [address] [address] * POCT glucose (12/30/2024 8:11 PM CDT) Glucose, POC 172 70 - 199 mg/dL Glucose comment 1 Use This Result JOHANNE Blood 12/30/2024 8:11 PM CDT 12/30/2024 8:11 PM CDT Oscar Le MD LAB POCT ORDERABLES - DEVICE Final Result Performing Organization Address City/[facility]/ZIP Co de Phone Number [address] [address] * POCT glucose (12/30/2024 4:52 PM CDT) Glucose, POC 180 70 - 199 mg/dL Blood 12/30/2024 4:52 PM CDT 12/30/2024 4:52 PM CDT Alejandro Genao MD LAB POCT ORDERABLES - DE VICE Final Result Performing Organization Address [facility] [facility] Co de Phone Number JOHANNE [address] [address] * eGFR (12/30/2024 2:25 PM CDT) [facility] eGFR 78 >=60 mL/min/1. 73 m2 Comment: Interpretive Data Reference Interval Normal >/= 90 mL/min/1.73m2 Mildly decreased* 60 - 89 mL/min/1.73m2 Mildly to moderately decreased 45 - 59 mL/min/1.73m2 Moderately to severely decreased 30 - 44 mL/min/1.73m2 Severely decreased 15 - 29 mL/min/1.73m2 Kidney Failure < 15 mL/min/1.73m2 *Relative to young adult level Estimated glomerular filtration rate is determined by the 2020 CKD-EPI equation recommended by the National Kidney Foundation (A Unifying Approach to GFR Estimation: Recommendations of the NKF-ASK Task Force on Reassessing the Inclusion of Race in Diagnosing Kidney Disease, JASN 2020). The CKD-EPI equation should not be used for patients with unstable renal function and has not been validated in children and those over 70. Current interpretive data was last reviewed 2021. Blood 12/30/2024 2:25 PM CDT 12/30/2024 2:33 PM CDT us Leon Escobar NP LAB BLOOD ORDERABLES Final Res ult Performing Organization Address City/[facility]/ZIP Co de Phone Number JOHANNE [address] [place] [address] * (ABNORMAL) Protime-INR (12/30/2024 2:25 PM CDT) Pathologist [facility] PT 15.1(H) 12.0 - 14.6 sec Comment:Ref Range High INR 1.2 0.9 - 1.2 [facility] Comment: Ref Range High Interpretive data Oral anticoagulant therapeutic ranges: Venous thromboembolism prophylaxis or treatment: 2.0-3.0 CARDIOLOGY Standard range: 2.0-3.0 High-intensity range: 2.5-3.5 Refer to indication-specific guidelines for appropriate target ranges for prosthetic heart valve replacement. Current interpretive data was last revised on 2019. Blood 12/30/2024 2:25 PM CDT 12/30/2024 2:32 PM CDT Narrative [facility] - 12/30/2024 3:02 PM CDT Baseline prior to apixaban initiation. us Leon Escobar PREVENTION RN LAB BLOOD ORDERABLES Final Res ult [facility] [address] [facility] Department [place] [address] * (ABNORMAL) CBC without differential (12/30/2024 2:25 PM CDT) [facility] WBC 12.06(H) 3.80 - 9.90 K/cumm Hgb 7.4(L) 13.0 - 17.5 g/dL [facility] Hct 21.6(L) 38.9 - 50.3 % [facility] Plt 140(L) 150 - 400 K/cumm [facility] MPV 10.3 9.1 - 12.3 fL [facility] RBC 2.39(L) 4.30 - 5.80 M/cumm [facility] MCV 90.4 81.3 - 96.4 fL [facility] MCH 31.0 27.1 - 33.3 pg [facility] MCHC 34.3 32.3 - 35.7 g/dL [facility] RDW CV 13.2 11.1 - 14.9 % [facility] RDW SD 43.6 35.7 - 48.1 fL [facility] NRBC abs 0.00 0.00 - 0.01 K/cumm [facility] Blood 12/30/2024 2:25 PM CDT 12/30/2024 2:32 PM CDT Narrative [facility] - 12/30/2024 2:47 PM CDT Baseline prior to apixaban initiation. Leon Escobar NP LAB BLOOD ORDERABLES Final Res ult Performing Organization Address [facility] de Phone Number [address] [address] * Creatinine (12/30/2024 2:25 PM CDT) Creatinine 0.98 0.80 - 1.30 mg/dL Blood 12/30/2024 2:25 PM CDT 12/30/2024 2:33 PM CDT Narrative [facility] - 12/30/2024 2:49 PM CDT Baseline prior to apixaban initiation. us Leon Escobar NP LAB BLOOD ORDERABLES Final Res ult Performing Organization Address [facility] de Phone Number [address] [address] * (ABNORMAL) Hepatic function panel (12/30/2024 2:25 PM CDT) Bilirubin, total 0.3 0.1 - 1.2 mg/dL Bilirubin, direct 0.2 0.1 - 0.3 mg/dL [facility] Protein, pl 4.9(L) 6.5 - 8.5 g/dL [facility] Albumin 3.0(L) 3.5 - 5.0 g/dL [facility] Alk phos 59 40 - 130 Units/L [facility] ALT 9 7 - 55 Units/L [facility] AST 21 10 - 50 Units/L [facility] Blood 12/30/2024 2:25 PM CDT 12/30/2024 2:33 PM CDT Narrative [facility] - 12/30/2024 2:49 PM CDT Baseline prior to apixaban initiation. Leon Escobar NP LAB BLOOD ORDERABLES Final Res ult Performing Organization Address [facility]/ZIP Co de Phone Number [address] [address] * (ABNORMAL) Hemoglobin and hematocrit (12/30/2024 1:26 PM CDT) [facility] Hgb 7.5(L) 13.0 - 17.5 g/dL Hct 22.0(L) 38.9 - 50.3 % [facility] Blood 12/30/2024 1:26 PM CDT 12/30/2024 1:31 PM CDT Alejandro Genao MD LAB BLOOD ORDERABLES Fin al Result Performing Organization Address [facility] Co de Phone Number [address] [address] * (ABNORMAL) POCT glucose (12/30/2024 11:29 AM CDT) [facility] Glucose, POC 212(H) 70 - 199 mg/dL Blood 12/30/2024 11:2 9 AM CDT 12/30/2024 11:29 AM CDT Alejandro Genao MD LAB POCT ORDERABLES - DE VICE Final Result Performing Organization Address [facility] Co al Phone Number [address] [address] * Heparin anti factor Xa activity (12/30/2024 10:43 AM CDT) [facility] Anti Factor Xa 0.12 IUnits/mL Comment: Ref Range Low Interpretive Data Enoxaparin therapeutic range (peak): VTE treatment, Q12hr dosin.60-1.00 IUnits/mL VTE treatment, Q24hr dosin.00-2.00 IUnits/mL Q24hr dosing for renal impairment (CrCl <30 mL/min): 0.60-1.00 IUnits/mL VTE prevention: 0.10-0.40 IUnits/mL - Anti-Xa therapeutic ranges apply to blood samples drawn 4 hours after last dose (peak). - Unfractionated heparin (UFH) therapeutic range: 0.30-0.70 IUnits/mL - Direct factor Xa inhibitors (rivaroxaban, apixaban): Results must be interpreted qualitatively. No activity detected suggests little anticoagulant activity. - In severe antithrombin deficiency, anti-Xa measurement may be inaccurate. - Interpretive guidelines developed in adult populations. Interpretive guidelines for pediatric patients have not been rigorously defined. - Current interpretive data was last revised on 2019. Blood 12/30/2024 10:4 3 AM CDT 12/30/2024 11:09 AM CDT Margy Valerio DO LAB BLOOD ORDERABLES Beryl l Result Performing Organization Address [facility]/ZIP Co de Phone Number BRIAN[address] [place] [address] * POCT glucose (12/30/2024 8:08 AM CDT) [facility] Signature Glucose, POC 129 70 - 199 mg/dL Blood 12/30/2024 8:08 AM CDT 12/30/2024 8:08 AM CDT Alejandro Genao MD LAB POCT ORDERABLES - DE VICE Final Result Performing Organization Address [facility] Co de Phone Number [address] [address] * Critical Care (12/30/2024 7:56 AM CDT) Narrative Alejandro Genao MD - 12/30/2024 7:56 AM CDT Alejandro Genao MD 12/30/2024 1:57 PM Critical Care Performed by: Leon Escobar NP Authorized by: Leon Escobar NP CRITICAL CARE: Team: [place] Shift: AM Level of Billing: Subsequent Hospital Visit Level 3 My time spent with this patient was 60 minutes: Critical Provider Statement: I have seen and examined the patient on this day of service. I have reviewed and confirmed the history, physical exam, laboratory, and radiographic data as documented in the ICU note. I have reviewed and discussed my treatment plan with the patient's team and other medical/consultant intern staff. This time was in addition to and separate from care provided by other practitioners on this day of service. Leon Escobar PREVENTION RN IN CLINIC/BEDSIDE ORDERABLES F inal Result * (ABNORMAL) Hemoglobin and hematocrit (12/30/2024 6:46 AM CDT) Hgb 7.6(L) 13.0 - 17.5 g/dL Hct 22.4(L) 38.9 - 50.3 % JOHANNE Blood 12/30/2024 6:46 AM CDT 12/30/2024 6:48 AM CDT Margy Anni Link DO LAB BLOOD ORDERABLES Beryl l Result JOHANNE [address] [facility] Department [place] [address] * eGFR (12/30/2024 4:28 AM CDT) eGFR 62 >=60 mL/min/1. 73 m2 Comment: Interpretive Data Reference Interval Normal >/= 90 mL/min/1.73m2 Mildly decreased* 60 - 89 mL/min/1.73m2 Mildly to moderately decreased 45 - 59 mL/min/1.73m2 Moderately to severely decreased 30 - 44 mL/min/1.73m2 Severely decreased 15 - 29 mL/min/1.73m2 Kidney Failure < 15 mL/min/1.73m2 *Relative to young adult level Estimated glomerular filtration rate is determined by the 2020 CKD-EPI equation recommended by the National Kidney Foundation (A Unifying Approach to GFR Estimation: Recommendations of the NKF-ASK Task Force on Reassessing the Inclusion of Race in Diagnosing Kidney Disease, JASN 2020). The CKD-EPI equation should not be used for patients with unstable renal function and has not been validated in children and those over 70. Current interpretive data was last reviewed 2021. Blood 12/30/2024 4:28 AM CDT 12/30/2024 4:42 AM CDT us Margy Valerio DO LAB BLOOD ORDERABLES Beryl mendenhall Result JOHANNE [address] [facility] Department [place] [address] * (ABNORMAL) Differential, auto (12/30/2024 4:28 AM CDT) Neutrophil abs 9.98(H) 1.50 - 6.50 K/cumm Imm gran abs 0.07 0.00 - 0.10 K/cumm [facility] Lymphocyte abs 1.52 0.80 - 3.30 K/cumm [facility] Monocyte abs 1.11(H) 0.20 - 0.80 K/cumm [facility] Eosinophil abs 0.09 0.00 - 0.50 K/cumm [facility] Basophil abs 0.06 0.00 - 0.10 K/cumm [facility] Neutrophil pct 77.8 % [facility] Comment: Interpretive Data Percent cell count reference ranges are not reported, since discordance with absolute values may lead to misinterpretation of CBC data. Current Interpretive Data was last revised on 2017. Imm gran pct 0.5 % [facility] Comment: Interpretive Data Percent cell count reference ranges are not reported, since discordance with absolute values may lead to misinterpretation of CBC data. Current Interpretive Data was last revised on 2017. Lymphocyte pct 11.8 % [facility] Comment: Interpretive Data Percent cell count reference ranges are not reported, since discordance with absolute values may lead to misinterpretation of CBC data. Current Interpretive Data was last revised on 2017. Monocyte pct 8.7 % [facility] Comment: Interpretive Data Percent cell count reference ranges are not reported, since discordance with absolute values may lead to misinterpretation of CBC data. Current Interpretive Data was last revised on 2017. Eosinophil pct 0.7 % [facility] Comment: Interpretive Data Percent cell count reference ranges are not reported, since discordance with absolute values may lead to misinterpretation of CBC data. Current Interpretive Data was last revised on 2017. Basophil pct 0.5 % JOHANNE Comment: Interpretive Data Percent cell count reference ranges are not reported, since discordance with absolute values may lead to misinterpretation of CBC data. Current Interpretive Data was last revised on 2017. Blood 12/30/2024 4:28 AM CDT 12/30/2024 4:42 AM CDT Margy Anni Valerio DO LAB BLOOD ORDERABLES Beryl l Result Performing Organization Address [facility] de Phone Number OJHANNE [address] [facility] Department [place] [address] * Heparin anti factor Xa activity (12/30/2024 4:28 AM CDT) [facility] Anti Factor Xa 0.36 IUnits/mL Comment: Interpretive Data Enoxaparin therapeutic range (peak): VTE treatment, Q12hr dosin.60-1.00 IUnits/mL VTE treatment, Q24hr dosin.00-2.00 IUnits/mL Q24hr dosing for renal impairment (CrCl <30 mL/min): 0.60-1.00 IUnits/mL VTE prevention: 0.10-0.40 IUnits/mL - Anti-Xa therapeutic ranges apply to blood samples drawn 4 hours after last dose (peak). - Unfractionated heparin (UFH) therapeutic range: 0.30-0.70 IUnits/mL - Direct factor Xa inhibitors (rivaroxaban, apixaban): Results must be interpreted qualitatively. No activity detected suggests little anticoagulant activity. - In severe antithrombin deficiency, anti-Xa measurement may be inaccurate. - Interpretive guidelines developed in adult populations. Interpretive guidelines for pediatric patients have not been rigorously defined. - Current interpretive data was last revised on 2019. Blood 12/30/2024 4:28 AM CDT 12/30/2024 4:42 AM CDT Margygeo Valerio DO LAB BLOOD ORDERABLES Beryl l Result Performing Organization Address [facility] Co de Phone Number [address] [place] [address] * (ABNORMAL) CBC with auto differential (12/30/2024 4:28 AM CDT) Pathologist [facility] WBC 12.83(H) 3.80 - 9.90 K/cumm Hgb 7.9(L) 13.0 - 17.5 g/dL [facility] Hct 23.2(L) 38.9 - 50.3 % [facility] Plt 153 150 - 400 K/cumm [facility] MPV 10.4 9.1 - 12.3 fL [facility] RBC 2.55(L) 4.30 - 5.80 M/cumm [facility] MCV 91.0 81.3 - 96.4 fL [facility] MCH 31.0 27.1 - 33.3 pg [facility] MCHC 34.1 32.3 - 35.7 g/dL [facility] RDW CV 13.2 11.1 - 14.9 % [facility] RDW SD 43.8 35.7 - 48.1 fL [facility] NRBC abs 0.00 0.00 - 0.01 K/cumm [facility] Blood Venous blood specimen / Unknown 12/30/2024 4:28 AM CDT 12/30/2024 4:42 AM CDT us Leon Escobar NP LAB BLOOD ORDERABLES Final Res ult Performing Organization Address [facility] de Phone Number [address] [place] [address] * Phosphorus (12/30/2024 4:28 AM CDT) Pathologist [facility] Phosphorus, pl 3.0 2.3 - 4.5 mg/dL Blood Venous blood specimen / Unknown 12/30/2024 4:28 AM CDT 12/30/2024 4:42 AM CDT Leon Escobar PREVENTION RN LAB BLOOD ORDERABLES Final Res ult [place] [id number] [facility] Department [place] [address] * Magnesium (12/30/2024 4:28 AM CDT) [facility] Magnesium 2.1 1.4 - 2.5 mg/dL Blood Venous blood specimen / Unknown 12/30/2024 4:28 AM CDT 12/30/2024 4:42 AM CDT Leon Escobar NP LAB BLOOD ORDERABLES Final Res ult [address] [address] * (ABNORMAL) Basic metabolic panel (12/30/2024 4:28 AM CDT) [facility] Sodium 133(L) 135 - 145 mmol/L Potassium, pl 4.1 3.3 - 4.9 mmol/L [facility] Chloride 102 97 - 110 mmol/L [facility] CO2 20(L) 22 - 32 mmol/L [facility] Anion gap 11 2 - 15 mmol/L [facility] BUN 34(H) 6 - 25 mg/dL [facility] Creatinine 1.20 0.80 - 1.30 mg/dL [facility] Glucose 139 70 - 199 mg/dL [facility] Comment: Interpretive Data Fasting glucose >/= 126 mg/dl is diagnostic for diabetes. Fasting is defined as no caloric intake for at least 8 hours. Fasting glucose between 100 mg/dl to 125 mg/dl is diagnostic of prediabetes. In a patient with classic symptoms of hyperglycemia or hyperglycemic crisis, a random glucose >/= 200 mg/dl is diagnostic for diabetes. In the absence of unequivocal hyperglycemia, results should be confirmed by repeat testing. The classification and Diagnosis of Diabetes Diabetes Care 202; 46: S19-S40. Current interpretive data was last revised 2022. Calcium 7.8(L) 8.5 - 10.3 mg/dL [facility] Blood 12/30/2024 4:28 AM CDT 12/30/2024 4:42 AM CDT Leon Escobar PREVENTION RN LAB BLOOD ORDERABLES Final Res ult Performing Organization Address [facility] Co de Phone Number JOHANNE [address] [place] [address] * POCT glucose (12/30/2024 3:36 AM CDT) Glucose, POC 158 70 - 199 mg/dL Glucose comment 1 Use This Result JOHANNE Blood 12/30/2024 3:36 AM CDT 12/30/2024 3:36 AM CDT Alejandro Genao MD LAB POCT ORDERABLES - DE VICE Final Result Performing Organization Address [facility] Phone Number BRIAN[address] [place] [address] * POCT glucose (12/30/2024 12:15 AM CDT) Glucose, POC 169 70 - 199 mg/dL Glucose comment 1 Use This Result JOHANNE Blood 12/30/2024 12:1 5 AM CDT 12/30/2024 12:15 AM CDT Alejandro Genao MD LAB POCT ORDERABLES - DE VICE Final Result Performing Organization Address [facility] de Phone Number [address] [place] [address] * (ABNORMAL) POCT glucose (12/29/2024 8:40 PM CDT) Glucose, POC 208(H) 70 - 199 mg/dL Glucose comment 1 Use This Result JOHANNE Blood 12/29/2024 8:40 PM CDT 12/29/2024 8:40 PM CDT Alejandro Genao MD LAB POCT ORDERABLES - DE VICE Final Result Performing Organization Address [facility]/State/ZIP Co de Phone Number JOHANNE [address] [facility] [place] [address] * Heparin anti factor Xa activity (12/29/2024 7:25 PM CDT) Anti Factor Xa <0.10 IUnits/mL Comment: Interpretive Data Enoxaparin therapeutic range (peak): VTE treatment, Q12hr dosin.60-1.00 IUnits/mL VTE treatment, Q24hr dosin.00-2.00 IUnits/mL Q24hr dosing for renal impairment (CrCl <30 mL/min): 0.60-1.00 IUnits/mL VTE prevention: 0.10-0.40 IUnits/mL - Anti-Xa therapeutic ranges apply to blood samples drawn 4 hours after last dose (peak). - Unfractionated heparin (UFH) therapeutic range: 0.30-0.70 IUnits/mL - Direct factor Xa inhibitors (rivaroxaban, apixaban): Results must be interpreted qualitatively. No activity detected suggests little anticoagulant activity. - In severe antithrombin deficiency, anti-Xa measurement may be inaccurate. - Interpretive guidelines developed in adult populations. Interpretive guidelines for pediatric patients have not been rigorously defined. - Current interpretive data was last revised on 2019. Blood 12/29/2024 7:25 PM CDT 12/29/2024 7:29 PM CDT us Leodan Anthony MD LAB BLOOD ORDERABLES Final Result [facility] [address] [facility] [employer] [address] * POCT glucose (12/29/2024 11:33 AM CDT) Glucose, POC 177 70 - 199 mg/dL Glucose comment 1 Use This Result JOHANNE Blood 12/29/2024 11:3 3 AM CDT 12/29/2024 11:33 AM CDT us Alejandro Genao MD LAB POCT ORDERABLES - DE VICE Final Result JOHANNE [place] [address] [facility] Department [place] [address] * ANGIOGRAPHY UNILATERAL EXTREMITY S&I [id number], REVENDVAS FEMPOP UN WPTA 15898, GREEN [employer]BS TRAINER TIB-PER UNILATERAL, FIRST VESSEL, LYTIC FU AND DC CATH ART OR VEIN [id number] (12/29/2024 11:09 AM CDT) Anatomical Region Laterality Modality X-Ray Angiograph y Narrative 12/29/2024 11:23 AM CDT Please see OpNote for result. us Gela LONGORIA CV CARDIAC CATH PROCEDURES Final Result * Critical Care (12/29/2024 7:34 AM CDT) Narrative Alejandro Genao MD - 12/29/2024 7:34 AM CDT Alejandro Genao MD 12/29/2024 4:25 PM Critical Care Performed by: Nicky Medina PA Authorized by: Nicky Medina PA CRITICAL CARE: Team: [facility] Shift: AM Level of Billing: Subsequent Hospital Visit Level 3 My time spent with this patient was 65 minutes: Critical Provider Statement: I have seen and examined the patient on this day of service. I have reviewed and confirmed the history, physical exam, laboratory, and radiographic data as documented in the ICU note. I have reviewed and discussed my treatment plan with the patient's team and other medical/consultant intern staff. This time was in addition to and separate from care provided by other practitioners on this day of service. us Nicky LONG[place] IN CLINIC/BEDSIDE ORDERA BLES Final Result * (ABNORMAL) Differential, auto (12/29/2024 5:04 AM CDT) Pathologist [facility] Neutrophil abs 11.87(H) 1.50 - 6.50 K/cumm Imm gran abs 0.06 0.00 - 0.10 K/cumm [facility] Lymphocyte abs 1.19 0.80 - 3.30 K/cumm [facility] Monocyte abs 0.97(H) 0.20 - 0.80 K/cumm [facility] Eosinophil abs 0.01 0.00 - 0.50 K/cumm [facility] Basophil abs 0.07 0.00 - 0.10 K/cumm [facility] Neutrophil pct 83.8 % [facility] Comment: Interpretive Data Percent cell count reference ranges are not reported, since discordance with absolute values may lead to misinterpretation of CBC data. Current Interpretive Data was last revised on 2017. Imm gran pct 0.4 % [facility] Comment: Interpretive Data Percent cell count reference ranges are not reported, since discordance with absolute values may lead to misinterpretation of CBC data. Current Interpretive Data was last revised on 2017. Lymphocyte pct 8.4 % [facility] Comment: Interpretive Data Percent cell count reference ranges are not reported, since discordance with absolute values may lead to misinterpretation of CBC data. Current Interpretive Data was last revised on 2017. Monocyte pct 6.8 % [facility] Comment: Interpretive Data Percent cell count reference ranges are not reported, since discordance with absolute values may lead to misinterpretation of CBC data. Current Interpretive Data was last revised on 2017. Eosinophil pct 0.1 % [facility] Comment: Interpretive Data Percent cell count reference ranges are not reported, since discordance with absolute values may lead to misinterpretation of CBC data. Current Interpretive Data was last revised on 2017. Basophil pct 0.5 % [facility] Comment: Interpretive Data Percent cell count reference ranges are not reported, since discordance with absolute values may lead to misinterpretation of CBC data. Current Interpretive Data was last revised on 2017. Blood 12/29/2024 5:04 AM CDT 12/29/2024 5:31 AM CDT us Margy Valerio DO LAB BLOOD ORDERABLES Beryl l Result JOHANNE [address] [facility] Department [place] [address] * Heparin anti factor Xa activity (12/29/2024 5:04 AM CDT) Anti Factor Xa 0.23 IUnits/mL Comment: Ref Range Low Interpretive Data Enoxaparin therapeutic range (peak): VTE treatment, Q12hr dosin.60-1.00 IUnits/mL VTE treatment, Q24hr dosin.00-2.00 IUnits/mL Q24hr dosing for renal impairment (CrCl <30 mL/min): 0.60-1.00 IUnits/mL VTE prevention: 0.10-0.40 IUnits/mL - Anti-Xa therapeutic ranges apply to blood samples drawn 4 hours after last dose (peak). - Unfractionated heparin (UFH) therapeutic range: 0.30-0.70 IUnits/mL - Direct factor Xa inhibitors (rivaroxaban, apixaban): Results must be interpreted qualitatively. No activity detected suggests little anticoagulant activity. - In severe antithrombin deficiency, anti-Xa measurement may be inaccurate. - Interpretive guidelines developed in adult populations. Interpretive guidelines for pediatric patients have not been rigorously defined. - Current interpretive data was last revised on 2019. Blood 12/29/2024 5:04 AM CDT 12/29/2024 5:31 AM CDT Margy Valerio DO LAB BLOOD ORDERABLES Beryl mendenhall Result [facility] [address] [facility] Department [place] [address] * (ABNORMAL) CBC with auto differential (12/29/2024 5:04 AM CDT) [facility] WBC 14.17(H) 3.80 - 9.90 K/cumm Hgb 11.0(L) 13.0 - 17.5 g/dL [facility] Hct 31.9(L) 38.9 - 50.3 % [facility] Plt 176 150 - 400 K/cumm [facility] MPV 9.9 9.1 - 12.3 fL [facility] RBC 3.50(L) 4.30 - 5.80 M/cumm [facility] MCV 91.1 81.3 - 96.4 fL [facility] MCH 31.4 27.1 - 33.3 pg [facility] MCHC 34.5 32.3 - 35.7 g/dL [facility] RDW CV 13.2 11.1 - 14.9 % [facility] RDW SD 43.7 35.7 - 48.1 fL [facility] NRBC abs 0.00 0.00 - 0.01 K/cumm JOHANNE Blood Venous blood specimen / Unknown 12/29/2024 5:04 AM CDT 12/29/2024 5:31 AM CDT Leon Escobar PREVENTION RN LAB BLOOD ORDERABLES Final Res ult Performing Organization Address City/[facility]/ZIP Co de Phone Number BRI[address] [place] [address] * (ABNORMAL) aPTT (12/29/2024 5:04 AM CDT) aPTT 88(H) 22 - 37 sec Comment: Ref Range High Interpretive data aPTT test has not been evaluated for monitoring heparin therapy. The anti-Xa is the preferred test. Current interpretive data was last revised on 2019. Blood 12/29/2024 5:04 AM CDT 12/29/2024 5:31 AM CDT Margy Valerio DO LAB BLOOD ORDERABLES Beryl l Result Performing Organization Address [facility]/ZIP Co de Phone Number [address] [place] [address] * POCT glucose (12/29/2024 3:37 AM CDT) Glucose, POC 172 70 - 199 mg/dL Glucose comment 1 Use This Result [facility] Blood 12/29/2024 3:37 AM CDT 12/29/2024 3:37 AM CDT Alejandro Genao MD LAB POCT ORDERABLES - DE VICE Final Result Performing Organization Address City/[facility]/ZIP Co de Phone Number BRIAN[address] [place] [address] * eGFR (12/29/2024 3:28 AM CDT) eGFR 80 >=60 mL/min/1. 73 m2 Comment: Interpretive Data Reference Interval Normal >/= 90 mL/min/1.73m2 Mildly decreased* 60 - 89 mL/min/1.73m2 Mildly to moderately decreased 45 - 59 mL/min/1.73m2 Moderately to severely decreased 30 - 44 mL/min/1.73m2 Severely decreased 15 - 29 mL/min/1.73m2 Kidney Failure < 15 mL/min/1.73m2 *Relative to young adult level Estimated glomerular filtration rate is determined by the 2020 CKD-EPI equation recommended by the National Kidney Foundation (A Unifying Approach to GFR Estimation: Recommendations of the NKF-ASK Task Force on Reassessing the Inclusion of Race in Diagnosing Kidney Disease, JASN 2020). The CKD-EPI equation should not be used for patients with unstable renal function and has not been validated in children and those over 70. Current interpretive data was last reviewed 2021. Blood 12/29/2024 3:28 AM CDT 12/29/2024 3:31 AM CDT Margy Valerio DO LAB BLOOD ORDERABLES Beryl mendenhall Result [facility] [place] [address] * Heparin anti factor Xa activity (12/29/2024 3:28 AM CDT) Anti Factor Xa 0.28 IUnits/mL Comment: Ref Range Low Interpretive Data Enoxaparin therapeutic range (peak): VTE treatment, Q12hr dosin.60-1.00 IUnits/mL VTE treatment, Q24hr dosin.00-2.00 IUnits/mL Q24hr dosing for renal impairment (CrCl <30 mL/min): 0.60-1.00 IUnits/mL VTE prevention: 0.10-0.40 IUnits/mL - Anti-Xa therapeutic ranges apply to blood samples drawn 4 hours after last dose (peak). - Unfractionated heparin (UFH) therapeutic range: 0.30-0.70 IUnits/mL - Direct factor Xa inhibitors (rivaroxaban, apixaban): Results must be interpreted qualitatively. No activity detected suggests little anticoagulant activity. - In severe antithrombin deficiency, anti-Xa measurement may be inaccurate. - Interpretive guidelines developed in adult populations. Interpretive guidelines for pediatric patients have not been rigorously defined. - Current interpretive data was last revised on 2019. Blood 12/29/2024 3:28 AM CDT 12/29/2024 3:38 AM CDT Margy Valerio DO LAB BLOOD ORDERABLES Beryl l Result Performing Organization Address [facility] Co de Phone Number [address] [place] [address] * (ABNORMAL) Phosphorus (12/29/2024 3:28 AM CDT) Phosphorus, pl 5.6(H) 2.3 - 4.5 mg/dL Blood Venous blood specimen / Unknown 12/29/2024 3:28 AM CDT 12/29/2024 3:31 AM CDT Leon Escobar PREVENTION RN LAB BLOOD ORDERABLES Final Res ult Performing Organization Address [facility] Co de Phone Number [address] [place] [address] * Magnesium (12/29/2024 3:28 AM CDT) Magnesium 1.9 1.4 - 2.5 mg/dL Blood Venous blood specimen / Unknown 12/29/2024 3:28 AM CDT 12/29/2024 3:31 AM CDT Leon Escobar PREVENTION RN LAB BLOOD ORDERABLES Final Res ult Performing Organization Address [facility]/ZIP Co de Phone Number JOHANNE [address] [place] [address] * (ABNORMAL) Basic metabolic panel (12/29/2024 3:28 AM CDT) [facility] Sodium 136 135 - 145 mmol/L Potassium, pl 4.4 3.3 - 4.9 mmol/L [facility] Chloride 101 97 - 110 mmol/L [facility] CO2 21(L) 22 - 32 mmol/L [facility] Anion gap 14 2 - 15 mmol/L [facility] BUN 17 6 - 25 mg/dL [facility] Creatinine 0.96 0.80 - 1.30 mg/dL [facility] Glucose 166 70 - 199 mg/dL [facility] Comment: Interpretive Data Fasting glucose >/= 126 mg/dl is diagnostic for diabetes. Fasting is defined as no caloric intake for at least 8 hours. Fasting glucose between 100 mg/dl to 125 mg/dl is diagnostic of prediabetes. In a patient with classic symptoms of hyperglycemia or hyperglycemic crisis, a random glucose >/= 200 mg/dl is diagnostic for diabetes. In the absence of unequivocal hyperglycemia, results should be confirmed by repeat testing. The classification and Diagnosis of Diabetes Diabetes Care 2021; 46: S19-S40. Current interpretive data was last revised 2022. Calcium 8.6 8.5 - 10.3 mg/dL [facility] Blood 12/29/2024 3:28 AM CDT 12/29/2024 3:31 AM CDT Leon Escobar PREVENTION RN LAB BLOOD ORDERABLES Final Res ult Performing Organization Address [facility] Co de Phone Number [place] [address] [facility] [place] [address] * Heparin anti factor Xa activity (12/29/2024 2:31 AM CDT) [facility] Anti Factor Xa 0.27 IUnits/mL Comment: Ref Range Low Interpretive Data Enoxaparin therapeutic range (peak): VTE treatment, Q12hr dosin.60-1.00 IUnits/mL VTE treatment, Q24hr dosin.00-2.00 IUnits/mL Q24hr dosing for renal impairment (CrCl <30 mL/min): 0.60-1.00 IUnits/mL VTE prevention: 0.10-0.40 IUnits/mL - Anti-Xa therapeutic ranges apply to blood samples drawn 4 hours after last dose (peak). - Unfractionated heparin (UFH) therapeutic range: 0.30-0.70 IUnits/mL - Direct factor Xa inhibitors (rivaroxaban, apixaban): Results must be interpreted qualitatively. No activity detected suggests little anticoagulant activity. - In severe antithrombin deficiency, anti-Xa measurement may be inaccurate. - Interpretive guidelines developed in adult populations. Interpretive guidelines for pediatric patients have not been rigorously defined. - Current interpretive data was last revised on 2019. Blood 12/29/2024 2:31 AM CDT 12/29/2024 2:35 AM CDT Margy Valerio DO LAB BLOOD ORDERABLES Beryl l Result [facility] [address] [facility] [place] [address] * Heparin anti factor Xa activity (12/29/2024 12:04 AM CDT) [facility] Anti Factor Xa 0.25 IUnits/mL Comment: Ref Range Low Interpretive Data Enoxaparin therapeutic range (peak): VTE treatment, Q12hr dosin.60-1.00 IUnits/mL VTE treatment, Q24hr dosin.00-2.00 IUnits/mL Q24hr dosing for renal impairment (CrCl <30 mL/min): 0.60-1.00 IUnits/mL VTE prevention: 0.10-0.40 IUnits/mL - Anti-Xa therapeutic ranges apply to blood samples drawn 4 hours after last dose (peak). - Unfractionated heparin (UFH) therapeutic range: 0.30-0.70 IUnits/mL - Direct factor Xa inhibitors (rivaroxaban, apixaban): Results must be interpreted qualitatively. No activity detected suggests little anticoagulant activity. - In severe antithrombin deficiency, anti-Xa measurement may be inaccurate. - Interpretive guidelines developed in adult populations. Interpretive guidelines for pediatric patients have not been rigorously defined. - Current interpretive data was last revised on 2019. Blood 12/29/2024 12:0 4 AM CDT 12/29/2024 12:10 AM CDT Margy Valerio DO LAB BLOOD ORDERABLES Beryl l Result Performing Organization Address City/[facility]/ZIP Co de Phone Number BRIAN[address] [place] [address] * POCT glucose (12/28/2024 11:10 PM CDT) [facility] Glucose, POC 154 70 - 199 mg/dL Blood 12/28/2024 11:1 0 PM CDT 12/28/2024 11:10 PM CDT Alejandro Genao MD LAB POCT ORDERABLES - DE VICE Final Result Performing Organization Address [facility] Phone Number [address] [address] * (ABNORMAL) Differential, auto (12/28/2024 10:19 PM CDT) [facility] Neutrophil abs 9.67(H) 1.50 - 6.50 K/cumm Imm gran abs 0.03 0.00 - 0.10 K/cumm [facility] Lymphocyte abs 0.97 0.80 - 3.30 K/cumm [facility] Monocyte abs 0.73 0.20 - 0.80 K/cumm [facility] Eosinophil abs 0.05 0.00 - 0.50 K/cumm [facility] Basophil abs 0.07 0.00 - 0.10 K/cumm [facility] Neutrophil pct 84.0 % [facility] Comment: Interpretive Data Percent cell count reference ranges are not reported, since discordance with absolute values may lead to misinterpretation of CBC data. Current Interpretive Data was last revised on 2017. Imm gran pct 0.3 % [facility] Comment: Interpretive Data Percent cell count reference ranges are not reported, since discordance with absolute values may lead to misinterpretation of CBC data. Current Interpretive Data was last revised on 2017. Lymphocyte pct 8.4 % [facility] Comment: Interpretive Data Percent cell count reference ranges are not reported, since discordance with absolute values may lead to misinterpretation of CBC data. Current Interpretive Data was last revised on 2017. Monocyte pct 6.3 % [facility] Comment: Interpretive Data Percent cell count reference ranges are not reported, since discordance with absolute values may lead to misinterpretation of CBC data. Current Interpretive Data was last revised on 2017. Eosinophil pct 0.4 % [facility] Comment: Interpretive Data Percent cell count reference ranges are not reported, since discordance with absolute values may lead to misinterpretation of CBC data. Current Interpretive Data was last revised on 2017. Basophil pct 0.6 % [facility] Comment: Interpretive Data Percent cell count reference ranges are not reported, since discordance with absolute values may lead to misinterpretation of CBC data. Current Interpretive Data was last revised on 2017. Blood 12/28/2024 10:1 9 PM CDT 12/28/2024 10:22 PM CDT Margy Valerio DO LAB BLOOD ORDERABLES Beryl l Result JOHANNE [address] [facility] Department of Laboratories [place], [place] [id number] * Heparin anti factor Xa activity (12/28/2024 10:19 PM CDT) Anti Factor Xa 0.29 IUnits/mL Comment: Ref Range Low Interpretive Data Enoxaparin therapeutic range (peak): VTE treatment, Q12hr dosin.60-1.00 IUnits/mL VTE treatment, Q24hr dosin.00-2.00 IUnits/mL Q24hr dosing for renal impairment (CrCl <30 mL/min): 0.60-1.00 IUnits/mL VTE prevention: 0.10-0.40 IUnits/mL - Anti-Xa therapeutic ranges apply to blood samples drawn 4 hours after last dose (peak). - Unfractionated heparin (UFH) therapeutic range: 0.30-0.70 IUnits/mL - Direct factor Xa inhibitors (rivaroxaban, apixaban): Results must be interpreted qualitatively. No activity detected suggests little anticoagulant activity. - In severe antithrombin deficiency, anti-Xa measurement may be inaccurate. - Interpretive guidelines developed in adult populations. Interpretive guidelines for pediatric patients have not been rigorously defined. - Current interpretive data was last revised on 2019. Blood 12/28/2024 10:1 9 PM CDT 12/28/2024 10:22 PM CDT Margy Valerio DO LAB BLOOD ORDERABLES Beryl l Result [place] [id number] [facility] Department [place] [address] * (ABNORMAL) CBC with auto differential (12/28/2024 10:19 PM CDT) WBC 11.52(H) 3.80 - 9.90 K/cumm Hgb 12.4(L) 13.0 - 17.5 g/dL [facility] Hct 36.1(L) 38.9 - 50.3 % [facility] Plt 164 150 - 400 K/cumm [facility] MPV 9.7 9.1 - 12.3 fL [facility] RBC 4.02(L) 4.30 - 5.80 M/cumm [facility] MCV 89.8 81.3 - 96.4 fL [facility] MCH 30.8 27.1 - 33.3 pg [facility] MCHC 34.3 32.3 - 35.7 g/dL [facility] RDW CV 13.2 11.1 - 14.9 % [facility] RDW SD 43.2 35.7 - 48.1 fL [facility] NRBC abs 0.00 0.00 - 0.01 K/cumm [facility] Blood 12/28/2024 10:1 9 PM CDT 12/28/2024 10:22 PM CDT us Margy Valerio DO LAB BLOOD ORDERABLES Beryl l Result JOHANNE [address] [facility] [place] [address] * Critical Care (12/28/2024 9:43 PM CDT) Narrative Margy Valerio DO - 12/28/2024 9:43 PM CDT Margy Valerio DO 12/29/2024 6:18 AM Critical Care Performed by: Margy Valerio DO Authorized by: Margy Valerio DO CRITICAL CARE: Team: BAO Shift: PM Level of Billing: Critical Care My time spent with this patient was 45 minutes: Critical Provider Statement: I have seen and examined the patient on this day of service. I have reviewed and confirmed the history, physical exam, laboratory and radiologic data as documented in the signed ICU note. I have reviewed and discussed my treatment plan with the ICU team and other medical/consultant intern staff, making frequent assessments and decisions regarding this patient's complex medical care. Critical Care time was exclusive of time spent performing separately billed procedures, treating other patients, and teaching. This time was in addition to and separate from critical care provided by other practitioners in my group on this day of service. Critical Care was necessary to treat or prevent imminent or life-threatening deterioration of the following conditions: Limb threatening condition This time was spent by me doing the following: Serial bedside patient exams Initiation/monitoring/titration of anticoagulants and Initiation of lytic therapy I spent time reviewing and interpreting data from bedside monitors, laboratory results, and imaging, I spent time discussing the management of this critically ill patient with consultants and the medical staff and I spent time documenting in the medical record us Mragy Valerio DO IN CLINIC/BEDSIDE ORDERAB LES Final Result * POCT glucose (12/28/2024 7:50 PM CDT) Glucose, POC 132 70 - 199 mg/dL Blood 12/28/2024 7:50 PM CDT 12/28/2024 7:50 PM CDT Alejandro Genao MD LAB POCT ORDERABLES - DE VICE Final Result [place] [address] [place] [address] [place] [address] * POCT glucose (12/28/2024 5:05 PM CDT) Glucose, POC 118 70 - 199 mg/dL Glucose comment 1 Use This Result JOHANNE Blood 12/28/2024 5:05 PM CDT 12/28/2024 5:05 PM CDT Alejandro Genao MD LAB POCT ORDERABLES - DE VICE Final Result Performing Organization Address [facility] Co de Phone Number JOHANNE [address] [address] * eGFR (12/28/2024 12:47 PM CDT) eGFR 87 >=60 mL/min/1. 73 m2 Comment: Interpretive Data Reference Interval Normal >/= 90 mL/min/1.73m2 Mildly decreased* 60 - 89 mL/min/1.73m2 Mildly to moderately decreased 45 - 59 mL/min/1.73m2 Moderately to severely decreased 30 - 44 mL/min/1.73m2 Severely decreased 15 - 29 mL/min/1.73m2 Kidney Failure < 15 mL/min/1.73m2 *Relative to young adult level Estimated glomerular filtration rate is determined by the 2020 CKD-EPI equation recommended by the National Kidney Foundation (A Unifying Approach to GFR Estimation: Recommendations of the NKF-ASK Task Force on Reassessing the Inclusion of Race in Diagnosing Kidney Disease, JASN 2020). The CKD-EPI equation should not be used for patients with unstable renal function and has not been validated in children and those over 70. Current interpretive data was last reviewed 2021. Blood 12/28/2024 12:4 7 PM CDT 12/28/2024 12:50 PM CDT us Nicky [place] LAB BLOOD ORDERABLES Fin al Result JOHANNE [address] [facility] Department [place] [address] * Differential, auto (12/28/2024 12:47 PM CDT) Neutrophil abs 4.84 1.50 - 6.50 K/cumm Imm gran abs 0.04 0.00 - 0.10 K/cumm [facility] Lymphocyte abs 1.35 0.80 - 3.30 K/cumm [facility] Monocyte abs 0.40 0.20 - 0.80 K/cumm [facility] Eosinophil abs 0.20 0.00 - 0.50 K/cumm [facility] Basophil abs 0.08 0.00 - 0.10 K/cumm [facility] Neutrophil pct 70.0 % [facility] Comment: Interpretive Data Percent cell count reference ranges are not reported, since discordance with absolute values may lead to misinterpretation of CBC data. Current Interpretive Data was last revised on 2017. Imm gran pct 0.6 % [facility] Comment: Interpretive Data Percent cell count reference ranges are not reported, since discordance with absolute values may lead to misinterpretation of CBC data. Current Interpretive Data was last revised on 2017. Lymphocyte pct 19.5 % [facility] Comment: Interpretive Data Percent cell count reference ranges are not reported, since discordance with absolute values may lead to misinterpretation of CBC data. Current Interpretive Data was last revised on 2017. Monocyte pct 5.8 % [facility] Comment: Interpretive Data Percent cell count reference ranges are not reported, since discordance with absolute values may lead to misinterpretation of CBC data. Current Interpretive Data was last revised on 2017. Eosinophil pct 2.9 % [facility] Comment: Interpretive Data Percent cell count reference ranges are not reported, since discordance with absolute values may lead to misinterpretation of CBC data. Current Interpretive Data was last revised on 2017. Basophil pct 1.2 % [facility] Comment: Interpretive Data Percent cell count reference ranges are not reported, since discordance with absolute values may lead to misinterpretation of CBC data. Current Interpretive Data was last revised on 2017. Blood 12/28/2024 12:4 7 PM CDT 12/28/2024 12:50 PM CDT Nicky [place] LAB BLOOD ORDERABLES Fin al Result Performing Organization Address City/[facility]/ZIP Co de Phone Number [facility] [address] [address] * (ABNORMAL) CBC with auto differential (12/28/2024 12:47 PM CDT) WBC 6.91 3.80 - 9.90 K/cumm Hgb 13.0 13.0 - 17.5 g/dL [facility] Hct 38.3(L) 38.9 - 50.3 % [facility] Plt 195 150 - 400 K/cumm [facility] MPV 9.6 9.1 - 12.3 fL [facility] RBC 4.21(L) 4.30 - 5.80 M/cumm [facility] MCV 91.0 81.3 - 96.4 fL [facility] MCH 30.9 27.1 - 33.3 pg [facility] MCHC 33.9 32.3 - 35.7 g/dL [facility] RDW CV 13.3 11.1 - 14.9 % [facility] RDW SD 44.3 35.7 - 48.1 fL [facility] NRBC abs 0.00 0.00 - 0.01 K/cumm [facility] Blood 12/28/2024 12:4 7 PM CDT 12/28/2024 12:50 PM CDT Nicky [place] LAB BLOOD ORDERABLES Fin al Result Performing Organization Address City/[facility]/ZIP Co de Phone Number JOHANNE [address] [address] * (ABNORMAL) Protime-INR (12/28/2024 12:47 PM CDT) PT 14.8(H) 12.0 - 14.6 sec Comment:Ref Range High INR 1.1 0.9 - 1.2 [facility] Comment: Ref Range High Interpretive data Oral anticoagulant therapeutic ranges: Venous thromboembolism prophylaxis or treatment: 2.0-3.0 CARDIOLOGY Standard range: 2.0-3.0 High-intensity range: 2.5-3.5 Refer to indication-specific guidelines for appropriate target ranges for prosthetic heart valve replacement. Current interpretive data was last revised on 2019. Blood 12/28/2024 12:4 7 PM CDT 12/28/2024 12:50 PM CDT Nicky [place] LAB BLOOD ORDERABLES Fin al Result Performing Organization Address [facility] Co de Phone Number [address] [place] [address] * Phosphorus (12/28/2024 12:47 PM CDT) Phosphorus, pl 3.7 2.3 - 4.5 mg/dL Blood 12/28/2024 12:4 7 PM CDT 12/28/2024 12:50 PM CDT Nicky [place] LAB BLOOD ORDERABLES Fin al Result Performing Organization Address [facility] de Phone Number [address] [place] [address] * Magnesium (12/28/2024 12:47 PM CDT) Magnesium 2.1 1.4 - 2.5 mg/dL Blood 12/28/2024 12:4 7 PM CDT 12/28/2024 12:50 PM CDT Nicky [place] LAB BLOOD ORDERABLES Fin al Result Performing Organization Address [facility] Co de Phone Number [address] [place] [address] * Basic metabolic panel (12/28/2024 12:47 PM CDT) Sodium 139 135 - 145 mmol/L Potassium, pl 4.0 3.3 - 4.9 mmol/L [facility] Chloride 103 97 - 110 mmol/L [facility] CO2 26 22 - 32 mmol/L [facility] Anion gap 10 2 - 15 mmol/L [facility] BUN 10 6 - 25 mg/dL [facility] Creatinine 0.90 0.80 - 1.30 mg/dL [facility] Glucose 133 70 - 199 mg/dL [facility] Comment: Interpretive Data Fasting glucose >/= 126 mg/dl is diagnostic for diabetes. Fasting is defined as no caloric intake for at least 8 hours. Fasting glucose between 100 mg/dl to 125 mg/dl is diagnostic of prediabetes. In a patient with classic symptoms of hyperglycemia or hyperglycemic crisis, a random glucose >/= 200 mg/dl is diagnostic for diabetes. In the absence of unequivocal hyperglycemia, results should be confirmed by repeat testing. The classification and Diagnosis of Diabetes Diabetes Care 2021; 46: S19-S40. Current interpretive data was last revised 2022. Calcium 8.6 8.5 - 10.3 mg/dL [facility] Blood 12/28/2024 12:4 7 PM CDT 12/28/2024 12:50 PM CDT us Nicky [place] LAB BLOOD ORDERABLES Fin al Result Performing Organization Address City/State/[facility] Co al Phone Number [facility] [address] [facility] Department [place] [address] * Critical Care (12/28/2024 12:34 PM CDT) Narrative Alejandro Genao MD - 12/28/2024 12:34 PM CDT Alejandro Genao MD 12/28/2024 6:12 PM Critical Care Performed by: Nicky Medina PA Authorized by: Nicky Medina PA CRITICAL CARE: Team: B Shift: AM Level of Billing: Subsequent Hospital Visit Level 3 My time spent with this patient was 65 minutes: Critical Provider Statement: I have seen and examined the patient on this day of service. I have reviewed and confirmed the history, physical exam, laboratory, and radiographic data as documented in the ICU note. I have reviewed and discussed my treatment plan with the patient's team and other medical/consultant intern staff. This time was in addition to and separate from care provided by other practitioners on this day of service. Nicky [facility]/BEDSIDE ORDERA BLES Final Result * ANGIOGRAPHY UNILATERAL EXTREMITY S&I 83545, GERRY PERC THROM NONCR INI 53513, THROMBOLYTIC ART THERAPY 37032 (12/28/2024 10:27 AM CDT) Anatomical Region Laterality Modality X-Ray Angiograph y Narrative 12/28/2024 10:40 AM CDT Please see OpNote for result. us Charito Michael PREVENTION RN CV CARDIAC CATH PROCEDURES Beryl l Result * Differential, auto (12/28/2024 2:36 AM CDT) Pathologist [facility] Neutrophil abs 4.00 1.50 - 6.50 K/cumm Imm gran abs 0.02 0.00 - 0.10 K/cumm [facility] Lymphocyte abs 1.67 0.80 - 3.30 K/cumm [facility] Monocyte abs 0.52 0.20 - 0.80 K/cumm [facility] Eosinophil abs 0.32 0.00 - 0.50 K/cumm [facility] Basophil abs 0.08 0.00 - 0.10 K/cumm [facility] Neutrophil pct 60.5 % [facility] Comment: Interpretive Data Percent cell count reference ranges are not reported, since discordance with absolute values may lead to misinterpretation of CBC data. Current Interpretive Data was last revised on 2017. Imm gran pct 0.3 % [facility] Comment: Interpretive Data Percent cell count reference ranges are not reported, since discordance with absolute values may lead to misinterpretation of CBC data. Current Interpretive Data was last revised on 2017. Lymphocyte pct 25.3 % [facility] Comment: Interpretive Data Percent cell count reference ranges are not reported, since discordance with absolute values may lead to misinterpretation of CBC data. Current Interpretive Data was last revised on 2017. Monocyte pct 7.9 % [facility] Comment: Interpretive Data Percent cell count reference ranges are not reported, since discordance with absolute values may lead to misinterpretation of CBC data. Current Interpretive Data was last revised on 2017. Eosinophil pct 4.8 % [facility] Comment: Interpretive Data Percent cell count reference ranges are not reported, since discordance with absolute values may lead to misinterpretation of CBC data. Current Interpretive Data was last revised on 2017. Basophil pct 1.2 % [facility] Comment: Interpretive Data Percent cell count reference ranges are not reported, since discordance with absolute values may lead to misinterpretation of CBC data. Current Interpretive Data was last revised on 2017. Blood 12/28/2024 2:36 AM CDT 12/28/2024 3:21 AM CDT us Victor Hugo Rowell PREVENTION RN LAB BLOOD ORDERABLES Final R esult [address] Department [place] [address] * (ABNORMAL) CBC with auto differential (12/28/2024 2:36 AM CDT) WBC 6.61 3.80 - 9.90 K/cumm Hgb 12.7(L) 13.0 - 17.5 g/dL [facility] Hct 36.8(L) 38.9 - 50.3 % [facility] Plt 229 150 - 400 K/cumm [facility] MPV 10.3 9.1 - 12.3 fL [facility] RBC 4.14(L) 4.30 - 5.80 M/cumm [facility] MCV 88.9 81.3 - 96.4 fL [facility] MCH 30.7 27.1 - 33.3 pg [facility] MCHC 34.5 32.3 - 35.7 g/dL [facility] RDW CV 13.2 11.1 - 14.9 % [facility] RDW SD 42.5 35.7 - 48.1 fL [facility] NRBC abs 0.00 0.00 - 0.01 K/cumm [facility] Blood 12/28/2024 2:36 AM CDT 12/28/2024 3:21 AM CDT Victor Hugo Rowell NP LAB BLOOD ORDERABLES Final R esult Performing Organization Address [facility] de Phone Number BRI[address] [place] [address] * Heparin anti factor Xa activity (12/27/2024 11:45 PM CDT) Anti Factor Xa 0.44 IUnits/mL Comment: Interpretive Data Enoxaparin therapeutic range (peak): VTE treatment, Q12hr dosin.60-1.00 IUnits/mL VTE treatment, Q24hr dosin.00-2.00 IUnits/mL Q24hr dosing for renal impairment (CrCl <30 mL/min): 0.60-1.00 IUnits/mL VTE prevention: 0.10-0.40 IUnits/mL - Anti-Xa therapeutic ranges apply to blood samples drawn 4 hours after last dose (peak). - Unfractionated heparin (UFH) therapeutic range: 0.30-0.70 IUnits/mL - Direct factor Xa inhibitors (rivaroxaban, apixaban): Results must be interpreted qualitatively. No activity detected suggests little anticoagulant activity. - In severe antithrombin deficiency, anti-Xa measurement may be inaccurate. - Interpretive guidelines developed in adult populations. Interpretive guidelines for pediatric patients have not been rigorously defined. - Current interpretive data was last revised on 2019. Blood 12/27/2024 11:4 5 PM CDT 12/27/2024 11:48 PM CDT Md Franck Adamson MD LAB BLOOD ORDERABLES Final Resu lt Performing Organization Address [facility]/ZIP Co de Phone Number BRI[address] [place] [address] * ABO/Rh (12/27/2024 11:18 PM CDT) Pathologist [facility] ABO/Rh B Positive Blood 12/27/2024 11:1 8 PM CDT 12/27/2024 11:23 PM CDT Narrative JOHANNE - 12/28/2024 12:01 AM CDT Has the patient had Daratumumab or Isatuximab in the past 6 months?->Unknown Charito Michael NP LAB BLOOD BANK TEST ORDERABLES Final Result Performing Organization Address [facility] de Phone Number [address] [address] * Protime-INR (12/27/2024 11:18 PM CDT) Pathologist [facility] PT 14.3 12.0 - 14.6 sec INR 1.1 0.9 - 1.2 JOHANNE Comment: Ref Range High Interpretive data Oral anticoagulant therapeutic ranges: Venous thromboembolism prophylaxis or treatment: 2.0-3.0 CARDIOLOGY Standard range: 2.0-3.0 High-intensity range: 2.5-3.5 Refer to indication-specific guidelines for appropriate target ranges for prosthetic heart valve replacement. Current interpretive data was last revised on 2019. Blood 12/27/2024 11:1 8 PM CDT 12/27/2024 11:23 PM CDT Charito Michael NP LAB BLOOD ORDERABLES Final Resu lt Performing Organization Address [facility] de Phone Number [address] [address] * Antibody screen (12/27/2024 11:18 PM CDT) Pathologist [facility] [place], indirect, Gel Interpretation Negative ABSC Blood 12/27/2024 11:1 8 PM CDT 12/27/2024 11:23 PM CDT Narrative JOHANNE - 12/28/2024 12:01 AM CDT Has the patient had Daratumumab or Isatuximab in the past 6 months?->Unknown Charito Michael PREVENTION RN LAB BLOOD BANK TEST ORDERABLES Final Result Performing Organization Address City/[facility]/ZIP Co de Phone Number [address] [place] [address] * POCT glucose (12/27/2024 8:38 PM CDT) Glucose, POC 163 70 - 199 mg/dL Glucose comment 1 RN/MD Notified [facility] Blood 12/27/2024 8:38 PM CDT 12/27/2024 8:38 PM CDT Md Franck Adamson MD LAB POCT ORDERABLES - DEVICE Fi nal Result Performing Organization Address [facility] Co de Phone Number [address] [place] [address] * Heparin anti factor Xa activity (12/27/2024 4:26 PM CDT) Anti Factor Xa 0.35 IUnits/mL Comment: Interpretive Data Enoxaparin therapeutic range (peak): VTE treatment, Q12hr dosin.60-1.00 IUnits/mL VTE treatment, Q24hr dosin.00-2.00 IUnits/mL Q24hr dosing for renal impairment (CrCl <30 mL/min): 0.60-1.00 IUnits/mL VTE prevention: 0.10-0.40 IUnits/mL - Anti-Xa therapeutic ranges apply to blood samples drawn 4 hours after last dose (peak). - Unfractionated heparin (UFH) therapeutic range: 0.30-0.70 IUnits/mL - Direct factor Xa inhibitors (rivaroxaban, apixaban): Results must be interpreted qualitatively. No activity detected suggests little anticoagulant activity. - In severe antithrombin deficiency, anti-Xa measurement may be inaccurate. - Interpretive guidelines developed in adult populations. Interpretive guidelines for pediatric patients have not been rigorously defined. - Current interpretive data was last revised on 2019. Blood 12/27/2024 4:26 PM CDT 12/27/2024 4:49 PM CDT Md Franck Adamson MD LAB BLOOD ORDERABLES Final Resu lt Performing Organization Address [facility] de Phone Number JOHANNE [address] [place] [address] * POCT glucose (12/27/2024 3:20 PM CDT) Glucose, POC 122 70 - 199 mg/dL Blood 12/27/2024 3:20 PM CDT 12/27/2024 3:20 PM CDT Md Franck Adamson MD LAB POCT ORDERABLES - DEVICE Fi nal Result Performing Organization Address [facility] Phone Number [address]RI[address] [address] * (ABNORMAL) Hemoglobin A1c (12/27/2024 2:42 PM CDT) Hgb A1C 7.0(H) 4.0 - 5.6 % Estimated Average Glucose 154 mg/dL [facility] Comment: The ADA recommends reporting an estimated Average Glucose (eAG) with all Hemoglobin A1c results using the equation derived from a study of 507 normal and diabetic adults. Minority populations were underrepresented and children were not included. (Diabetes Care 31:2951-7912, 2008). The eAG is not equivalent to a fasting glucose. Blood 12/27/2024 2:42 PM CDT 12/27/2024 3:02 PM CDT Victor Hugo Rowell NP LAB BLOOD ORDERABLES Final R esult Performing Organization Address [facility] de Phone Number [address] [address] * Lipid panel (12/27/2024 2:42 PM CDT) Cholesterol 111 30 - 199 mg/dL Comment: Interpretive Data Ages < or = 19 years Acceptable: <170 mg/dL Borderline high: 170-199 mg/dL High: >or= 200 mg/dL Ages > or = 20 years Desirable: <200 mg/dL Borderline high: 200-239 mg/dL High: >or= 240 mg/dL Literature References: 1. Expert Panel on Integrated Guidelines for Cardiovascular Health and Risk Reduction in Children and Adolescents. Pediatrics 2011;128:S213 2. NCEP Expert Panel. Circulation 2004;110:227 Current Interpretive Data was last revised on 2018. Triglycerides 47 <=149 mg/dL JOHANNE Comment: Interpretive Data Ages < or = 9 years Acceptable: <75 mg/dL Borderline high: 75-99 mg/dL High: >or= 100 mg/dL Ages 10 to 20 years Acceptable: <90 mg/dL Borderline high: 90-129 mg/dL High: >or= 130 mg/dL Ages > or = 20 years Desirable: <150 mg/dL Borderline high: 150-199 mg/dL High: 200-499 mg/dL Very high: >or= 499 mg/dL Literature References: 1. Expert Panel on Integrated Guidelines for Cardiovascular Health and Risk Reduction in Children and Adolescents. Pediatrics 2011;128:S213 2. NCEP Expert Panel. Circulation 2004;110:227 Current Interpretive Data was last revised on 2018. HDL 49 >=40 mg/dL JOHANNE Comment: Interpretive Data Ages < or = 19 years Acceptable: >45 mg/dL Borderline low: 40-45 mg/dL Low: <40 mg/dL Ages > or = 20 years Desirable: >or= 60 mg/dL Low: <40 mg/dL Literature References: 1. Expert Panel on Integrated Guidelines for Cardiovascular Health and Risk Reduction in Children and Adolescents. Pediatrics 2011;128:S213 2. NCEP Expert Panel. Circulation 2004;110:227 Current Interpretive Data was last revised on 2018. LDL, calculated 50 <=129 mg/dL JOHANNE Comment: Interpretive Data Ages < or = 19 years Acceptable: <110 mg/dL Borderline high: 110-129 mg/dL High: >or= 130 mg/dL Ages > or = 20 years Optimal: <100 mg/dL Near optimal: 100-129 mg/dL Borderline high: 130-159 mg/dL High: >160 mg/dL Calculated using the Sofia LDL-C estimating equation. This equation was implemented on 2024. Prior to this date LDL-C was estimated using the Friedewald equation. Literature References: 1. Expert Panel on Integrated Guidelines for Cardiovascular Health and Risk Reduction in Children and Adolescents. Pediatrics 2011;128:S213 2. NCEP Expert Panel. Circulation 2004;110:227 3. [place] Nava et al. HAYLIE Cardiol. 2019December 08;5(5):540-548. doi: 10.1001/jamacardio.2020.0013 Current Interpretive Data was last revised on 2024. Non-HDL Cholesterol 62 mg/dL [facility] [place] Comment: Interpretive Data Ages < or = 19 years Acceptable: <120 mg/dL Borderline high: 120-144 mg/dL High: >145 mg/dL Ages > or = 20 years When triglycerides are >200 mg/dL, Non-HDL cholesterol is a secondary target of therapy with treatment goals that are 30 mg/dL greater than the LDL cholesterol target. Literature References: 1. Expert Panel on Integrated Guidelines for Cardiovascular Health and Risk Reduction in Children and Adolescents. Pediatrics 2011;128:S213 2. NCEP Expert Panel. Circulation 2004;110:227 Current Interpretive Data was last revised on 2018. Chol/HDL ratio 2 JOHANNE Blood 12/27/2024 2:42 PM CDT 12/27/2024 3:02 PM CDT us Victor Hugo Rowell NP LAB BLOOD ORDERABLES Final R esult [facility] [address] [facility] Department [place] [address] * US MARIA ESTHER (12/27/2024 12:15 PM CDT) Anatomical Region Laterality Modality Vascular N/A Ultrasound 12/27/2024 11:3 3 AM CDT Narrative 12/29/2024 8:27 AM CDT Lower Extremity Arterial Doppler Report Patient Name: HOWIE LOVE L : 1945 Study Date: 12/27/2024 11:33:45 AM Gender: M Improvement Lead: Pepito Fan Location: ED26 Ref Provider: LEODAN ANTHONY Quality: Adequate Order Provider: LEODAN ANTHONY PROCEDURES: Arterial Report: Ankle - Brachial Index Doppler exam. INDICATIONS: Atherosclerosis of [place] Arteries of Extremities with Intermittent Claudication, Right Leg. HISTORY: Stent RT EIA -1. Bypass rt PFA-TPT -1. COMPARISONS: The previous exam was completed on 09/29/24. Compared to prior worsen. MEASUREMENTS: Right Value Left Value Rt Brachial Pressure 153 mmHg Lt Brachial Pressure 134 mmHg Rt GREEN JOBS TRAINER Pressure absent mmHg Lt GREEN JOBS TRAINER Pressure 172 mmHg Rt DPA Pressure 25 mmHg Lt DPA Pressure 121 mmHg Rt 1st Digit Pressure absent mmHg Lt 1st Digit Pressure 100 mmHg Rt PT MARIA ESTHER Resting 0 Lt PT MARIA ESTHER Resting 1.12 Rt DP MARIA ESTHER Resting 0.16 Lt DP MARIA ESTHER Resting 0.79 Rt Digit/Arm Index 0 Lt Digit/Arm Index 0.65 FINDINGS: - CONCLUSIONS: 1. Ankle-brachial index of <0.5 is consistent with severe arterial disease in the right lower extremity. 2. Ankle-brachial index of 0.9-1.3 is within normal limits in the left lower extremity. 3. No flow identified in the posterior tibial artery or right 1st digit. 2. Left MARIA ESTHER is technically normal however there was monophasic tibial flow likely inaccurate ankle brachial index. ATTESTATION: I have reviewed and interpreted the pertinent images and measurements of this study. I attest to the conclusions in the final report that is provided above. Electronically Signed By: Farhad Anthony MD 12/29/2024 8:27:08 AM CDT Procedure Note Farhad Anthony MD - 12/29/2024 Lower Extremity Arterial Doppler Report Patient Name: HOWIE LOVE L : 1945 Study Date: 12/27/2024 11:33:45 AM Gender: M Improvement Lead: Pepito Fan Location: ED26 Ref Provider: LEODAN ANTHONY Quality: Adequate Order Provider: LEODAN ANTHONY PROCEDURES: Arterial Report: Ankle - Brachial Index Doppler exam. INDICATIONS: Atherosclerosis of [place] Arteries of Extremities with IntermittentClaudication, Right Leg. HISTORY: Stent RT EIA -1. Bypass rt PFA-TPT -1. COMPARISONS: The previous exam was completed on 09/29/24. Compared to prior worsen. MEASUREMENTS: Right Value Left Value Rt Brachial Pressure 153 mmHg Lt Brachial Pressure 134 mmHg Rt GREEN JOBS TRAINER Pressure absent mmHg Lt GREEN JOBS TRAINER Pressure 172 mmHg Rt DPA Pressure 25 mmHg Lt DPA Pressure 121 mmHg Rt 1st Digit Pressure absent mmHg Lt 1st Digit Pressure 100 mmHg Rt PT MARIA ESTHER Resting 0 Lt PT MARIA ESTHER Resting 1.12 Rt DP MARIA ESTHER Resting 0.16 Lt DP MARIA ESTHER Resting 0.79 Rt Digit/Arm Index 0 Lt Digit/Arm Index 0.65 FINDINGS: - CONCLUSIONS: 1. Ankle-brachial index of <0.5 is consistent with severe arterial diseasein the right lower extremity. 2. Ankle-brachial index of 0.9-1.3 is within normal limits in the leftlower extremity. 3. No flow identified in the posterior tibial artery or right 1st digit. 2. Left MARIA ESTHER is technically normal however there was monophasic tibial flowlikely inaccurate ankle brachial index. ATTESTATION: I have reviewed and interpreted the pertinent images and measurements ofthis study. I attest to the conclusions in the final report that is provided above. Electronically Signed By: Farhad Anthony MD 12/29/2024 8:27:08 AM CDT us Leodan Anthony MD IMG US PROCEDURES Final Re sult * US Arterial Duplex Lower Extremity Right Limited (12/27/2024 12:14 PM CDT) Anatomical Region Laterality Modality Vascular Right Ultrasound 12/27/2024 10:0 1 AM CDT Narrative 12/28/2024 10:28 AM CDT Lower Extremity Arterial Duplex Report Patient Name: HOWIE LOVE L : 1945 (79y 4m) Gender: M Study Date: 12/27/2024 10:01:06 AM Ht(Inch): Wt(Lb): BSA: Improvement Lead: Pillo FAN Location: [facility] Order Provider: JUAN TAYLOR Quality: Adequate Ref Provider: JUAN TAYLOR PROCEDURES: Arterial Report: A non-invasive vascular imaging study of the right lower extremity arteries was performed using B-mode ultrasound, color flow, and spectral Doppler. A non-invasive vascular imaging study of the left lower extremity arteries and bypass graft was performed using B-mode ultrasound, color flow, and spectral Doppler. INDICATIONS: right leg pain and numbness x 10days. HISTORY: The patient had a previous vascular surgery on 08/21/21. RT PFA-TPT BPG. History of stent RT EIA 07/15/21. MEASUREMENTS: Right Value Rt Ext Iliac Mid PSV 107.00 cm/sec Rt REINSURANCE CLERK Prx PSV 66.90 cm/sec Rt Profunda Prx PSV 16.10 cm/sec Rt Pop Prx PSV 23.10 cm/sec Rt Pop Dst PSV 7.80 cm/sec Rt Ant Tibial Mid PSV absent cm/sec Rt Post Tibial Mid PSV absent cm/sec Rt Peroneal Mid PSV absent cm/sec FINDINGS: Bypass Graft 1: The bypass graft is located in the PFA-TPT. Occluded bypass graft. CONCLUSION: 1. Right profunda femoral artery to tibioperoneal trunk bypass is occluded. ATTESTATION: I have reviewed and interpreted the pertinent images and measurements of this study. I attest to the conclusions in the final report that is provided above. Electronically Signed By: Farhad Anthony MD 12/28/2024 9:19:07 AM CDT Procedure Note Farhad Anthony MD - 12/28/2024 Lower Extremity Arterial Duplex Report Patient Name: HOWIE LOVE L : 1945 (79y 4m) Gender: M Study Date: 12/27/2024 10:01:06 AM Ht(Inch): Wt(Lb): BSA: Improvement Lead: Pillo FAN Location: ED26 Order Provider: JUAN TAYLOR Quality: Adequate Ref Provider: JUAN TAYLOR PROCEDURES: Arterial Report: A non-invasive vascular imaging study of the right lowerextremity arteries was performed using B-mode ultrasound, color flow, and spectralDoppler. A non-invasive vascular imaging study of the left lower extremity arteriesand bypass graft was performed using B-mode ultrasound, color flow, and spectral Doppler. INDICATIONS: right leg pain and numbness x 10days. HISTORY: The patient had a previous vascular surgery on 08/21/21. RT PFA-TPT BPG.History of stent RT EIA 07/15/21. MEASUREMENTS: Right Value Rt Ext Iliac Mid PSV 107.00 cm/sec Rt REINSURANCE CLERK Prx PSV 66.90 cm/sec Rt Profunda Prx PSV 16.10 cm/sec Rt Pop Prx PSV 23.10 cm/sec Rt Pop Dst PSV 7.80 cm/sec Rt Ant Tibial Mid PSV absent cm/sec Rt Post Tibial Mid PSV absent cm/sec Rt Peroneal Mid PSV absent cm/sec FINDINGS: Bypass Graft 1: The bypass graft is located in the PFA-TPT. Occludedbypass graft. CONCLUSION: 1. Right profunda femoral artery to tibioperoneal trunk bypass isoccluded. ATTESTATION: I have reviewed and interpreted the pertinent images and measurements ofthis study. I attest to the conclusions in the final report that is provided above. Electronically Signed By: Farhad Anthony MD 12/28/2024 9:19:07 AM CDT us Rehab Brandon KERNS IMG US PROCEDURES Final Result * CTA Abdominal Aorta And Bilateral Iliofemoral Runoff (12/27/2024 11:39 AM CDT) Anatomical Region Laterality Modality Body Bilateral Computed Tomogra phy 12/27/2024 12:1 3 PM CDT Narrative 12/27/2024 12:28 PM CDT EXAM DESCRIPTION: CTA ABDOMINAL AORTA AND BILATERAL ILIOFEMORAL RUNOFF REASON FOR STUDY: Claudication or leg ischemia, occluded graft, limb ischemia Claudication or leg ischemia, occluded graft, limb ischemia. 79-year-old male past medical history of PVD status post right-sided fem to tibioperoneal artery stent placed by Dr. Anthony back in 2021 presents with right lower extremity pain ongoing for the past 10 days, worsened over the last 3-4 days. Patient reports that now he is feeling weak to that right lower extremity as well. He last saw Dr. Anthony in October of this year. He denies being on any anticoagulation. Hx: PVD Surg Hx: Coronal stent, Appendectomy, Tib/fib ORIF, Femoral endarterectomy (Right) TECHNIQUE: CTA of the abdominal aorta with bilateral lower extremity runoff was performed without and with intravenous contrast using helical scanning technique. Precontrast and arterial images were obtained of the lower extremities. Images reviewed with soft tissue and bone windows. Reconstructed coronal and sagittal MPR images reviewed. All images stored on PACS. 3D MIP images rendered on scanning unit and reviewed at time of interpretation. Automated exposure control was used as a dose optimization technique for this examination. CONTRAST TYPE/DOSE: 100mL of IOVERSOL 350 MG IODINE/ML INTRAVENOUS SYRINGE injected via intravenous COMPARISON: None available FINDINGS: VASCULATURE: NON-CONTRASTED IMAGING: Extensive vascular calcification. ABDOMINAL AORTA: No dissection, aneurysm, intramural hematoma, rupture, or penetrating atherosclerotic ulcer. MESENTERIC/RENAL: No flowing limiting disease. Single bilateral renal arteries. No anatomic variation of the mesenteric vessels. PELVIC VASCULATURE: Common/external iliac arteries: Right common iliac artery demonstrates heavily calcified plaque. The right internal is patent with a proximal stenosis. The right external is heavily calcified with origin of the a vascular stent identified but obscured. Underlying stenosis or may be present. Stent itself is otherwise patent in the distal stent is unremarkable. Left common iliac artery demonstrates heavily calcified plaque with 50-75% mid and 75-90% distal stenosis. The left internal iliac artery is patent. The left external iliac artery is patent. RIGHT LOWER EXTREMITY VASCULATURE: The right common femoral artery is patent and bifurcates with patent profunda femoral artery. The right superficial femoral artery is occluded. Right femoral-distal popliteal graft is occluded. The anterior tibial artery reconstitutes high in the calf and extends to the ankle where it is obscured by metallic artifact from orthopedic hardware. The peroneal and posterior tibial are calcified and obscured. LEFT LOWER EXTREMITY VASCULATURE: Left common femoral artery is heavily calcified with 90% stenosis suggested. The left profunda femoral artery is patent. The left superficial femoral artery demonstrates heavy calcified plaque obscuring detail leading to an apparent distal obstruction or critical stenosis at and above the adductor canal. The left popliteal is patent though heavily calcified and obscured. The distal popliteal trifurcations with calcification obscuring the runoff vessels though the anterior tibial and peroneal are patent to the ankle and foot. Posterior tibial is calcified and obscured. ABDOMEN/PELVIS: LOWER CHEST: Large hiatal hernia. LIVER: Peripherally enhancing structure right lobe most suggestive of hemangioma. GALLBLADDER: Normally distended BILE DUCTS: No intrahepatic or extrahepatic ductal dilatation. SPLEEN: Normal size. No focal lesions. PANCREAS: No identified cystic or solid masses. No significant calcifications. No adjacent inflammation or peripancreatic fluid collections. Pancreatic duct not dilated. ADRENALS: Normal. KIDNEYS/URINARY TRACT: Right kidney demonstrates no hydronephrosis, hydroureter or stone. Left kidney demonstrates no hydronephrosis or hydroureter. At the level of the sacral promontory is 0.7 cm calcification noted within the ureter suggesting a nonobstructive stone. Please correlate clinically. Normal bladder. GI: No dilated bowel loops. No obvious wall thickening. Appendix is not visualized. No significant diverticular disease. PERITONEUM: No ascites or free air. RETROPERITONEUM: No mass or adenopathy. REPRODUCTIVE: No significant abnormality. MUSCULOSKELETAL: No acute findings. OTHER: No other abnormality. IMPRESSION: Right leg demonstrates occlusion of the superficial femoral artery and femoral-distal popliteal graft. The anterior tibial artery reconstitutes high in the calf and extends to the ankle where it is obscured by metallic artifact from orthopedic hardware. The peroneal and posterior tibial arteries are calcified and obscured. Left leg demonstrates 90% stenosis of the common femoral artery and critical stenosis or occlusion of the superficial femoral artery at and above the adductor canal. The popliteal is patent though heavily calcified and obscured. The distal popliteal trifurcations with calcification obscuring the runoff vessels though the anterior tibial and peroneal are patent to the ankle and foot. Posterior tibial is calcified and obscured. Left kidney demonstrates a 0.7 cm calcification within the ureter at the level of the sacral promontory without hydronephrosis or hydroureter. Large hiatal hernia. Probable hemangioma right lobe of liver. THIS IS AN ELECTRONICALLY VERIFIED FINAL REPORT 12/27/2024 12:28 PM - Electronically signed by Santo NUNEZ T: Report ID: [id number] Reading Location: [id number] Procedure Note Santo Tamayo MD - 12/27/2024 EXAM DESCRIPTION: CTA ABDOMINAL AORTA AND BILATERAL ILIOFEMORAL RUNOFF REASON FOR STUDY: Claudication or leg ischemia, occluded graft, limb ischemia Claudication or leg ischemia, occluded graft, limb ischemia. [id number] past medical history of PVD status post right-sided fem to tibioperoneal artery stent placed by Dr. Anthony back in 2021 presents with right lower extremity pain ongoing for the past 10 days, worsened over the last 3-4days. Patient reports that now he is feeling weak to that right lowerextremity as well. He last saw Dr. Anthony in October of this year. He denies being onany anticoagulation. Hx: PVD Surg Hx: Coronal stent, Appendectomy,Tib/fib ORIF, Femoral endarterectomy (Right) TECHNIQUE: CTA of the abdominal aorta with bilateral lower extremityrunoff was performed without and with intravenous contrast using helicalscanning technique. Precontrast and arterial images were obtained of the lower extremities. Images reviewed with soft tissue and bone windows. Reconstructed coronal and sagittal MPR images reviewed. All images storedon PACS. 3D MIP images rendered on scanning unit and reviewed at time of interpretation. Automated exposure control was used as a doseoptimization technique for this examination. CONTRAST TYPE/DOSE: 100mL of IOVERSOL 350 MG IODINE/ML INTRAVENOUSSYRINGE injected via intravenous COMPARISON: None available FINDINGS: VASCULATURE: NON-CONTRASTED IMAGING: Extensive vascular calcification. ABDOMINAL AORTA: No dissection, aneurysm, intramural hematoma, rupture,or penetrating atherosclerotic ulcer. MESENTERIC/RENAL: No flowing limiting disease. Single bilateral renal arteries. No anatomic variation of the mesenteric vessels. PELVIC VASCULATURE: Common/external iliac arteries: Right common iliac artery demonstrates heavily calcified plaque. Theright internal is patent with a proximal stenosis. The right external isheavily calcified with origin of the a vascular stent identified but obscured. Underlying stenosis or may be present. Stent itself is otherwise patentin the distal stent is unremarkable. Left common iliac artery demonstrates heavily calcified plaque with 50-75%mid and 75-90% distal stenosis. The left internal iliac artery is patent.The left external iliac artery is patent. RIGHT LOWER EXTREMITY VASCULATURE: The right common femoral artery is patent and bifurcates with patentprofunda femoral artery. The right superficial femoral artery is occluded. Right femoral-distal popliteal graft is occluded. The anterior tibial artery reconstitutes high in the calf and extends to the ankle where it isobscured by metallic artifact from orthopedic hardware. The peroneal and posterior tibial are calcified and obscured. LEFT LOWER EXTREMITY VASCULATURE: Left common femoral artery is heavily calcified with 90% stenosissuggested. The left profunda femoral artery is patent. The left superficial femoral artery demonstrates heavy calcified plaque obscuring detail leading to an apparent distal obstruction or critical stenosis at and above the adductor canal. The left popliteal is patent though heavily calcified andobscured. The distal popliteal trifurcations with calcification obscuring the runoff vessels though the anterior tibial and peroneal are patent to the ankleand foot. Posterior tibial is calcified and obscured. ABDOMEN/PELVIS: LOWER CHEST: Large hiatal hernia. LIVER: Peripherally enhancing structure right lobe most suggestive of hemangioma. GALLBLADDER: Normally distended BILE DUCTS: No intrahepatic or extrahepatic ductal dilatation. SPLEEN: Normal size. No focal lesions. PANCREAS: No identified cystic or solid masses. No significant calcifications. No adjacent inflammation or peripancreatic fluidcollections. Pancreatic duct not dilated. ADRENALS: Normal. KIDNEYS/URINARY TRACT: Right kidney demonstrates no hydronephrosis, hydroureter or stone. Left kidney demonstrates no hydronephrosis or hydroureter. At the levelof the sacral promontory is 0.7 cm calcification noted within the ureter suggesting a nonobstructive stone. Please correlate clinically. Normal bladder. GI: No dilated bowel loops. No obvious wall thickening. Appendix is not visualized. No significant diverticular disease. PERITONEUM: No ascites or free air. RETROPERITONEUM: No mass or adenopathy. REPRODUCTIVE: No significant abnormality. MUSCULOSKELETAL: No acute findings. OTHER: No other abnormality. IMPRESSION: Right leg demonstrates occlusion of the superficial femoral artery and femoral-distal popliteal graft. The anterior tibial artery reconstituteshigh in the calf and extends to the ankle where it is obscured by metallicartifact from orthopedic hardware. The peroneal and posterior tibial arteries are calcified and obscured. Left leg demonstrates 90% stenosis of the common femoral artery andcritical stenosis or occlusion of the superficial femoral artery at and above the adductor canal. The popliteal is patent though heavily calcified andobscured. The distal popliteal trifurcations with calcification obscuring the runoff vessels though the anterior tibial and peroneal are patent to the ankleand foot. Posterior tibial is calcified and obscured. Left kidney demonstrates a 0.7 cm calcification within the ureter at the level of the sacral promontory without hydronephrosis or hydroureter. Large hiatal hernia. Probable hemangioma right lobe of liver. THIS IS AN ELECTRONICALLY VERIFIED FINAL REPORT 12/27/2024 12:28 PM - Electronically signed by Santo NUNEZ T: Report ID: [id number] Reading Location: [place] [address] Charito Michael PREVENTION RN IMG CT PROCEDURES Final Result * HI CRITICAL CARE ILL/INJURED PATIENT INIT 30-74 MIN (12/27/2024 10:08 AM CDT) Narrative Juan Taylor MD - 12/27/2024 10:08 AM CDT Juan Taylor MD 12/27/2024 10:09 AM Critical Care Performed by: Juan Taylor MD Authorized by: Juan Taylor MD Critical care provider statement: As reflected in the history, physical exam, orders, notes, and/or MDM, I was personally present while the patient was critically ill and provided critical care services for 35 minutes, excluding time involved in separately billable procedures. Critical care was necessary to treat or prevent imminent or life-threatening deterioration of the following condition(s): acute arterial occlusion Critical care was time spent by me providing the following: continuous telemetry, continuous pulse oximetry, interpretation of bedside monitors, imaging, and arterial/venous lab draws and serial bedside patient exams initiation, monitoring, and/or titration of anticoagulants I provided emergent necessary critical care medicine services to this patient. I ordered and reviewed test results and/or imaging studies. I spent time discussing the management of this critically ill patient with consultants and the medical staff. I spent time discussing the management and therapeutic options for this critically ill patient with the patient themselves or with the appropriate designated surrogate decision-maker. I spent time documenting in the medical record. I admitted this patient to a continuous cardiac monitored bed. Juan Taylor MD IN CLINIC/BEDSIDE ORDERABLES Fi nal Result * eGFR (12/27/2024 9:07 AM CDT) eGFR 90 >=60 mL/min/1. 73 m2 Comment: Interpretive Data Reference Interval Normal >/= 90 mL/min/1.73m2 Mildly decreased* 60 - 89 mL/min/1.73m2 Mildly to moderately decreased 45 - 59 mL/min/1.73m2 Moderately to severely decreased 30 - 44 mL/min/1.73m2 Severely decreased 15 - 29 mL/min/1.73m2 Kidney Failure < 15 mL/min/1.73m2 *Relative to young adult level Estimated glomerular filtration rate is determined by the 2020 CKD-EPI equation recommended by the [employer] (A Unifying Approach to GFR Estimation: Recommendations of the NKF-ASK Task Force on Reassessing the Inclusion of Race in Diagnosing Kidney Disease, JASN 2020). The CKD-EPI equation should not be used for patients with unstable renal function and has not been validated in children and those over 70. Current interpretive data was last reviewed 2021. Blood 12/27/2024 9:07 AM CDT 12/27/2024 9:14 AM CDT Juan Taylor MD LAB BLOOD ORDERABLES Final Resu lt JOHANNE [address] [facility] Department [place] [address] * Differential, auto (12/27/2024 9:07 AM CDT) Neutrophil abs 4.39 1.50 - 6.50 K/cumm Imm gran abs 0.01 0.00 - 0.10 K/cumm JOHANNE Lymphocyte abs 1.47 0.80 - 3.30 K/cumm [facility] Monocyte abs 0.61 0.20 - 0.80 K/cumm [facility] Eosinophil abs 0.29 0.00 - 0.50 K/cumm [facility] Basophil abs 0.07 0.00 - 0.10 K/cumm [facility] Neutrophil pct 64.3 % [facility] Comment: Interpretive Data Percent cell count reference ranges are not reported, since discordance with absolute values may lead to misinterpretation of CBC data. Current Interpretive Data was last revised on 2017. Imm gran pct 0.1 % [facility] Comment: Interpretive Data Percent cell count reference ranges are not reported, since discordance with absolute values may lead to misinterpretation of CBC data. Current Interpretive Data was last revised on 2017. Lymphocyte pct 21.5 % [facility] Comment: Interpretive Data Percent cell count reference ranges are not reported, since discordance with absolute values may lead to misinterpretation of CBC data. Current Interpretive Data was last revised on 2017. Monocyte pct 8.9 % [facility] Comment: Interpretive Data Percent cell count reference ranges are not reported, since discordance with absolute values may lead to misinterpretation of CBC data. Current Interpretive Data was last revised on 2017. Eosinophil pct 4.2 % [facility] Comment: Interpretive Data Percent cell count reference ranges are not reported, since discordance with absolute values may lead to misinterpretation of CBC data. Current Interpretive Data was last revised on 2017. Basophil pct 1.0 % [facility] Comment: Interpretive Data Percent cell count reference ranges are not reported, since discordance with absolute values may lead to misinterpretation of CBC data. Current Interpretive Data was last revised on 2017. Blood 12/27/2024 9:07 AM CDT 12/27/2024 9:14 AM CDT [facility] Brandon KERNS LAB BLOOD ORDERABLES Final Resu lt JOHANEN [place] [address] [facility] Department [place] [address] * Heparin anti factor Xa activity (12/27/2024 9:07 AM CDT) [facility] Anti Factor Xa <0.10 IUnits/mL Comment: patient was not on heparin as per [id number] Interpretive Data Enoxaparin therapeutic range (peak): VTE treatment, Q12hr dosin.60-1.00 IUnits/mL VTE treatment, Q24hr dosin.00-2.00 IUnits/mL Q24hr dosing for renal impairment (CrCl <30 mL/min): 0.60-1.00 IUnits/mL VTE prevention: 0.10-0.40 IUnits/mL - Anti-Xa therapeutic ranges apply to blood samples drawn 4 hours after last dose (peak). - Unfractionated heparin (UFH) therapeutic range: 0.30-0.70 IUnits/mL - Direct factor Xa inhibitors (rivaroxaban, apixaban): Results must be interpreted qualitatively. No activity detected suggests little anticoagulant activity. - In severe antithrombin deficiency, anti-Xa measurement may be inaccurate. - Interpretive guidelines developed in adult populations. Interpretive guidelines for pediatric patients have not been rigorously defined. - Current interpretive data was last revised on 2019. Blood 12/27/2024 9:07 AM CDT 12/27/2024 9:14 AM CDT [facility] Brandon KERNS LAB BLOOD ORDERABLES Final Resu lt [facility] [address] [facility] Department of Laboratories [place], [place] [id number] * (ABNORMAL) CBC with auto differential (12/27/2024 9:07 AM CDT) [facility] WBC 6.84 3.80 - 9.90 K/cumm Hgb 13.1 13.0 - 17.5 g/dL [facility] Hct 38.4(L) 38.9 - 50.3 % [facility] Plt 227 150 - 400 K/cumm [facility] MPV 9.8 9.1 - 12.3 fL [facility] RBC 4.30 4.30 - 5.80 M/cumm [facility] MCV 89.3 81.3 - 96.4 fL [facility] MCH 30.5 27.1 - 33.3 pg [facility] MCHC 34.1 32.3 - 35.7 g/dL [facility] RDW CV 13.3 11.1 - 14.9 % [facility] RDW SD 43.5 35.7 - 48.1 fL [facility] NRBC abs 0.00 0.00 - 0.01 K/cumm [facility] Blood 12/27/2024 9:07 AM CDT 12/27/2024 9:14 AM CDT [facility] Brandon KERNS LAB BLOOD ORDERABLES Final Resu lt Performing Organization Address [facility] Co de Phone Number [address] [place] [address] * ABO/Rh (12/27/2024 9:07 AM CDT) ABO/Rh B Positive Blood 12/27/2024 9:07 AM CDT 12/27/2024 9:14 AM CDT Narrative [facility] - 12/27/2024 9:58 AM CDT Has the patient had Daratumumab or Isatuximab in the past 6 months?->Unknown [facility] Brandon KERNS LAB BLOOD BANK TEST ORDERABLES Final Result Performing Organization Address [facility] Co de Phone Number [address] [place] [address] * Protime-INR (12/27/2024 9:07 AM CDT) PT 14.2 12.0 - 14.6 sec INR 1.1 0.9 - 1.2 [facility] Comment: Ref Range High Interpretive data Oral anticoagulant therapeutic ranges: Venous thromboembolism prophylaxis or treatment: 2.0-3.0 CARDIOLOGY Standard range: 2.0-3.0 High-intensity range: 2.5-3.5 Refer to indication-specific guidelines for appropriate target ranges for prosthetic heart valve replacement. Current interpretive data was last revised on 2019. Blood 12/27/2024 9:07 AM CDT 12/27/2024 9:14 AM [facility]T [facility] LAB BLOOD ORDERABLES Final Resu lt Performing Organization Address [facility] Co de Phone Number [address] [address] * Antibody screen (12/27/2024 9:07 AM CDT) [facility] [place], indirect, Gel Interpretation Negative ABSC Blood 12/27/2024 9:07 AM CDT 12/27/2024 9:14 AM CDT Narrative [facility] - 12/27/2024 9:58 AM CDT Has the patient had Daratumumab or Isatuximab in the past 6 months?->Unknown [facility] Brandon KERNS LAB BLOOD BANK TEST ORDERABLES Final Result Performing Organization Address [facility] de Phone Number [address] [address] * Comprehensive metabolic panel (12/27/2024 9:07 AM CDT) [facility] Sodium 140 135 - 145 mmol/L Potassium, pl 3.9 3.3 - 4.9 mmol/L [facility] Chloride 105 97 - 110 mmol/L [facility] CO2 25 22 - 32 mmol/L [facility] Anion gap 10 2 - 15 mmol/L [facility] BUN 14 6 - 25 mg/dL [facility] Creatinine 0.81 0.80 - 1.30 mg/dL [facility] Glucose 149 70 - 199 mg/dL [facility] Comment: Interpretive Data Fasting glucose >/= 126 mg/dl is diagnostic for diabetes. Fasting is defined as no caloric intake for at least 8 hours. Fasting glucose between 100 mg/dl to 125 mg/dl is diagnostic of prediabetes. In a patient with classic symptoms of hyperglycemia or hyperglycemic crisis, a random glucose >/= 200 mg/dl is diagnostic for diabetes. In the absence of unequivocal hyperglycemia, results should be confirmed by repeat testing. The classification and Diagnosis of Diabetes Diabetes Care 202; 46: S19-S40. Current interpretive data was last revised 2022. Calcium 9.2 8.5 - 10.3 mg/dL [facility] Bilirubin, total 0.5 0.1 - 1.2 mg/dL [facility] Protein, pl 6.7 6.5 - 8.5 g/dL [facility] Albumin 4.2 3.5 - 5.0 g/dL [facility] Alk phos 109 40 - 130 Units/L [facility] ALT 16 7 - 55 Units/L [facility] AST 21 10 - 50 Units/L [facility] Blood 12/27/2024 9:07 AM CDT 12/27/2024 9:14 AM CDT [facility] KERNS LAB BLOOD ORDERABLES Final Resu lt JOHANNE [address] [facility] Department [place] [address] from Last 3 Months Insurance [facility] Advance Directives For more information, please contact: [phone] * Full Code (Latest Code Status on File) Date Activated Date Inactivated Comments 12/28/2024 11:21 AM 01/01/2025 4:14 PM * Full Code Date Activated Date Inactivated Comments 12/27/2024 1:17 PM 12/28/2024 11:21 AM * Full Code Date Activated Date Inactivated Comments 08/21/2021 5:50 PM 08/28/2021 5:13 PM * Full Code Date Activated Date Inactivated Comments 08/17/2021 1:15 PM 08/21/2021 5:50 PM * Full Code Date Activated Date Inactivated Comments 08/17/2021 11:31 AM 08/17/2021 1:15 PM Care Teams Fiction And Nonfiction Prose Writer Relationship Specialty Start Date End Date Jordi Hernandez MD [address] [place] [id number] PCP - General Family Practice 09/29/24 Eric Baker DO [address] [facility] [address] [place] [address] Referring Physician Cardiology 05/01/21 Leodan Anthony MD [address] [facility] [address] [facility] [address] [place] [address] Surgeon Vascular Surgery 08/01/21
--- OUTSIDE RECORDS SUMMARY | 2025-03-10 08:54 | XMS_ITS | Clinical Summary ---
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
--- OUTSIDE RECORDS SUMMARY | 2025-03-10 08:54 | XMS_ITS ---
Author Organization [facility] Address [address] [place] [address] Care Team Providers Care Test Driver Name Role Phone Eric Baker DO Unavailable [phone] Leodan Anthony MD Unavailable [phone] Jordi Hernandez MD Primary Care Provider [phone] Active Problems Problem Noted Date Diagnosed Date [...] trauma. Assessment & Plan (09/26/2021 3:56 PM SERVICES CLERK): Impression: Patient is status post right common [...] ankle. 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 New toenail forming is noted on exam. Patient has 2 sutures remaining to right 1st toenail from when his toenail was removed. Plan: Continue daily dressing changes with Xeroform and dry gauze. Patient to follow-up in 3 months. Assessment & Plan (09/06/2021 1:30 PM SERVICES CLERK): Impression: Patient has gangrene of the right [...] Lipitor Assessment & Plan (09/29/2024 3:23 PM SERVICES CLERK): Impression: Chronic and stable. Plan: Continue Lipitor Assessment & Plan (01/07/2023 9:33 AM CDT): Chronic stable hyperlipidemia. Continue Lipitor. Assessment & Plan (06/25/2022 5:16 PM SERVICES CLERK): Impression: Chronic hyperlipidemia, controlled with statin therapy. Plan: Continue statin therapy as per primary care provider. Assessment & Plan (12/20/2021 8:41 AM CDT): Hyper lipidemia currently medically controled with medications. Continue medications as per PCP. Assessment & Plan (2021 2:15 PM SERVICES CLERK): Hyperlipidemia chronic and controlled. Continue Lipitor Primary hypertension 07/15/2021 Assessment & Plan (01/28/2025 2:33 PM CDT): Hypertension chronic controlled. Continue current medical management. Assessment & Plan (09/29/2024 3:23 PM SERVICES CLERK): Impression: Chronic and stable. Plan: Continue Lasix lisinopril and metoprolol Assessment & Plan (01/07/2023 9:33 AM CDT): Chronic stable hypertension. Continue current medical management. Assessment & Plan (06/25/2022 5:16 PM SERVICES CLERK): Impression: Chronic stable hypertension, controlled medications. Blood pressure stable. Plan: Continue blood pressure management as per primary care provider. Assessment & Plan (2021 2:15 PM SERVICES CLERK): Hypertension chronic and controlled. Continue current medical [...] therapy. Assessment & Plan (2021 2:16 PM SERVICES CLERK): Patient has ischemic rest pain with gangrenous [...] duplex. Assessment & Plan (09/29/2024 3:22 PM SERVICES CLERK): Impression: Patient is status post right common [...] extremity. Assessment & Plan (06/24/2024 9:55 AM SERVICES CLERK): Over the past several months has had [...] duplex. Assessment & Plan (06/25/2022 5:15 PM SERVICES CLERK): Impression: Patient is status post right common [...] Air kerma at the reference point (Ka,r) 4,373.33 mGy 0 mGy 4,373.33 mGy
--- OUTSIDE RECORDS SUMMARY | 2025-03-10 08:54 | XMS_ITS | Patient Health Record ---
Author Organization [facility] Address [address] [place], [place] [id number] Care Team Providers Care Landscape Architect Name Role Phone PATRICIA Wen Unavailable [phone] Lowell Mosley Unavailable Unavailable Reason For Referral No Information Plan Of Treatment No Information Insurance Providers Payer Name Payer Address Payer Phone Subscriber Number Group Number Insured Name Patient Relationship to Insured Coverage Start Date Coverage End Date A[employer] MedicareCom plete ([facility]) [address] [place], [place] [id number] HOWIE LOVE Self - patient is the insured
--- OUTSIDE RECORDS SUMMARY | 2025-03-10 08:54 | XMS_ITS | Clinical Summary ---
Author Organization [facility] Medical Office Building B Address [address] [place] [address] Care Team Providers Care Claim Specialist Name Role Phone Eric Baker DO Unavailable [phone] Leodan Anthony MD Unavailable [phone] Jordi Hernandez MD Primary Care Provider [phone] Allergies Active Allergy Reactions Criticality Noted Date [...] 1 each by mouth daily Med Name: super beets Active vitamin B complex capsule Take [...] trauma. Assessment & Plan (09/26/2021 3:56 PM MASSOTHERAPIST): Impression: Patient is status post right common [...] ankle. Assessment & Plan (09/06/2021 1:29 PM MASSOTHERAPIST): Impression: Patient is status post right common [...] warm, well perfused. Graft is patent. Plan: Lincoln removed. Patient to continue ongoing risk factor modifications. Patient to follow-up in 2-3 weeks for re-evaluation with new baseline arterial duplex study. 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 New toenail forming is noted on exam. Patient has 2 sutures remaining to right 1st toenail from when his toenail was removed. Plan: Continue daily dressing changes with Xeroform and dry gauze. Patient to follow-up in 3 months. Assessment & Plan (09/06/2021 1:30 PM MASSOTHERAPIST): Impression: Patient has gangrene of the right [...] Lipitor Assessment & Plan (09/29/2024 3:23 PM MASSOTHERAPIST): Impression: Chronic and stable. Plan: Continue Lipitor Assessment & Plan (01/07/2023 9:33 AM CDT): Chronic stable hyperlipidemia. Continue Lipitor. Assessment & Plan (06/25/2022 5:16 PM MASSOTHERAPIST): Impression: Chronic hyperlipidemia, controlled with statin therapy. Plan: Continue statin therapy as per primary care provider. Assessment & Plan (12/20/2021 8:41 AM CDT): Hyper lipidemia currently medically controled with medications. Continue medications as per PCP. Assessment & Plan (2021 2:15 PM MASSOTHERAPIST): Hyperlipidemia chronic and controlled. Continue Lipitor Primary hypertension 07/15/2021 Assessment & Plan (01/28/2025 2:33 PM CDT): Hypertension chronic controlled. Continue current medical management. Assessment & Plan (09/29/2024 3:23 PM MASSOTHERAPIST): Impression: Chronic and stable. Plan: Continue Lasix lisinopril and metoprolol Assessment & Plan (01/07/2023 9:33 AM CDT): Chronic stable hypertension. Continue current medical management. Assessment & Plan (06/25/2022 5:16 PM MASSOTHERAPIST): Impression: Chronic stable hypertension, controlled medications. Blood pressure stable. Plan: Continue blood pressure management as per primary care provider. Assessment & Plan (2021 2:15 PM MASSOTHERAPIST): Hypertension chronic and controlled. Continue current medical [...] therapy. Assessment & Plan (2021 2:16 PM MASSOTHERAPIST): Patient has ischemic rest pain with gangrenous [...] understands and agrees to proceed. Atherosclerosis of jena ar teries of extremities with intermittent claudication, [...] duplex. Assessment & Plan (09/29/2024 3:22 PM MASSOTHERAPIST): Impression: Patient is status post right common [...] extremity. Assessment & Plan (06/24/2024 9:55 AM MASSOTHERAPIST): Over the past several months has had [...] duplex. 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 05/01/2021 Myocardial infarction Overview (07/12/2021): Two thousand twelve and 05/15/2021 status post 2 stents on 05/15/2021 Preop cardiovascular exam Cellulitis of right foot Encounters Date Type Department Care Team Description 01/26/2025 2:00 PM CDT Office Visit [facility] Vascular and Vein Surgery [address] [place] [phone] Charito Michael NP Atherosclerosis of jena arteries of extremities with intermittent claudication, right leg (Primary Dx) 01/26/2025 1:13 PM CDT - 01/26/2025 11:59 PM CDT Hospital Encounter [facility] Medical Office Building [address] [place] [phone] Atherosclerosis of jena arteries of extremities with intermittent claudication, right leg Discharge Disposition: Discharge to home or self care 01/26/2025 1:13 PM CDT - 01/26/2025 11:59 PM CDT Hospital Encounter [facility] Medical Office Building [address] [place] [address] Atherosclerosis of jena arteries of extremities with intermittent claudication, right leg Discharge Disposition: Discharge to home or self care 01/12/2025 Telephone [facility] Medical [facility] Vascular and Vein Surgery [address] [place] [phone] Dinora Mendieta MA 01/11/2025 10:30 AM CDT Office Visit [facility] Vascular and Vein Surgery [address] [place] [phone] Leodan Anthony MD Atherosclerosis of jena arteries of extremities with intermittent claudication, right leg (Primary Dx); Primary hypertension; Mixed hyperlipidemia 12/29/2024 9:30 AM CDT - 12/29/2024 10:30 AM CDT Surgery [facility] Cardiac Inside [facility] [address] [place] [address] Leodan Anthony MD ANGIOGRAPHY - UNILATERAL EXTREMITY S&I [id number] 12/28/2024 9:00 AM CDT - 12/28/2024 10:00 AM CDT Surgery [facility] [address] [place] [phone] Leodan Anthony MD ANGIOGRAPHY - UNILATERAL EXTREMITY S&I [id number] 12/27/2024 8:34 AM CDT - 01/01/2025 12:09 PM CDT Hospital Encounter [facility] 2 Center [address] [place] [address] Juan Taylor MD Ali, Md Shahin, MD Chapagain, Akhil, MD Kurtz, MD Rey Benson, Oscar Connors MD Acute lower limb ischemia (Primary Dx); Ischemia of right lower extremity; Primary hypertension [I10]; Mixed hyperlipidemia [E78.2] Discharge Disposition: Discharge to home or self care 12/26/2024 Telephone [facility] Vascular and Vein Surgery [address] [facility] [address] [place] [phone] Leodan Anthony MD from Last 3 Months Immunizations Immunization Administration [...] Right CORONARY STENT PLACEMENT 08/10/2011 - 08/09/2012 [place], [place] ANGIOPLASTY / STENTING ILIAC 07/25/2021 Right aortogram, BA & stenting right EIA FEMORAL ENDARTERECTOMY 08/21/2021 Right RT com-fem endar & patch angioplasty. RT fem to TPT bypass. CARDIAC CATHETERIZATION 12/28/2024 Right Procedure: ANGIOGRAPHY - UNILATERAL EXTREMITY S&I 57941; Surgeon: Leodan Anthony MD; Location: [facility]IAC [facility]; Service: Vascular; Laterality: Right; CARDIAC CATHETERIZATION 12/28/2024 Right Procedure: THROMBECTOMY, MECHANICAL, PRIMARY NON CORONARY, INITIAL VESSEL, ARTERY OR GRAFT [id number]; Surgeon: Leodan Anthony MD; Location: [facility]; Service: Vascular; Laterality: Right; CARDIAC CATHETERIZATION 12/28/2024 Right Procedure: TRANSCATHETER LYTIC ARTERIAL W/SI, [place] [address]; Surgeon: Leodan Anthony MD; Location: [facility]; Service: Vascular; Laterality: Right; CARDIAC CATHETERIZATION 12/29/2024 Right Procedure: ANGIOGRAPHY - UNILATERAL EXTREMITY S&I 19900; Surgeon: Leodan Anthony MD; Location: [facility]; Service: Vascular; Laterality: Right; Medical devices from this surgery are in the Medical Devices section. CARDIAC CATHETERIZATION 12/29/2024 N/A Procedure: LICENSED EMBALMER FEM-POP, UNILATERAL, FIRST VESSEL 71531; Surgeon: Leodan Anthony MD; Location: [facility]; Service: Vascular; Laterality: N/A; Medical devices from this surgery are in the Medical Devices section. CARDIAC CATHETERIZATION 12/29/2024 N/A Procedure: LICENSED EMBALMER tib-per unilateral, first vessel; Surgeon: Leodan Anthony MD; Location: [facility]; Service: Vascular; Laterality: N/A; Medical devices from this surgery are in the Medical Devices section. CARDIAC CATHETERIZATION 12/29/2024 N/A Procedure: Lytic FU and DC CATH ART OR VENOUS [id number]; Surgeon: Leodan Anthony MD; Location: [facility]; Service: Vascular; Laterality: N/A; Medical devices from this surgery are in the Medical Devices section. Medical History Medical History Date Comments Myocardial [...] the right Patient saw vascular surgeon, Dr. Satno Swift, in April Toe infection 06/25/2021 Patient sustaine d laceration, fracture, and nail avulsion when 1 of his horses stepped on his foot Coronary artery disease Family History Medical History Relation Name Comments [...] drink = 0.6 oz pur e alcohol) [facility] Utilities Answer Date Recorded In the past 12 months has e electric, gas, oil, or water company threatened to shut off services in your [...] week 12/28/2024 How often do you attend chur ch or restorationist services? More than 4 times per year 12/28/2024 Do you belong to any clubs o r organizations such as gnosticism groups, unions, fraternal or athletic groups, or [...] any time in the past 12 m [facility], were you homeless or living in a care home (including now)? 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 on file Not on file Not [...] 01/26/2025 2:10 PM CDT Plan of Treatment Health Maintenance Due Date Last Done Comments Depression Screening 1945 Hepatitis C Screening 1945 DTaP/Tdap/Td Vaccine (1 - Tdap) 1956 Hepatitis B Screening 1963 Zoster Vaccine (1 of 2) 1995 Well Visit 65+ 2010 Influenza Vaccine (#1) 2025 0, 10/11/2019, 08/25/2017 Fall Risk Assessment 01/01/2026 01/01/2025 Pneumococcal vaccine 65+ Completed 021, 10/11/2019, 08/25/2017 Abdominal Aortic Aneurysm (A AA) Screen Completed 12/27/2024 Medical Devices Implanted Type Area Community Health Advisor Device Identifier Shelf Expiration Date Model / Serial / Lot Hinson Vascular 01986-02 Perclose 6fr Suture Mediate Knot Push Vascular Device Closure - S0 - [id number] Implanted:Qty: 1 on 05/15/2021 by Gunner Pinto MD at [facility] Other - see comments [employer] 02/06/2023 [id number] / 0 / [id number] [employer] Brandon [id number] Synergy Xd Monorail 2.5mm 48mm 144cm Delivery System 1 Access - S0 - [id number] Implanted:Qty: 1 on 05/15/2021 by Gunner Pinto MD at [facility] Stent [employer] Brandon 12/20/2022 [id number] / 0 / [id number] [employer] Brandon [id number] Synergy Xd Monorail 3.5mm 38mm 144cm Delivery System 1 Access - S0 - [id number] Implanted:Qty: 1 on 05/15/2021 by Gunner Pinto MD at [facility] Stent [employer] Brandon 10/25/2022 [id number] / 0 / [id number] Milmay Peripheral Vascular [id number]-[id number] Safe Performaxx 7mm 6fr 60mm 80cm Delivery System - [id number] Implanted:Qty: 1 on 07/15/2021 by Leodan Anthony MD at [facility] Peripheral Vascular 07/13/2023 [id number] / / [id number] [employer] [id number] Wilton 6mm 80cm 60cm Removable Ring Stretch Thin Wall Graft - [id number] - [id number] Implanted:Qty: 1 on 08/21/2021 by Leodan Anthony MD at [facility] Wl [employer] [id number] 12/02/2024 [id number] / [id number] / Cream.HR Brandon [id number] Vascu-Guard 8x.8cm Peripheral Patch Vascular Bovine Pericardium - [id number] Implanted:Qty: 1 on 08/21/2021 by Leodan Anthony MD at [facility] Cream.HR Brandon [id number] 04/17/2026 [id number] / / [id number] Hinson Vascular System Closure Repair Femoral Artery Suture Mediated Perclose Prostyle [id number] - [id number] Implanted:Qty: 1 on 12/29/2024 by Leodan Anthony MD at [facility] [employer] 11/07/2026 [id number] / / [id number] Procedures Procedure Name Priority Date/Time Associated Diagnosis Comments US MARIA ESTHER Schedule Routine, Read Routine (OP Routine) 01/26/2025 2:22 PM CDT Atherosclerosis of jena arteries of extremities with intermittent claudication, right leg US ARTERIAL DUPLEX LOWER EXTREMITY RIGHT LIMITED Schedule Routine, Read Routine (OP Routine) 01/26/2025 2:21 PM CDT Atherosclerosis of jena arteries of extremities with intermittent claudication, right [...] 11:09 AM CDT Acute lower limb ischemia LICENSED EMBALMER TIB-PER UNILATERAL, FIRST VESSEL Routine 12/29/2024 11:09 AM CDT Acute lower limb ischemia REVENDVAS FEMPOP UN WPTA 82772 Routine 12/29/2024 11:09 AM CDT Acute lower limb ischemia ANGIOGRAPHY UNILATERAL EXTREMITY S&I 77443 Routine 12/29/2024 11:09 AM CDT Acute lower [...] limb ischemia POCT GLUCOSE DEVICE Routine 12/28/2024 7:50 PM CDT POCT GLUCOSE DEVICE Routine 12/28/2024 [...] 12/28/2024 12:34 PM CDT THROMBOLYTIC ART THERAPY 38924 Routine 12/28/2024 10:27 AM CDT Ischemia of right lower extremity GERRY PERC THROM NONCR INI 19757 Routine 12/28/2024 10:27 AM CDT Ischemia of right lower extremity ANGIOGRAPHY UNILATERAL EXTREMITY S&I 65053 Routine 12/28/2024 10:27 AM CDT Ischemia of [...] ILIOFEMORAL RUNOFF ED 12/27/2024 11:39 AM CDT SD CRITICAL CARE ILL/INJURED PATIENT INIT 30-74 MIN [...] Study Date: 01/26/2025 1:32:00 PM Gender: M Switch Operators Supervisor: Cristela Colon RVS Ref Provider: LEODAN ANTHONY Quality: Adequate Order Provider: LEODAN ANTHONY PROCEDURES: Arterial Report: Ankle - Brachial Index Doppler exam. INDICATIONS: I70.211 Atherosclerosis of jena arteries of extremities with intermittent claudication, right leg. HISTORY: S/P DCBA RT CHIEF OPERATOR HYDROFORMER, PFA AND PROX ANAST, BA RT AT 12/29/24 S/P THROMB RT PFA-TPT BYPAS 12/28/24 S/P ENDART RT CHIEF OPERATOR HYDROFORMER, RT PFA-TPT BYPASS 08/21/21 S/P BA/STENT RT EIA 07/15/21. MEASUREMENTS: Right Value Left Value Rt Brachial Pressure 141 mmHg Lt Brachial Pressure 148 mmHg Rt LICENSED EMBALMER Pressure 121 mmHg Lt LICENSED EMBALMER Pressure 85 mmHg Rt DPA Pressure 123 [...] Study Date: 01/26/2025 1:32:00 PM Gender: M Switch Operators Supervisor: Cristela Colon RVS Ref Provider: LEODAN ANTHONY Quality: Adequate Order Provider: LEODAN ANTHONY PROCEDURES: Arterial Report: Ankle - Brachial Index Doppler exam. INDICATIONS: I70.211 Atherosclerosis of jena arteries of extremities withintermittent claudication, right leg. HISTORY: S/P DCBA RT CHIEF OPERATOR HYDROFORMER, PFA AND PROX ANAST, BA RT AT 12/29/24 S/P THROMB RT PFA-TPT BYPAS 12/28/24 S/P ENDART RT CHIEF OPERATOR HYDROFORMER, RT PFA-TPT BYPASS 08/21/21 S/P BA/STENT RT EIA 07/15/21. MEASUREMENTS: Right Value Left Value Rt Brachial Pressure 141 mmHg Lt Brachial Pressure 148 mmHg Rt LICENSED EMBALMER Pressure 121 mmHg Lt LICENSED EMBALMER Pressure 85 mmHg Rt DPA Pressure 123 [...] 11:01:20 AM CDT us Leodan Anthony MD IMG [...] Date: 01/26/2025 01:29:00 PM Ht(Inch): Wt(Lb): BSA: Switch Operators Supervisor: Cristela Colon Provider: LEODAN ANTHONY Quality: Adequate Ref Provider: LEODAN ANTHONY PROCEDURES: Arterial Report: A non-invasive vascular imaging study of the right lower extremity arteries was performed using B-mode ultrasound, color flow, and spectral Doppler. A non-invasive vascular imaging study of the right lower extremity arteries and bypass graft was performed using B-mode ultrasound, color flow, and spectral Doppler. INDICATIONS: I70.211 Atherosclerosis of jena arteries of extremities with intermittent claudication, right leg. HISTORY: S/P DCBA RT CHIEF OPERATOR HYDROFORMER, PFA AND PROX ANAST 12/29/24 S/P THROMB RT PFA-TPT BYPASS 12/28/24 S/P ENDART RT CHIEF OPERATOR HYDROFORMER, RT PFA-TPT BYPASS 08/21/21 S/P BA/STENT RT EIA 07/15/21. MEASUREMENTS: Right Value Rt CHIEF OPERATOR HYDROFORMER Prx PSV 79.40 cm/sec Rt Profunda Prx [...] Date: 01/26/2025 01:29:00 PM Ht(Inch): Wt(Lb): BSA: Switch Operators Supervisor: Cristela Colon Provider: LEODAN ANTHONY Quality: Adequate Ref Provider: LEODAN ANTHONY PROCEDURES: Arterial Report: A non-invasive vascular imaging study of the right lowerextremity arteries was performed using B-mode ultrasound, color flow, and spectralDoppler. A non-invasive vascular imaging study of the right lower extremity arteriesand bypass graft was performed using B-mode ultrasound, color flow, and spectralDoppler. INDICATIONS: I70.211 Atherosclerosis of jena arteries of extremities withintermittent claudication, right leg. HISTORY: S/P DCBA RT CHIEF OPERATOR HYDROFORMER, PFA AND PROX ANAST 12/29/24 S/P THROMB RT PFA-TPT BYPASS 12/28/24 S/P ENDART RT CHIEF OPERATOR HYDROFORMER, RT PFA-TPT BYPASS 08/21/21 S/P BA/STENT RT EIA 07/15/21. MEASUREMENTS: Right Value Rt CHIEF OPERATOR HYDROFORMER Prx PSV 79.40 cm/sec Rt Profunda Prx [...] * POCT glucose (01/01/2025 7:37 AM CDT) [facility] Glucose, POC 138 70 - 199 mg/dL Glucose comment 1 RN/MD Notified JOHANNE Blood 01/01/2025 7:37 AM CDT 01/01/2025 7:37 AM CDT us Oscar Le MD LAB POCT ORDERABLES - DEVICE Final Result Performing Organization Address [facility] Co de Phone Number JOHANNE [address] [place] [address] * eGFR (01/01/2025 4:59 AM CDT) Pathologist [facility] eGFR 90 >=60 mL/min/1. 73 m2 Comment: [...] ORDERABLES Final Res ult Performing Organization Address City/[facility]/ZIP Co de Phone Number JOHANNE [address] Department [place] [address] * (ABNORMAL) Differential, auto (01/01/2025 4:59 AM CDT) Pathologist [facility] Neutrophil abs 8.39(H) 1.50 - 6.50 K/cumm Imm gran abs 0.06 0.00 - 0.10 K/cumm [facility] Lymphocyte abs 1.23 0.80 - 3.30 K/cumm [facility] Monocyte abs 0.88(H) 0.20 - 0.80 K/cumm [facility] Eosinophil abs 0.20 0.00 - 0.50 K/cumm [facility] Basophil abs 0.06 0.00 - 0.10 K/cumm [facility] Neutrophil pct 77.5 % [facility] Comment: Interpretive Data Percent cell count reference ranges are not reported, since discordance with absolute values may lead to misinterpretation of CBC data. Current Interpretive Data was last revised on 2017. Imm gran pct 0.6 % [facility] Comment: Interpretive Data Percent cell count reference ranges are not reported, since discordance with absolute values may lead to misinterpretation of CBC data. Current Interpretive Data was last revised on 2017. Lymphocyte pct 11.4 % [facility] Comment: Interpretive Data Percent cell count reference ranges are not reported, since discordance with absolute values may lead to misinterpretation of CBC data. Current Interpretive Data was last revised on 2017. Monocyte pct 8.1 % [facility] Comment: Interpretive Data Percent cell count reference ranges are not reported, since discordance with absolute values may lead to misinterpretation of CBC data. Current Interpretive Data was last revised on 2017. Eosinophil pct 1.8 % [facility] Comment: Interpretive Data Percent cell count reference ranges are not reported, since discordance with absolute values may lead to misinterpretation of CBC data. Current Interpretive Data was last revised on 2017. Basophil pct 0.6 % [facility] Comment: Interpretive Data Percent cell count reference ranges are not reported, since discordance with absolute values may lead to misinterpretation of CBC data. Current Interpretive Data was last revised on 2017. Blood 01/01/2025 4:59 AM CDT 01/01/2025 5:40 AM CDT us Leon Escobar NP LAB BLOOD ORDERABLES Final Res ult JOHANNE [place] [address] [facility] Department [place] [address] * (ABNORMAL) CBC with auto differential (01/01/2025 4:59 AM CDT) WBC 10.82(H) 3.80 - 9.90 K/cumm Hgb 9.0(L) 13.0 - 17.5 g/dL [facility] Hct 25.9(L) 38.9 - 50.3 % [facility] Plt 163 150 - 400 K/cumm [facility] MPV 10.6 9.1 - 12.3 fL [facility] RBC 2.91(L) 4.30 - 5.80 M/cumm [facility] MCV 89.0 81.3 - 96.4 fL [facility] MCH 30.9 27.1 - 33.3 pg [facility] MCHC 34.7 32.3 - 35.7 g/dL [facility] RDW CV 13.8 11.1 - 14.9 % [facility] RDW SD 44.7 35.7 - 48.1 fL [facility] NRBC abs 0.00 0.00 - 0.01 K/cumm [facility] Blood Venous blood specimen / Unknown 01/01/2025 4:59 AM CDT 01/01/2025 5:40 AM CDT us Leon Escobar NP LAB BLOOD ORDERABLES Final Res ult [facility] [address] [facility] Department [place] [address] * (ABNORMAL) Basic metabolic panel (01/01/2025 4:59 AM CDT) [facility] Sodium 135 135 - 145 mmol/L Potassium, pl 3.5 3.3 - 4.9 mmol/L [facility] Chloride 102 97 - 110 mmol/L [facility] CO2 24 22 - 32 mmol/L [facility] Anion gap 9 2 - 15 mmol/L [facility] BUN 16 6 - 25 mg/dL [facility] Creatinine 0.79(L) 0.80 - 1.30 mg/dL [facility] Glucose 128 70 - 199 mg/dL [facility] Comment: Interpretive Data Fasting glucose >/= [...] 2022. Calcium 8.1(L) 8.5 - 10.3 mg/dL [facility] Blood 01/01/2025 4:59 AM CDT 01/01/2025 5:39 AM CDT Leon Escobar NP LAB BLOOD ORDERABLES Final Res ult Performing Organization Address [facility] Co de Phone Number [address] [place] [address] * POCT glucose (01/01/2025 3:44 AM CDT) Glucose, POC 170 70 - 199 mg/dL Blood 01/01/2025 3:44 AM CDT 01/01/2025 3:44 AM CDT Oscar Le MD LAB POCT ORDERABLES - DEVICE Final Result Performing Organization Address [facility] de Phone Number [address] [place] [address] * POCT glucose (12/31/2024 11:44 PM CDT) Glucose, POC 127 70 - 199 mg/dL Blood 12/31/2024 11:4 4 PM CDT 12/31/2024 11:44 PM CDT Oscar Le MD LAB POCT ORDERABLES - DEVICE Final Result Performing Organization Address [facility] Co de Phone Number [address] [place] [address] * (ABNORMAL) POCT glucose (12/31/2024 7:40 PM CDT) Glucose, POC 211(H) 70 - 199 mg/dL Glucose comment 1 RN/MD Notified [facility] Blood 12/31/2024 7:40 PM CDT 12/31/2024 7:40 PM CDT Oscar Le MD LAB POCT ORDERABLES - DEVICE Final Result Performing Organization Address City/[facility]/ZIP Co de Phone Number [address] [place] [address] * POCT glucose (12/31/2024 4:25 PM CDT) Glucose, POC 185 70 - 199 mg/dL Glucose comment 1 RN/MD Notified [facility] Blood 12/31/2024 4:25 PM CDT 12/31/2024 4:25 PM CDT Oscar Le MD LAB POCT ORDERABLES - DEVICE Final Result Performing Organization Address [facility] Co de Phone Number [address] [place] [address] * (ABNORMAL) Hemoglobin and hematocrit (12/31/2024 3:02 PM CDT) [facility] Hgb 8.6(L) 13.0 - 17.5 g/dL Hct 24.9(L) 38.9 - 50.3 % [facility] Blood 12/31/2024 3:02 PM CDT 12/31/2024 3:07 PM CDT Oscar Le MD LAB BLOOD ORDERABLES Final Result Performing Organization Address City/[facility] Co de Phone Number [address] [place] [address] * Transfuse RBC (12/31/2024 2:08 PM CDT) Blood Oscar Le MD BLOOD TRANSFUSION ORD ERABLES Final Result Performing Organization Address City/[facility]/ZIP Co de Phone Number JOHANNE [address] [place] [address] * POCT glucose (12/31/2024 11:16 AM CDT) Glucose, POC 197 70 - 199 mg/dL Blood 12/31/2024 11:1 6 AM CDT 12/31/2024 11:16 AM CDT Oscar Le MD LAB POCT ORDERABLES - DEVICE Final Result Performing Organization Address [facility] Co de Phone Number [address]RI[address] [address] * Prepare RBC: 1 Units (12/31/2024 9:27 AM CDT) Units requested 1 Units requested Ready [facility] Unit Number [id number] Product code [id number] [facility] Blood Expiration Date [facility] Product Blood Type (for scanning) 7300 [facility] Product Blood Type BPOS [facility] Dispense Status DISPENSED [facility] Blood 12/31/2024 9:27 AM CDT 12/31/2024 9:27 AM CDT Oscar Le MD BLOOD BANK PRODUCT OR DERABLES Final Result Performing Organization Address [facility]/ZIP Co de Phone Number BRIAN[address] [place] [address] * ABO/Rh (12/31/2024 8:27 AM CDT) ABO/Rh B Positive Blood 12/31/2024 8:27 AM CDT 12/31/2024 8:50 AM CDT Narrative JOHANNE - 12/31/2024 9:27 AM CDT Has the patient had Daratumumab or Isatuximab in the past 6 months?->Unknown Oscar Le MD LAB BLOOD BANK TEST O RDERABLES Final Result Performing Organization Address City/[facility]/ZIP Co de Phone Number [address] [place] [address] * Crossmatch (12/31/2024 8:27 AM CDT) Pathologist [facility] Crossmatch Compatible [facility] Unit number for crossmatch [id number] [facility] Blood 12/31/2024 8:27 AM CDT 12/31/2024 8:50 AM CDT Oscar Le MD LAB BLOOD BANK TEST O RDERABLES Final Result Performing Organization Address [facility] Co de Phone Number [address] [place] [address] * Antibody screen (12/31/2024 8:27 AM CDT) Pathologist [facility] [place], indirect, Gel Interpretation Negative ABSC Blood 12/31/2024 8:27 AM CDT 12/31/2024 8:50 AM CDT Narrative [facility] - 12/31/2024 9:27 AM CDT Has the patient had Daratumumab or Isatuximab in the past 6 months?->Unknown Oscar Le MD LAB BLOOD BANK TEST O RDERABLES Final Result Performing Organization Address City/[facility] Co de Phone Number [address] [place] [address] * POCT glucose (12/31/2024 8:07 AM CDT) Glucose, POC 157 70 - 199 mg/dL Glucose comment 1 RN/MD Notified [facility] Blood 12/31/2024 8:07 AM CDT 12/31/2024 8:07 AM CDT Oscar Le MD LAB POCT ORDERABLES - DEVICE Final Result Performing Organization Address [facility] Co de Phone Number JOHANNE [address] [place] [address] * eGFR (12/31/2024 6:47 AM CDT) eGFR [...] 12/31/2024 6:53 AM CDT us Leon Escobar NP LAB BLOOD ORDERABLES Final Res ult Performing Organization Address City/[facility]/ZIP Co de Phone Number BRIAN[address] [place] [employer] [address] * (ABNORMAL) Differential, auto (12/31/2024 6:47 AM CDT) Pathologist [facility] Neutrophil abs 9.56(H) 1.50 - 6.50 K/cumm Imm gran abs 0.07 0.00 - 0.10 K/cumm [facility] Lymphocyte abs 1.15 0.80 - 3.30 K/cumm [facility] Monocyte abs 0.85(H) 0.20 - 0.80 K/cumm [facility] Eosinophil abs 0.07 0.00 - 0.50 K/cumm [facility] Basophil abs 0.05 0.00 - 0.10 K/cumm [facility] Neutrophil pct 81.4 % [facility] Comment: Interpretive Data Percent cell count reference ranges are not reported, since discordance with absolute values may lead to misinterpretation of CBC data. Current Interpretive Data was last revised on 2017. Imm gran pct 0.6 % [facility] Comment: Interpretive Data Percent cell count reference ranges are not reported, since discordance with absolute values may lead to misinterpretation of CBC data. Current Interpretive Data was last revised on 2017. Lymphocyte pct 9.8 % [facility] Comment: Interpretive Data Percent cell count reference ranges are not reported, since discordance with absolute values may lead to misinterpretation of CBC data. Current Interpretive Data was last revised on 2017. Monocyte pct 7.2 % [facility] Comment: Interpretive Data Percent cell count reference ranges are not reported, since discordance with absolute values may lead to misinterpretation of CBC data. Current Interpretive Data was last revised on 2017. Eosinophil pct 0.6 % [facility] Comment: Interpretive Data Percent cell count reference ranges are not reported, since discordance with absolute values may lead to misinterpretation of CBC data. Current Interpretive Data was last revised on 2017. Basophil pct 0.4 % [facility] Comment: Interpretive Data Percent cell count reference ranges are not reported, since discordance with absolute values may lead to misinterpretation of CBC data. Current Interpretive Data was last revised on 2017. Blood 12/31/2024 6:47 AM CDT 12/31/2024 6:53 AM CDT us Leon Escobar NP LAB BLOOD ORDERABLES Final Res ult JOHANNE [address] [facility] Department [place] [address] * (ABNORMAL) CBC with auto differential (12/31/2024 6:47 AM CDT) [facility] WBC 11.75(H) 3.80 - 9.90 K/cumm Hgb 6.9(L) 13.0 - 17.5 g/dL [facility] Hct 20.0(L) 38.9 - 50.3 % [facility] Plt 142(L) 150 - 400 K/cumm [facility] MPV 10.5 9.1 - 12.3 fL [facility] RBC 2.20(L) 4.30 - 5.80 M/cumm [facility] MCV 90.9 81.3 - 96.4 fL [facility] MCH 31.4 27.1 - 33.3 pg [facility] MCHC 34.5 32.3 - 35.7 g/dL [facility] RDW CV 13.2 11.1 - 14.9 % [facility] RDW SD 43.7 35.7 - 48.1 fL [facility] NRBC abs 0.00 0.00 - 0.01 K/cumm [facility] Blood 12/31/2024 6:47 AM CDT 12/31/2024 6:53 AM CDT Leon Escobar [employer] LAB BLOOD ORDERABLES Final Res ult Performing Organization Address City/[facility] Co de Phone Number [address] [place] [address] * (ABNORMAL) Phosphorus (12/31/2024 6:47 AM CDT) [facility] Phosphorus, pl 2.2(L) 2.3 - 4.5 mg/dL Blood Venous blood specimen / Unknown 12/31/2024 6:47 AM CDT 12/31/2024 6:53 AM CDT Leon Escobar [employer] LAB BLOOD ORDERABLES Final Res ult [address] [place] [address] * (ABNORMAL) Basic metabolic panel (12/31/2024 6:47 AM CDT) Sodium 134(L) 135 - 145 mmol/L Potassium, pl 4.0 3.3 - 4.9 mmol/L [facility] Chloride 100 97 - 110 mmol/L [facility] CO2 24 22 - 32 mmol/L [facility] Anion gap 10 2 - 15 mmol/L [facility] BUN 22 6 - 25 mg/dL [facility] Creatinine 0.92 0.80 - 1.30 mg/dL [facility] Glucose 156 70 - 199 mg/dL [facility] Comment: Interpretive Data Fasting glucose >/= [...] 2022. Calcium 8.1(L) 8.5 - 10.3 mg/dL [facility] Blood 12/31/2024 6:47 AM CDT 12/31/2024 6:53 AM CDT us Leon Escobar NP LAB BLOOD ORDERABLES Final Res ult Performing Organization Address City/State/[facility] Co de Phone Number [facility] [address] [facility] Department [place] [address] * POCT glucose (12/31/2024 3:11 AM CDT) Glucose, POC 181 70 - 199 mg/dL Glucose comment 1 RN/MD Notified [facility] Blood 12/31/2024 3:11 AM CDT 12/31/2024 3:11 AM CDT us Oscar Le MD LAB POCT ORDERABLES - DEVICE Final Result JOHANNE [address] [place] [employer] [address] * POCT glucose (12/30/2024 10:38 PM CDT) Glucose, POC 188 70 - 199 mg/dL Blood 12/30/2024 10:3 8 PM CDT 12/30/2024 10:38 PM CDT Oscar Le MD LAB POCT ORDERABLES - DEVICE Final Result Performing Organization Address City/[facility]/ZIP Co de Phone Number JOHANNE [address] [place] [employer] [address] * POCT glucose (12/30/2024 8:11 PM CDT) Glucose, POC 172 70 - 199 mg/dL Glucose comment 1 Use This Result [facility] Blood 12/30/2024 8:11 PM CDT 12/30/2024 8:11 PM CDT Oscar Le MD LAB POCT ORDERABLES - DEVICE Final Result Performing Organization Address City/[facility]/ZIP Co de Phone Number BRI[address] [place] [employer] [address] * POCT glucose (12/30/2024 4:52 PM CDT) Glucose, POC 180 70 - 199 mg/dL Blood 12/30/2024 4:52 PM CDT 12/30/2024 4:52 PM CDT Alejandro Genao MD LAB POCT ORDERABLES - DE VICE Final Result Performing Organization Address City/[facility]/ZIP Co de Phone Number BRIAN[address] [place] [employer] [address] * eGFR (12/30/2024 2:25 PM CDT) eGFR 78 >=60 mL/min/1. 73 m2 Comment: [...] LAB BLOOD ORDERABLES Final Res ult JOHANNE [address] [facility] Department [place] [address] * (ABNORMAL) Protime-INR (12/30/2024 2:25 PM CDT) PT 15.1(H) 12.0 - 14.6 sec Comment:Ref Range High INR 1.2 0.9 - 1.2 [facility] [place] Comment: Ref Range High Interpretive data Oral anticoagulant therapeutic ranges: Venous thromboembolism prophylaxis or treatment: 2.0-3.0 CARDIOLOGY Standard range: 2.0-3.0 High-intensity range: 2.5-3.5 Refer to indication-specific guidelines for appropriate target ranges for prosthetic heart valve replacement. Current interpretive data was last revised on 2019. Blood 12/30/2024 2:25 PM CDT 12/30/2024 2:32 PM CDT Narrative [facility] - 12/30/2024 3:02 PM CDT Baseline prior to apixaban initiation. Leon Escobar NP LAB BLOOD ORDERABLES Final Res ult Performing Organization Address [facility]/[place]UST de Phone Number JOHANNE [address] [place] [employer] [address] * (ABNORMAL) CBC without differential (12/30/2024 2:25 PM CDT) WBC 12.06(H) 3.80 - 9.90 K/cumm Hgb 7.4(L) 13.0 - 17.5 g/dL [facility] Hct 21.6(L) 38.9 - 50.3 % [facility] Plt 140(L) 150 - 400 K/cumm [facility] MPV 10.3 9.1 - 12.3 fL [facility] RBC 2.39(L) 4.30 - 5.80 M/cumm [facility] MCV 90.4 81.3 - 96.4 fL [facility] MCH 31.0 27.1 - 33.3 pg [facility] MCHC 34.3 32.3 - 35.7 g/dL [facility] RDW CV 13.2 11.1 - 14.9 % [facility] RDW SD 43.6 35.7 - 48.1 fL [facility] NRBC abs 0.00 0.00 - 0.01 K/cumm [facility] Blood 12/30/2024 2:25 PM CDT 12/30/2024 2:32 PM CDT Narrative [facility] - 12/30/2024 2:47 PM CDT Baseline prior to apixaban initiation. Leon Escobar NP LAB BLOOD ORDERABLES Final Res ult Performing Organization Address [facility] Co de Phone Number JOHANNE [address] [place] [employer] [address] * Creatinine (12/30/2024 2:25 PM CDT) Creatinine 0.98 0.80 - 1.30 mg/dL Blood 12/30/2024 2:25 PM CDT 12/30/2024 2:33 PM CDT N[facility]ative [facility] - 12/30/2024 2:49 PM CDT Baseline prior to apixaban initiation. Leon Escobar [employer] LAB BLOOD ORDERABLES Final Res ult Performing Organization Address [facility] Co de Phone Number [address] [place] [employer] [address] * (ABNORMAL) Hepatic function panel (12/30/2024 2:25 PM CDT) Bilirubin, total 0.3 0.1 - 1.2 mg/dL Bilirubin, direct 0.2 0.1 - 0.3 mg/dL [facility] Protein, pl 4.9(L) 6.5 - 8.5 g/dL [facility] Albumin 3.0(L) 3.5 - 5.0 g/dL [facility] Alk phos 59 40 - 130 Units/L [facility] ALT 9 7 - 55 Units/L [facility] AST 21 10 - 50 Units/L [facility] Blood 12/30/2024 2:25 PM CDT 12/30/2024 2:33 PM CDT Narrative [facility] - 12/30/2024 2:49 PM CDT Baseline prior to apixaban initiation. Leon Escobar [employer] LAB BLOOD ORDERABLES Final Res ult Performing Organization Address [facility] Co de Phone Number [address] [place] [address] * (ABNORMAL) Hemoglobin and hematocrit (12/30/2024 1:26 PM CDT) Hgb 7.5(L) 13.0 - 17.5 g/dL Hct 22.0(L) 38.9 - 50.3 % [facility] Blood 12/30/2024 1:26 PM CDT 12/30/2024 1:31 PM CDT Alejandro Genao MD LAB BLOOD ORDERABLES Fin al Result Performing Organization Address City/[facility]/ZIP Co de Phone Number JOHANNE [address] [place] [employer] [address] * (ABNORMAL) POCT glucose (12/30/2024 11:29 AM CDT) Glucose, POC 212(H) 70 - 199 mg/dL Blood 12/30/2024 11:2 9 AM CDT 12/30/2024 11:29 AM CDT Alejandro Genao MD LAB POCT ORDERABLES - DE VICE Final Result Performing Organization Address [facility] Phone Number JOHANNE [address] [address] * Heparin anti factor Xa activity (12/30/2024 10:43 AM CDT) Anti Factor Xa 0.12 IUnits/mL Comment: Ref [...] AM CDT 12/30/2024 11:09 AM CDT Margy Shinalexa Valerio DO LAB BLOOD ORDERABLES Beryl l Result Performing Organization Address City/[facility] Co de Phone Number [place] [id number] [place] [address] * POCT glucose (12/30/2024 8:08 AM CDT) Glucose, POC 129 70 - 199 mg/dL Blood 12/30/2024 8:08 AM CDT 12/30/2024 8:08 AM CDT Alejandro Genao MD LAB POCT ORDERABLES - DE VICE Final Result Performing Organization Address [facility] Phone Number [place] [id number] [place] [address] * Critical Care (12/30/2024 7:56 AM CDT) Narrative Alejandro Genao MD - 12/30/2024 7:56 AM CDT Alejandro Genao MD 12/30/2024 1:57 PM Critical Care Performed by: Leon Escobar NP Authorized by: Leon Escobar NP CRITICAL CARE: Team: [facility] Shift: AM Level of Billing: Subsequent Hospital [...] plan with the patient's team and other medical/research consultant staff. This time was in addition to and separate from care provided by other practitioners on this day of service. us Leon Escobar [employer] IN CLINIC/BEDSIDE ORDERABLES F inal Result * (ABNORMAL) Hemoglobin and hematocrit (12/30/2024 6:46 AM CDT) Hgb 7.6(L) 13.0 - 17.5 g/dL Hct 22.4(L) 38.9 - 50.3 % [facility] Blood 12/30/2024 6:46 AM CDT 12/30/2024 6:48 AM CDT Margy Hutton Teodoro DO LAB BLOOD ORDERABLES Beryl l Result Performing Organization Address City/[facility]/ZIP Co de Phone Number BRIAN[address] [place] [address] * eGFR (12/30/2024 4:28 AM CDT) eGFR [...] AM CDT 12/30/2024 4:42 AM CDT Margy Shinalexa Valerio DO LAB BLOOD ORDERABLES Beryl l Result [address] [place] [address] * (ABNORMAL) Differential, auto (12/30/2024 4:28 AM CDT) Neutrophil abs 9.98(H) 1.50 - 6.50 K/cumm Imm gran abs 0.07 0.00 - 0.10 K/cumm [facility] Lymphocyte abs 1.52 0.80 - 3.30 K/cumm [facility] Monocyte abs 1.11(H) 0.20 - 0.80 K/cumm [facility] Eosinophil abs 0.09 0.00 - 0.50 K/cumm [facility] Basophil abs 0.06 0.00 - 0.10 K/cumm [facility] Neutrophil pct 77.8 % [facility] Comment: Interpretive Data Percent cell count reference ranges are not reported, since discordance with absolute values may lead to misinterpretation of CBC data. Current Interpretive Data was last revised on 2017. Imm gran pct 0.5 % [facility] Comment: Interpretive Data Percent cell count reference ranges are not reported, since discordance with absolute values may lead to misinterpretation of CBC data. Current Interpretive Data was last revised on 2017. Lymphocyte pct 11.8 % [facility] Comment: Interpretive Data Percent cell count reference ranges are not reported, since discordance with absolute values may lead to misinterpretation of CBC data. Current Interpretive Data was last revised on 2017. Monocyte pct 8.7 % [facility] Comment: Interpretive Data Percent cell count reference ranges are not reported, since discordance with absolute values may lead to misinterpretation of CBC data. Current Interpretive Data was last revised on 2017. Eosinophil pct 0.7 % [facility] Comment: Interpretive Data Percent cell count reference ranges are not reported, since discordance with absolute values may lead to misinterpretation of CBC data. Current Interpretive Data was last revised on 2017. Basophil pct 0.5 % [facility] Comment: Interpretive Data Percent cell count reference ranges are not reported, since discordance with absolute values may lead to misinterpretation of CBC data. Current Interpretive Data was last revised on 2017. Blood 12/30/2024 4:28 AM CDT 12/30/2024 4:42 AM CDT us Margy Hutton Link DO LAB BLOOD ORDERABLES Beryl l Result JOHANNE [address] [facility] Department [place] [address] * Heparin anti factor Xa activity (12/30/2024 4:28 AM CDT) [facility] Anti Factor Xa 0.36 IUnits/mL Comment: Interpretive [...] AM CDT 12/30/2024 4:42 AM CDT Margy Valerio DO LAB BLOOD ORDERABLES Beryl l Result [facility] [address] [facility] Department [place] [address] * (ABNORMAL) CBC with auto differential (12/30/2024 4:28 AM CDT) [facility] WBC 12.83(H) 3.80 - 9.90 K/cumm Hgb 7.9(L) 13.0 - 17.5 g/dL [facility] Hct 23.2(L) 38.9 - 50.3 % [facility] Plt 153 150 - 400 K/cumm [facility] MPV 10.4 9.1 - 12.3 fL [facility] RBC 2.55(L) 4.30 - 5.80 M/cumm [facility] MCV 91.0 81.3 - 96.4 fL [facility] MCH 31.0 27.1 - 33.3 pg [facility] MCHC 34.1 32.3 - 35.7 g/dL [facility] RDW CV 13.2 11.1 - 14.9 % [facility] RDW SD 43.8 35.7 - 48.1 fL [facility] NRBC abs 0.00 0.00 - 0.01 K/cumm [facility] Blood Venous blood specimen / Unknown 12/30/2024 4:28 AM CDT 12/30/2024 4:42 AM CDT Leon Escobar [employer] LAB BLOOD ORDERABLES Final Res ult [address] [place] [address] * Phosphorus (12/30/2024 4:28 AM CDT) Phosphorus, pl 3.0 2.3 - 4.5 mg/dL Blood Venous blood specimen / Unknown 12/30/2024 4:28 AM CDT 12/30/2024 4:42 AM CDT Leon Escobar [employer] LAB BLOOD ORDERABLES Final Res ult [address] [place] [address] * Magnesium (12/30/2024 4:28 AM CDT) Magnesium 2.1 1.4 - 2.5 mg/dL Blood Venous blood specimen / Unknown 12/30/2024 4:28 AM CDT 12/30/2024 4:42 AM CDT Leon Escobar [employer] LAB BLOOD ORDERABLES Final Res ult Performing Organization Address [facility]/ZIP Co de Phone Number JOHANNE [address] [place] [employer] [address] * (ABNORMAL) Basic metabolic panel (12/30/2024 4:28 AM CDT) Sodium 133(L) 135 - 145 mmol/L Potassium, pl 4.1 3.3 - 4.9 mmol/L [facility] Chloride 102 97 - 110 mmol/L [facility] CO2 20(L) 22 - 32 mmol/L [facility] Anion gap 11 2 - 15 mmol/L [facility] BUN 34(H) 6 - 25 mg/dL [facility] Creatinine 1.20 0.80 - 1.30 mg/dL [facility] Glucose 139 70 - 199 mg/dL [facility] Comment: Interpretive Data Fasting glucose >/= [...] 2022. Calcium 7.8(L) 8.5 - 10.3 mg/dL [facility] Blood 12/30/2024 4:28 AM CDT 12/30/2024 4:42 AM CDT Leon Escobar NP LAB BLOOD ORDERABLES Final Res ult Performing Organization Address City/[facility]/ZIP Co de Phone Number BRIAN[address] [place] [address] * POCT glucose (12/30/2024 3:36 AM CDT) Glucose, POC 158 70 - 199 mg/dL Glucose comment 1 Use This Result [facility] Blood 12/30/2024 3:36 AM CDT 12/30/2024 3:36 AM CDT Alejandro Genao MD LAB POCT ORDERABLES - DE VICE Final Result Performing Organization Address [facility] Co de Phone Number JOHANNE [address] [place] [address] * POCT glucose (12/30/2024 12:15 AM CDT) Glucose, POC 169 70 - 199 mg/dL Glucose comment 1 Use This Result JOHANNE Blood 12/30/2024 12:1 5 AM CDT 12/30/2024 12:15 AM CDT Alejandro Genao MD LAB POCT ORDERABLES - DE VICE Final Result Performing Organization Address [facility] Phone Number BRIAN[address] [place] [address] * (ABNORMAL) POCT glucose (12/29/2024 8:40 PM CDT) Glucose, POC 208(H) 70 - 199 mg/dL Glucose comment 1 Use This Result JOHANNE Blood 12/29/2024 8:40 PM CDT 12/29/2024 8:40 PM CDT Alejandro Genao MD LAB POCT ORDERABLES - DE VICE Final Result Performing Organization Address [facility] Co wi Phone Number [address] [place] [address] * Heparin anti factor Xa activity (12/29/2024 [...] 7:25 PM CDT 12/29/2024 7:29 PM CDT Leodan Anthony MD LAB BLOOD ORDERABLES Final Result Performing Organization Address [facility]/ZIP Co de Phone Number BRIAN[address] [place] [address] * POCT glucose (12/29/2024 11:33 AM CDT) [facility] Signature Glucose, POC 177 70 - 199 mg/dL Glucose comment 1 Use This Result [facility] Blood 12/29/2024 11:3 3 AM CDT 12/29/2024 11:33 AM CDT Alejandro Genao MD LAB POCT ORDERABLES - DE VICE Final Result Performing Organization Address [facility]/ZIP Co de Phone Number [address] [place] [address] * ANGIOGRAPHY UNILATERAL EXTREMITY S&I [id number], REVENDVAS FEMPOP UN WPTA [id number], LICENSED EMBALMER TIB-PER UNILATERAL, FIRST VESSEL, LYTIC FU AND DC CATH ART OR VEIN [id number] (12/29/2024 11:09 AM CDT) Anatomical Region Laterality [...] plan with the patient's team and other medical/research consultant staff. This time was in addition to and separate from care provided by other practitioners on this day of service. Nicky [place] [facility]INIC/BEDSIDE ORDERA BLES Final Result * (ABNORMAL) Differential, auto (12/29/2024 5:04 AM CDT) Pathologist [facility] Neutrophil abs 11.87(H) 1.50 - 6.50 K/cumm Imm gran abs 0.06 0.00 - 0.10 K/cumm [facility] Lymphocyte abs 1.19 0.80 - 3.30 K/cumm [facility] Monocyte abs 0.97(H) 0.20 - 0.80 K/cumm [facility] Eosinophil abs 0.01 0.00 - 0.50 K/cumm [facility] Basophil abs 0.07 0.00 - 0.10 K/cumm [facility] Neutrophil pct 83.8 % JOHANNE Comment: Interpretive Data Percent cell count reference ranges are not reported, since discordance with absolute values may lead to misinterpretation of CBC data. Current Interpretive Data was last revised on 2017. Imm gran pct 0.4 % JOHANNE Comment: Interpretive Data Percent cell count reference ranges are not reported, since discordance with absolute values may lead to misinterpretation of CBC data. Current Interpretive Data was last revised on 2017. Lymphocyte pct 8.4 % [facility] Comment: Interpretive Data Percent cell count reference ranges are not reported, since discordance with absolute values may lead to misinterpretation of CBC data. Current Interpretive Data was last revised on 2017. Monocyte pct 6.8 % [facility] Comment: Interpretive Data Percent cell count reference ranges are not reported, since discordance with absolute values may lead to misinterpretation of CBC data. Current Interpretive Data was last revised on 2017. Eosinophil pct 0.1 % [facility] Comment: Interpretive Data Percent cell count reference ranges are not reported, since discordance with absolute values may lead to misinterpretation of CBC data. Current Interpretive Data was last revised on 2017. Basophil pct 0.5 % [facility] Comment: Interpretive Data Percent cell count reference ranges are not reported, since discordance with absolute values may lead to misinterpretation of CBC data. Current Interpretive Data was last revised on 2017. Blood 12/29/2024 5:04 AM CDT 12/29/2024 5:31 AM CDT us Margy Valerio DO LAB BLOOD ORDERABLES Beryl l Result JOHANNE [address] [facility] Department [place] [address] * Heparin anti factor Xa activity (12/29/2024 5:04 AM CDT) [facility] Anti Factor Xa 0.23 IUnits/mL Comment: Ref [...] DO LAB BLOOD ORDERABLES Beryl mendenhall Result [facility] [address] [facility] Department [place] [address] * (ABNORMAL) CBC with auto differential (12/29/2024 5:04 AM CDT) WBC 14.17(H) 3.80 - 9.90 K/cumm Hgb 11.0(L) 13.0 - 17.5 g/dL [facility] Hct 31.9(L) 38.9 - 50.3 % [facility] Plt 176 150 - 400 K/cumm [facility] MPV 9.9 9.1 - 12.3 fL [facility] RBC 3.50(L) 4.30 - 5.80 M/cumm [facility] MCV 91.1 81.3 - 96.4 fL [facility] MCH 31.4 27.1 - 33.3 pg [facility] MCHC 34.5 32.3 - 35.7 g/dL [facility] RDW CV 13.2 11.1 - 14.9 % [facility] RDW SD 43.7 35.7 - 48.1 fL [facility] NRBC abs 0.00 0.00 - 0.01 K/cumm [facility] Blood Venous blood specimen / Unknown 12/29/2024 5:04 AM CDT 12/29/2024 5:31 AM CDT Leon Escobar [employer] LAB BLOOD ORDERABLES Final Res ult Performing Organization Address [facility]/ZIP Co de Phone Number JOHANNE [address] [place] [address] * (ABNORMAL) aPTT (12/29/2024 5:04 AM CDT) [...] ORDERABLES Beryl l Result Performing Organization Address [facility] Co de Phone Number JOHANNE [address] [place] [employer] [address] * POCT glucose (12/29/2024 3:37 AM CDT) Pathologist [facility] Glucose, POC 172 70 - 199 mg/dL Glucose comment 1 Use This Result JOHANNE Blood 12/29/2024 3:37 AM CDT 12/29/2024 3:37 AM CDT Alejandro Genao MD LAB POCT ORDERABLES - DE VICE Final Result Performing Organization Address [facility] Co de Phone Number JOHANNE [address] [place] [employer] [address] * eGFR (12/29/2024 3:28 AM CDT) eGFR [...] LAB BLOOD ORDERABLES Beryl mendenhall Result JOHANNE [address] [facility] Department of Laboratories [place], [place] [id number] * Heparin anti factor Xa activity (12/29/2024 3:28 AM CDT) [facility] Anti Factor Xa 0.28 IUnits/mL Comment: Ref [...] ORDERABLES Beryl l Result Performing Organization Address [facility] Co de Phone Number [address] [place] [employer] [address] * (ABNORMAL) Phosphorus (12/29/2024 3:28 AM CDT) [facility] Phosphorus, pl 5.6(H) 2.3 - 4.5 mg/dL Blood Venous blood specimen / Unknown 12/29/2024 3:28 AM CDT 12/29/2024 3:31 AM CDT Leon Escobar [employer] LAB BLOOD ORDERABLES Final Res ult Performing Organization Address [facility] Co de Phone Number [address] [place] [address] * Magnesium (12/29/2024 3:28 AM CDT) [facility] Magnesium 1.9 1.4 - 2.5 mg/dL Blood Venous blood specimen / Unknown 12/29/2024 3:28 AM CDT 12/29/2024 3:31 AM CDT Leon Escobar [employer] LAB BLOOD ORDERABLES Final Res ult Performing Organization Address [facility] Co de Phone Number [address] [address] * (ABNORMAL) Basic metabolic panel (12/29/2024 3:28 AM CDT) [facility] Sodium 136 135 - 145 mmol/L Potassium, pl 4.4 3.3 - 4.9 mmol/L [facility] Chloride 101 97 - 110 mmol/L [facility] CO2 21(L) 22 - 32 mmol/L [facility] Anion gap 14 2 - 15 mmol/L [facility] BUN 17 6 - 25 mg/dL [facility] Creatinine 0.96 0.80 - 1.30 mg/dL [facility] Glucose 166 70 - 199 mg/dL [facility] Comment: Interpretive Data Fasting glucose >/= [...] 2022. Calcium 8.6 8.5 - 10.3 mg/dL [facility] Blood 12/29/2024 3:28 AM CDT 12/29/2024 3:31 AM CDT Leon Escobar NP LAB BLOOD ORDERABLES Final Res ult [facility] [address] [facility] Department of Laboratories [place], [place] [id number] * Heparin anti factor Xa activity (12/29/2024 2:31 AM CDT) [facility] Anti Factor Xa 0.27 IUnits/mL Comment: Ref [...] AM CDT 12/29/2024 2:35 AM CDT Margy Shinalexa Valerio DO LAB BLOOD ORDERABLES Beryl l Result Performing Organization Address [facility]UST de Phone Number JOHANNE [address] Department [place] [address] * Heparin anti factor Xa activity (12/29/2024 12:04 AM CDT) [facility] Anti Factor Xa 0.25 IUnits/mL Comment: Ref [...] AM CDT 12/29/2024 12:10 AM CDT Margy Anni Valerio DO LAB BLOOD ORDERABLES Beryl l Result Performing Organization Address [facility] Co de Phone Number CERNER MH [address] [facility] [place] [address] * POCT glucose (12/28/2024 11:10 PM CDT) [facility] Glucose, POC 154 70 - 199 mg/dL Blood 12/28/2024 11:1 0 PM CDT 12/28/2024 11:10 PM CDT Alejandro Genao MD LAB POCT ORDERABLES - DE VICE Final Result JOHANNE [address] [place] [address] * (ABNORMAL) Differential, auto (12/28/2024 10:19 PM CDT) [facility] Neutrophil abs 9.67(H) 1.50 - 6.50 K/cumm Imm gran abs 0.03 0.00 - 0.10 K/cumm [facility] Lymphocyte abs 0.97 0.80 - 3.30 K/cumm [facility] Monocyte abs 0.73 0.20 - 0.80 K/cumm [facility] Eosinophil abs 0.05 0.00 - 0.50 K/cumm [facility] Basophil abs 0.07 0.00 - 0.10 K/cumm [facility] Neutrophil pct 84.0 % [facility] Comment: Interpretive Data Percent cell count reference ranges are not reported, since discordance with absolute values may lead to misinterpretation of CBC data. Current Interpretive Data was last revised on 2017. Imm gran pct 0.3 % [facility] Comment: Interpretive Data Percent cell count reference ranges are not reported, since discordance with absolute values may lead to misinterpretation of CBC data. Current Interpretive Data was last revised on 2017. Lymphocyte pct 8.4 % [facility] Comment: Interpretive Data Percent cell count reference ranges are not reported, since discordance with absolute values may lead to misinterpretation of CBC data. Current Interpretive Data was last revised on 2017. Monocyte pct 6.3 % [facility] Comment: Interpretive Data Percent cell count reference ranges are not reported, since discordance with absolute values may lead to misinterpretation of CBC data. Current Interpretive Data was last revised on 2017. Eosinophil pct 0.4 % JOHANNE Comment: Interpretive Data Percent cell count reference ranges are not reported, since discordance with absolute values may lead to misinterpretation of CBC data. Current Interpretive Data was last revised on 2017. Basophil pct 0.6 % JOHANNE Comment: Interpretive Data Percent cell count reference ranges are not reported, since discordance with absolute values may lead to misinterpretation of CBC data. Current Interpretive Data was last revised on 2017. Blood 12/28/2024 10:1 9 PM CDT 12/28/2024 10:22 PM CDT Margy Valerio DO LAB BLOOD ORDERABLES Beryl l Result [facility] [address] [facility] Department [place] [address] * Heparin anti factor Xa activity (12/28/2024 [...] ORDERABLES Beryl l Result Performing Organization Address City/[facility]/ZIP Co de Phone Number JOHANNE [address] [place] [address] * (ABNORMAL) CBC with auto differential (12/28/2024 10:19 PM CDT) [facility] WBC 11.52(H) 3.80 - 9.90 K/cumm Hgb 12.4(L) 13.0 - 17.5 g/dL [facility] Hct 36.1(L) 38.9 - 50.3 % [facility] Plt 164 150 - 400 K/cumm [facility] MPV 9.7 9.1 - 12.3 fL [facility] RBC 4.02(L) 4.30 - 5.80 M/cumm [facility] MCV 89.8 81.3 - 96.4 fL [facility] MCH 30.8 27.1 - 33.3 pg [facility] MCHC 34.3 32.3 - 35.7 g/dL [facility] RDW CV 13.2 11.1 - 14.9 % [facility] RDW SD 43.2 35.7 - 48.1 fL [facility] NRBC abs 0.00 0.00 - 0.01 K/cumm [facility] Blood 12/28/2024 10:1 9 PM CDT 12/28/2024 10:22 PM CDT Margy Valerio DO LAB BLOOD ORDERABLES Beryl l Result JOHANNE [address] [place] [address] * Critical Care (12/28/2024 9:43 PM CDT) [...] plan with the ICU team and other medical/research consultant staff, making frequent assessments and decisions regarding [...] time documenting in the medical record us Margy Valerio DO IN CLINIC/BEDSIDE ORDERAB LES Final Result * POCT glucose (12/28/2024 7:50 PM CDT) Glucose, POC 132 70 - 199 mg/dL Blood 12/28/2024 7:50 PM CDT 12/28/2024 7:50 PM CDT us Alejandro Genao MD LAB POCT ORDERABLES - DE VICE Final Result JOHANNE DARRICK [address] [facility] Department [place] [address] * POCT glucose (12/28/2024 5:05 PM CDT) Glucose, POC 118 70 - 199 mg/dL Glucose comment 1 Use This Result JOHANNE [place] Blood 12/28/2024 5:05 PM CDT 12/28/2024 5:05 PM CDT Alejandro Genao MD LAB POCT ORDERABLES - DE VICE Final Result Performing Organization Address [facility] Co de Phone Number JOHANNE [address] [place] [address] * eGFR (12/28/2024 12:47 PM CDT) Pathologist [facility] eGFR 87 >=60 mL/min/1. 73 m2 Comment: [...] ORDERABLES Fin al Result Performing Organization Address City/[facility]/ZIP Co de Phone Number [address] [place] [address] * Differential, auto (12/28/2024 12:47 PM CDT) [facility] Neutrophil abs 4.84 1.50 - 6.50 K/cumm Imm gran abs 0.04 0.00 - 0.10 K/cumm [facility] Lymphocyte abs 1.35 0.80 - 3.30 K/cumm [facility] Monocyte abs 0.40 0.20 - 0.80 K/cumm [facility] Eosinophil abs 0.20 0.00 - 0.50 K/cumm [facility] Basophil abs 0.08 0.00 - 0.10 K/cumm [facility] Neutrophil pct 70.0 % [facility] Comment: Interpretive Data Percent cell count reference ranges are not reported, since discordance with absolute values may lead to misinterpretation of CBC data. Current Interpretive Data was last revised on 2017. Imm gran pct 0.6 % [facility] Comment: Interpretive Data Percent cell count reference ranges are not reported, since discordance with absolute values may lead to misinterpretation of CBC data. Current Interpretive Data was last revised on 2017. Lymphocyte pct 19.5 % [facility] Comment: Interpretive Data Percent cell count reference ranges are not reported, since discordance with absolute values may lead to misinterpretation of CBC data. Current Interpretive Data was last revised on 2017. Monocyte pct 5.8 % [facility] Comment: Interpretive Data Percent cell count reference ranges are not reported, since discordance with absolute values may lead to misinterpretation of CBC data. Current Interpretive Data was last revised on 2017. Eosinophil pct 2.9 % [facility] Comment: Interpretive Data Percent cell count reference ranges are not reported, since discordance with absolute values may lead to misinterpretation of CBC data. Current Interpretive Data was last revised on 2017. Basophil pct 1.2 % [facility] Comment: Interpretive Data Percent cell count reference ranges are not reported, since discordance with absolute values may lead to misinterpretation of CBC data. Current Interpretive Data was last revised on 2017. Blood 12/28/2024 12:4 7 PM CDT 12/28/2024 12:50 PM CDT us Nicky [facility] LAB BLOOD ORDERABLES Fin al Result JOHANNE [address] [facility] Department [place] [address] * (ABNORMAL) CBC with auto differential (12/28/2024 12:47 PM CDT) Pathologist [facility] WBC 6.91 3.80 - 9.90 K/cumm Hgb 13.0 13.0 - 17.5 g/dL [facility] Hct 38.3(L) 38.9 - 50.3 % [facility] Plt 195 150 - 400 K/cumm [facility] MPV 9.6 9.1 - 12.3 fL [facility] RBC 4.21(L) 4.30 - 5.80 M/cumm [facility] MCV 91.0 81.3 - 96.4 fL [facility] MCH 30.9 27.1 - 33.3 pg [facility] MCHC 33.9 32.3 - 35.7 g/dL [facility] RDW CV 13.3 11.1 - 14.9 % [facility] RDW SD 44.3 35.7 - 48.1 fL [facility] NRBC abs 0.00 0.00 - 0.01 K/cumm [facility] Blood 12/28/2024 12:4 7 PM CDT 12/28/2024 12:50 PM CDT us Nicky [facility] LAB BLOOD ORDERABLES Fin al Result Performing Organization Address City/State/[facility] Co de Phone Number [place] [id number] [facility] Department [place] [address] * (ABNORMAL) Protime-INR (12/28/2024 12:47 PM CDT) Pathologist [facility] PT 14.8(H) 12.0 - 14.6 sec Comment:Ref Range High INR 1.1 0.9 - 1.2 [facility] Comment: Ref Range High Interpretive data [...] ORDERABLES Fin al Result Performing Organization Address [facility]/ZIP Co de Phone Number [address] [address] * Phosphorus (12/28/2024 12:47 PM CDT) [facility] Phosphorus, pl 3.7 2.3 - 4.5 mg/dL Blood 12/28/2024 12:4 7 PM CDT 12/28/2024 12:50 PM CDT Nicky [facility] LAB BLOOD ORDERABLES Fin al Result Performing Organization Address [facility] Co de Phone Number [address] [address] * Magnesium (12/28/2024 12:47 PM CDT) [facility] Magnesium 2.1 1.4 - 2.5 mg/dL Blood 12/28/2024 12:4 7 PM CDT 12/28/2024 12:50 PM CDT Nicky [facility] LAB BLOOD ORDERABLES Fin al Result Performing Organization Address [facility] Co de Phone Number [address] [address] * Basic metabolic panel (12/28/2024 12:47 PM CDT) [facility] Sodium 139 135 - 145 mmol/L Potassium, pl 4.0 3.3 - 4.9 mmol/L [facility] Chloride 103 97 - 110 mmol/L [facility] CO2 26 22 - 32 mmol/L [facility] Anion gap 10 2 - 15 mmol/L [facility] BUN 10 6 - 25 mg/dL [facility] Creatinine 0.90 0.80 - 1.30 mg/dL [facility] Glucose 133 70 - 199 mg/dL [facility] Comment: Interpretive Data Fasting glucose >/= [...] 2022. Calcium 8.6 8.5 - 10.3 mg/dL JOHANNE [place] Blood 12/28/2024 12:4 7 PM CDT 12/28/2024 12:50 PM CDT us Nicky [facility] LAB BLOOD ORDERABLES Fin al Result JOHANNE [address] [facility] Department [place] [address] * Critical Care (12/28/2024 12:34 PM CDT) [...] plan with the patient's team and other medical/research consultant staff. This time was in addition to and separate from care provided by other practitioners on this day of service. us Nicky [facility] IN CLINIC/BEDSIDE ORDERA BLES Final Result * ANGIOGRAPHY UNILATERAL EXTREMITY S&I [id number], GERRY PERC THROM NONCR INI [id number], THROMBOLYTIC ART THERAPY [id number] (12/28/2024 10:27 AM CDT) Anatomical Region Laterality Modality X-Ray Angiograph y Narrative 12/28/2024 10:40 AM CDT Please see OpNote for result. us Charito Ronny Alec [employer] CV CARDIAC CATH PROCEDURES Beryl mendenhall Result * Differential, auto (12/28/2024 2:36 AM CDT) Pathologist [facility] Neutrophil abs 4.00 1.50 - 6.50 K/cumm Imm gran abs 0.02 0.00 - 0.10 K/cumm [facility] Lymphocyte abs 1.67 0.80 - 3.30 K/cumm [facility] Monocyte abs 0.52 0.20 - 0.80 K/cumm [facility] Eosinophil abs 0.32 0.00 - 0.50 K/cumm [facility] Basophil abs 0.08 0.00 - 0.10 K/cumm [facility] Neutrophil pct 60.5 % [facility] Comment: Interpretive Data Percent cell count reference ranges are not reported, since discordance with absolute values may lead to misinterpretation of CBC data. Current Interpretive Data was last revised on 2017. Imm gran pct 0.3 % [facility] Comment: Interpretive Data Percent cell count reference ranges are not reported, since discordance with absolute values may lead to misinterpretation of CBC data. Current Interpretive Data was last revised on 2017. Lymphocyte pct 25.3 % [facility] Comment: Interpretive Data Percent cell count reference ranges are not reported, since discordance with absolute values may lead to misinterpretation of CBC data. Current Interpretive Data was last revised on 2017. Monocyte pct 7.9 % [facility] Comment: Interpretive Data Percent cell count reference ranges are not reported, since discordance with absolute values may lead to misinterpretation of CBC data. Current Interpretive Data was last revised on 2017. Eosinophil pct 4.8 % [facility] Comment: Interpretive Data Percent cell count reference ranges are not reported, since discordance with absolute values may lead to misinterpretation of CBC data. Current Interpretive Data was last revised on 2017. Basophil pct 1.2 % [facility] Comment: Interpretive Data Percent cell count reference ranges are not reported, since discordance with absolute values may lead to misinterpretation of CBC data. Current Interpretive Data was last revised on 2017. Blood 12/28/2024 2:36 AM CDT 12/28/2024 3:21 AM CDT Victor Hugo Rowell [employer] LAB BLOOD ORDERABLES Final R esult Performing Organization Address City/[facility]/ZIP Co de Phone Number JOHANNE [address] [place] [address] * (ABNORMAL) CBC with auto differential (12/28/2024 2:36 AM CDT) [facility] WBC 6.61 3.80 - 9.90 K/cumm Hgb 12.7(L) 13.0 - 17.5 g/dL [facility] Hct 36.8(L) 38.9 - 50.3 % [facility] Plt 229 150 - 400 K/cumm [facility] MPV 10.3 9.1 - 12.3 fL [facility] RBC 4.14(L) 4.30 - 5.80 M/cumm [facility] MCV 88.9 81.3 - 96.4 fL [facility] MCH 30.7 27.1 - 33.3 pg [facility] MCHC 34.5 32.3 - 35.7 g/dL [facility] RDW CV 13.2 11.1 - 14.9 % [facility] RDW SD 42.5 35.7 - 48.1 fL [facility] NRBC abs 0.00 0.00 - 0.01 K/cumm [facility] Blood 12/28/2024 2:36 AM CDT 12/28/2024 3:21 AM CDT Victor Hugo Rowell [employer] LAB BLOOD ORDERABLES Final R esult Performing Organization Address City/[facility]/ZIP Co de Phone Number JOHANNE [address] [place] [address] * Heparin anti factor Xa activity (12/27/2024 11:45 PM CDT) [facility] Anti Factor Xa 0.44 IUnits/mL Comment: Interpretive [...] ORDERABLES Final Resu lt Performing Organization Address [facility] Co de Phone Number [address] [place] [address] * ABO/Rh (12/27/2024 11:18 PM CDT) Pathologist [facility] ABO/Rh B Positive Blood 12/27/2024 11:1 8 PM CDT 12/27/2024 11:23 PM CDT Narrative JOHANNE - 12/28/2024 12:01 AM CDT Has the patient had Daratumumab or Isatuximab in the past 6 months?->Unknown Charito Michael NP LAB BLOOD BANK TEST ORDERABLES Final Result Performing Organization Address City/[facility]/ZIP Co de Phone Number [address] [place] [address] * Protime-INR (12/27/2024 11:18 PM CDT) PT 14.3 12.0 - 14.6 sec INR [...] ORDERABLES Final Resu lt Performing Organization Address City/[facility]/ZIP Co de Phone Number [place] [phone] [place] [address] * Antibody screen (12/27/2024 11:18 PM CDT) Pathologist [facility] [place], indirect, Gel Interpretation Negative ABSC Blood 12/27/2024 11:1 8 PM CDT 12/27/2024 11:23 PM CDT Narrative JOHANNE - 12/28/2024 12:01 AM CDT Has the patient had Daratumumab or Isatuximab in the past 6 months?->Unknown Charito Michael NP LAB BLOOD BANK TEST ORDERABLES Final Result [address] [address] * POCT glucose (12/27/2024 8:38 PM CDT) Pathologist [facility] Glucose, POC 163 70 - 199 mg/dL Glucose comment 1 RN/MD Notified JOHANNE Blood 12/27/2024 8:38 PM CDT 12/27/2024 8:38 PM CDT Md Franck Adamson MD LAB POCT ORDERABLES - DEVICE Fi nal Result Performing Organization Address [facility] Co de Phone Number JOHANNE [address] [place] [address] * Heparin anti factor Xa activity (12/27/2024 [...] ORDERABLES Final Resu lt Performing Organization Address [facility]/ZIP Co de Phone Number JOHANNE [address] [place] [address] * POCT glucose (12/27/2024 3:20 PM CDT) Glucose, POC 122 70 - 199 mg/dL Blood 12/27/2024 3:20 PM CDT 12/27/2024 3:20 PM CDT Md Franck Adamson MD LAB POCT ORDERABLES - DEVICE Fi nal Result Performing Organization Address [facility] de Phone Number JOHANNE [address] [address] * (ABNORMAL) Hemoglobin A1c (12/27/2024 2:42 PM CDT) Hgb A1C 7.0(H) 4.0 - 5.6 % Estimated Average Glucose 154 mg/dL [facility] Comment: The ADA recommends reporting an estimated Average Glucose (eAG) with all Hemoglobin A1c results using the equation derived from a study of 507 normal and diabetic adults. Minority populations were underrepresented and children were not included. (Diabetes Care 31:5442-9534, 2008). The eAG is not equivalent to a fasting glucose. Blood 12/27/2024 2:42 PM CDT 12/27/2024 3:02 PM CDT Victor Hugo Rowell NP LAB BLOOD ORDERABLES Final R esult Performing Organization Address [facility] de Phone Number [address] [address] * Lipid panel (12/27/2024 2:42 PM CDT) Pathologist [facility] Cholesterol 111 30 - 199 mg/dL Comment: [...] revised on 2018. Triglycerides 47 <=149 mg/dL [facility] Comment: Interpretive Data Ages < or = [...] on 2018. HDL 49 >=40 mg/dL JOHANNE [place] Comment: Interpretive Data Ages [...] 2018. LDL, calculated 50 <=129 mg/dL JOHANNE [place] Comment: Interpretive Data Ages < or = 19 years Acceptable: <110 mg/dL Borderline high: 110-129 mg/dL High: >or= 130 mg/dL Ages > or = 20 years Optimal: <100 mg/dL Near optimal: 100-129 mg/dL Borderline high: 130-159 mg/dL High: >160 mg/dL Calculated using the Bismark LDL-C estimating equation. This equation was implemented on 2024. Prior to this date LDL-C was estimated using the Friedewald equation. Literature References: 1. Expert Panel on Integrated Guidelines for Cardiovascular Health and Risk Reduction in Children and Adolescents. Pediatrics 2011;128:S213 2. NCEP Expert Panel. Circulation 2004;110:227 3. Bismark Clayton. HAYLIE Cardiol. 2020 December 08;5(5):540-548. doi: 10.1001/jamacardio.2020.0013 Current Interpretive Data was [...] last revised on 2018. Chol/HDL ratio 2 JOHNANE Blood 12/27/2024 2:42 PM CDT 12/27/2024 3:02 PM CDT us Victor Hugo Rowell NP LAB BLOOD ORDERABLES Final R esult JOHANNE [address] [facility] Department [place] [address] * US MARIA ESTHER (12/27/2024 12:15 PM CDT) Anatomical Region Laterality Modality Vascular N/A Ultrasound 12/27/2024 11:3 3 AM CDT Narrative 12/29/2024 8:27 AM CDT Lower Extremity Arterial Doppler Report Patient Name: HOWIE LOVE L : 1945 Study Date: 12/27/2024 11:33:45 AM Gender: M Switch Operators Supervisor: Pepito Fan Location: ED26 Ref Provider: LEODAN ANTHONY Quality: Adequate Order Provider: LEODAN ANTHONY PROCEDURES: Arterial Report: Ankle - Brachial Index Doppler exam. INDICATIONS: Atherosclerosis of [place] Arteries of Extremities with Intermittent Claudication, Right Leg. HISTORY: Stent RT EIA -1. Bypass rt PFA-TPT -1. COMPARISONS: The previous exam was completed on 09/29/24. Compared to prior worsen. MEASUREMENTS: Right Value Left Value Rt Brachial Pressure 153 mmHg Lt Brachial Pressure 134 mmHg Rt LICENSED EMBALMER Pressure absent mmHg Lt LICENSED EMBALMER Pressure 172 mmHg Rt DPA Pressure 25 [...] Study Date: 12/27/2024 11:33:45 AM Gender: M Switch Operators Supervisor: Pepito Fan Location: ED26 Ref Provider: LEODAN ANTHONY Quality: Adequate Order Provider: LEODAN ANTHONY PROCEDURES: Arterial Report: Ankle - Brachial Index Doppler exam. INDICATIONS: Atherosclerosis of [place] Arteries of Extremities with IntermittentClaudication, Right Leg. HISTORY: Stent RT EIA -1. Bypass rt PFA-TPT -1. COMPARISONS: The previous exam was completed on 09/29/24. Compared to prior worsen. MEASUREMENTS: Right Value Left Value Rt Brachial Pressure 153 mmHg Lt Brachial Pressure 134 mmHg Rt LICENSED EMBALMER Pressure absent mmHg Lt LICENSED EMBALMER Pressure 172 mmHg Rt DPA Pressure 25 [...] Date: 12/27/2024 10:01:06 AM Ht(Inch): Wt(Lb): BSA: Switch Operators Supervisor: Pillo FAN Location: 26 Order Provider: JUAN TAYLOR Quality: Adequate Ref [...] Ext Iliac Mid PSV 107.00 cm/sec Rt CHIEF OPERATOR HYDROFORMER Prx PSV 66.90 cm/sec Rt Profunda Prx [...] Date: 12/27/2024 10:01:06 AM Ht(Inch): Wt(Lb): BSA: Switch Operators Supervisor: Pillo FAN Location: ED26 Order Provider: JUAN [...] Ext Iliac Mid PSV 107.00 cm/sec Rt CHIEF OPERATOR HYDROFORMER Prx PSV 66.90 cm/sec Rt Profunda Prx [...] 9:19:07 AM CDT us Rehab Brandon KERNS IM US PROCEDURES Final Result * CTA Abdominal [...] signed by Santo NUNEZ T: Report ID: [id number] Reading Location: [place] [address] Procedure Note Santo Tamayo MD - 12/27/2024 EXAM DESCRIPTION: CTA ABDOMINAL AORTA AND BILATERAL ILIOFEMORAL RUNOFF REASON FOR STUDY: Claudication or leg ischemia, occluded graft, limb ischemia Claudication or leg ischemia, occluded graft, limb ischemia. [id number] past medical history of PVD status post [...] signed by Santo NUNEZ T: Report ID: [id number] Reading Location: [place] [address] Charito Michael SHOE PARTS CASER IMG CT PROCEDURES Final Result * SD CRITICAL CARE ILL/INJURED PATIENT INIT 30-74 MIN [...] patient to a continuous cardiac monitored bed. us Juan Taylor MD IN CLINIC/BEDSIDE ORDERABLES Fi [...] KERNS LAB BLOOD ORDERABLES Final Resu lt [facility] [address] [facility] Department [place] [address] * Differential, auto (12/27/2024 9:07 AM CDT) Neutrophil abs 4.39 1.50 - 6.50 K/cumm Imm gran abs 0.01 0.00 - 0.10 K/cumm [facility] Lymphocyte abs 1.47 0.80 - 3.30 K/cumm [facility] Monocyte abs 0.61 0.20 - 0.80 K/cumm [facility] Eosinophil abs 0.29 0.00 - 0.50 K/cumm [facility] Basophil abs 0.07 0.00 - 0.10 K/cumm [facility] Neutrophil pct 64.3 % [facility] Comment: Interpretive Data Percent cell count reference ranges are not reported, since discordance with absolute values may lead to misinterpretation of CBC data. Current Interpretive Data was last revised on 2017. Imm gran pct 0.1 % [facility] Comment: Interpretive Data Percent cell count reference ranges are not reported, since discordance with absolute values may lead to misinterpretation of CBC data. Current Interpretive Data was last revised on 2017. Lymphocyte pct 21.5 % [facility] Comment: Interpretive Data Percent cell count reference ranges are not reported, since discordance with absolute values may lead to misinterpretation of CBC data. Current Interpretive Data was last revised on 2017. Monocyte pct 8.9 % [facility] Comment: Interpretive Data Percent cell count reference ranges are not reported, since discordance with absolute values may lead to misinterpretation of CBC data. Current Interpretive Data was last revised on 2017. Eosinophil pct 4.2 % [facility] Comment: Interpretive Data Percent cell count reference ranges are not reported, since discordance with absolute values may lead to misinterpretation of CBC data. Current Interpretive Data was last revised on 2017. Basophil pct 1.0 % [facility] Comment: Interpretive Data Percent cell count reference ranges are not reported, since discordance with absolute values may lead to misinterpretation of CBC data. Current Interpretive Data was last revised on 2017. Blood 12/27/2024 9:07 AM CDT 12/27/2024 9:14 AM CDT Rehab Brandon KERNS LAB BLOOD ORDERABLES Final Resu lt JOHANNE [address] [facility] Department [place] [address] * Heparin anti factor Xa activity (12/27/2024 9:07 AM CDT) [facility] Anti Factor Xa <0.10 IUnits/mL Comment: patient was not on heparin as per [id number] Interpretive Data Enoxaparin therapeutic range (peak): VTE [...] 9:07 AM CDT 12/27/2024 9:14 AM CDT [facility] LAB BLOOD ORDERABLES Final Resu lt [place] [id number] [facility] Department [place] [address] * (ABNORMAL) CBC with auto differential (12/27/2024 9:07 AM CDT) [facility] WBC 6.84 3.80 - 9.90 K/cumm Hgb 13.1 13.0 - 17.5 g/dL [facility] Hct 38.4(L) 38.9 - 50.3 % [facility] Plt 227 150 - 400 K/cumm [facility] MPV 9.8 9.1 - 12.3 fL [facility] RBC 4.30 4.30 - 5.80 M/cumm [facility] MCV 89.3 81.3 - 96.4 fL [facility] MCH 30.5 27.1 - 33.3 pg [facility] MCHC 34.1 32.3 - 35.7 g/dL [facility] RDW CV 13.3 11.1 - 14.9 % [facility] RDW SD 43.5 35.7 - 48.1 fL [facility] NRBC abs 0.00 0.00 - 0.01 K/cumm [facility] Blood 12/27/2024 9:07 AM CDT 12/27/2024 9:14 AM CDT Rehab Brandon KERNS LAB BLOOD ORDERABLES Final Resu lt Performing Organization Address City/[facility]/ZIP Co de Phone Number JOHANNE [address] [place] [address] * ABO/Rh (12/27/2024 9:07 AM CDT) Pathologist [facility] ABO/Rh B Positive Blood 12/27/2024 9:07 AM CDT 12/27/2024 9:14 AM CDT Narrative JOHANNE - 12/27/2024 9:58 AM CDT Has the patient had Daratumumab or Isatuximab in the past 6 months?->Unknown [facility]ERNS LAB BLOOD BANK TEST ORDERABLES Final Result Performing Organization Address [facility]/RUST de Phone Number JOHANNE [address] [place] [address] * Protime-INR (12/27/2024 9:07 AM CDT) Pathologist [facility] PT 14.2 12.0 - 14.6 sec INR [...] ORDERABLES Final Resu lt Performing Organization Address City/[facility] Co de Phone Number JOHANNE [address] [place] [address] * Antibody screen (12/27/2024 9:07 AM CDT) [place], indirect, Gel Interpretation Negative ABSC Blood 12/27/2024 9:07 AM CDT 12/27/2024 9:14 AM CDT Narrative JOHANNE - 12/27/2024 9:58 AM CDT Has the patient had Daratumumab or Isatuximab in the past 6 months?->Unknown [facility]ER[facility] LAB BLOOD BANK TEST ORDERABLES Final Result [facility] [address] [facility] Department [place] [address] * Comprehensive metabolic panel (12/27/2024 9:07 AM CDT) [facility] Sodium 140 135 - 145 mmol/L Potassium, pl 3.9 3.3 - 4.9 mmol/L [facility] Chloride 105 97 - 110 mmol/L [facility] CO2 25 22 - 32 mmol/L [facility] Anion gap 10 2 - 15 mmol/L [facility] BUN 14 6 - 25 mg/dL [facility] Creatinine 0.81 0.80 - 1.30 mg/dL [facility] Glucose 149 70 - 199 mg/dL [facility] Comment: Interpretive Data Fasting glucose >/= [...] 2022. Calcium 9.2 8.5 - 10.3 mg/dL [facility] Bilirubin, total 0.5 0.1 - 1.2 mg/dL [facility] Protein, pl 6.7 6.5 - 8.5 g/dL [facility] Albumin 4.2 3.5 - 5.0 g/dL [facility] Alk phos 109 40 - 130 Units/L [facility] ALT 16 7 - 55 Units/L [facility] AST 21 10 - 50 Units/L [facility] Blood 12/27/2024 9:07 AM CDT 12/27/2024 9:14 AM CDT us Rehab Brandon KERNS LAB BLOOD ORDERABLES Final Resu lt BRIANNER [facility] [address] [facility] Department [place] [address] from Last 3 Months Insurance [employer] MEDICARE ADVANTAGE Advance Directives For more information, please contact: [phone] * Full Code (Latest Code Status on [...] 11:31 AM 08/17/2021 1:15 PM Care Teams Claim Specialist Relationship Specialty Start Date End Date Jordi Hernandez MD [address] [place] [address] PCP - General Family Practice 09/29/24 Eric Baker DO [address] [place] [address] Referring Physician Cardiology 05/01/21 Leodan Anthony MD [address] [place] [address] [facility] [address] [place] [address] Surgeon Vascular Surgery 08/01/21
--- OUTSIDE RECORDS SUMMARY | 2025-03-10 08:54 | XMS_ITS | Clinical Summary ---
Author Organization [facility] Address [address] [address] Care Team Providers Care Tip Length Checker Name Role Phone Jordi Hernandez MD Primary Care Provider [phone] Allergies Active Allergy Reactions Criticality Noted Date [...] on 05/26/2023 phenoL (CHLORASEPTIC) 1.4 % Aerosol, [place] 2 Sprays by Mouth/Throat route every 2 [...] mg by mouth daily. 06/13/20 24 Active megestroL (MEGACE) 400 mg/10 mL (40 [...] as per primary care provider. 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); Benign hypertension 02/16/2025 9:15 AM CDT Office Visit [facility] Oncology and Hematology - Cj [address] Kedar Patterson MD 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) (Primary Dx) 02/13/2025 Orders Only [facility] Oncology and Hematology - Cj [address] [place] [phone] Kedar Patterson MD Chronic anemia; 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); Benign hypertension 02/03/2025 Orders Only [facility] Oncology and Hematology - Cj [address] [place] [phone] Kedar Patterson MD 02/01/2025 Orders Only [facility] Oncology and Hematology - Cj [address] [place] [phone] Kedar Patterson MD 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) (Primary Dx); Benign hypertension 01/30/2025 Orders Only [facility] Oncology and Hematology - Cj [address] [place] [phone] Kedar Patterson MD 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); Benign hypertension; Chronic anemia 01/20/2025 Orders Only [facility] Oncology and Hematology - Cj [address] [place] [phone] Kedar Patterson MD 01/19/2025 Orders Only [facility] On[facility] and H[facility]ology - Cj [address] [place] [phone] Kedar Patterson MD Chronic anemia (Primary Dx) 01/19/2025 Orders Only [facility] Oncology and Hematology - Cj [address] [place] [phone] Kedar Patterson MD Chronic anemia (Primary Dx) 01/16/2025 Orders Only [facility] Oncology and Hematology - Cj [address] [place] [phone] Kedar Patterson MD 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); Benign hypertension 01/10/2025 Orders Only [facility] Oncology and Hematology [facility] [address] [place] [phone] Kedar Patterson MD 01/09/2025 11:45 AM CDT Office Visit [facility] Oncology and Hematology [facility] [address] Kedar Patterson MD 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) (Primary Dx) 01/02/2025 Orders Only [facility] Oncology and Hematology [facility] [address] [place] [phone] Kedar Patterson MD 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); Benign hypertension 12/19/2024 Orders Only [facility] Oncology and Hematology [facility] [address] Kedar Patterson MD 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); Benign hypertension 12/16/2024 Orders Only [facility] Oncology and Hematology [facility] [address] [place] [phone] Kedar Patterson MD 12/15/2024 9:15 AM CDT Office Visit [facility] Oncology and Hematology [facility] [address] [place] [address] Kedar Patterson MD 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) (Primary Dx) 12/13/2024 External Device Data STL ABSTRACTION Provider, Abstract 12/08/2024 Orders Only [facility] Oncology [facility] Hematology [facility] [address] [place] [phone] Kedar Patterson MD from Last 3 Months Family History Medical [...] Sign Reading Time Taken Comments Blood Pressure 118/65 02/16/2025 9:15 AM CDT Pulse 62 02/16/2025 9:15 AM CDT Temperature 36.8 C (98.2 F) 02/16/2025 9:15 AM CDT Respiratory Rate 16 02/16/2025 9:15 AM CDT Oxygen Saturation 97% 02/16/2025 9:15 AM CDT Inhaled Oxygen Concentration - - Weight 66.3 kg (146 lb 3.2 oz) 02/16/2025 9:15 A M CDT Height 165.1 cm (5' 5) 06/23/2023 10:57 AM RUBBER CURER Body Mass Index 24.33 06/23/2023 10:57 AM RUBBER CURER Plan of Treatment Upcoming Encounters Date Type Department Care Team (Late st Contact Info) Description 03/16/2025 11:00 AM CDT Office Visit [facility] Oncology and Hematology - Cj [address] [facility] [address] [place] [address] Kedar Patterson MD [address] [facility] [address] [place] [address] Health Maintenance Due Date Last Done Comments DTAP/TDAP/TD VACCINES (1 - Tdap) 1964 ZOSTER VACCINE (1 of 2) 1995 RSV VACCINE (60+ or ) (1 - 1-dose 75+ series) 2020 INFLUENZA VACCINE (#1) 2025 0, 10/11/2019, 08/25/2017 PNEUMOCOCCAL VACCINE 50+ YEARS Completed 0 10/08/2020, 10/11/2019, 08/25/2017 Medical Devices Implanted Type Area Consumer Insights Specialist Device Identifier Shelf Expiration Date Model / Serial / Lot Clip Ligating Horizon Med Ti [id number] - Csc - [id number] Implanted:Qty : 1 on 05/01/2023 by Jeremy Kraus MD at [facility] Clip N/A: Esophagus TELEFLEX- [employer] [id number] 12/24/2027 [id number] / / [id number] Clip Ligating Horizon Lg Ti [id number] - Csc - [id number] Implanted:Qty : 1 on 05/01/2023 by Jeremy Kraus MD at [facility] Clip N/A: Esophagus TELEFLEX- [employer] [id number] 01/06/2027 [id number] / / [id number] X3 Heart Stents Procedures Procedure Name Priority Date/Time Associated Diagnosis Comments BASIC METABOLIC PANEL Routine 03/02/2025 3:34 PM CDT COMPREHENSIVE METABOLIC PANEL Routine 03/02/2025 3:31 PM CDT COMPREHENSIVE METABOLIC PANEL Routine 03/02/2025 3:30 PM CDT BASIC METABOLIC PANEL Routine 02/02/2025 7:59 AM CDT COMPREHENSIVE METABOLIC PANEL Routine 02/02/2025 7:57 AM CDT COMPREHENSIVE METABOLIC PANEL Routine 01/19/2025 4:18 PM CDT BASIC METABOLIC PANEL Routine 01/19/2025 3:58 PM CDT COMPREHENSIVE METABOLIC PANEL Routine 01/19/2025 3:54 PM CDT IRON, TIBC, AND PERCENT SATURATION Routine 01/19/2025 10:10 AM CDT BASIC METABOLIC PANEL Routine 01/09/2025 1:00 PM CDT CBC WITH DIFFERENTIAL Routine 01/09/2025 12:58 PM CDT BASIC METABOLIC PANEL Routine 12/15/2024 2:40 PM CDT COMPREHENSIVE METABOLIC PANEL Routine 12/15/2024 2:[address] CHEST ABDOMEN PELVIS W CONT Routine 12/08/2024 1:37 PM CDT from Last 3 Months Results * BASIC METABOLIC PANEL (03/02/2025 3:34 PM CDT) Only the most recent of5 resultswithin the time period is included. Blood us Kedar Patterson MD CHEMISTRY ORDERABLES Final Resu lt * COMPREHENSIVE METABOLIC PANEL (03/02/2025 3:31 PM CDT) Only the most recent of6 resultswithin the time period is included. Blood us Kedar Patterson MD CHEMISTRY ORDERABLES Final Resu lt * IRON, TIBC, AND PERCENT SATURATION (01/19/2025 10:10 AM CDT) Blood Result [facility] us Kedar Patterson MD CHEMISTRY ORDERABLES Final Resu lt * CBC WITH DIFFERENTIAL (01/09/2025 12:58 PM CDT) Blood us Kedar Patterson MD HEMATOLOGY ORDERABLES Final Res ult * CT CHEST ABDOMEN PELVIS W CONT (12/08/2024 1:37 PM CDT) Anatomical Region Laterality Modality Chest Computed Tomogra phy Result [facility] us Kedar Patterson MD CT ORDERABLES Final Result from Last 3 Months Insurance [facility] [id number] [facility] Address: [facility] [address] [place] [address] [facility] [address] [place] [address] RX [employer] RX Member Subscriber Plan / Payer (Ef fective for All Dates) Name:Chris Mabry Relation to Subscriber:Self Name:Chris Mabry Payer ID:Not on file Group ID:[id number] Type:RX Medicare Part D Address: YENNY IBARRA RX [place] (INTERNAL) [facility] Internal Plans Advance Directives For more information, please contact: [phone] * Full Code (Latest Code Status on [...] 11:15 AM 12/15/2022 2:57 PM Care Teams Tip Length Checker Relationship Specialty Start Date End Date Jordi Hernandez MD [address] [place] [phone] PCP - General Family Practice 06/18/23
== END 2025-03-10 08:48 | disposition home or self-care (01) ==
PROVIDERS: PCP Family Medicine; Visit Provider Internal Medicine Hematology & Oncology
DX: C15.5 Malignant neoplasm of lower third of esophagus (principal); R91.8 Other nonspecific abnormal finding of lung field; N20.1 Calculus of ureter; J90 Pleural effusion, not elsewhere classified; K76.0 Fatty (change of) liver, not elsewhere classified; N43.3 Hydrocele, unspecified; Z90.49 Acquired absence of other specified parts of digestive tract
CPT/HCPCS: 71260; 74177; Q9967

== ENCOUNTER 2025-04-12 08:21 | Outpatient (CLI) | payer MEDICARE, SELFPAY ==
--- NOTE | ~2025-04-12 | XR_ITS ---
Clinical history:Cancer for follow-up after completed EXAM:X-ray minimal minimum 4 views TECHNIQUE:5 images of the mandible were obtained. Comparisons:None available FINDINGS: Bones appear osteopenic. Evaluation is slightly limited due to overlapping structures. Bones appear osteopenic. No obvious displaced fracture of the mandible. No obvious large sclerotic or destructive bone lesion in the visualized mandible. No obvious dislocation of the temporomandibular joint. IMPRESSION: 1. Limited study as above. 2. No obvious displaced fracture of the mandible. No obvious large sclerotic or destructive bone lesion in the visualized mandible. If continued concern, consider a CT of the maxillofacial region for further assessment. Reviewed, dictated and finalized at location [facility]. IMPRESSION: 1. Limited study as above. 2. No obvious displaced fracture of the mandible. No obvious large sclerotic or destructive bone lesion in the visualized mandible. If continued concern, consider a CT of the maxillofacial region for further ass essment.
== END 2025-04-12 08:22 | disposition home or self-care (01) ==
LOC: MICIMG 08:23
PROVIDERS: PCP Family Medicine; Visit Provider Family Medicine
DX: Z09 Encounter for follow-up examination after completed treatment for conditions other than malignant neoplasm (principal)
CPT/HCPCS: 70110

== ENCOUNTER 2025-04-13 10:12 | Outpatient (CLI) | payer MEDICARE, SELFPAY ==
--- OUTSIDE RECORDS SUMMARY | 2025-04-13 10:44 | XMS_ITS | Clinical Summary ---
Author Organization [facility] Address [address] [place] [address] Care Team Providers Care Hydraulic Engineer Name Role Phone Jordi Hernandez MD Primary Care Provider [phone] Allergies Active Allergy Reactions Criticality Noted Date [...] 60 Tablet 05/10/2023 2:10 PM CDT 05/10/20 Active Additional Information Patient taking differently:12.5 mgOralTWO TIMES DAILY, Reported on 05/26/2023 phenoL (CHLORASEPTIC) 1.4 % Aerosol, Olga 2 Sprays by Mouth/Throat route every 2 [...] as per primary care provider. 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); Benign hypertension 03/31/2025 Orders Only [facility]ology - [place] [address] [place] [address] Kedar Patterson MD 03/30/2025 Orders Only [facility] On[facility] - [place] [address] [place] [address] Kedar Patterson MD 03/27/2025 Orders Only [facility]ology - [place] [address] [place] [address] Kedar Patterson MD Chronic anemia; 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); Benign hypertension 03/17/2025 Orders Only [facility]ology - [place] [address] [place] [id number] Kedar Patterson MD 03/16/2025 11:00 AM CDT Office Visit [facility] Hematology - [place] [address] [place] [address] Kedar Patterson MD 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) (Primary Dx) 03/16/2025 Orders Only [facility] Hematology - [place] [address] [place] [id number] Kedar Patterson MD 03/15/2025 Orders Only [facility] - [place] [address] [place] [address] Kedar Patterson MD 03/13/2025 Orders Only [facility] On[facility] H[facility]ology - [place] [address] [place] [address] Kedar Patterson MD Chronic anemia; 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); Benign hypertension 03/02/2025 Orders Only [facility]ology - [place] [address] [place] [address] Kedar Patterson MD 02/27/2025 Orders Only [facility] On[facility]ology - [place] [address] [place] [address] Kedar Patterson MD Chronic anemia; 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); Benign hypertension 02/16/2025 9:15 AM CDT Office Visit [facility] Hematology - [place] [address] [place] [address] Kedar Patterson MD 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) (Primary Dx) 02/13/2025 Orders Only [facility] Hematology - [place] [address] [place] [phone] Kedar Patterson MD Chronic anemia; 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); Benign hypertension; Chronic anemia 01/20/2025 Orders Only [facility] Hematology - [place] [address] [place] [address] Kedar Patterson MD 01/19/2025 Orders Only [facility] On[facility] and Hematology - [place] [address] [place] [address] Kedar Patterson MD Chronic anemia (Primary Dx) 01/19/2025 Orders Only [facility] On[facility] and Hematology - [place] [address] [place] [address] Kedar Patterson MD Chronic anemia (Primary Dx) 01/16/2025 Orders Only [facility] Oncology and Hematology - [place] [address] [place] [address] Kedar Patterson MD Cancer of [...] Sign Reading Time Taken Comments Blood Pressure 117/63 03/16/2025 10:46 AM CDT Pulse 51 03/16/2025 10:46 AM CDT Temperature 36.4 C (97.6 F) 03/16/2025 10:46 AM CDT Respiratory Rate 15 03/16/2025 10:46 AM CDT Oxygen Saturation 98% 03/16/2025 10:46 AM CDT Inhaled Oxygen Concentration - - Weight 65.8 kg (145 lb) 03/16/2025 10:46 AM CDT Height 165.1 cm (5' 5) 06/23/2023 10:57 AM MAPPING ANALYST Body Mass Index 24.13 06/23/2023 10:57 AM MAPPING ANALYST Plan of Treatment Upcoming Encounters Date Type Department Care Team (Late st Contact Info) Description 05/11/2025 11:00 AM CDT Office Visit [facility] H[facility]ology - [place] [address] [place] [address] Kedar Patterson MD [address] [place] [address] Health Maintenance Due Date Last Done Comments DTAP/TDAP/TD VACCINES (1 - Tdap) 1964 ZOSTER VACCINE (1 of 2) 1995 RSV VACCINE (60+ or ) (1 - 1-dose 75+ series) 2020 Medicare Ad[place]age ([place]) Prev entative Visit/Annual Wellness Visit 08/10/2024 INFLUENZA VACCINE (#1) 2025 0, 10/11/2019, 08/25/2017 PNEUMOCOCCAL VACCINE 50+ YEARS Completed 0 10/08/2020, 10/11/2019, 08/25/2017 Medical Devices Implanted Type Area [employer] Associate Device Identifier Shelf Expiration Date Model / Serial / Lot Clip Ligating Horizon Med Ti [id number] - Csc - [id number] Implanted:Qty : 1 on 05/01/2023 by Jeremy Kraus MD at [facility] Clip N/A: Esophagus TELEFLEX- [employer] [id number] 12/24/2027 [id number] / / [id number] Clip Ligating Horizon Lg Ti [id number] - Csc - [id number] Implanted:Qty : 1 on 05/01/2023 by Jeremy Kraus MD at [facility] Clip N/A: Esophagus TELEFLEX- [employer] [id number] 01/06/2027 [id number] / / [id number] X3 Heart Stents Procedures Procedure Name Priority Date/Time Associated Diagnosis Comments CBC WITH AUTODIFFERENTIAL Routine 2024 3:18 PM CDT COMPREHENSIVE METABOLIC PANEL Routine 03/30/2025 7:46 AM CDT BASIC METABOLIC PANEL Routine 03/30/2025 7:30 AM CDT BASIC METABOLIC PANEL Routine 03/16/2025 12:56 PM CDT CBC WITH AUTODIFFERENTIAL Routine 2024 12:54 PM CDT COMPREHENSIVE METABOLIC PANEL Routine 03/16/2025 8:[address] CHEST ABDOMEN PELVIS W CONT Routine 03/10/2025 10:24 AM CDT BASIC METABOLIC PANEL Routine 03/02/2025 3:34 PM [...] PERCENT SATURATION Routine 01/19/2025 10:10 AM CDT from Last 3 Months Results * CBC WITH AUTODIFFERENTIAL (03/30/2025 3:18 PM CDT) Only the most recent of2 resultswithin the time period is included. Blood us Kedar Patterson MD HEMATOLOGY ORDERABLES Final Res ult * COMPREHENSIVE METABOLIC PANEL (03/30/2025 7:46 AM CDT) Only the most recent of7 resultswithin the time period is included. Blood us Kedar Patterson MD CHEMISTRY ORDERABLES Final Resu lt * BASIC METABOLIC PANEL (03/30/2025 7:30 AM CDT) Only the most recent of5 resultswithin the time period is included. Blood us Kedar Patterson MD CHEMISTRY ORDERABLES Final Resu lt * CT CHEST ABDOMEN PELVIS W CONT (03/10/2025 10:24 AM CDT) Anatomical Region Laterality Modality Chest Computed Tomogra phy Kedar Patterson MD CT ORDERABLES Final Result * IRON, TIBC, AND PERCENT SATURATION (01/19/2025 10:10 AM CDT) Blood Kedar Patterson MD CHEMISTRY ORDERABLES Final Resu lt from Last 3 Months Insurance RX [employer] RX Member Subscriber Plan / Payer (Ef fective for All Dates) Name:Carlos AlbertolisetteChris Relation to Subscriber:Self Name:Carlos Albert[place]ette Chris Payer ID:Not on file Group ID:[id number] Type:RX Medicare Part D Address: [address] [employer] [place] (INTERNAL) [facility] Advance Directives For more information, please contact: [phone] * Full Code (Latest Code Status on [...] 11:15 AM 12/15/2022 2:57 PM Care Teams Hydraulic Engineer Relationship Specialty Start Date End Date Jordi Hernandez MD [address] [place] [address] PCP - General Family Practice 06/18/23
--- OUTSIDE RECORDS SUMMARY | 2025-04-13 10:44 | XMS_ITS | Patient Health Record ---
Author Organization [facility] Address [address] [place], [place] [id number] Care Team Providers Care Optical Lens Manufacturing Tech Name Role Phone PATRICIA Wen Unavailable [phone] Lowell Mosley Unavailable Unavailable Reason For Referral No Information Plan Of Treatment No Information Insurance Providers Payer Name Payer Address Payer Phone Subscriber Number Group Number Insured Name Patient Relationship to Insured Coverage Start Date Coverage End Date AARP MedicareCom plete ([facility]) [address] [place], [place] [id number] [phone] [id number] HOWIE LOVE Self - patient is the insured
--- OUTSIDE RECORDS SUMMARY | 2025-04-13 10:44 | XMS_ITS | Clinical Summary ---
Author Organization [facility] Medical Office Building B Address [address] [place] [address] Care Team Providers Care Industrial Furnace Fabricator Name Role Phone Eric Baker DO Unavailable [phone] Leodan Anthony MD Unavailable [phone] Jordi Hernandez MD Primary Care Provider [phone] Allergies Active Allergy Reactions Criticality Noted Date [...] trauma. Assessment & Plan (09/26/2021 3:56 PM COMMERCIAL CORRESPONDENT): Impression: Patient is status post right common [...] ankle. Assessment & Plan (09/06/2021 1:29 PM COMMERCIAL CORRESPONDENT): Impression: Patient is status post right common [...] warm, well perfused. Graft is patent. Plan: [place] removed. Patient to continue ongoing risk factor modifications. Patient to follow-up in 2-3 weeks for re-evaluation with new baseline arterial duplex study. 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 New toenail forming is noted on exam. Patient has 2 sutures remaining to right 1st toenail from when his toenail was removed. Plan: Continue daily dressing changes with Xeroform and dry gauze. Patient to follow-up in 3 months. Assessment & Plan (09/06/2021 1:30 PM COMMERCIAL CORRESPONDENT): Impression: Patient has gangrene of the right [...] Lipitor Assessment & Plan (09/29/2024 3:23 PM COMMERCIAL CORRESPONDENT): Impression: Chronic and stable. Plan: Continue Lipitor Assessment & Plan (01/07/2023 9:33 AM CDT): Chronic stable hyperlipidemia. Continue Lipitor. Assessment & Plan (06/25/2022 5:16 PM COMMERCIAL CORRESPONDENT): Impression: Chronic hyperlipidemia, controlled with statin therapy. Plan: Continue statin therapy as per primary care provider. Assessment & Plan (12/20/2021 8:41 AM CDT): Hyper lipidemia currently medically controled with medications. Continue medications as per PCP. Assessment & Plan (2021 2:15 PM COMMERCIAL CORRESPONDENT): Hyperlipidemia chronic and controlled. Continue Lipitor Primary hypertension 07/15/2021 Assessment & Plan (01/28/2025 2:33 PM CDT): Hypertension chronic controlled. Continue current medical management. Assessment & Plan (09/29/2024 3:23 PM COMMERCIAL CORRESPONDENT): Impression: Chronic and stable. Plan: Continue Lasix lisinopril and metoprolol Assessment & Plan (01/07/2023 9:33 AM CDT): Chronic stable hypertension. Continue current medical management. Assessment & Plan (06/25/2022 5:16 PM COMMERCIAL CORRESPONDENT): Impression: Chronic stable hypertension, controlled medications. Blood pressure stable. Plan: Continue blood pressure management as per primary care provider. Assessment & Plan (2021 2:15 PM COMMERCIAL CORRESPONDENT): Hypertension chronic and controlled. Continue current medical [...] therapy. Assessment & Plan (2021 2:16 PM COMMERCIAL CORRESPONDENT): Patient has ischemic rest pain with gangrenous [...] claudication, right leg 07/12/2021 Assessment & Plan (04/06/2025 1:01 PM CDT): Patient is ambulating without any difficulty denying any limiting claudication symptoms or rest pain. Discussed arterial duplex with the patient. Continue aspirin Eliquis statin therapy and continue daily activity regimen. Follow-up for routine surveillance in 6 months with lower extremity arterial duplex. Assessment & Plan (01/28/2025 2:32 PM CDT): [...] duplex. Assessment & Plan (09/29/2024 3:22 PM COMMERCIAL CORRESPONDENT): Impression: Patient is status post right common [...] extremity. Assessment & Plan (06/24/2024 9:55 AM COMMERCIAL CORRESPONDENT): Over the past several months has had [...] duplex. Assessment & Plan (06/25/2022 5:15 PM COMMERCIAL CORRESPONDENT): Impression: Patient is status post right common [...] Encounters Date Type Department Care Team Description 04/05/2025 11:00 AM CDT Office Visit [facility] Vascular and Vein Surgery [address] [place] [phone] Charito Michael NP Aftercare following surgery of the circulatory system (Primary Dx); Atherosclerosis of [place] arteries of extremities with intermittent claudication, right leg; Mixed hyperlipidemia; Primary hypertension 04/05/2025 9:50 AM CDT - 04/05/2025 11:59 PM CDT Hospital Encounter [facility] Medical Office Building [address] [place] [id number] Aftercare following surgery of the circulatory system Discharge Disposition: Discharge to home or self care 04/05/2025 9:50 AM CDT - 04/05/2025 11:59 PM CDT Hospital Encounter [facility] Office [facility] [address] [place] [address] Aftercare following surgery of the circulatory system Discharge Disposition: Discharge to home or self care 01/26/2025 2:00 PM CDT Office Visit [facility] Vein Surgery [address] [place] [phone] Charito Michael NP Atherosclerosis of [place] arteries of extremities with intermittent claudication, right leg (Primary Dx) 01/26/2025 1:13 PM CDT - 01/26/2025 11:59 PM CDT Hospital Encounter [facility] Medical Office Building [address] [place] [phone] Atherosclerosis of [place] arteries of extremities with intermittent claudication, right leg Discharge Disposition: Discharge to home or self care 01/26/2025 1:13 PM CDT - 01/26/2025 11:59 PM CDT Hospital Encounter [facility] Medical Office Building 2 Vascular [address] [facility] [address] [place] [address] Atherosclerosis of [place] arteries of extremities with intermittent claudication, right leg Discharge Disposition: Discharge to home or self care 01/12/2025 Telephone [facility] V[facility] Vein Surgery [address] [place] [address] [address] [place] [address] Dinora Mendieta MA 01/11/2025 10:30 AM CDT Office Visit [facility] Vascular and Vein Surgery [address] [place] [address] [address] [place] [address] Leodan Anthony MD Atherosclerosis of [place] arteries of extremities with intermittent claudication, right leg (Primary Dx); Primary hypertension; Mixed hyperlipidemia from Last 3 Months Immunizations Immunization Administration [...] Right CORONARY STENT PLACEMENT 08/10/2011 - 08/09/2012 [place], [place] ANGIOPLASTY / STENTING ILIAC 07/25/2021 Right aortogram, BA & stenting right EIA FEMORAL ENDARTERECTOMY 08/21/2021 Right RT com-fem endar & patch angioplasty. RT fem to TPT bypass. CARDIAC CATHETERIZATION 12/28/2024 Right Procedure: ANGIOGRAPHY - UNILATERAL EXTREMITY S&I [id number]; Surgeon: Leodan Anthony MD; Location: [facility] CARDIAC EMPLOYEE RELATIONS DIRECTOR; Service: Vascular; Laterality: Right; CARDIAC CATHETERIZATION 12/28/2024 Right Procedure: THROMBECTOMY, MECHANICAL, PRIMARY NON CORONARY, INITIAL VESSEL, ARTERY OR GRAFT [id number]; Surgeon: Leodan Anthony MD; Location: [facility] CARDIAC EMPLOYEE RELATIONS DIRECTOR; Service: Vascular; Laterality: Right; CARDIAC CATHETERIZATION 12/28/2024 Right Procedure: TRANSCATHETER LYTIC ARTERIAL W/SI, [place] [id number]; Surgeon: Leodan Anthony MD; Location: [facility] CARDIAC EMPLOYEE RELATIONS DIRECTOR; Service: Vascular; Laterality: Right; CARDIAC CATHETERIZATION 12/29/2024 Right Procedure: ANGIOGRAPHY - UNILATERAL EXTREMITY S&I [id number]; Surgeon: Leodan Anthony MD; Location: [facility] CARDIAC EMPLOYEE RELATIONS DIRECTOR; Service: Vascular; Laterality: Right; Medical devices from this surgery are in the Medical Devices section. CARDIAC CATHETERIZATION 12/29/2024 N/A Procedure: SWITCHING OPERATOR FEM-POP, UNILATERAL, FIRST VESSEL [id number]; Surgeon: Leodan Anthony MD; Location: [facility] CARDIAC EMPLOYEE RELATIONS DIRECTOR; Service: Vascular; Laterality: N/A; Medical devices from this surgery are in the Medical Devices section. CARDIAC CATHETERIZATION 12/29/2024 N/A Procedure: SWITCHING OPERATOR tib-per unilateral, first vessel; Surgeon: Leodan Anthony MD; Location: [facility] CARDIAC EMPLOYEE RELATIONS DIRECTOR; Service: Vascular; Laterality: N/A; Medical devices from this surgery are in the Medical Devices section. CARDIAC CATHETERIZATION 12/29/2024 N/A Procedure: Lytic FU and DC CATH ART OR VENOUS [id number]; Surgeon: Leodan Anthony MD; Location: [facility] CARDIAC EMPLOYEE RELATIONS DIRECTOR; Service: Vascular; Laterality: N/A; Medical devices from [...] drink = 0.6 oz pur e alcohol) [facility] Utilities Answer Date Recorded In the past 12 months has th e electric, gas, oil, or water company threatened to shut off services in your home? No 12/28/2024 Social Connection and Isolation Panel Answer Date Recorded In a typical week, how many times do you talk on the phone with family, friends, or neighbors? More than three times a week 12/28/2024 How often do you get togethe r with friends or relatives? Twice a week 12/28/2024 How often do you attend chur ch or sikh services? More than 4 times per year 12/28/2024 Do you belong to any clubs o r organizations such as adventism groups, unions, fraternal or athletic groups, or [...] any time in the past 12 m [facility], were you homeless or living in a fdc (including now)? 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 on file Not on file Not on file Obstetrics History Last Filed Vital Signs Vital Sign Reading Time Taken Comments Blood Pressure 169/73 04/05/2025 10:57 AM CDT Pulse 56 04/05/2025 10:57 AM CDT Temperature 37.3 C (99.1 F) 01/01/2025 7:35 AM CDT Respiratory Rate 18 01/01/2025 7:35 AM CDT Oxygen Saturation 96% 01/01/2025 7:35 AM CDT Inhaled Oxygen Concentration - - Weight 66.7 kg (147 lb) 04/05/2025 10:57 AM CDT Height 167.6 cm (5' 6) 04/05/2025 10:57 AM CDT Body Mass Index 23.73 04/05/2025 10:57 AM CDT Plan of Treatment Health Maintenance Due Date Last Done Comments Depression Screening 1945 Hepatitis C Screening 1945 DTaP/Tdap/Td Vaccine (1 - Tdap) 1956 Hepatitis B Screening 1963 Zoster Vaccine (1 of 2) 1995 Well Visit 65+ 2010 Influenza Vaccine (#1) 2025 3, 05/23/2020, 05/05/2020, Additional history exists Fall Risk Assessment 01/01/2026 01/01/2025 Pneumococcal vaccine 65+ Completed 021, 10/11/2019, 08/25/2017 Abdominal Aortic Aneurysm (A AA) Screen Completed 12/27/2024 Medical Devices Implanted Type Area Wind Tunnel Mechanic Device Identifier Shelf Expiration Date Model / Serial / Lot [employer] Vascular 51184-68 Perclose 6fr Suture Mediate Knot Push Vascular Device Closure - S0 - [id number] Implanted:Qty: 1 on 05/15/2021 by Gunner Pinto MD at [facility] Other - see comments [employer] 02/06/2023 [id number] / 0 / [id number] [employer] [id number] Synergy Xd Monorail 2.5mm 48mm 144cm Delivery System 1 Access - S0 - [id number] Implanted:Qty: 1 on 05/15/2021 by Gunner Pnito MD at [facility] Stent [employer] Brandon 12/20/2022 [id number] / 0 / [id number] [employer] Brandon [id number] Synergy Xd Monorail 3.5mm 38mm 144cm Delivery System 1 Access - S0 - [id number] Implanted:Qty: 1 on 05/15/2021 by Gunner Pinto MD at [facility] Stent [employer] Brandon 10/25/2022 [id number] / 0 / [id number] [place] Peripheral Vascular [id number] E-[id number] Safe Performaxx 7mm 6fr 60mm 80cm Delivery System - [id number] Implanted:Qty: 1 on 07/15/2021 by Leodan Anthony MD at [facility] Peripheral Vascular 07/13/2023 [id number] / / [id number] [employer] [id number] [place] 6mm 80cm 60cm Removable Ring Stretch Thin Wall Graft - [id number] - [id number] Implanted:Qty: 1 on 08/21/2021 by Leodan Anthony MD at [facility] [employer] [id number] 12/02/2024 [id number] / [id number] / 20lines Brandon [id number] Vascu-Guard 8x.8cm Peripheral Patch Vascular [place]ov[place] Pericardium - [id number] Implanted:Qty: 1 on 08/21/2021 by Leodan Anthony MD at [facility] [place] [id number] 04/17/2026 [id number] / / [id number] [employer]inson Vascular System Closure Repair Femoral Artery Suture Mediated Perclose Prostyle 65493-45 - [id number] Implanted:Qty: 1 on 12/29/2024 by Leodan Anthony MD at [facility] [employer] 11/07/2026 [id number] / / [id number] Procedures Procedure Name Priority Date/Time Associated Diagnosis Comments US MARIA ESTHER Schedule Routine, Read Routine (OP Routine) 04/05/2025 11:00 AM CDT Aftercare following surgery of the circulatory system US ARTERIAL DUPLEX LOWER EXTREMITY RIGHT LIMITED Schedule Routine, Read Routine (OP Routine) 04/05/2025 11:00 AM CDT Aftercare following surgery of the circulatory system US MARIA ESTHER Schedule Routine, Read Routine (OP Routine) 01/26/2025 2:22 PM CDT Atherosclerosis of [place] arteries of extremities with intermittent claudication, right leg US ARTERIAL DUPLEX LOWER EXTREMITY RIGHT LIMITED Schedule Routine, Read Routine (OP Routine) 01/26/2025 2:21 PM CDT Atherosclerosis of [place] arteries of extremities with intermittent claudication, right leg CTA ABDOMINAL AORTA AND BILATERAL ILIOFEMORAL RUNOFF ED 12/27/2024 11:39 AM CDT from Last 3 Months or Most Recently Relevant to Health Maintenance Results * US MARIA ESTHER (04/05/2025 11:00 AM CDT) Anatomical Region Laterality Modality Vascular N/A Ultrasound 04/05/2025 9:56 AM CDT Narrative 04/06/2025 8:46 AM CDT Lower Extremity Arterial Doppler Report Patient Name: HOWIE LOVE L : 1945 Study Date: 04/05/2025 9:56:00 AM Gender: M Supervisor Melt House: Arlyn Mata RN/RVT Ref Provider: LEODAN ANTHONY Quality: Adequate Order Provider: LEODAN ANTHONY PROCEDURES: Arterial Report: Ankle - Brachial Index Doppler exam. INDICATIONS: Z48.812 Encounter for surgical aftercare following surgery on the circulatory system. HISTORY: COMPARISONS: The previous exam was completed on 01/26/2025 RT PT/DP .82/.83 LT PT/DP .57/.53. MEASUREMENTS: Right Value Left Value Rt Brachial Pressure 164 mmHg Lt Brachial Pressure 163 mmHg Rt SWITCHING OPERATOR Pressure 93 mmHg Lt SWITCHING OPERATOR Pressure 225 mmHg Rt DPA Pressure 95 mmHg Lt DPA Pressure 229 mmHg Rt 1st Digit Pressure 32 mmHg Lt 1st Digit Pressure 50 mmHg Rt PT MARIA ESTHER Resting 0.57 Lt PT MARIA ESTHER Resting 1.37 Rt DP MARIA ESTHER Resting 0.58 Lt DP MARIA ESTHER Resting 1.4 Rt Digit 1/Arm Index 0.2 Lt Digit 1/Arm Index 0.3 FINDINGS: Right Posterior Tibial Artery Analysis: The posterior tibial waveform is monophasic. Right Dorsalis Pedis Artery Analysis: The dorsalis pedis waveform is monophasic. Right Digits: The right digit waveform is dampened. Left Posterior Tibial Artery Analysis: The posterior tibial waveform is monophasic. Left Dorsalis Pedis Artery Analysis: The dorsalis pedis waveform is monophasic. Left Digits: The left digit waveform is dampened. - CONCLUSIONS: 1. 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 2. Ankle-brachial index of >1.3 is non-compressible which is consistent with arterial calcifications, thus the ankle/brachial index is not obtainable in the left lower extremity. 3. Wound healing potential poor right lower extremity based upon digital pressures. ATTESTATION: I have reviewed and interpreted the pertinent images and measurements of this study. I attest to the conclusions in the final report that is provided above. Electronically Signed By: Leodan Anthony MD 04/06/2025 8:27:22 AM CDT Procedure Note Leodan Anthony MD - 04/06/2025 Lower Extremity Arterial Doppler Report Patient Name: HOWIE LOVE L : 1945 Study Date: 04/05/2025 9:56:00 AM Gender: M Supervisor Melt House: Arlyn Mata RN/RVT Ref Provider: LEODAN ANTHONY Quality: Adequate Order Provider: LEODAN ANTHONY PROCEDURES: Arterial Report: Ankle - Brachial Index Doppler exam. INDICATIONS: Z48.812 Encounter for surgical aftercare following surgery on thecirculatory system. HISTORY: COMPARISONS: The previous exam was completed on 01/26/2025 RT PT/DP .82/.83 LT PT/DP.57/.53. MEASUREMENTS: Right Value Left Value Rt Brachial Pressure 164 mmHg Lt Brachial Pressure 163 mmHg Rt SWITCHING OPERATOR Pressure 93 mmHg Lt SWITCHING OPERATOR Pressure 225 mmHg Rt DPA Pressure 95 mmHg Lt DPA Pressure 229 mmHg Rt 1st Digit Pressure 32 mmHg Lt 1st Digit Pressure 50 mmHg Rt PT MARIA ESTHER Resting 0.57 Lt PT MARIA ESTHER Resting 1.37 Rt DP MARIA ESTHER Resting 0.58 Lt DP MARIA ESTHER Resting 1.4 Rt Digit 1/Arm Index 0.2 Lt Digit 1/Arm Index 0.3 FINDINGS: Right Posterior Tibial Artery Analysis: The posterior tibial waveform is monophasic. Right Dorsalis Pedis Artery Analysis: The dorsalis pedis waveform is monophasic. Right Digits: The right digit waveform is dampened. Left Posterior Tibial Artery Analysis: The posterior tibial waveform is monophasic. Left Dorsalis Pedis Artery Analysis: The dorsalis pedis waveform is monophasic. Left Digits: The left digit waveform is dampened. - CONCLUSIONS: 1. Ankle-brachial index of 0.5-0.8 is consistent with claudication and amoderate occlusive arterial disease in the right lower extremity. 2. Ankle-brachial index of >1.3 is non-compressible which is consistentwith arterial calcifications, thus the ankle/brachial index is not obtainable in theleft lower extremity. 3. Wound healing potential poor right lower extremity based upon digitalpressures. ATTESTATION: I have reviewed and interpreted the pertinent images and measurements ofthis study. I attest to the conclusions in the final report that is provided above. Electronically Signed By: Leodan Anthony MD 04/06/2025 8:27:22 AM CDT us Leodan Anthony MD IMG US PROCEDURES Final Re sult * US Arterial Duplex Lower Extremity Right Limited (04/05/2025 11:00 AM CDT) Anatomical Region Laterality Modality Vascular Right Ultrasound 04/05/2025 10:0 0 AM CDT Narrative 04/06/2025 8:46 AM CDT Lower Extremity Arterial Duplex Report Patient Name: HOWIE LOVE L : 1945 (79y 7m) Gender: M Study Date: 04/05/2025 10:00:52 AM Ht(Inch): Wt(Lb): BSA: Supervisor Melt House: ARLYN MATA Provider: LEODAN ANTHONY Quality: Adequate Ref Provider: LEODAN ANTHONY PROCEDURES: Arterial Report: A non-invasive vascular imaging study of the right lower extremity arteries and bypass graft was performed using B-mode ultrasound, color flow, and spectral Doppler. INDICATIONS: Z48.812 Encounter for surgical aftercare following surgery on the circulatory system. HISTORY: S/P DCBA RIGHT ELECTRICAL CONSTRUCTION PROJECT MANAGER,PFA AND PROX ANAST 12/29/24 S/P THROMB RT PFA-TPT BPG 12/28/24 S/P ENDART RT ELECTRICAL CONSTRUCTION PROJECT MANAGER; RT PFA-TPT BPG 08/21/21 S/P STENT RT EIA 07/15/21. COMPARISONS: The previous exam was completed on 01/26/25. MEASUREMENTS: Right Value Aorta Prx PSV 0.00 cm/sec GRAFTS: Right Value Location RT PFA-TPT BPG Rt BPG Inflow PSV ELECTRICAL CONSTRUCTION PROJECT MANAGER 58 PFA 299 cm/sec Rt Anast Prx PSV 63.28 cm/sec Rt BPG Prx PSV 54.47 cm/sec Rt BPG Mid PSV 46.12 cm/sec Rt BPG Dst PSV 38.43 cm/sec Rt Anast Dst PSV 63.00 cm/sec Rt BPG Outflow PSV 50.00 cm/sec FINDINGS: Bypass Graft: The bypass graft is located in the right leg. Patent lower extremity bypass graft with no evidence of stenosis. CONCLUSION: 1. The arterial bypass graft is patent with no evidence of stenosis. ATTESTATION: I have reviewed and interpreted the pertinent images and measurements of this study. I attest to the conclusions in the final report that is provided above. Electronically Signed By: Leodan Anthony MD 04/06/2025 8:27:52 AM CDT Procedure Note Leodan Anthony MD - 04/06/2025 Lower Extremity Arterial Duplex Report Patient Name: HOWIE LOVE L : 1945 (79y 7m) Gender: M Study Date: 04/05/2025 10:00:52 AM Ht(Inch): Wt(Lb): BSA: Supervisor Melt House: ARLYN MATA Provider: LEODAN ANTHONY Quality: Adequate Ref Provider: LEODAN ANTHONY PROCEDURES: Arterial Report: A non-invasive vascular imaging study of the right lowerextremity arteries and bypass graft was performed using B-mode ultrasound, colorflow, and spectral Doppler. INDICATIONS: Z48.812 Encounter for surgical aftercare following surgery on thecirculatory system. HISTORY: S/P DCBA RIGHT ELECTRICAL CONSTRUCTION PROJECT MANAGER,PFA AND PROX ANAST 12/29/24 S/P THROMB RT PFA-TPT BPG 12/28/24 S/P ENDART RT ELECTRICAL CONSTRUCTION PROJECT MANAGER; RT PFA-TPT BPG 08/21/21 S/P STENT RT EIA 07/15/21. COMPARISONS: The previous exam was completed on 01/26/25. MEASUREMENTS: Right Value Aorta Prx PSV 0.00 cm/sec GRAFTS: Right Value Location RT PFA-TPT BPG Rt BPG Inflow PSV ELECTRICAL CONSTRUCTION PROJECT MANAGER 58 PFA 299 cm/sec Rt Anast Prx PSV 63.28 cm/sec Rt BPG Prx PSV 54.47 cm/sec Rt BPG Mid PSV 46.12 cm/sec Rt BPG Dst PSV 38.43 cm/sec Rt Anast Dst PSV 63.00 cm/sec Rt BPG Outflow PSV 50.00 cm/sec FINDINGS: Bypass Graft: The bypass graft is located in the right leg. Patent lowerextremity bypass graft with no evidence of stenosis. CONCLUSION: 1. The arterial bypass graft is patent with no evidence of stenosis. ATTESTATION: I have reviewed and interpreted the pertinent images and measurements ofthis study. I attest to the conclusions in the final report that is provided above. Electronically Signed By: Leodan Anthony MD 04/06/2025 8:27:52 AM CDT us Leodan Anthony MD IM US PROCEDURES Final Re sult * US MARIA ESTHER (01/26/2025 2:22 PM CDT) Anatomical Region Laterality Modality Vascular N/A Ultrasound 01/26/2025 1:32 PM CDT Narrative 01/27/2025 11:02 AM CDT Lower Extremity Arterial Doppler Report Patient Name: HOWIE LOVE L : 1945 Study Date: 01/26/2025 1:32:00 PM Gender: M Supervisor Melt House: Darlene,Cristela RVS Ref Provider: LEODAN ANTHONY Quality: Adequate Order Provider: LEODAN ANTHONY PROCEDURES: Arterial Report: Ankle - Brachial Index Doppler exam. INDICATIONS: I70.211 Atherosclerosis of [place] arteries of extremities with intermittent claudication, right leg. HISTORY: S/P DCBA RT ELECTRICAL CONSTRUCTION PROJECT MANAGER, PFA AND PROX ANAST, BA RT AT 12/29/24 S/P THROMB RT PFA-TPT BYPAS 12/28/24 S/P ENDART RT ELECTRICAL CONSTRUCTION PROJECT MANAGER, RT PFA-TPT BYPASS 08/21/21 S/P BA/STENT RT EIA 07/15/21. MEASUREMENTS: Right Value Left Value Rt Brachial Pressure 141 mmHg Lt Brachial Pressure 148 mmHg Rt SWITCHING OPERATOR Pressure 121 mmHg Lt SWITCHING OPERATOR Pressure 85 mmHg Rt DPA Pressure 123 [...] Study Date: 01/26/2025 1:32:00 PM Gender: M Supervisor Melt House: Cristela Colon RVCyrus Ref Provider: LEODAN ANTHONY Quality: Adequate Order Provider: LEODAN ANTHONY PROCEDURES: Arterial Report: Ankle - Brachial Index Doppler exam. 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 HISTORY: S/P DCBA RT ELECTRICAL CONSTRUCTION PROJECT MANAGER, PFA AND PROX ANAST, BA RT AT 12/29/24 S/P THROMB RT PFA-TPT BYPAS 12/28/24 S/P ENDART RT ELECTRICAL CONSTRUCTION PROJECT MANAGER, RT PFA-TPT BYPASS 08/21/21 S/P BA/STENT RT EIA 07/15/21. MEASUREMENTS: Right Value Left Value Rt Brachial Pressure 141 mmHg Lt Brachial Pressure 148 mmHg Rt SWITCHING OPERATOR Pressure 121 mmHg Lt SWITCHING OPERATOR Pressure 85 mmHg Rt DPA Pressure 123 [...] Date: 01/26/2025 01:29:00 PM Ht(Inch): Wt(Lb): BSA: Supervisor Melt House: Cristela Colon Provider: LEODAN ANTHONY Quality: Adequate Ref Provider: LEODAN ANTHONY PROCEDURES: Arterial Report: A non-invasive vascular imaging study of the right lower extremity arteries was performed using B-mode ultrasound, color flow, and spectral Doppler. A non-invasive vascular imaging study of the right lower extremity arteries and bypass graft was performed using B-mode ultrasound, color flow, and spectral Doppler. INDICATIONS: I70.211 Atherosclerosis of [place] arteries of extremities with intermittent claudication, right leg. HISTORY: S/P DCBA RT ELECTRICAL CONSTRUCTION PROJECT MANAGER, PFA AND PROX ANAST 12/29/24 S/P THROMB RT PFA-TPT BYPASS 12/28/24 S/P ENDART RT ELECTRICAL CONSTRUCTION PROJECT MANAGER, RT PFA-TPT BYPASS 08/21/21 S/P BA/STENT RT EIA 07/15/21. MEASUREMENTS: Right Value Rt ELECTRICAL CONSTRUCTION PROJECT MANAGER Prx PSV 79.40 cm/sec Rt Profunda Prx [...] Date: 01/26/2025 01:29:00 PM Ht(Inch): Wt(Lb): BSA: Supervisor Melt House: Cristela Colon Provider: LEODAN ANTHONY Quality: Adequate Ref Provider: LEODAN ANTHONY PROCEDURES: Arterial Report: A non-invasive vascular imaging study of the right lowerextremity arteries was performed using B-mode ultrasound, color flow, and spectralDoppler. A non-invasive vascular imaging study of the right lower extremity arteriesand bypass graft was performed using B-mode ultrasound, color flow, and spectralDoppler. 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 HISTORY: S/P DCBA RT ELECTRICAL CONSTRUCTION PROJECT MANAGER, PFA AND PROX ANAST 12/29/24 S/P THROMB RT PFA-TPT BYPASS 12/28/24 S/P ENDART RT ELECTRICAL CONSTRUCTION PROJECT MANAGER, RT PFA-TPT BYPASS 08/21/21 S/P BA/STENT RT EIA 07/15/21. MEASUREMENTS: Right Value Rt ELECTRICAL CONSTRUCTION PROJECT MANAGER Prx PSV 79.40 cm/sec Rt Profunda Prx [...] 11:00:55 AM CDT us Leodan Anthony MD IM US PROCEDURES Final Re sult * CTA Abdominal Aorta And Bilateral Iliofemoral [...] signed by Santo NUNEZ T: Report ID: [id number] Reading Location: [place] [address] Procedure Note Santo Tamayo MD - 12/27/2024 EXAM DESCRIPTION: CTA ABDOMINAL AORTA AND BILATERAL ILIOFEMORAL RUNOFF REASON FOR STUDY: Claudication or leg ischemia, occluded graft, limb ischemia Claudication or leg ischemia, occluded graft, limb ischemia. [id number] past medical history of PVD status post [...] 12:28 PM - Electronically signed by Santo Tamayo M.D. RB T: Report ID: [id number] Reading Location: [place] [address] Charito Michael SUPERVISOR GRAPHITE IMG CT PROCEDURES Final Result from Last 3 Months or Most Recently Relevant to Health Maintenance Insurance UHC MEDICARE ADVANTAGE [facility] MEDICARE ADVANTAGE Advance Directives For more information, please contact: [phone] * Full Code (Latest Code Status on [...] 11:31 AM 08/17/2021 1:15 PM Care Teams Industrial Furnace Fabricator Relationship Specialty Start Date End Date Jordi Hernandez MD [address] [place] [address] PCP - General Family Practice 09/29/24 Eric Baker DO [address] [facility] [place] [address] Referring Physician Cardiology 05/01/21 Leodan Anthony MD [address] [facility] [address] [place] [address] Surgeon Vascular Surgery 08/01/21
--- OUTSIDE RECORDS SUMMARY | 2025-04-13 10:44 | XMS_ITS ---
Author Organization [facility] Medical Office Building B Address [address] [place] [address] Care Team Providers Care Investigator Internal Affairs Name Role Phone Eric Baker DO Unavailable [phone] Leodan Anthoyn MD Unavailable [phone] Jordi Hernandez MD Primary Care Provider [phone] Active Problems Problem Noted Date Diagnosed Date [...] trauma. Assessment & Plan (09/26/2021 3:56 PM RESEARCH RN SPEC): Impression: Patient is status post right common [...] ankle. 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 New toenail forming is noted on exam. Patient has 2 sutures remaining to right 1st toenail from when his toenail was removed. Plan: Continue daily dressing changes with Xeroform and dry gauze. Patient to follow-up in 3 months. Assessment & Plan (09/06/2021 1:30 PM RESEARCH RN SPEC): Impression: Patient has gangrene of the right [...] Lipitor Assessment & Plan (09/29/2024 3:23 PM RESEARCH RN SPEC): Impression: Chronic and stable. Plan: Continue Lipitor Assessment & Plan (01/07/2023 9:33 AM CDT): Chronic stable hyperlipidemia. Continue Lipitor. Assessment & Plan (06/25/2022 5:16 PM RESEARCH RN SPEC): Impression: Chronic hyperlipidemia, controlled with statin therapy. Plan: Continue statin therapy as per primary care provider. Assessment & Plan (12/20/2021 8:41 AM CDT): Hyper lipidemia currently medically controled with medications. Continue medications as per PCP. Assessment & Plan (2021 2:15 PM RESEARCH RN SPEC): Hyperlipidemia chronic and controlled. Continue Lipitor Primary hypertension 07/15/2021 Assessment & Plan (01/28/2025 2:33 PM CDT): Hypertension chronic controlled. Continue current medical management. Assessment & Plan (09/29/2024 3:23 PM RESEARCH RN SPEC): Impression: Chronic and stable. Plan: Continue Lasix lisinopril and metoprolol Assessment & Plan (01/07/2023 9:33 AM CDT): Chronic stable hypertension. Continue current medical management. Assessment & Plan (06/25/2022 5:16 PM RESEARCH RN SPEC): Impression: Chronic stable hypertension, controlled medications. Blood pressure stable. Plan: Continue blood pressure management as per primary care provider. Assessment & Plan (2021 2:15 PM RESEARCH RN SPEC): Hypertension chronic and controlled. Continue current medical [...] therapy. Assessment & Plan (2021 2:16 PM RESEARCH RN SPEC): Patient has ischemic rest pain with gangrenous [...] understands and agrees to proceed. Atherosclerosis of [place] ar teries of extremities with intermittent claudication, [...] duplex. Assessment & Plan (09/29/2024 3:22 PM RESEARCH RN SPEC): Impression: Patient is status post right common [...] extremity. Assessment & Plan (06/24/2024 9:55 AM RESEARCH RN SPEC): Over the past several months has had [...] duplex. 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 Past Treatment and Therapy Plans No past plan information found. Lifetime Dose Tracking * Chemical Lifetime Dose Automatic Entry Manual Entr y Fluoro Time 51.9 minutes 0 minutes 51.9 minutes Air kerma at the reference point (Ka,r) 4,373.33 mGy 0 mGy 4,373.33 mGy DAP 306.816 Gy-cm2 0 Gy-cm2 306.816 Gy-cm 2
--- OUTSIDE RECORDS SUMMARY | 2025-04-13 10:44 | XMS_ITS | Encounter Summary ---
Author Organization [facility] Address [address] [place] [address] Care Team Providers Care Pattern Lease Inspector Name Role Phone Jordi Hernandez MD Primary Care Provider [phone] Encounter Details Date Type Department Care Team (Late st Contact Info) Description 04/11/2025 External Device Data ST[place] ABSTRACTION Provider, Abstract NO ADDRESS ON FILE Social History Tobacco Use Types Packs/Day Years [...] Description 05/11/2025 11:00 AM CDT Office Visit [facility] Oncology and Hematology - [place] [address] [place] [address] Kedar Patterson MD [address] [facility] [address] [place] [address] documented as of this encounter Visit Diagnoses Not on filedocumented in this encounter Care Teams Pattern Lease Inspector Relationship Specialty Start Date End Date Jordi Hernandez MD [address] [facility] [place] [address] PCP - General Family Practice 06/18/23 documented as of this encounter
--- OUTSIDE RECORDS SUMMARY | 2025-04-13 10:44 | XMS_ITS | Encounter Summary ---
Author Organization [facility] Address [address] [place] [address] Care Team Providers Care Data Integrity Consultant Name Role Phone Jordi Hernandez MD Primary Care Provider [phone] Reason for Visit * Reason Onset Date Comments PACE malnutrition score 04/09/2023 Pt does not have VM Encounter Details Date Type Department Care Team (Late Contact Info) Description 04/09/2023 Telephone [facility] Dietitian Services [facility] [address] [place] [address] [place] [address] PACE malnutrition score (Pt does not have [...] Upcoming Encounters Date Type Department Care Team ([facility] Contact Info) Description 05/11/2025 11:00 AM CDT Office Visit [facility] Oncology and Hematology [place] [address] [place] [address] [facility] [address] [place] [address] Kedar Patterson MD [address] [facility] [address] [place] [address] documented as of this encounter Visit Diagnoses Not on filedocumented in this encounter Care Teams Data Integrity Consultant Relationship Specialty Start Date End Date Jordi Hernandez MD [address] [place] [address] PCP - General Family Practice 06/18/23 documented as of this encounter
--- OUTSIDE RECORDS SUMMARY | 2025-04-13 10:44 | XMS_ITS | Encounter Summary ---
Author Organization [facility] Address [address] [place] [address] Care Team Providers Care Tour Operator Name Role Phone Jordi Hernandez MD Primary Care Provider [phone] Encounter Details Date Type Department Care Team (Late st Contact Info) Description 04/10/2025 Orders Only [facility] Oncology and Hematology - [place] [address] [facility] [address] [place] [address] Kedar Patterson MD [address] 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
[2025-04-13 11:42] LABS: Cholesterol 115 mg/dL (0-200); HDL Direct 54 mg/dL; Iron 48 ug/dL (49-181); Triglycerides 67 mg/dL (<150)
[2025-04-13 11:51] LABS: Percent Iron Saturation 13 % (20-50)
[2025-04-13 12:23] LABS: Ferritin 37.80 ng/mL (11.1-264)
[2025-04-13 12:35] LABS: Hemoglobin A1C 7.0 % (<5.7)
== END 2025-04-13 10:13 | disposition home or self-care (01) ==
LOC: ANHLAB 10:13
PROVIDERS: PCP Family Medicine; Visit Provider Family Medicine
DX: I25.10 Atherosclerotic heart disease of native coronary artery without angina pectoris (principal); I73.9 Peripheral vascular disease, unspecified; R07.9 Chest pain, unspecified; E11.9 Type 2 diabetes mellitus without complications; U07.1 COVID-19; Z20.822 Contact with and (suspected) exposure to COVID-19
CPT/HCPCS: 36415; 80061; 82172; 82728; 83036; 83540; 83550

== ENCOUNTER 2025-05-15 01:44 | Day surgery (SDC) | payer MEDICARE, SELFPAY ==
[2025-05-12 13:17] VITALS: BMI 23.6
--- NOTE | 2025-05-12 14:27 | PC.NURSE ---
Spoke with patient regarding medication Eliquis. Patient verbalizes understanding that the last dose is to be taken on 05/12/2025 and the Endoscopist will instruct them when to restart after the procedure.
--- NOTE | 2025-05-12 14:29 | PC.NURSE ---
Pt history reviewed with Dr. Flores anesthesia, clearance from Dr. Leodan Anthony. Nuc. med scan and echo 05/2024 good prior to last EGD. Pt denies any chest pain/discomfort, sob or actiity intolerance- has been feeling pretty good.
--- OUTSIDE RECORDS SUMMARY | 2025-05-15 01:49 | XMS_ITS | Encounter Summary ---
Author Organization [facility] Address [address] [place] [address] Care Team Providers Care Documentation Specialist Name Role Phone Jordi Hernandez MD Primary Care Provider [phone] Reason for Visit * Reason Onset Date Comments PACE malnutrition score 04/09/2023 Pt does not have VM Encounter Details Date Type Department Care Team (Late Contact Info) Description 04/09/2023 Telephone [facility] Dietitian Services [facility] [address] [place] [address] [place] [address] PACE malnutrition score (Pt does not have [...] Upcoming Encounters Date Type Department Care Team ([facility] Contact Info) Description 06/08/2025 9:15 AM CDT Office Visit [facility] Oncology and Hematology - [place] [address] [facility] [address] [place] [address] Kedra Patterson MD [address] [facility] [address] [place] [address] documented as of this encounter Visit Diagnoses Not on filedocumented in this encounter Care Teams Documentation Specialist Relationship Specialty Start Date End Date Jordi Hernandez MD [address] [place] [address] PCP - General Family Practice 06/18/23 documented as of this encounter
--- OUTSIDE RECORDS SUMMARY | 2025-05-15 01:49 | XMS_ITS ---
Author Organization [facility] Medical Office Building B Address [address] [place] [address] Care Team Providers Care Mainframe Analyst Name Role Phone Eric Baker DO Unavailable [phone] Leodan Anthony MD Unavailable [phone] Jordi Hernandez MD Primary Care Provider [phone] Active Problems Problem Noted Date Diagnosed Date [...] trauma. Assessment & Plan (09/26/2021 3:56 PM EXECUTIVE COMPENSATION ANALYST): Impression: Patient is status post right common [...] ankle. 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 New toenail forming is noted on exam. Patient has 2 sutures remaining to right 1st toenail from when his toenail was removed. Plan: Continue daily dressing changes with Xeroform and dry gauze. Patient to follow-up in 3 months. Assessment & Plan (09/06/2021 1:30 PM EXECUTIVE COMPENSATION ANALYST): Impression: Patient has gangrene of the right [...] Lipitor Assessment & Plan (09/29/2024 3:23 PM EXECUTIVE COMPENSATION ANALYST): Impression: Chronic and stable. Plan: Continue Lipitor Assessment & Plan (01/07/2023 9:33 AM CDT): Chronic stable hyperlipidemia. Continue Lipitor. Assessment & Plan (06/25/2022 5:16 PM EXECUTIVE COMPENSATION ANALYST): Impression: Chronic hyperlipidemia, controlled with statin therapy. Plan: Continue statin therapy as per primary care provider. Assessment & Plan (12/20/2021 8:41 AM CDT): Hyper lipidemia currently medically controled with medications. Continue medications as per PCP. Assessment & Plan (2021 2:15 PM EXECUTIVE COMPENSATION ANALYST): Hyperlipidemia chronic and controlled. Continue Lipitor Primary hypertension 07/15/2021 Assessment & Plan (01/28/2025 2:33 PM CDT): Hypertension chronic controlled. Continue current medical management. Assessment & Plan (09/29/2024 3:23 PM EXECUTIVE COMPENSATION ANALYST): Impression: Chronic and stable. Plan: Continue Lasix lisinopril and metoprolol Assessment & Plan (01/07/2023 9:33 AM CDT): Chronic stable hypertension. Continue current medical management. Assessment & Plan (06/25/2022 5:16 PM EXECUTIVE COMPENSATION ANALYST): Impression: Chronic stable hypertension, controlled medications. Blood pressure stable. Plan: Continue blood pressure management as per primary care provider. Assessment & Plan (2021 2:15 PM EXECUTIVE COMPENSATION ANALYST): Hypertension chronic and controlled. Continue current medical [...] therapy. Assessment & Plan (2021 2:16 PM EXECUTIVE COMPENSATION ANALYST): Patient has ischemic rest pain with gangrenous [...] understands and agrees to proceed. Atherosclerosis of [place] ar teries of extremities with intermittent claudication, [...] duplex. Assessment & Plan (09/29/2024 3:22 PM EXECUTIVE COMPENSATION ANALYST): Impression: Patient is status post right common [...] extremity. Assessment & Plan (06/24/2024 9:55 AM EXECUTIVE COMPENSATION ANALYST): Over the past several months has had [...] duplex. 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
--- OUTSIDE RECORDS SUMMARY | 2025-05-15 01:49 | XMS_ITS | Clinical Summary ---
Author Organization [facility] Address [facility] access hospital[address] [place] [address] Care Team Providers Care Visual Educator Name Role Phone Unavailable Primary Care Provider [...] (166 lb 8 oz) 07/11/2012 11:47 AM SPEECH LANGUAGE ASSISTANT Height 167.6 cm (5' 6) 07/11/2012 11:47 AM SPEECH LANGUAGE ASSISTANT Body Mass Index 26.87 07/11/2012 11:47 AM SPEECH LANGUAGE ASSISTANT Plan of Treatment Health Maintenance Due Date Last Done Comments Hepatitis C 1963 DTaP, Tdap and Td Vaccines ( 1 - Tdap) 1964 Pneumococcal Vaccine: 50+ Ye ars (1 of 1 - PCV) 1995 Zoster Vaccines (1 of 2) 1995 Annual Medicare Wellness Visit 2010 RSV Immunization or 60+ Years (1 - 1-dose 75+ series) 2020 COVID-19 Vaccine ( - 2023-2 5 season) 2025 Influenza Adult (#1) 2025 Meningococcal B Vaccine Aged Out No l onger eligible based on patient's age to complete this topic Meningococcal Vaccine Aged Out No sheila manas eligible based on patient's age to complete this topic RSV Immunizations Under 20 Months Aged Out No longer eligible based on patient's age to complete this topic Insurance MEDICARE
--- OUTSIDE RECORDS SUMMARY | 2025-05-15 01:49 | XMS_ITS | Patient Health Record ---
Author Organization [facility] Address [address] [place], [place] [id number] Care Team Providers Care Building Associate Name Role Phone PATRICIA Wen Unavailable [phone] Lowell Mosley Unavailable Unavailable Reason For Referral No Information Plan Of Treatment No Information Insurance Providers Payer Name Payer Address Payer Phone Subscriber Number Group Number Insured Name Patient Relationship to Insured Coverage Start Date Coverage End Date AARP MedicareCom plete ([facility]) [address] [place], [place] [id number] HOWIE LOVE Self - patient is the insured
--- OUTSIDE RECORDS SUMMARY | 2025-05-15 01:49 | XMS_ITS | Encounter Summary ---
Author Organization [facility] Address [address] [place] [address] Care Team Providers Care Envelope Maker Name Role Phone Jordi Hernandez MD Primary Care Provider [phone] Encounter Details Date Type Department Care Team (Late st Contact Info) Description 05/12/2025 Orders Only [facility] Oncology and Hematology - [place] [address] [facility] [address] [place] [address] Kedar Patterson MD [address] [facility] [address] [place] [address] Social History Tobacco Use Types Packs/Day Years [...] Care Team (Late st Contact Info) Description 06/08/2025 9:15 AM CDT Office Visit [facility] Oncology and Hematology - [place] [address] [place] [address] [place] [address] Kedar Patterson MD [address] [facility] [address] [place] [address] documented as of this encounter Procedures Procedure Name Priority Date/Time Associated Diagnosis Comments CBC WITH AUTODIFFERENTIAL Routine 2024 12:02 PM CDT documented in this encounter Results * CBC WITH AUTODIFFERENTIAL (05/11/2025 12:02 PM CDT) Blood us Kedar Patterson MD HEMATOLOGY ORDERABLES Final Res ult documented in this encounter Visit Diagnoses Not on filedocumented in this encounter Care Teams Envelope Maker Relationship Specialty Start Date End Date Jordi Hernandez MD [address] [place] [address] PCP - General Family Practice 06/18/23 documented as of this encounter
--- OUTSIDE RECORDS SUMMARY | 2025-05-15 01:49 | XMS_ITS | Clinical Summary ---
Author Organization [facility] Building B Address [address] [place] [address] Care Team Providers Care Patient Consumer Marketer Name Role Phone Eric Baker DO Unavailable [phone] Leodan Anthony MD Unavailable [phone] Jordi Hernandez MD Primary Care Provider [phone] Allergies Active Allergy Reactions Criticality Noted Date [...] trauma. Assessment & Plan (09/26/2021 3:56 PM ARC TRIMMER): Impression: Patient is status post right common [...] ankle. Assessment & Plan (09/06/2021 1:29 PM ARC TRIMMER): Impression: Patient is status post right common [...] warm, well perfused. Graft is patent. Plan: [place] removed. Patient to continue ongoing risk factor modifications. Patient to follow-up in 2-3 weeks for re-evaluation with new baseline arterial duplex study. 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 New toenail forming is noted on exam. Patient has 2 sutures remaining to right 1st toenail from when his toenail was removed. Plan: Continue daily dressing changes with Xeroform and dry gauze. Patient to follow-up in 3 months. Assessment & Plan (09/06/2021 1:30 PM ARC TRIMMER): Impression: Patient has gangrene of the right [...] Lipitor Assessment & Plan (09/29/2024 3:23 PM ARC TRIMMER): Impression: Chronic and stable. Plan: Continue Lipitor Assessment & Plan (01/07/2023 9:33 AM CDT): Chronic stable hyperlipidemia. Continue Lipitor. Assessment & Plan (06/25/2022 5:16 PM ARC TRIMMER): Impression: Chronic hyperlipidemia, controlled with statin therapy. Plan: Continue statin therapy as per primary care provider. Assessment & Plan (12/20/2021 8:41 AM CDT): Hyper lipidemia currently medically controled with medications. Continue medications as per PCP. Assessment & Plan (2021 2:15 PM ARC TRIMMER): Hyperlipidemia chronic and controlled. Continue Lipitor Primary hypertension 07/15/2021 Assessment & Plan (01/28/2025 2:33 PM CDT): Hypertension chronic controlled. Continue current medical management. Assessment & Plan (09/29/2024 3:23 PM ARC TRIMMER): Impression: Chronic and stable. Plan: Continue Lasix lisinopril and metoprolol Assessment & Plan (01/07/2023 9:33 AM CDT): Chronic stable hypertension. Continue current medical management. Assessment & Plan (06/25/2022 5:16 PM ARC TRIMMER): Impression: Chronic stable hypertension, controlled medications. Blood pressure stable. Plan: Continue blood pressure management as per primary care provider. Assessment & Plan (2021 2:15 PM ARC TRIMMER): Hypertension chronic and controlled. Continue current medical [...] therapy. Assessment & Plan (2021 2:16 PM ARC TRIMMER): Patient has ischemic rest pain with gangrenous [...] understands and agrees to proceed. Atherosclerosis of [place] ar teries of extremities with intermittent claudication, [...] duplex. Assessment & Plan (09/29/2024 3:22 PM ARC TRIMMER): Impression: Patient is status post right common [...] extremity. Assessment & Plan (06/24/2024 9:55 AM ARC TRIMMER): Over the past several months has had [...] duplex. Assessment & Plan (06/25/2022 5:15 PM ARC TRIMMER): Impression: Patient is status post right common [...] artery disease of n ative artery of [place] heart with stable angina pectoris 05/01/2021 Myocardial infarction Overview (07/12/2021): Two thousand twelve and 05/15/2021 status post 2 stents on 05/15/2021 Preop cardiovascular exam Cellulitis of right foot Encounters Date Type Department Care Team Description 04/05/2025 11:00 AM CDT Office Visit [facility] Vascular and Vein Surgery [address] [place] [phone] Charito Michael NP Aftercare following surgery of the circulatory system (Primary Dx); Atherosclerosis of [place] arteries of extremities with intermittent claudication, right leg; Mixed hyperlipidemia; Primary hypertension 04/05/2025 9:50 AM CDT - 04/05/2025 11:59 PM CDT Hospital Encounter [facility] Medical Office Building [address] [place] [address] Aftercare following surgery of the circulatory system Discharge Disposition: Discharge to home or self care 04/05/2025 9:50 AM CDT - 04/05/2025 11:59 PM CDT Hospital Encounter [facility] Medical Office Building [address] [place] [address] Aftercare following surgery of the circulatory system [...] Right CORONARY STENT PLACEMENT 08/10/2011 - 08/09/2012 [place] ANGIOPLASTY / STENTING ILIAC 07/25/2021 Right aortogram, BA & stenting right EIA FEMORAL ENDARTERECTOMY 08/21/2021 Right RT com-fem endar & patch angioplasty. RT fem to TPT bypass. CARDIAC CATHETERIZATION 12/28/2024 Right Procedure: ANGIOGRAPHY - UNILATERAL EXTREMITY S&I [id number]; Surgeon: Leodan Anthony MD; Location: [facility]; Service: Vascular; Laterality: Right; CARDIAC CATHETERIZATION 12/28/2024 Right Procedure: THROMBECTOMY, MECHANICAL, PRIMARY NON CORONARY, INITIAL VESSEL, ARTERY OR GRAFT [id number]; Surgeon: Leodan Anthony MD; Location: [facility]; Service: Vascular; Laterality: Right; CARDIAC CATHETERIZATION 12/28/2024 Right Procedure: TRANSCATHETER LYTIC ARTERIAL W/SI, [place] [id number]; Surgeon: Leodan Anthony MD; Location: [facility]; Service: Vascular; Laterality: Right; CARDIAC CATHETERIZATION 12/29/2024 Right Procedure: ANGIOGRAPHY - UNILATERAL EXTREMITY S&I [id number]; Surgeon: Leodan Anthony MD; Location: [facility]; Service: Vascular; Laterality: Right; Medical devices from this surgery are in the Medical Devices section. CARDIAC CATHETERIZATION 12/29/2024 N/A Procedure: TECH ED TEACHER FEM-POP, UNILATERAL, FIRST VESSEL [id number]; Surgeon: Leodan Anthony MD; Location: [facility]; Service: Vascular; Laterality: N/A; Medical devices from this surgery are in the Medical Devices section. CARDIAC CATHETERIZATION 12/29/2024 N/A Procedure: TECH ED TEACHER tib-per unilateral, first vessel; Surgeon: Leodan Anthony MD; Location: [facility]; Service: Vascular; Laterality: N/A; Medical devices from this surgery are in the Medical Devices section. CARDIAC CATHETERIZATION 12/29/2024 N/A Procedure: Lytic FU and DC CATH ART OR VENOUS [id number]; Surgeon: Leodan Anthony MD; Location: [facility]; Service: Vascular; Laterality: N/A; Medical devices from [...] drink = 0.6 oz pur e alcohol) [facility] Utilities Answer Date Recorded In the past 12 months has [employer], [employer], oil, or water [employer] threatened to shut off services in your [...] 12/28/2024 How often do you attend [facility] or sikh services? More than 4 times per year 12/28/2024 Do you belong to any clubs o r organizations such as mandaeism groups, unions, fraternal or athletic groups, or [...] any time in the past 12 m [facility], were you homeless or living in a nursing home (including now)? 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 on file Not on file Not [...] Completed 12/27/2024 Medical Devices Implanted Type Area Supervisor Fish Processing Device Identifier Shelf Expiration Date Model / Serial / Lot [place]inson Vascular 42528-30 Perclose 6fr Suture Mediate Knot Push Vascular Device Closure - S0 - [id number] Implanted:Qty: 1 on 05/15/2021 by Gunner Pinto MD at [facility] Other - see comments [employer]inson Vascular 02/06/2023 [id number] / 0 / [id number] [employer] [place] [id number] Synergy Xd Monorail 2.5mm 48mm 144cm Delivery System 1 Access - S0 - [id number] Implanted:Qty: 1 on 05/15/2021 by Gunner Pinto MD at [facility] Stent [employer] Brandon 12/20/2022 [id number] / 0 / [id number] [employer] Brandon [id number] Synergy Xd Monorail 3.5mm 38mm 144cm Delivery System 1 Access - S0 - [id number] Implanted:Qty: 1 on 05/15/2021 by Gunner Pinto MD at [facility] Stent [employer] Brandon 10/25/2022 [id number] / 0 / [id number] [place] Peripheral Vascular [id number] E-Luminexx Safe Performaxx 7mm 6fr 60mm 80cm Delivery System - [id number] Implanted:Qty: 1 on 07/15/2021 by Leodan Anthony MD at [facility] Peripheral Vascular 07/13/2023 [id number] / / [id number] [employer] [id number] [place] 6mm 80cm 60cm Removable Ring Stretch Thin Wall Graft - [id number] - [id number] Implanted:Qty: 1 on 08/21/2021 by Leodan Anthony MD at [facility] Wl [employer] [id number] 12/02/2024 [id number] / [id number] / Card[employer] [id number] Vascu-Guard 8x.8cm Peripheral Patch Vascular Bovine Pericardium - [id number] Implanted:Qty: 1 on 08/21/2021 by Leodan Anthony MD at [facility] [employer] [id number] 04/17/2026 [id number] / / [id number] [employer]inson Vascular System Closure Repair Femoral Artery Suture Mediated Perclose Prostyle 47970-61 - [id number] Implanted:Qty: 1 on 12/29/2024 by Leodan Anthony MD at [facility] [employer] 11/07/2026 [id number] / / [id number] Procedures Procedure Name Priority Date/Time Associated Diagnosis Comments US MARIA ESTHER Schedule Routine, Read Routine (OP Routine) 04/05/2025 11:00 AM CDT Aftercare following surgery of the circulatory system US ARTERIAL DUPLEX LOWER EXTREMITY RIGHT LIMITED Schedule Routine, Read Routine (OP Routine) 04/05/2025 11:00 AM CDT Aftercare following surgery of the circulatory system CTA ABDOMINAL AORTA AND BILATERAL ILIOFEMORAL RUNOFF [...] Study Date: 04/05/2025 9:56:00 AM Gender: M Maple Sugar Maker: Arlyn Mata RN/RVT Ref Provider: LEODAN ANTHONY [...] mmHg Lt Brachial Pressure 163 mmHg Rt TECH ED TEACHER Pressure 93 mmHg Lt TECH ED TEACHER Pressure 225 mmHg Rt DPA Pressure 95 [...] Study Date: 04/05/2025 9:56:00 AM Gender: M Maple Sugar Maker: Arlyn Mata RN/RVT Ref Provider: LEODAN ANTHONY Quality: Adequate Order Provider: LEODAN ANTHONY PROCEDURES: Arterial Report: Ankle - Brachial Index Doppler exam. INDICATIONS: Z48.812 Encounter for surgical aftercare following surgery on thecirculatory system. HISTORY: COMPARISONS: The previous exam was completed on 01/26/2025 RT PT/DP .82/.83 LT PT/DP.57/.53. MEASUREMENTS: Right Value Left Value Rt Brachial Pressure 164 mmHg Lt Brachial Pressure 163 mmHg Rt TECH ED TEACHER Pressure 93 mmHg Lt TECH ED TEACHER Pressure 225 mmHg Rt DPA Pressure 95 [...] Date: 04/05/2025 10:00:52 AM Ht(Inch): Wt(Lb): BSA: Maple Sugar Maker: ARLYN MATA Provider: LEODAN ANTHONY Quality: Adequate Ref Provider: LEODAN ANTHONY PROCEDURES: Arterial Report: A non-invasive vascular imaging study of the right lower extremity arteries and bypass graft was performed using B-mode ultrasound, color flow, and spectral Doppler. INDICATIONS: Z48.812 Encounter for surgical aftercare following surgery on the circulatory system. HISTORY: S/P DCBA RIGHT CRIME DATA SPECIALIST,PFA AND PROX ANAST 12/29/24 S/P THROMB RT PFA-TPT BPG 12/28/24 S/P ENDART RT CRIME DATA SPECIALIST; RT PFA-TPT BPG 08/21/21 S/P STENT RT EIA 07/15/21. COMPARISONS: The previous exam was completed on 01/26/25. MEASUREMENTS: Right Value Aorta Prx PSV 0.00 cm/sec GRAFTS: Right Value Location RT PFA-TPT BPG Rt BPG Inflow PSV CRIME DATA SPECIALIST 58 PFA 299 cm/sec Rt Anast Prx [...] Date: 04/05/2025 10:00:52 AM Ht(Inch): Wt(Lb): BSA: Maple Sugar Maker: ARLYN MATA Provider: LEODAN ANTHONY Quality: Adequate Ref Provider: LEODAN ANTHONY PROCEDURES: Arterial Report: A non-invasive vascular imaging study of the right lowerextremity arteries and bypass graft was performed using B-mode ultrasound, colorflow, and spectral Doppler. INDICATIONS: Z48.812 Encounter for surgical aftercare following surgery on thecirculatory system. HISTORY: S/P DCBA RIGHT CRIME DATA SPECIALIST,PFA AND PROX ANAST 12/29/24 S/P THROMB RT PFA-TPT BPG 12/28/24 S/P ENDART RT CRIME DATA SPECIALIST; RT PFA-TPT BPG 08/21/21 S/P STENT RT EIA 07/15/21. COMPARISONS: The previous exam was completed on 01/26/25. MEASUREMENTS: Right Value Aorta Prx PSV 0.00 cm/sec GRAFTS: Right Value Location RT PFA-TPT BPG Rt BPG Inflow PSV CRIME DATA SPECIALIST 58 PFA 299 cm/sec Rt Anast Prx [...] 8:27:52 AM CDT us Leodan Anthony MD IMG US PROCEDURES Final Re sult * CTA [...] signed by Santo NUNEZ T: Report ID: [id number] Reading Location: [place] [address] Procedure Note Santo Tamayo MD - 12/27/2024 EXAM DESCRIPTION: CTA ABDOMINAL AORTA AND BILATERAL ILIOFEMORAL RUNOFF REASON FOR STUDY: Claudication or leg ischemia, occluded graft, limb ischemia Claudication or leg ischemia, occluded graft, limb ischemia. [id number] past medical history of PVD status post [...] signed by Santo NUNEZ T: Report ID: [id number] Reading Location: [place] [address] Charito Michael NP IMG CT PROCEDURES Final Result from Last 3 Months or Most Recently Relevant to Health Maintenance Insurance [facility] Address: [facility] [address] [place] [address] UHC MEDICARE ADVANTAGE [facility] Address: [address] [place], [place] [id number] [facility] Address: [address] [place], [place] [id number] Advance Directives For more information, please contact: [phone] * Full Code (Latest Code Status on [...] 11:31 AM 08/17/2021 1:15 PM Care Teams Patient Consumer Marketer Relationship Specialty Start Date End Date Jordi Hernandez MD [address] [place] [address] PCP - General Family Practice 09/29/24 Eric Baker DO [address] [place] [address] Referring Physician Cardiology 05/01/21 Leodan Anthony MD [address] [facility] [address] [facility] [address] [place] [address] Surgeon Vascular Surgery 08/01/21
--- OUTSIDE RECORDS SUMMARY | 2025-05-15 01:49 | XMS_ITS | Clinical Summary ---
Author Organization [facility] Address [address] [place] [address] Care Team Providers Care Columnist/Commentator Name Role Phone Jordi Hernandez MD Primary Care Provider [phone] Allergies Active Allergy Reactions Criticality Noted Date Comments Vancomycin Other (See Comments) 12/11/2022 Red man syndrome Medications lidocaine-prilo demetrius (EMLA) 2.5-2.5 % CreamIndication s:Cancer of distal third of esophagus Apply to affected area see administration instructions. Apply to port 30 minutes prior to treatment. 30 Gram 3 02/07/20 Active atorvastatin (LIPITOR) 80 mg tablet 1 Tablet (80 mg) by J Tube route daily. 30 Tablet 05/10/20 Active Additional Information Patient taking differently:80 mgOral DAILY WITH SUPPER, Reported on 05/26/2023 ondansetron (ZOFRAN) 8 mg TabletIndicatio ns:Cancer of distal third of esophagus give 1 Tablet (8 mg) by J [...] on 05/26/2023 phenoL (CHLORASEPTIC) 1.4 % Aerosol, [place] 2 Sprays by Mouth/Throat route every 2 hours as needed for Discomfort or Sore Throat. 05/10/20 Active diazePAM (VALIUM) 2 mg tabletIndicatio ns:Malignant neoplasm of abdominal esophagus Administer 1 Tablet (2 mg) by J [...] as per primary care provider. Atherosclerosis of [place] ar teries of extremities with intermittent claudication, [...] artery disease of n ative artery of [place] heart with stable angina pectoris 05/01/2021 Encounters Date Type Department Care Team Description 05/12/2025 Orders Only [facility] Oncology and Hematology - [place]j [address] [place] [address] Kedar Patterson MD 05/11/2025 11:00 AM CDT Office Visit [facility] Oncology and Hematology - [place] [address] [place] [address] Kedar Patterson MD Chronic anemia (Primary Dx); Cancer of distal third of esophagus 05/08/2025 Orders Only [facility] Oncology and Hematology - [place] [address] [place] [address] Kedar Patterson MD Chronic anemia; 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); Benign hypertension 05/01/2025 Orders Only [facility] Oncology and Hematology - [place] [address] [place] [address] Kedar Patterson MD 04/27/2025 Orders Only [facility] Oncology and Hematology - [place] [address] [place] [address] Kedar Patterson MD 04/25/2025 External Device Data STL ABSTRACTION Provider, Abstract 04/24/2025 Orders Only [facility] Oncology and Hematology - [place] [address] [place] [address] Kedar Patterson MD Chronic anemia; 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); Benign hypertension 04/14/2025 Orders Only [facility] Oncology and Hematology - [place] [address] [place] [address] Kedar Patterson MD 04/13/2025 Orders Only [facility] Oncology and Hematology - [place] [address] [place] [address] Kedar Patterson MD 04/11/2025 External Device Data STL ABSTRACTION Provider, Abstract 04/10/2025 Orders Only [facility] Oncology and Hematology - [place] [address] [place] [address] Kedar Patterson MD Chronic anemia; 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); Benign hypertension 03/31/2025 Orders Only [facility] Oncology and Hematology - [place] [address] [place] [address] Kedar Patterson MD 03/30/2025 Orders Only [facility] Oncology and Hematology - [place] [address] [place] [address] Kedar Patterson MD 03/27/2025 Orders Only [facility] Oncology and Hematology - [place]j [address] [place] [address] Kedar Patterson MD Chronic anemia; 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); Benign hypertension 03/17/2025 Orders Only [facility] Oncology and Hematology - [place] [address] [place] [phone] Kedar Patterson MD 03/16/2025 11:00 AM CDT Office Visit [facility] Oncology and Hematology - [place] [address] [place] [address] Kedar Patterson MD 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) (Primary Dx) 03/16/2025 Orders Only [facility] Oncology and Hematology - [place] [address] [place] [phone] Kedar Patterson MD 03/15/2025 Orders [facility] Oncology and Hematology - [place]j [address] [place] [address] Kedar Patterson MD 03/13/2025 Orders Only [facility] Oncology and Hematology - [place] [address] [place] [address] Kedar Patterson MD Chronic anemia; 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); Benign hypertension 03/02/2025 Orders Only [facility] Oncology and Hematology - Cj [address] [place] [address] Kedar Patterson MD 02/27/2025 Orders Only [facility] Oncology and Hematology - Cj [address] [place] [address] Kedar Patterson MD Chronic anemia; 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); Benign hypertension 02/16/2025 9:15 AM CDT Office Visit [facility] Oncology and Hematology [facility] [address] [place] [address] Kedar Patterson MD 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) (Primary Dx) 02/13/2025 Orders Only [facility] Oncology and Hematology [facility] [address] [place] [address] Kedar Patterson MD Chronic anemia; Cancer of [...] Sign Reading Time Taken Comments Blood Pressure 103/74 05/11/2025 11:13 AM CDT Pulse 50 05/11/2025 11:13 AM CDT Temperature 36.4 C (97.6 F) 05/11/2025 11:13 AM CDT Respiratory Rate 15 05/11/2025 11:13 AM CDT Oxygen Saturation 98% 05/11/2025 11:13 AM CDT Inhaled Oxygen Concentration - - Weight 66.4 kg (146 lb 6.4 oz) 05/11/2025 11:13 AM CDT Height 165.1 cm (5' 5) 06/23/2023 10:57 AM EPIC ANESTHESIA ANALYST Body Mass Index 24.36 06/23/2023 10:57 AM EPIC ANESTHESIA ANALYST Plan of Treatment Upcoming Encounters Date Type Department Care Team (Late st Contact Info) Description 06/08/2025 9:15 AM CDT Office Visit [facility] Oncology and Hematology - Cj [address] [facility] [address] [place] [address] Kedar Patterson MD [address] [facility] [address] [place] [address] Health Maintenance Due Date Last Done Comments DTAP/TDAP/TD VACCINES (1 - Tdap) 1964 ZOSTER VACCINE (1 of 2) 1995 RSV VACCINE (60+ or ) (1 - 1-dose 75+ series) 2020 INFLUENZA VACCINE (#1) 2025 0, 10/11/2019, 08/25/2017 PNEUMOCOCCAL VACCINE 50+ YEARS Completed 0 10/08/2020, 10/11/2019, 08/25/2017 Medical Devices Implanted Type Area Network Intelligence Analyst Device Identifier Shelf Expiration Date Model / Serial / Lot Clip Ligating Horizon Med Ti [id number] - Csc - Implanted:Qty : 1 on 05/01/2023 by Jeremy Kraus MD at [facility] Clip N/A: Esophagus TELEFLEX- WECK CLOSURE SYS [id number] 12/24/2027 [id number] / / [id number] Clip Ligating Horizon Lg Ti [id number] - [facility] - [id number] Implanted:Qty : 1 on 05/01/2023 by Jeremy Kraus MD at [facility] Clip N/A: Esophagus TELEFLEX- [employer]ECK CLOSURE SYS [id number] 01/06/2027 [id number] / / [id number] X3 Heart Stents Procedures Procedure Name Priority Date/Time Associated Diagnosis Comments CBC WITH AUTODIFFERENTIAL Routine 2024 12:02 PM CDT BASIC METABOLIC PANEL Routine 04/27/2025 4:06 PM CDT CBC WITH AUTODIFFERENTIAL Routine 2024 3:55 PM CDT COMPREHENSIVE METABOLIC PANEL Routine 04/27/2025 11:59 AM CDT BASIC METABOLIC PANEL Routine 04/13/2025 11:52 AM CDT CBC WITH AUTODIFFERENTIAL Routine 2024 11:51 AM CDT COMPREHENSIVE METABOLIC PANEL Routine 04/13/2025 10:51 AM CDT CBC WITH AUTODIFFERENTIAL Routine 2024 3:18 PM [...] METABOLIC PANEL Routine 03/02/2025 3:30 PM CDT from Last 3 Months Results * CBC WITH AUTODIFFERENTIAL (05/11/2025 12:02 PM CDT) Only the most recent of5 resultswithin the time period is included. Blood us Kedar Patterson MD HEMATOLOGY ORDERABLES Final Res ult * BASIC METABOLIC PANEL (04/27/2025 4:06 PM CDT) Only the most recent of5 resultswithin the time period is included. Blood us Kedar Patterson MD CHEMISTRY ORDERABLES Final Resu lt * COMPREHENSIVE METABOLIC PANEL (04/27/2025 11:59 AM CDT) Only the most recent of6 resultswithin the time period is included. Blood us Kedar Patterson MD CHEMISTRY ORDERABLES Final Resu lt * CT CHEST ABDOMEN PELVIS W CONT (03/10/2025 10:24 AM CDT) Anatomical Region Laterality Modality Chest Computed Tomogra phy Kedar Patterson MD CT ORDERABLES Final Result from Last 3 Months Insurance [facility] Address: [address] [address] [place] [address] [facility] Address: [address] [place] [address] RX [employer] RX Member Subscriber Plan / Payer (Ef fective for All Dates) Name:Chris Mabry Relation to Subscriber:Self Name:Chris Mabry Payer ID:Not on file Group ID:[id number] Type:RX Medicare Part D Address: YENNY IBARRA [employer] [place] (INTERNAL) [facility] Advance Directives For more information, please contact: [phone] * Full Code (Latest Code Status on [...] 11:15 AM 12/15/2022 2:57 PM Care Teams Columnist/Commentator Relationship Specialty Start Date End Date Jordi Hernandez MD [address] [place] [phone] PCP - General Family Practice 06/18/23
[2025-05-15 13:07] VITALS: BP 155/82; PULSE 61; RESP 20; TEMP 36.4; O2SAT 99; BMI 23.5
[2025-05-15] MEDS: LACTATED RINGERS 1,000 ML 150 ML IV CONT (13:25)
--- NOTE | 2025-05-15 13:46 | WPDANESEPPF ---
Anes - Initial Pre Proc Eval Procedure: Operation Date: 05/15/25 13:45 Proposed Procedures p Esophagogastroduodenoscopy EGD - Vahid Chicas MD Date/Time: 05/15/25 13:46 Surgeon: Vahid Chicas MD Pre Op Diagnosis: Anemia, unspecified, GERD, Epigastric pain Patient Data Age: 79 Gender: M Height: 1.68 m Weight: 66 kg Last Vital Signs Temp 36.4 C 05/15/25 13:07 Pulse 61 05/15/25 13:07 Resp 20 05/15/25 13:07 BP 155/82 H 05/15/25 13:07 Pulse Ox 99 05/15/25 13:07 O2 Del Method Room Air 05/15/25 13:07 Allergies Allergy/AdvReac Type Severity Reaction Status Date / Time vancomycin Allergy RED MAN Verified 05/15/25 13:06 SYNDROME Home Medications ?Medication ?Instructions ?Recorded ?Confirmed ?Type aspirin 81 mg tablet,delayed 81 mg PO DAILY 03/18/21 05/15/25 History release (Adult Low Dose Aspirin) coenzyme Q10 10 mg capsule 10 mg PO DAILY 08/06/21 05/15/25 History atorvastatin 80 mg tablet 80 mg PO DAILY 05/23/24 05/15/25 History ferrous sulfate 324 mg (65 mg 324 mg PO BID 05/23/24 05/15/25 History iron) tablet,delayed release vitamin B complex 1 tablet PO DAILY 05/23/24 05/15/25 History cholecalciferol (vitamin D3) 25 25 mcg PO DAILY 05/26/24 05/15/25 History mcg (1,000 unit) tablet (Vitamin D3) magnesium aspart,citrate,oxide 400 mg PO DAILY 05/26/24 05/15/25 History super beet 1 tab-cap PO DAILY 05/26/24 05/15/25 History doxepin 25 mg capsule 25 mg PO QHS #30 caps 06/22/24 05/12/25 Rx Held on 12/29/24. Instructions: Home Medication placed on hold at Doctor's office ondansetron 4 mg disintegrating 4 mg PO Q8H PRN nausea and 08/01/24 05/12/25 Rx tablet vomiting #60 tabs potassium 20 mg chewable tablet 20 mg PO DAILY 08/11/24 05/12/25 History apixaban 5 mg tablet (Eliquis) 5 mg PO BID 01/19/25 05/15/25 History metoprolol succinate 25 mg See Rx Instructions .Route 03/07/25 05/15/25 Rx tablet,extended release 24 hr .COMPLEX #90 tabs isosorbide mononitrate 30 mg 30 mg PO DAILY 05/12/25 05/15/25 History tablet,extended release 24 hr potassium chloride 20 mEq 20 meq PO DAILY 05/12/25 05/15/25 History tablet,extended release(part/cryst) Patient hx anesthesia problems: none Family hx anesthesia problems: none Results Review: All pre-operative results and documents have been reviewed as part of the pre-operative evaluation. [facility] Past Medical History Medical History Gastroparesis Dysphagia Esophageal mass Painful orthopaedic hardware PAD (peripheral artery disease) Dyslipidemia CAD (coronary artery disease) Insomnia Need for vaccination against Streptococcus pneumoniae using pneumococcal conjugate vaccine 13 Toe pain, right No active medical problems Surgical History Surgical History H/O esophagectomy History of ankle fusion History of intravascular stent placement (~07/10/12) Family History Family History Father Heart problem Mother Heart problem Social History Social History Smoking packs per day: 1 Smoking cigarettes per day: 20.0 Years smoked: 20 Smoking pack-years: 20.00 Smoking status: Former smoker Alcohol intake: never Substance use: never Substance use type: does not use Do You Feel Safe in your Home?: Yes Lack of Transportation: No Lack of Food: Never True Current Housing: I Have Housing Concerned About Future Housing: No Difficulty Paying Gas/Electric Bills: No Difficulty Paying for Meds: No Currently Unemployed: No Education: Trade/Vocational Certificate Difficulty w/ Childcare or Family Care: No Living arrangements: alone Occupation/Education: retired Gender identity (if verbalized by the patient): Male Spiritual care concerns: No Agree to blood products: Yes Anes - Eval Final PreProcedure Day of Procedure 05/15/25 13:46 Patient weight: normal Heart: regular rate and rhythm Lungs: decreased breath sounds Airway: Mallampati scale class III Neurological: alert and oriented Last oral intake: >/= 8 hours ASA classification: IV Emergent: no Anesthetic plan: proceed Anesthesia type and monitoring: general GIVS and standard monitoring Results Review: All pre-operative results and documents have been reviewed as part of the pre-operative evaluation. Informed Consent: The patient's anesthetic plan and its attendant risks and benefits were discussed with the patient/family/POA. Questions were solicited and answers provided to the satisfaction of the patient/family/POA.
--- NOTE | 2025-05-15 13:58 | PM.HPGS ---
History of Present Illness History of Present Illness Consent: Risks, benefits, and alternatives have been discussed and questions answered. Patient agrees to proceed with procedure. Chief complaint: Anemia, unspecified, GERD, Epigastric pain Narrative: Chris Mabry is a 79 year old male here for repeat EGD, h/o esophageal cancer stage III 2022 treated with chemotherapy and esophagogastrectomy with gastric pull-through, had G-tube briefly. Received opdivo and repeat CT scan no signs of active disease. EGD in the past noted retained food in stomach, again with dysphagia. Review of Systems Review of Systems: All systems reviewed & are unremarkable except as noted in HPI and below PMFSH Past Medical History Medical History Gastroparesis Dysphagia Esophageal mass Painful orthopaedic hardware PAD (peripheral artery disease) Dyslipidemia CAD (coronary artery disease) Insomnia Need for vaccination against Streptococcus pneumoniae using pneumococcal conjugate vaccine 13 Toe pain, right No active medical problems Surgical History Surgical History H/O esophagectomy History of ankle fusion History of intravascular stent placement (~07/10/12) Family History Family History Father Heart problem Mother Heart problem Social History Social History Smoking packs per day: 1 Smoking cigarettes per day: 20.0 Years smoked: 20 Smoking pack-years: 20.00 Smoking status: Former smoker Alcohol intake: never Substance use: never Substance use type: does not use Do You Feel Safe in your Home?: Yes Lack of Transportation: No Lack of Food: Never True Current Housing: I Have Housing Concerned About Future Housing: No Difficulty Paying Gas/Electric Bills: No Difficulty Paying for Meds: No Currently Unemployed: No Education: Trade/Vocational Certificate Difficulty w/ Childcare or Family Care: No Living arrangements: alone Occupation/Education: retired Gender identity (if verbalized by the patient): Male Spiritual care concerns: No Agree to blood products: Yes Meds Home Medications and Allergies Home Medications ?Medication ?Instructions ?Recorded ?Confirmed ?Type aspirin 81 mg tablet,delayed 81 mg PO DAILY 03/18/21 05/15/25 History release (Adult Low Dose Aspirin) coenzyme Q10 10 mg capsule 10 mg PO DAILY 08/06/21 05/15/25 History atorvastatin 80 mg tablet 80 mg PO DAILY 05/23/24 05/15/25 History ferrous sulfate 324 mg (65 mg 324 mg PO BID 05/23/24 05/15/25 History iron) tablet,delayed release vitamin B complex 1 tablet PO DAILY 05/23/24 05/15/25 History cholecalciferol (vitamin D3) 25 25 mcg PO DAILY 05/26/24 05/15/25 History mcg (1,000 unit) tablet (Vitamin D3) magnesium aspart,citrate,oxide 400 mg PO DAILY 05/26/24 05/15/25 History super beet 1 tab-cap PO DAILY 05/26/24 05/15/25 History doxepin 25 mg capsule 25 mg PO QHS #30 caps 06/22/24 05/12/25 Rx Held on 12/29/24. Instructions: Home Medication placed on hold at Doctor's office ondansetron 4 mg disintegrating 4 mg PO Q8H PRN nausea and 08/01/24 05/12/25 Rx tablet vomiting #60 tabs potassium 20 mg chewable tablet 20 mg PO DAILY 08/11/24 05/12/25 History apixaban 5 mg tablet (Eliquis) 5 mg PO BID 01/19/25 05/15/25 History metoprolol succinate 25 mg See Rx Instructions .Route 03/07/25 05/15/25 Rx tablet,extended release 24 hr .COMPLEX #90 tabs isosorbide mononitrate 30 mg 30 mg PO DAILY 05/12/25 05/15/25 History tablet,extended release 24 hr potassium chloride 20 mEq 20 meq PO DAILY 05/12/25 05/15/25 History tablet,extended release(part/cryst) Allergies Allergy/AdvReac Type Severity Reaction Status Date / Time vancomycin Allergy RED MAN Verified 05/15/25 13:06 SYNDROME Vital Signs Vital Signs - 24 hr 05/15/25 13:07 Temperature 97.6 F Pulse Rate 61 Respiratory Rate 20 Blood Pressure 155/82 H Pulse Oximetry 99 Oxygen Delivery Room Air Exam Const: General: comfortable and no acute distress HENMT: Face/Nose/Sinus: Normal nares present Eyes: General: appearance normal, both eyes and all related structures Resp: Auscultation: clear to auscultation bilaterally Cardio: Rate: regular rate Rhythm: regular rhythm GI: Inspection: non-distended GI Palp: Yes Soft to palpation Extrem: General: normal to inspection Psych: Mental Status: mental status grossly normal Assessment and Plan Assessment and plan (1) Dysphagia: Code(s): R13.10 - Dysphagia, unspecified Status: Acute Assessment and Plan: egd (2) H/O esophagectomy: Code(s): Z98.890 - Other specified postprocedural states; Z90.49 - Acquired absence of other specified parts of digestive tract Status: Acute (3) Gastroparesis: Code(s): K31.84 - Gastroparesis Status: Acute
--- NOTE | 2025-05-15 14:26 | S_PTH ---
PATIENT: Chris Mabry LOC: ЕЛЕН[facility] U[place]ia#:[id number] AGE/SX: 79/M ROOM: RE05/15/[address]: Vahid Chicas MD : 1945 BED: DIS: 05/15/2025 SPEC #: [id number] RECD: 05/16/25 08:13 STATUS: ALIE REMari #: [id number] BAHMAN: 05/15/25 14:[address]: Vahid Chicas DEPT: [facility] Surgical RECD BY: Joy Cummings ENTERED: 05/16/25 08:14 SP TYPE: Surgical OTHR DR: Jordi Hernandez MD Tissues: A - Esophageal Biopsy Procedures: Hematoxylin and Eosin Stain Gross and Microscopic Level 4
[2025-05-15 14:33] VITALS: BP 127/58; PULSE 53; RESP 16; O2SAT 98
[2025-05-15 14:43] VITALS: BP 138/63; PULSE 57; RESP 20; O2SAT 98
[2025-05-15 14:53] VITALS: BP 129/67; PULSE 59; RESP 18; O2SAT 99
== END 2025-05-15 15:05 | disposition home or self-care (01) ==
PROVIDERS: PCP Family Medicine; Referring Provider Family Medicine; Visit Provider Internal Medicine Gastroenterology
PROC: 0DJ08ZZ Inspection of Upper Intestinal Tract, Via Natural or Artificial Opening Endoscopic (ICD-10-PCS; CPT 43239; principal; 2025-05-15 13:45)
DX: K21.00 Gastro-esophageal reflux disease with esophagitis, without bleeding (principal); K31.84 Gastroparesis; R13.10 Dysphagia, unspecified; Z90.49 Acquired absence of other specified parts of digestive tract; Z85.01 Personal history of malignant neoplasm of esophagus; Z87.891 Personal history of nicotine dependence
CPT/HCPCS: 43239; 88305; J7120

== ENCOUNTER 2025-05-30 12:47 | Outpatient (CLI) | payer MEDICARE, SELFPAY ==
--- OUTSIDE RECORDS SUMMARY | 2025-05-30 15:25 | XMS_ITS | Clinical Summary ---
Author Organization [facility] Medical Office Building [address] Address [address] [place] [address] Care Team Providers Care Paid Intern Name Role Phone Eric Baker DO Unavailable [phone] Leodan Anthony MD Unavailable [phone] Jordi Hernandez MD Primary Care Provider [phone] Allergies Active Allergy Reactions Criticality Noted Date [...] trauma. Assessment & Plan (09/26/2021 3:56 PM ELECTRICAL HELPER): Impression: Patient is status post right common [...] ankle. Assessment & Plan (09/06/2021 1:29 PM ELECTRICAL HELPER): Impression: Patient is status post right common [...] warm, well perfused. Graft is patent. Plan: [place] removed. Patient to continue ongoing risk factor modifications. Patient to follow-up in 2-3 weeks for re-evaluation with new baseline arterial duplex study. Pain of right lower leg 08/17/2021 Gangrene of toe 08/17/2021 Assessment & Plan (09/26/2021 3:55 PM ELECTRICAL HELPER): Impression: Patient has gangrene of the right 1st toe which has improved post bypass graft. New toenail forming is noted on exam. Patient has 2 sutures remaining to right 1st toenail from when his toenail was removed. Plan: Continue daily dressing changes with Xeroform and dry gauze. Patient to follow-up in 3 months. Assessment & Plan (09/06/2021 1:30 PM ELECTRICAL HELPER): Impression: Patient has gangrene of the right [...] Lipitor Assessment & Plan (09/29/2024 3:23 PM ELECTRICAL HELPER): Impression: Chronic and stable. Plan: Continue Lipitor Assessment & Plan (01/07/2023 9:33 AM CDT): Chronic stable hyperlipidemia. Continue Lipitor. Assessment & Plan (06/25/2022 5:16 PM ELECTRICAL HELPER): Impression: Chronic hyperlipidemia, controlled with statin therapy. Plan: Continue statin therapy as per primary care provider. Assessment & Plan (12/20/2021 8:41 AM CDT): Hyper lipidemia currently medically controled with medications. Continue medications as per PCP. Assessment & Plan (2021 2:15 PM ELECTRICAL HELPER): Hyperlipidemia chronic and controlled. Continue Lipitor Primary hypertension 07/15/2021 Assessment & Plan (01/28/2025 2:33 PM CDT): Hypertension chronic controlled. Continue current medical management. Assessment & Plan (09/29/2024 3:23 PM ELECTRICAL HELPER): Impression: Chronic and stable. Plan: Continue Lasix lisinopril and metoprolol Assessment & Plan (01/07/2023 9:33 AM CDT): Chronic stable hypertension. Continue current medical management. Assessment & Plan (06/25/2022 5:16 PM ELECTRICAL HELPER): Impression: Chronic stable hypertension, controlled medications. Blood pressure stable. Plan: Continue blood pressure management as per primary care provider. Assessment & Plan (2021 2:15 PM ELECTRICAL HELPER): Hypertension chronic and controlled. Continue current medical [...] therapy. Assessment & Plan (2021 2:16 PM ELECTRICAL HELPER): Patient has ischemic rest pain with gangrenous [...] understands and agrees to proceed. Atherosclerosis of [place] ar teries of extremities with intermittent claudication, [...] duplex. Assessment & Plan (09/29/2024 3:22 PM ELECTRICAL HELPER): Impression: Patient is status post right common [...] extremity. Assessment & Plan (06/24/2024 9:55 AM ELECTRICAL HELPER): Over the past several months has had [...] duplex. Assessment & Plan (06/25/2022 5:15 PM ELECTRICAL HELPER): Impression: Patient is status post right common [...] artery disease of n ative artery of [place] heart with stable angina pectoris 05/01/2021 Myocardial infarction Overview (07/12/2021): Two thousand twelve and 05/15/2021 status post 2 stents on 05/15/2021 Preop cardiovascular exam Cellulitis of right foot Encounters Date Type Department Care Team Description 04/05/2025 11:00 AM CDT Office Visit [facility] Vascular and Vein Surgery [address] [place] [phone] Charito Michael NP Aftercare following surgery of the circulatory system (Primary Dx); Atherosclerosis of [place] arteries of extremities with intermittent claudication, right leg; Mixed hyperlipidemia; Primary hypertension 04/05/2025 9:50 AM CDT - 04/05/2025 11:59 PM CDT Hospital Encounter [facility] Building [address] [place] [id number] Aftercare following surgery of the circulatory system Discharge Disposition: Discharge to home or self care 04/05/2025 9:50 AM CDT - 04/05/2025 11:59 PM CDT Hospital Encounter [facility] [address] [place] [phone] Aftercare following surgery of the circulatory system [...] Right Procedure: ANGIOGRAPHY - UNILATERAL EXTREMITY S&I 10068; Surgeon: Leodan Anthony MD; Location: [facility] CARDIAC DIVISION TRAFFIC SUPERINTENDENT; Service: Vascular; Laterality: Right; CARDIAC CATHETERIZATION 12/28/2024 Right Procedure: THROMBECTOMY, MECHANICAL, PRIMARY NON CORONARY, INITIAL VESSEL, ARTERY OR GRAFT 06303; Surgeon: Leodan Anthony MD; Location: [facility] CARDIAC DIVISION TRAFFIC SUPERINTENDENT; Service: Vascular; Laterality: Right; CARDIAC CATHETERIZATION 12/28/2024 Right Procedure: TRANSCATHETER LYTIC ARTERIAL W/SI, [place] [address]; Surgeon: Leodan Anthony MD; Location: [facility] CARDIAC DIVISION TRAFFIC SUPERINTENDENT; Service: Vascular; Laterality: Right; CARDIAC CATHETERIZATION 12/29/2024 Right Procedure: ANGIOGRAPHY - UNILATERAL EXTREMITY S&I 49678; Surgeon: Leodan Anthony MD; Location: [facility] CARDIAC DIVISION TRAFFIC SUPERINTENDENT; Service: Vascular; Laterality: Right; Medical devices from this surgery are in the Medical Devices section. CARDIAC CATHETERIZATION 12/29/2024 N/A Procedure: CHIEF CLOTH FINISHING RANGE OPERATOR FEM-POP, UNILATERAL, FIRST VESSEL [address]3824; Surgeon: Leodan Anthony MD; Location: [facility] CARDIAC DIVISION TRAFFIC SUPERINTENDENT; Service: Vascular; Laterality: N/A; Medical devices from this surgery are in the Medical Devices section. CARDIAC CATHETERIZATION 12/29/2024 N/A Procedure: CHIEF CLOTH FINISHING RANGE OPERATOR tib-per unilateral, first vessel; Surgeon: Leodan Anthony MD; Location: [facility] CARDIAC DIVISION TRAFFIC SUPERINTENDENT; Service: Vascular; Laterality: N/A; Medical devices from this surgery are in the Medical Devices section. CARDIAC CATHETERIZATION 12/29/2024 N/A Procedure: Lytic FU and DC CATH ART OR VENOUS [id number]; Surgeon: Leodan Anthony MD; Location: [facility] CARDIAC DIVISION TRAFFIC SUPERINTENDENT; Service: Vascular; Laterality: N/A; Medical devices from [...] drink = 0.6 oz pur e alcohol) [facility] Utilities Answer Date Recorded In the past 12 months has [employer], [employer], oil, or water [employer] threatened to shut off services in your [...] How often do you attend [facility] or orthodoxy services? More than 4 times per year 12/28/2024 Do you belong to any clubs o r organizations such as hindu groups, unions, fraternal or athletic groups, or [...] in the past 12 m [facility], were you homeless or living in a chcf (including now)? 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 Not on file Not on file Not [...] Completed 12/27/2024 Medical Devices Implanted Type Area Guest Services Officer Device Identifier Shelf Expiration Date Model / Serial / Lot Hinson Vascular 94153-12 Perclose 6fr Suture Mediate Knot Push Vascular Device Closure - S0 - [id number] Implanted:Qty: 1 on 05/15/2021 by Gunner Pinto MD at [facility] Other - see comments [employer] 02/06/2023 [id number] / 0 / [id number] [employer] Brandon [id number] Synergy Xd Monorail 2.5mm 48mm 144cm Delivery System 1 Access - S0 - [id number] Implanted:Qty: 1 on 05/15/2021 by Gunner Pinto MD at [facility] Stent [employer] Brandon 12/20/2022 [id number] / 0 / [id number] [employer] Brandon [id number] Synergy Xd Monorail 3.5mm 38mm 144cm Delivery System 1 Access - S0 - [id number] Implanted:Qty: 1 on 05/15/2021 by Gunner Pinto MD at [facility] Stent [employer] Brandon 10/25/2022 [id number] / 0 / [id number] [place] Peripheral Vascular [id number] Safe Performaxx 7mm 6fr 60mm 80cm Delivery System - [id number] Implanted:Qty: 1 on 07/15/2021 by Leodan Anthony MD at [facility] Peripheral Vascular 07/13/2023 [id number] / / [id number] [employer] [id number] Wilmer 6mm 80cm 60cm Removable Ring Stretch Thin Wall Graft - [id number] - [id number] Implanted:Qty: 1 on 08/21/2021 by Leodan Anthony MD at [facility] Wl [employer] [id number] 12/02/2024 [id number] / [id number] / Cardona Bringg [id number] Vascu-Guard 8x.8cm Peripheral Patch Vascular Bovine Pericardium - [id number] Implanted:Qty: 1 on 08/21/2021 by Leodan Anthony MD at [facility] [employer] [id number] 04/17/2026 [id number] / / [id number] [employer]inson Vascular System Closure Repair Femoral Artery Suture Mediated Perclose Prostyle 78902-02 - [id number] Implanted:Qty: 1 on 12/29/2024 by Leodan Anthony MD at [facility] [employer] 11/07/2026 [id number] / / [id number] Procedures Procedure Name Priority Date/Time Associated Diagnosis [...] Study Date: 04/05/2025 9:56:00 AM Gender: M Lunchroom Monitor: Arlyn Mata RN/RVT Ref Provider: LEODAN ANTHONY [...] mmHg Lt Brachial Pressure 163 mmHg Rt CHIEF CLOTH FINISHING RANGE OPERATOR Pressure 93 mmHg Lt CHIEF CLOTH FINISHING RANGE OPERATOR Pressure 225 mmHg Rt DPA Pressure [...] Study Date: 04/05/2025 9:56:00 AM Gender: M Lunchroom Monitor: Arlyn Mata RN/RVT Ref Provider: LEODAN ANTHONY Quality: Adequate Order Provider: LEODAN ANTHONY PROCEDURES: Arterial Report: Ankle - Brachial Index Doppler exam. INDICATIONS: Z48.812 Encounter for surgical aftercare following surgery on thecirculatory system. HISTORY: COMPARISONS: The previous exam was completed on 01/26/2025 RT PT/DP .82/.83 LT PT/DP.57/.53. MEASUREMENTS: Right Value Left Value Rt Brachial Pressure 164 mmHg Lt Brachial Pressure 163 mmHg Rt CHIEF CLOTH FINISHING RANGE OPERATOR Pressure 93 mmHg Lt CHIEF CLOTH FINISHING RANGE OPERATOR Pressure 225 mmHg Rt DPA Pressure [...] Date: 04/05/2025 10:00:52 AM Ht(Inch): Wt(Lb): BSA: Lunchroom Monitor: ARLYN MATA Provider: LEODAN ANTHONY Quality: Adequate Ref Provider: LEODAN ANTHONY PROCEDURES: Arterial Report: A non-invasive vascular imaging study of the right lower extremity arteries and bypass graft was performed using B-mode ultrasound, color flow, and spectral Doppler. INDICATIONS: Z48.812 Encounter for surgical aftercare following surgery on the circulatory system. HISTORY: S/P DCBA RIGHT DIVER PUMPER,PFA AND PROX ANAST 12/29/24 S/P THROMB RT PFA-TPT BPG 12/28/24 S/P ENDART RT DIVER PUMPER; RT PFA-TPT BPG 08/21/21 S/P STENT RT EIA 07/15/21. COMPARISONS: The previous exam was completed on 01/26/25. MEASUREMENTS: Right Value Aorta Prx PSV 0.00 cm/sec GRAFTS: Right Value Location RT PFA-TPT BPG Rt BPG Inflow PSV DIVER PUMPER 58 PFA 299 cm/sec Rt Anast Prx [...] MD 04/06/2025 8:27:52 AM CDT Procedure Note Leodna Anthony MD - 04/06/2025 Lower Extremity Arterial Duplex Report Patient Name: HOWIE LOVE L : 1945 (79y 7m) Gender: M Study Date: 04/05/2025 10:00:52 AM Ht(Inch): Wt(Lb): BSA: Lunchroom Monitor: ARLYN MATA Provider: LEODAN ANTHONY Quality: Adequate Ref Provider: LEODAN ANTHONY PROCEDURES: Arterial Report: A non-invasive vascular imaging study of the right lowerextremity arteries and bypass graft was performed using B-mode ultrasound, colorflow, and spectral Doppler. INDICATIONS: Z48.812 Encounter for surgical aftercare following surgery on thecirculatory system. HISTORY: S/P DCBA RIGHT DIVER PUMPER,PFA AND PROX ANAST 12/29/24 S/P THROMB RT PFA-TPT BPG 12/28/24 S/P ENDART RT DIVER PUMPER; RT PFA-TPT BPG 08/21/21 S/P STENT RT EIA 07/15/21. COMPARISONS: The previous exam was completed on 01/26/25. MEASUREMENTS: Right Value Aorta Prx PSV 0.00 cm/sec GRAFTS: Right Value Location RT PFA-TPT BPG Rt BPG Inflow PSV DIVER PUMPER 58 PFA 299 cm/sec Rt Anast Prx [...] signed by Santo NUNEZ T: Report ID: [id number] Reading Location: [place] [address] Procedure Note Santo Tamayo MD - 12/27/2024 EXAM DESCRIPTION: CTA ABDOMINAL AORTA AND BILATERAL ILIOFEMORAL RUNOFF REASON FOR STUDY: Claudication or leg ischemia, occluded graft, limb ischemia Claudication or leg ischemia, occluded graft, limb ischemia. [id number] past medical history of PVD status post [...] signed by Santo NUNEZ T: Report ID: [id number] Reading Location: [place] [address] Charito Micheal NP IMG CT PROCEDURES Final Result from Last 3 Months or Most Recently Relevant to Health Maintenance Insurance [employer] MEDICARE ADVANTAGE Advance Directives For more information, please contact: [phone] * Full Code (Latest Code Status on [...] 11:31 AM 08/17/2021 1:15 PM Care Teams Paid Intern Relationship Specialty Start Date End Date Jordi Hernandez MD [address] [place] [address] PCP - General Family Practice 09/29/24 Eric Baker DO [address] [place] [address] Referring Physician Cardiology 05/01/21 Leodan Anthony MD [address] [facility] [address] [facility] [address] [place] [address] Surgeon Vascular Surgery 08/01/21
--- OUTSIDE RECORDS SUMMARY | 2025-05-30 15:25 | XMS_ITS | Clinical Summary ---
Author Organization [facility] Address [address] [place] [address] Care Team Providers Care Education Courses Sales Representative Name Role Phone Jordi Hernandez MD Primary Care Provider [phone] Allergies Active Allergy Reactions Criticality Noted Date [...] on 05/26/2023 phenoL (CHLORASEPTIC) 1.4 % Aerosol, [place] 2 Sprays by Mouth/Throat route every 2 [...] as per primary care provider. 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 Oncology and Hematology - Cj [address] [place] [address] Kedar Patterson MD Need for hepatitis B screening test (Primary Dx) 05/22/[address] [facility] Oncology and Hematology - Cj [address] [place] [address] Kedar Patterson MD Chronic anemia; Cancer of distal third of esophagus; Benign hypertension 05/18/[address] [facility] Oncology and Hematology - [place]j [address] [place] [address] Kedar Patterson MD 05/12/[address] [facility] Oncology and Hematology - Cj [address] Kedar Patterson MD 05/11/2025 11:00 AM CDT Office Visit [facility] Oncology and Hematology - Cj [address] [place] [address] Kedar Patterson MD Chronic anemia (Primary Dx); Cancer of distal third of esophagus 05/08/[address] [facility] Oncology and Hematology - Cj [address] Kedar Patterson MD Chronic anemia; 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); Benign hypertension 05/01/[address] [facility] Oncology and Hematology - Cj Kishore [address] [place], [place] [id number] Kedar Patterson MD 04/27/[address] [facility] Oncology and Hematology - Cj [address] Kedar Patterson MD 04/25/2025 External Device Data STL ABSTRACTION Provider, Abstract 04/24/[address] [facility] Oncology and Hematology - Cj [address] Kedar Patterson MD Chronic anemia; 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); Benign hypertension 04/14/[address] [facility] Oncology and Hematology - Cj [address] Kedar Patterson MD 04/13/[address] [facility] Oncology and Hematology - Cj [address] Kedar Chaudhari MD 04/11/2025 External Device Data STL ABSTRACTION Provider, Abstract 04/10/2025 Orders Only [facility] Oncology and Hematology - Cj [address] [place] [id number] Kedar Patterson MD Chronic anemia; 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); Benign hypertension 03/31/2025 Orders Only [facility] Oncology and Hematology - Cj [address] Kedar Patterson MD 03/30/2025 Orders Only [facility] Oncology [facility]ematology - Cj [address] [place] [address] Kedar Patterson MD 03/27/2025 Orders Only [facility] Oncology and Hematology - Cj [address] [place] [address] Kedar Patterson MD Chronic anemia; 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); Benign hypertension 03/17/2025 Orders Only [facility] Oncology and Hematology - Cj [address] [place] [address] Kedar Patterson MD 03/16/2025 11:00 AM CDT [facility] Oncology [facility]ematology - Cj [address] [place] [address] Kedar Patterson MD 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) (Primary Dx) 03/16/2025 Orders Only [facility] Oncology and Hematology - Cj [address] [place] [address] Kedar Patterson MD 03/15/2025 Orders Only [facility] Oncology and Hematology - Cj [address] [place] [address] Kedar Patterson MD 03/13/2025 Orders Only [facility] Oncology and Hematology - Cj [address] [place] [address] Kedar Patterson MD Chronic anemia; 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); Benign hypertension 03/02/[address] [facility] Oncology and Hematology Cj [address] [place] [phone] Kedar Patterson MD 02/27/[address] [facility] Oncology and Hematology Cj [address] [place] [address] Kedar Patterson MD Chronic anemia; Cancer of [...] 165.1 cm (5' 5) 06/23/2023 10:57 AM STORE GROUP MANAGER Body Mass Index 24.36 06/23/2023 10:57 AM STORE GROUP MANAGER Plan of Treatment Upcoming Encounters Date Type Department Care Team (Late st Contact Info) Description 06/08/2025 9:15 AM CDT Office Visit [facility] Oncology and Hematology - Cj [address] [facility] [address] [place] [address] Kedar Patterson MD [address] [facility] [address] [place] [address] Health Maintenance Due Date Last Done Comments DTAP/TDAP/TD VACCINES (1 - Tdap) 1964 ZOSTER VACCINE (1 of 2) 1995 RSV VACCINE (60+ or ) (1 - 1-dose 75+ series) 2020 INFLUENZA VACCINE (#1) 2025 0, 10/11/2019, 08/25/2017 PNEUMOCOCCAL VACCINE 50+ YEARS Completed 0 10/08/2020, 10/11/2019, 08/25/2017 Medical Devices Implanted Type Area Transmission Builder Device Identifier Shelf Expiration Date Model / Serial / Lot Clip Ligating Horizon Med Ti [id number] - Csc - [id number] Implanted:Qty : 1 on 05/01/2023 by Jeremy Kraus MD at [facility] Clip N/A: Esophagus TELEFLEX- [employer] S[employer] [id number] 12/24/2027 [id number] / / [id number] Clip Ligating Horizon Lg Ti [id number] - Csc - [id number] Implanted:Qty : 1 on 05/01/2023 by Jeremy Kraus MD at [facility] Clip N/A: Esophagus TELEFLEX- [employer]URE SYS [id number] 01/06/2027 [id number] / / [id number] X3 Heart Stents Procedures Procedure Name Priority Date/Time Associated Diagnosis Comments COMPREHENSIVE METABOLIC PANEL Routine 05/25/2025 4:19 PM CDT COMPREHENSIVE METABOLIC PANEL Routine 05/25/2025 2:00 PM CDT COMPREHENSIVE METABOLIC PANEL Routine 05/11/2025 2:06 PM CDT CBC WITH AUTODIFFERENTIAL Routine 2024 12:02 PM [...] CDT from Last 3 Months Results * COMPREHENSIVE METABOLIC PANEL (05/25/2025 4:19 PM CDT) Only the most recent of9 resultswithin the time period is included. Blood us Kedar Patterson MD CHEMISTRY ORDERABLES Final Resu lt * CBC WITH AUTODIFFERENTIAL (05/11/2025 12:02 PM CDT) Only the most recent of5 resultswithin the time period is included. Blood us Kedar Patterson MD HEMATOLOGY ORDERABLES Final Res ult * BASIC METABOLIC PANEL (04/27/2025 4:06 PM CDT) Only the most recent of5 resultswithin the time period is included. Blood Kedar Patterson MD CHEMISTRY ORDERABLES Final Resu lt * CT CHEST ABDOMEN PELVIS W CONT (03/10/2025 10:24 AM CDT) Anatomical Region Laterality Modality Chest Computed Tomogra phy Kedar Patterson MD CT ORDERABLES Final Result from Last 3 Months Insurance [facility] Address: [place] [address] [facility] Address: [place] [address] RX [employer] RX Member Subscriber Plan / Payer (Ef fective for All Dates) Name:Chris Mabry Relation to Subscriber:Self Name:Chris Mabry Payer ID:Not on file Group ID:[id number] Type:RX Medicare Part D Address: YENNY IBARRA RX [place] PLANS (INTERNAL) [facility] Internal Plans Advance Directives For more information, please contact: [phone] * Full Code (Latest Code Status on [...] 11:15 AM 12/15/2022 2:57 PM Care Teams Education Courses Sales Representative Relationship Specialty Start Date End Date Jordi Hernandez MD [address] [place] [address] PCP - General Family Practice 06/18/23
--- OUTSIDE RECORDS SUMMARY | 2025-05-30 15:25 | XMS_ITS | Encounter Summary ---
Author Organization [facility] Address [address] [place] [address] Care Team Providers Care Security Management Specialist Name Role Phone Jordi Hernandez MD Primary Care Provider [phone] Reason for Visit * Reason Onset Date Comments PACE malnutrition score 04/09/2023 Pt does not have VM Encounter Details Date Type Department Care Team (Late Contact Info) Description 04/09/2023 Telephone [facility] Dietitian Services [facility] [address] [place] [address] [place] [address] PACE malnutrition score (Pt does not have [...] Upcoming Encounters Date Type Department Care Team ([facility] Contact Info) Description 06/08/2025 9:15 AM CDT Office Visit [facility] Oncology and Hematology - Cj [address] [facility] [address] [place] [address] Kedar Patterson MD [address] [facility] [address] [place] [address] documented as of this encounter Visit Diagnoses Not on filedocumented in this encounter Care Teams Security Management Specialist Relationship Specialty Start Date End Date Jordi Hernandez MD [address] [place] [address] PCP - General Family Practice 06/18/23 documented as of this encounter
--- OUTSIDE RECORDS SUMMARY | 2025-05-30 15:25 | XMS_ITS | Clinical Summary ---
Author Organization [facility] Address [facility] [place] [address] Care Team Providers Care Manufacturing Lab Technician Name Role Phone Unavailable Primary Care Provider [...] (166 lb 8 oz) 07/11/2012 11:47 AM STONEWORKING SANDER Height 167.6 cm (5' 6) 07/11/2012 11:47 AM STONEWORKING SANDER Body Mass Index 26.87 07/11/2012 11:47 AM STONEWORKING SANDER Plan of Treatment Health Maintenance Due Date Last Done Comments Hepatitis C 1963 DTaP, Tdap and Td Vaccines ( 1 - Tdap) 1964 Pneumococcal Vaccine: 50+ Ye ars (1 of 1 - PCV) 1995 Zoster Vaccines (1 of 2) 1995 Annual Medicare Wellness Visit 2010 RSV Immunization or 60+ Years (1 - 1-dose 75+ series) 2020 COVID-19 Vaccine ( - 2024-2 6 season) 2025 Influenza Adult (#1) 2025 Hepatitis A Vaccines Aged Out No long er eligible based on patient's age to complete this topic Meningococcal B Vaccine Aged Out No l onger eligible based on patient's age to complete this topic Meningococcal Vaccine Aged Out No sheila manas eligible based on patient's age to complete this topic RSV Immunizations Under 20 Months Aged Out No longer eligible based on patient's age to complete this topic Insurance MEDICARE
--- OUTSIDE RECORDS SUMMARY | 2025-05-30 15:25 | XMS_ITS ---
Author Organization [facility] Medical Office Building B Address [address] [place] [address] Care Team Providers Care Motor Tester Name Role Phone Eric Baker DO Unavailable [phone] Leodan Anthony MD Unavailable [phone] Jordi Hernandez MD Primary Care Provider [phone] Active Problems Problem Noted Date Diagnosed Date [...] trauma. Assessment & Plan (09/26/2021 3:56 PM HYPOID GEAR GENERATOR): Impression: Patient is status post right common [...] ankle. Assessment & Plan (09/06/2021 1:29 PM HYPOID GEAR GENERATOR): Impression: Patient is status post right common [...] warm, well perfused. Graft is patent. Plan: [place] removed. Patient to continue ongoing risk factor modifications. Patient to follow-up in 2-3 weeks for re-evaluation with new baseline arterial duplex study. 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 New toenail forming is noted on exam. Patient has 2 sutures remaining to right 1st toenail from when his toenail was removed. Plan: Continue daily dressing changes with Xeroform and dry gauze. Patient to follow-up in 3 months. Assessment & Plan (09/06/2021 1:30 PM HYPOID GEAR GENERATOR): Impression: Patient has gangrene of the right [...] Lipitor Assessment & Plan (09/29/2024 3:23 PM HYPOID GEAR GENERATOR): Impression: Chronic and stable. Plan: Continue Lipitor Assessment & Plan (01/07/2023 9:33 AM CDT): Chronic stable hyperlipidemia. Continue Lipitor. Assessment & Plan (06/25/2022 5:16 PM HYPOID GEAR GENERATOR): Impression: Chronic hyperlipidemia, controlled with statin therapy. Plan: Continue statin therapy as per primary care provider. Assessment & Plan (12/20/2021 8:41 AM CDT): Hyper lipidemia currently medically controled with medications. Continue medications as per PCP. Assessment & Plan (2021 2:15 PM HYPOID GEAR GENERATOR): Hyperlipidemia chronic and controlled. Continue Lipitor Primary hypertension 07/15/2021 Assessment & Plan (01/28/2025 2:33 PM CDT): Hypertension chronic controlled. Continue current medical management. Assessment & Plan (09/29/2024 3:23 PM HYPOID GEAR GENERATOR): Impression: Chronic and stable. Plan: Continue Lasix lisinopril and metoprolol Assessment & Plan (01/07/2023 9:33 AM CDT): Chronic stable hypertension. Continue current medical management. Assessment & Plan (06/25/2022 5:16 PM HYPOID GEAR GENERATOR): Impression: Chronic stable hypertension, controlled medications. Blood pressure stable. Plan: Continue blood pressure management as per primary care provider. Assessment & Plan (2021 2:15 PM HYPOID GEAR GENERATOR): Hypertension chronic and controlled. Continue current medical [...] therapy. Assessment & Plan (2021 2:16 PM HYPOID GEAR GENERATOR): Patient has ischemic rest pain with gangrenous [...] understands and agrees to proceed. Atherosclerosis of [place] ar teries of extremities with intermittent claudication, [...] duplex. Assessment & Plan (09/29/2024 3:22 PM HYPOID GEAR GENERATOR): Impression: Patient is status post right common [...] extremity. Assessment & Plan (06/24/2024 9:55 AM HYPOID GEAR GENERATOR): Over the past several months has had [...] duplex. Assessment & Plan (06/25/2022 5:15 PM HYPOID GEAR GENERATOR): Impression: Patient is status post right common [...] artery disease of n ative artery of [place] heart with stable angina pectoris 05/01/2021 Myocardial [...]
== END 2025-05-30 12:48 | disposition home or self-care (01) ==
LOC: ANHBWCAUD 12:47
PROVIDERS: PCP Family Medicine; Visit Provider Otolaryngology
DX: H90.3 Sensorineural hearing loss, bilateral (principal); H92.03 Otalgia, bilateral
CPT/HCPCS: 92557; 92567

== ENCOUNTER 2025-06-01 09:59 | Outpatient (CLI) | payer MEDICARE, SELFPAY ==
--- NOTE | ~2025-06-01 | CT_ITS ---
Exam: CT chest, abdomen and pelvis with contrast Clinical History: [Esophageal cancer ] Comparison: [ CT chest abdomen pelvis 03/10/2025] Technique: Multiple axial CT images of the chest, abdomen and pelvis were obtained with IV contrast. Sagittal and coronal reformatted images were obtained. FINDINGS: Lungs and pleura: [ Small left-sided pleural effusion, unchanged.] No pneumothorax. No pleural effusion. No pulmonary mass. There are a few small subpleural reticular opacities likely atelectasis or scarring. Stable bilateral pulmonary nodules. No new pulmonary nodules identified. Mediastinum and pulmonary jamil: [ No mass or adenopathy.] Axillary/intramammary and supraclavicular: [ No mass or adenopathy.] Heart and great vessels: [ Normal heart size.[ [ No pericardial effusion.] [ No aneurysm.] Coronary artery calcifications. Chest Wall: Gastric pull-through, unchanged. Liver: [ No intrahepatic biliary duct dilatation.] Stable hemangioma in the right lobe of the liver. Fatty liver. Gallbladder: [ No wall thickening or stones.] Common bile duct: [ Normal caliber.] [ No stones.] Spleen: [ Within normal limits.] Pancreas: [ No mass. No pancreatic fluid collection.] Adrenals: [ No masses.] Kidneys: [ No masses. No hydronephrosis.][ ] Lymph nodes: [ No adenopathy in the abdomen or pelvis.] Stomach, small bowel and colon: [ No bowel wall thickening or obstruction.] Moderate amount of stool. Peritoneum cavity: [ No mesenteric fat stranding or fluid.] Bladder: Concentric thickening of the cunningham of the bladder which may be secondary to sequelae from bladder outlet obstruction versus cystitis or incomplete bladder wall distention. Osseous structures: [ No acute fracture or destructive lesion.] [ Multilevel degenerative change in the visualized spine.] Abdominal aorta: [ No aneurysm.] Additional findings: Prostate gland is enlarged, unchanged. Right-sided hydrocele in the right scrotum. IMPRESSION: 1. Stable bilateral pulmonary nodules, largest measures 7 mm. A follow-up chest CT in 3 months is recommended. 2. Status post esophagectomy with gastric pull-through. 3. Small left-sided pleural effusion, unchanged. 4. Fatty liver. 5. Large right-sided hydrocele in the right scrotum. Correlate clinically. 6. Concentric thickening of the cunningham of the bladder which may be secondary to sequelae from bladder outlet obstruction versus cystitis or incomplete bladder wall distention. Correlate clinically. Reviewed, dictated and finalized at location Q.
--- OUTSIDE RECORDS SUMMARY | 2025-06-01 10:56 | XMS_ITS | Encounter Summary ---
Author Organization [facility] Address [address] [place] [address] Care Team Providers Care Lease Examiner Name Role Phone Jordi Hernandez MD Primary Care Provider [phone] Reason for Visit * Reason Onset Date Comments PACE malnutrition score 04/09/2023 Pt does not have VM Encounter Details Date Type Department Care Team (Late Contact Info) Description 04/09/2023 Telephone [facility] Dietitian Services [facility] [address] [place] [address] [place] [address] PACE malnutrition score (Pt does not have [...] Upcoming Encounters Date Type Department Care Team ([facility] Contact Info) Description 06/08/2025 9:15 AM CDT Office Visit [facility] Oncology and Hematology - Cj [address] [facility] [address] [place] [address] Kedar Patterson MD [address] [facility] [address] [place] [address] documented as of this encounter Visit Diagnoses Not on filedocumented in this encounter Care Teams Lease Examiner Relationship Specialty Start Date End Date Jordi Hernandez MD [address] [place] [address] PCP - General Family Practice 06/18/23 documented as of this encounter
--- OUTSIDE RECORDS SUMMARY | 2025-06-01 10:56 | XMS_ITS | Patient Health Record ---
Author Organization [facility] Address [address] [place], [place] [address] Care Team Providers Care Head Grease Maker Name Role Phone PATRICIA Wen Unavailable [phone] Lowell Mosley Unavailable Unavailable Reason For Referral No Information Plan Of Treatment No Information Insurance Providers Payer Name Payer Address Payer Phone Subscriber Number Group Number Insured Name Patient Relationship to Insured Coverage Start Date Coverage End Date AARP MedicareCom plete ([facility]) [address] [place], [place] [id number] HOWIE LOVE Self - patient is the insured
--- OUTSIDE RECORDS SUMMARY | 2025-06-01 10:56 | XMS_ITS ---
Author Organization [facility] Medical Office Building B Address [address] [place] [address] Care Team Providers Care Rouge Sifter Name Role Phone Eric Baker DO Unavailable [phone] Leodan Anthony MD Unavailable [phone] Jordi Hernandez MD Primary Care Provider [phone] Active Problems Problem Noted Date Diagnosed Date [...] trauma. Assessment & Plan (09/26/2021 3:56 PM DATAPOWER DEVELOPER): Impression: Patient is status post right common [...] ankle. Assessment & Plan (09/06/2021 1:29 PM DATAPOWER DEVELOPER): Impression: Patient is status post right common [...] warm, well perfused. Graft is patent. Plan: [place] removed. Patient to continue ongoing risk factor modifications. Patient to follow-up in 2-3 weeks for re-evaluation with new baseline arterial duplex study. 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 New toenail forming is noted on exam. Patient has 2 sutures remaining to right 1st toenail from when his toenail was removed. Plan: Continue daily dressing changes with Xeroform and dry gauze. Patient to follow-up in 3 months. Assessment & Plan (09/06/2021 1:30 PM DATAPOWER DEVELOPER): Impression: Patient has gangrene of the right [...] Lipitor Assessment & Plan (09/29/2024 3:23 PM DATAPOWER DEVELOPER): Impression: Chronic and stable. Plan: Continue Lipitor Assessment & Plan (01/07/2023 9:33 AM CDT): Chronic stable hyperlipidemia. Continue Lipitor. Assessment & Plan (06/25/2022 5:16 PM DATAPOWER DEVELOPER): Impression: Chronic hyperlipidemia, controlled with statin therapy. Plan: Continue statin therapy as per primary care provider. Assessment & Plan (12/20/2021 8:41 AM CDT): Hyper lipidemia currently medically controled with medications. Continue medications as per PCP. Assessment & Plan (2021 2:15 PM DATAPOWER DEVELOPER): Hyperlipidemia chronic and controlled. Continue Lipitor Primary hypertension 07/15/2021 Assessment & Plan (01/28/2025 2:33 PM CDT): Hypertension chronic controlled. Continue current medical management. Assessment & Plan (09/29/2024 3:23 PM DATAPOWER DEVELOPER): Impression: Chronic and stable. Plan: Continue Lasix lisinopril and metoprolol Assessment & Plan (01/07/2023 9:33 AM CDT): Chronic stable hypertension. Continue current medical management. Assessment & Plan (06/25/2022 5:16 PM DATAPOWER DEVELOPER): Impression: Chronic stable hypertension, controlled medications. Blood pressure stable. Plan: Continue blood pressure management as per primary care provider. Assessment & Plan (2021 2:15 PM DATAPOWER DEVELOPER): Hypertension chronic and controlled. Continue current medical [...] therapy. Assessment & Plan (2021 2:16 PM DATAPOWER DEVELOPER): Patient has ischemic rest pain with gangrenous [...] understands and agrees to proceed. Atherosclerosis of [place] ar teries of extremities with intermittent claudication, [...] duplex. Assessment & Plan (09/29/2024 3:22 PM DATAPOWER DEVELOPER): Impression: Patient is status post right common [...] extremity. Assessment & Plan (06/24/2024 9:55 AM DATAPOWER DEVELOPER): Over the past several months has had [...] duplex. Assessment & Plan (06/25/2022 5:15 PM DATAPOWER DEVELOPER): Impression: Patient is status post right common [...] artery disease of n ative artery of [place] heart with stable angina pectoris 05/01/2021 Myocardial [...]
--- OUTSIDE RECORDS SUMMARY | 2025-06-01 10:56 | XMS_ITS | Clinical Summary ---
Author Organization [facility] Address [address] [place] [address] Care Team Providers Care Manager Gas Name Role Phone Jordi Hernandez MD Primary Care Provider [phone] Allergies Active Allergy Reactions Criticality Noted Date [...] on 05/26/2023 phenoL (CHLORASEPTIC) 1.4 % Aerosol, [place] 2 Sprays by Mouth/Throat route every 2 [...] as per primary care provider. Atherosclerosis of enterprise ar teries of extremities with intermittent claudication, [...] artery disease of n ative artery of enterprise heart with stable angina pectoris 05/01/2021 Encounters Date Type Department Care Team Description 05/25/2025 Orders Only [facility] Oncology and Hematology - Cj [address] [place] [address] Kedar Patterson MD Need for hepatitis B screening test (Primary Dx) 05/22/2025 Orders Only [facility] Oncology and Hematology - Cj [address] [place] [address] Kedar Patterson MD Chronic anemia; Cancer of distal third of esophagus; Benign hypertension 05/18/2025 Orders Only [facility] Oncology and Hematology - Cj [address] [place] [address] Kedar Patterson MD 05/12/2025 Orders Only [facility] Oncology and Hematology - Cj [address] Kedar Patterson MD 05/11/2025 11:00 AM CDT Office Visit [facility] Oncology and Hematology - Cj [address] [place] [address] Kedar Patterson MD Chronic anemia (Primary Dx); Cancer of distal third of esophagus 05/08/2025 Orders Only [facility] Oncology and Hematology - Cj [address] Kedar Patterson MD Chronic anemia; 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); Benign hypertension 05/01/2025 Orders Only [facility] Oncology and Hematology - Cj [address] [place], [place] [id number] Kedar Patterson MD 04/27/2025 Orders Only [facility] Oncology and Hematology - Cj [address] Kedar Patterson MD 04/25/2025 External Device Data STL ABSTRACTION Provider, Abstract 04/24/2025 Orders Only [facility] Oncology and Hematology - Cj [address] Kedar Patterson MD Chronic anemia; 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); Benign hypertension 04/14/2025 Orders Only [facility] Oncology and Hematology - Cj [address] Kedar Patterson MD 04/13/2025 Orders Only [facility] Oncology and Hematology - Cj [address] Kedar Chaudhari MD 04/11/2025 External Device Data STL ABSTRACTION Provider, Abstract 04/10/[address] [facility] Oncology and Hematology - Cj [address] [place] [id number] Kedar Patterson MD Chronic anemia; 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); Benign hypertension 03/31/2025 Orders Only [facility] Oncology and Hematology - Cj [address] Kedar Patterson MD 03/30/[address] [facility] Oncology and Hematology - Cj [address] [place] [id number] Kedar Patterson MD 03/27/[address] [facility] Oncology and Hematology - Cj [address] [place] [id number] Kedar Patterson MD Chronic anemia; 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); Benign hypertension 03/17/[address] [facility] Oncology and Hematology - Cj [address] [place] [address] Kedar Patterson MD 03/16/2025 11:00 AM CDT Office Visit [facility] Oncology and Hematology - Cj [address] [place] [address] Kedar Patterson MD 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) (Primary Dx) 03/16/[address] [facility] Oncology and Hematology - Cj [address] [place] [id number] Kedar Patterson MD 03/15/2025 Orders Only [facility] Oncology and Hematology - Cj [address] [place] [address] Kedar Patterson MD 03/13/2025 Orders Only [facility] Oncology and Hematology - Cj [address] [place] [address] Kedar Patterson MD Chronic anemia; 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); Benign hypertension 03/02/2025 Orders Only [facility] Oncology and Hematology [facility] [address] [place] [address] Kedar Patterson MD from Last 3 Months [...] 165.1 cm (5' 5) 06/23/2023 10:57 AM WAREHOUSE CLERK Body Mass Index 24.36 06/23/2023 10:57 AM WAREHOUSE CLERK Plan of Treatment Upcoming Encounters Date Type Department Care Team (Late st Contact Info) Description 06/08/2025 9:15 AM CDT Office Visit [facility] Oncology and Hematology - Cj [address] [place] [address] Kedar Patterson MD [address] [place] [address] Health Maintenance Due Date Last Done Comments DTAP/TDAP/TD VACCINES (1 - Tdap) 1964 ZOSTER VACCINE (1 of 2) 1995 RSV VACCINE (60+ or ) (1 - 1-dose 75+ series) 2020 Medicare Advantage (MS) Prev entative Visit/Annual Wellness Visit 08/10/2024 INFLUENZA VACCINE (#1) 2025 , 10/11/2019, 08/25/2017 PNEUMOCOCCAL VACCINE 50+ YEARS Completed 0 10/08/2020, 10/11/2019, 08/25/2017 Medical Devices Implanted Type Area Armature Repairer Device Identifier Shelf Expiration Date Model / Serial / Lot Clip Ligating Horizon Med Ti [id number] - Csc - [id number] Implanted:Qty : 1 on 05/01/2023 by Jeremy Kraus MD at [facility] Clip N/A: Esophagus TELEFLEX- WECK CLOSURE SYS [id number] 12/24/2027 [id number] / / [id number] Clip Ligating Horizon Lg Ti [id number] - Csc - [id number] Implanted:Qty : 1 on 05/01/2023 by Jeremy Kraus MD at [facility] Clip N/A: Esophagus TELEFLEX- WECK CLOSURE SYS [id number] 01/06/2027 [id number] / / [id number] X3 Heart Stents Procedures Procedure Name [...] Final Result from Last 3 Months Insurance RX [employer] RX Member Subscriber Plan / Payer (Ef fective for All Dates) Name:Chris Mabry Relation to Subscriber:Self Name:Chris Mabry Payer ID:Not on file Group ID:[id number] Type:RX Medicare Part D Address: YENNY IBARRA RX [place] PLANS (INTERNAL) [facility] Plans Advance Directives For more information, please contact: [phone] * Full Code (Latest Code Status on [...] 11:15 AM 12/15/2022 2:57 PM Care Teams Manager Gas Relationship Specialty Start Date End Date Jordi Hernandez MD [address] [place] [address] PCP - General Family Practice 06/18/23
--- OUTSIDE RECORDS SUMMARY | 2025-06-01 10:56 | XMS_ITS | Clinical Summary ---
Author Organization [facility] Medical Office Building B Address [address] [place] [address] Care Team Providers Care Timber Framer Helper Name Role Phone Eric Baker DO Unavailable [phone] Leodan Anthony MD Unavailable [phone] Jordi Hernandez MD Primary Care Provider [phone] Allergies Active Allergy Reactions Criticality Noted Date [...] trauma. Assessment & Plan (09/26/2021 3:56 PM CONTENT STRATEGIST): Impression: Patient is status post right common [...] ankle. Assessment & Plan (09/06/2021 1:29 PM CONTENT STRATEGIST): Impression: Patient is status post right common [...] warm, well perfused. Graft is patent. Plan: [place] removed. Patient to continue ongoing risk factor modifications. Patient to follow-up in 2-3 weeks for re-evaluation with new baseline arterial duplex study. 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 New toenail forming is noted on exam. Patient has 2 sutures remaining to right 1st toenail from when his toenail was removed. Plan: Continue daily dressing changes with Xeroform and dry gauze. Patient to follow-up in 3 months. Assessment & Plan (09/06/2021 1:30 PM CONTENT STRATEGIST): Impression: Patient has gangrene of the right [...] Lipitor Assessment & Plan (09/29/2024 3:23 PM CONTENT STRATEGIST): Impression: Chronic and stable. Plan: Continue Lipitor Assessment & Plan (01/07/2023 9:33 AM CDT): Chronic stable hyperlipidemia. Continue Lipitor. Assessment & Plan (06/25/2022 5:16 PM CONTENT STRATEGIST): Impression: Chronic hyperlipidemia, controlled with statin therapy. Plan: Continue statin therapy as per primary care provider. Assessment & Plan (12/20/2021 8:41 AM CDT): Hyper lipidemia currently medically controled with medications. Continue medications as per PCP. Assessment & Plan (2021 2:15 PM CONTENT STRATEGIST): Hyperlipidemia chronic and controlled. Continue Lipitor Primary hypertension 07/15/2021 Assessment & Plan (01/28/2025 2:33 PM CDT): Hypertension chronic controlled. Continue current medical management. Assessment & Plan (09/29/2024 3:23 PM CONTENT STRATEGIST): Impression: Chronic and stable. Plan: Continue Lasix lisinopril and metoprolol Assessment & Plan (01/07/2023 9:33 AM CDT): Chronic stable hypertension. Continue current medical management. Assessment & Plan (06/25/2022 5:16 PM CONTENT STRATEGIST): Impression: Chronic stable hypertension, controlled medications. Blood pressure stable. Plan: Continue blood pressure management as per primary care provider. Assessment & Plan (2021 2:15 PM CONTENT STRATEGIST): Hypertension chronic and controlled. Continue current medical [...] therapy. Assessment & Plan (2021 2:16 PM CONTENT STRATEGIST): Patient has ischemic rest pain with gangrenous [...] understands and agrees to proceed. Atherosclerosis of [place] ar teries of extremities with intermittent claudication, [...] duplex. Assessment & Plan (09/29/2024 3:22 PM CONTENT STRATEGIST): Impression: Patient is status post right common [...] extremity. Assessment & Plan (06/24/2024 9:55 AM CONTENT STRATEGIST): Over the past several months has had [...] duplex. Assessment & Plan (06/25/2022 5:15 PM CONTENT STRATEGIST): Impression: Patient is status post right common [...] artery disease of n ative artery of [place] heart with stable angina pectoris 05/01/2021 Myocardial infarction Overview (07/12/2021): Two thousand twelve and 05/15/2021 status post 2 stents on 05/15/2021 Preop cardiovascular exam Cellulitis of right foot Encounters Date Type Department Care Team Description 04/05/2025 11:00 AM CDT Office Visit [facility] Vascular and Vein Surgery [address] [place] [phone] Charito Michael NP Aftercare following surgery of the circulatory system (Primary Dx); Atherosclerosis of [place] arteries of extremities with intermittent claudication, right leg; Mixed hyperlipidemia; Primary hypertension 04/05/2025 9:50 AM CDT - 04/05/2025 11:59 PM CDT Hospital Encounter [facility] Medical Office Building [address] [place] [address] Aftercare following surgery of the circulatory system Discharge Disposition: Discharge to home or self care 04/05/2025 9:50 AM CDT - 04/05/2025 11:59 PM CDT Hospital Encounter [facility] Office Building [address] [place] [address] Aftercare following surgery of the circulatory system [...] Right Procedure: ANGIOGRAPHY - UNILATERAL EXTREMITY S&I 96473; Surgeon: Leodan Anthony MD; Location: [facility] CARDIAC MANAGER PERSONNEL SELECTION; Service: Vascular; Laterality: Right; CARDIAC CATHETERIZATION 12/28/2024 Right Procedure: THROMBECTOMY, MECHANICAL, PRIMARY NON CORONARY, INITIAL VESSEL, ARTERY OR GRAFT 10156; Surgeon: Leodan Anthony MD; Location: [facility] CARDIAC MANAGER PERSONNEL SELECTION; Service: Vascular; Laterality: Right; CARDIAC CATHETERIZATION 12/28/2024 Right Procedure: TRANSCATHETER LYTIC ARTERIAL W/SI, [place] [address]; Surgeon: Leodan Anthony MD; Location: [facility] CARDIAC MANAGER PERSONNEL SELECTION; Service: Vascular; Laterality: Right; CARDIAC CATHETERIZATION 12/29/2024 Right Procedure: ANGIOGRAPHY - UNILATERAL EXTREMITY S&I 73822; Surgeon: Leodan Anthony MD; Location: [facility] CARDIAC MANAGER PERSONNEL SELECTION; Service: Vascular; Laterality: Right; Medical devices from this surgery are in the Medical Devices section. CARDIAC CATHETERIZATION 12/29/2024 N/A Procedure: STOKER MECHANIC FEM-POP, UNILATERAL, FIRST VESSEL 40067; Surgeon: Leodan Anthony MD; Location: [facility] CARDIAC MANAGER PERSONNEL SELECTION; Service: Vascular; Laterality: N/A; Medical devices from this surgery are in the Medical Devices section. CARDIAC CATHETERIZATION 12/29/2024 N/A Procedure: STOKER MECHANIC tib-per unilateral, first vessel; Surgeon: Leodan Anthony MD; Location: [facility] CARDIAC MANAGER PERSONNEL SELECTION; Service: Vascular; Laterality: N/A; Medical devices from this surgery are in the Medical Devices section. CARDIAC CATHETERIZATION 12/29/2024 N/A Procedure: Lytic FU and DC CATH ART OR VENOUS 33931; Surgeon: Leodan Anthony MD; Location: [facility] CARDIAC MANAGER PERSONNEL SELECTION; Service: Vascular; Laterality: N/A; Medical devices from [...] drink = 0.6 oz pur e alcohol) [facility] Utilities Answer Date Recorded In the past 12 months has [employer], oil, or water [employer] threatened to shut off services in your home? No 12/28/2024 Social Connection and Isolation Panel Answer Date Recorded In a typical week, how many times do you talk on the phone with family, friends, or neighbors? More than three times a week 12/28/2024 How often do you get togethe r with friends or relatives? Twice a week 12/28/2024 How often do you attend [facility] or alevism services? More than 4 times per year 12/28/2024 Do you belong to any clubs o r organizations such as latter-day groups, unions, fraternal or athletic groups, or [...] any time in the past 12 [place], were you homeless or living in a prison (including now)? 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 on file Not on file Not [...] Completed 12/27/2024 Medical Devices Implanted Type Area Government Minister Device Identifier Shelf Expiration Date Model / Serial / Lot Hinson Vascular 17340-03 Perclose 6fr Suture Mediate Knot Push Vascular Device Closure - S0 - [id number] Implanted:Qty: 1 on 05/15/2021 by Gunner Pinto MD at [facility] Other - see comments Hinson Vascular 02/06/2023 [id number] / 0 / [id number] [employer] Brandon [id number] Synergy Xd Monorail 2.5mm 48mm 144cm Delivery System 1 Access - S0 - [id number] Implanted:Qty: 1 on 05/15/2021 by Gunner Pinto MD at [facility] Stent [employer] Brandon 12/20/2022 [id number] / 0 / [id number] [employer] Brandon [id number] Synergy Xd Monorail 3.5mm 38mm 144cm Delivery System 1 Access - S0 - [id number] Implanted:Qty: 1 on 05/15/2021 by Gunner Pinto MD at [facility] Stent [employer] Brandon 10/25/2022 [id number] / 0 / [id number] [place] Peripheral Vascular [id number] E-Luminexx Safe Performaxx 7mm 6fr 60mm 80cm Delivery System - [id number] Implanted:Qty: 1 on 07/15/2021 by Leodan Anthony MD at [facility] Peripheral Vascular 07/13/2023 [id number] / / [id number] [employer] [id number] Jackson 6mm 80cm 60cm Removable Ring Stretch Thin Wall Graft - [id number] - [id number] Implanted:Qty: 1 on 08/21/2021 by Leodan Anthony MD at [facility] Wl [employer] [id number] 12/02/2024 [id number] / [id number] / Cardona [employer].com [id number] Vascu-Guard 8x.8cm Peripheral Patch Vascular Bovine Pericardium - [id number] Implanted:Qty: 1 on 08/21/2021 by Leodan Anthony MD at [facility] Iptivia [id number] 04/17/2026 [id number] / / [id number] [place] Vascular System Closure Repair Femoral Artery Suture Mediated Perclose Prostyle 43705-32 - [id number] Implanted:Qty: 1 on 12/29/2024 by Leodan Anthony MD at [facility] [employer]inson Vascular 11/07/2026 [id number] / / [id number] Procedures Procedure Name Priority Date/Time Associated Diagnosis [...] Study Date: 04/05/2025 9:56:00 AM Gender: M Inspector Casing: Arlyn Mata RN/RVT Ref Provider: LEODAN ANTHONY [...] mmHg Lt Brachial Pressure 163 mmHg Rt STOKER MECHANIC Pressure 93 mmHg Lt STOKER MECHANIC Pressure 225 mmHg Rt DPA Pressure 95 [...] Study Date: 04/05/2025 9:56:00 AM Gender: M Inspector Casing: Arlyn Mata RN/RVT Ref Provider: LEODAN ANTHONY Quality: Adequate Order Provider: LEODAN ANTHONY PROCEDURES: Arterial Report: Ankle - Brachial Index Doppler exam. INDICATIONS: Z48.812 Encounter for surgical aftercare following surgery on thecirculatory system. HISTORY: COMPARISONS: The previous exam was completed on 01/26/2025 RT PT/DP .82/.83 LT PT/DP.57/.53. MEASUREMENTS: Right Value Left Value Rt Brachial Pressure 164 mmHg Lt Brachial Pressure 163 mmHg Rt STOKER MECHANIC Pressure 93 mmHg Lt STOKER MECHANIC Pressure 225 mmHg Rt DPA Pressure 95 mmHg Lt DPA Pressure 229 mmHg Rt 1st Digit Pressure 32 mmHg Lt 1st Digit Pressure 50 mmHg Rt PT MARIA ESHTER Resting 0.57 Lt PT MARIA ESTHER Resting [...] Date: 04/05/2025 10:00:52 AM Ht(Inch): Wt(Lb): BSA: Inspector Casing: ARLYN MATA Provider: LEODAN ANTHONY Quality: Adequate Ref Provider: LEODAN ANTHONY PROCEDURES: Arterial Report: A non-invasive vascular imaging study of the right lower extremity arteries and bypass graft was performed using B-mode ultrasound, color flow, and spectral Doppler. INDICATIONS: Z48.812 Encounter for surgical aftercare following surgery on the circulatory system. HISTORY: S/P DCBA RIGHT AMBULANCE ATTENDANT,PFA AND PROX ANAST 12/29/24 S/P THROMB RT PFA-TPT BPG 12/28/24 S/P ENDART RT AMBULANCE ATTENDANT; RT PFA-TPT BPG 08/21/21 S/P STENT RT EIA 07/15/21. COMPARISONS: The previous exam was completed on 01/26/25. MEASUREMENTS: Right Value Aorta Prx PSV 0.00 cm/sec GRAFTS: Right Value Location RT PFA-TPT BPG Rt BPG Inflow PSV AMBULANCE ATTENDANT 58 PFA 299 cm/sec Rt Anast Prx [...] Date: 04/05/2025 10:00:52 AM Ht(Inch): Wt(Lb): BSA: Inspector Casing: ARLYN MATA Provider: LEODAN ANTHONY Quality: Adequate Ref Provider: LEODAN ANTHONY PROCEDURES: Arterial Report: A non-invasive vascular imaging study of the right lowerextremity arteries and bypass graft was performed using B-mode ultrasound, colorflow, and spectral Doppler. INDICATIONS: Z48.812 Encounter for surgical aftercare following surgery on thecirculatory system. HISTORY: S/P DCBA RIGHT AMBULANCE ATTENDANT,PFA AND PROX ANAST 12/29/24 S/P THROMB RT PFA-TPT BPG 12/28/24 S/P ENDART RT AMBULANCE ATTENDANT; RT PFA-TPT BPG 08/21/21 S/P STENT RT EIA 07/15/21. COMPARISONS: The previous exam was completed on 01/26/25. MEASUREMENTS: Right Value Aorta Prx PSV 0.00 cm/sec GRAFTS: Right Value Location RT PFA-TPT BPG Rt BPG Inflow PSV AMBULANCE ATTENDANT 58 PFA 299 cm/sec Rt Anast Prx [...] signed by Santo NUNEZ T: Report ID: [id number] Reading Location: [place] [address] Procedure Note Santo Tamayo MD - 12/27/2024 EXAM DESCRIPTION: CTA ABDOMINAL AORTA AND BILATERAL ILIOFEMORAL RUNOFF REASON FOR STUDY: Claudication or leg ischemia, occluded graft, limb ischemia Claudication or leg ischemia, occluded graft, limb ischemia. 60-fsfq-zxctwsm past medical history of PVD status post [...] signed by Santo NUNEZ T: Report ID: [id number] Reading Location: [place] [address] Charito Michael NP IMG CT PROCEDURES Final Result from Last 3 Months or Most Recently Relevant to Health [place] [address] UHC MEDICARE ADVANTAGE Advance Directives For more information, please contact: [phone] * Full Code (Latest Code Status on [...] 11:31 AM 08/17/2021 1:15 PM Care Teams Timber Framer Helper Relationship Specialty Start Date End Date Jordi Hernandez MD [address] [place] [address] PCP - General Family Practice 09/29/24 Eric Baker DO [address] [place] [address] Referring Physician Cardiology 05/01/21 Leodan Anthony MD [address] [facility] [address] [facility] [address] [place] [address] Surgeon Vascular Surgery 08/01/21
--- OUTSIDE RECORDS SUMMARY | 2025-06-01 10:56 | XMS_ITS | Clinical Summary ---
Author Organization [facility] Address [facility] [place] [address] Care Team Providers Care Claims Director Name Role Phone Unavailable Primary Care Provider [...] (166 lb 8 oz) 07/11/2012 11:47 AM RETAIL AND RESTAURANT Height 167.6 cm (5' 6) 07/11/2012 11:47 AM RETAIL AND RESTAURANT Body Mass Index 26.87 07/11/2012 11:47 AM RETAIL AND RESTAURANT Plan of Treatment Health Maintenance Due Date [...]
== END 2025-06-01 10:00 | disposition home or self-care (01) ==
PROVIDERS: PCP Family Medicine; Visit Provider Internal Medicine Hematology & Oncology
DX: C15.5 Malignant neoplasm of lower third of esophagus (principal); R91.8 Other nonspecific abnormal finding of lung field; J90 Pleural effusion, not elsewhere classified; K76.0 Fatty (change of) liver, not elsewhere classified
CPT/HCPCS: 71260; 74177; Q9967